=== PATIENT | male | born 1955 | race Caucasian/White ===

== ENCOUNTER 2024-05-27 00:23 | Day surgery (SDC) | payer MEDICARE, SELFPAY ==
[2024-05-14 15:21] VITALS: BMI 26.7
[2024-05-27 06:15] VITALS: BP 162/64; PULSE 77; RESP 16; TEMP 36.4; O2SAT 100; BMI 27.5
[2024-05-27] MEDS: LACTATED RINGERS 1,000 ML 150 ML IV CONT (06:44)
--- NOTE | 2024-05-27 06:52 | WPDANESEPPF ---
Anes - Initial Pre Proc Eval Procedure: Operation Date: 05/27/24 07:30 Proposed Procedures p Screening Colonoscopy - Issa Myoer MD Date/Time: 05/27/24 06:52 Surgeon: Issa Moyer MD Pre Op Diagnosis: family history malignant neoplasm digestive organs Patient Data Age: 68 Gender: M Height: 1.8 m Weight: 89.6 kg Last Vital Signs Temp 36.4 C L 05/27/24 06:15 Pulse 77 05/27/24 06:15 Resp 16 05/27/24 06:15 BP 162/64 H 05/27/24 06:15 Pulse Ox 100 05/27/24 06:15 O2 Del Method Room Air 05/27/24 06:15 Allergies Allergy/AdvReac Type Severity Reaction Status Date / Time No Known Allergies Allergy Verified 05/27/24 06:24 Home Medications ?Medication ?Instructions ?Recorded ?Confirmed ?Type metoprolol succinate 50 mg See Rx Instructions .Route 10/19/23 05/27/24 Rx tablet,extended release 24 hr .COMPLEX #90 tabs hydrochlorothiazide 25 mg tablet 12.5 mg (1/2 x 25 mg) PO DAILY #45 11/22/23 05/27/24 Rx tabs simvastatin 20 mg tablet 20 mg PO DAILY #90 tabs 03/18/24 05/27/24 Rx losartan 25 mg tablet See Rx Instructions .Route 03/22/24 05/27/24 Rx .COMPLEX #90 tabs lansoprazole 30 mg capsule,delayed 30 mg PO DAILY #90 caps 04/15/24 05/27/24 Rx release Patient hx anesthesia problems: none Family hx anesthesia problems: none Results Review: All pre-operative results and documents have been reviewed as part of the pre-operative evaluation. [facility] Past Medical History Medical History (Updated 05/27/24 @ 06:52 by Zheng Phillips MD) Essential (primary) hypertension HLD (hyperlipidemia) Obesity PVCs (premature ventricular contractions) Impaired fasting glucose Family History Family History Other Carcinoma of colon Social History Social History Smoking status: Never smoker Alcohol intake: never Substance use: never Substance use type: does not use Living arrangements: with family Occupation/Education: retired Gender identity (if verbalized by the patient): Male Sexual Orientation (if Verbalized by the Patient): Straight or Heterosexual Spiritual care concerns: No Anes - Eval Final PreProcedure Day of Procedure 05/27/24 06:52 Patient weight: overweight Heart: regular rate and rhythm Lungs: clear to auscultation Airway: Mallampati scale class II Neurological: alert and oriented Last oral intake: >/= 8 hours ASA classification: II Emergent: no Anesthetic plan: proceed Anesthesia type and monitoring: general GIVS and standard monitoring Results Review: All pre-operative results and documents have been reviewed as part of the pre-operative evaluation. Informed Consent: The patient's anesthetic plan and its attendant risks and benefits were discussed with the patient/family/POA. Questions were solicited and answers provided to the satisfaction of the patient/family/POA.
--- NOTE | 2024-05-27 07:35 | PM.IMHP ---
H&P: HPI History of Present Illness Date/Time: 05/27/24 07:35 Chief Complaint: History of colon polyps -family history of colon cancer Narrative: The patient has a history of colonic polyps, the last colonoscopy was 8 years ago. In addition, his father had colorectal cancer at age 70. Review of Systems Review of Systems: All systems reviewed & are unremarkable except as noted in HPI and below PMFSH Past Medical History Medical History (Updated 05/27/24 @ 07:37 by Issa Moyer MD) Essential (primary) hypertension HLD (hyperlipidemia) Obesity PVCs (premature ventricular contractions) Impaired fasting glucose Family History Family History Other Carcinoma of colon Social History Social History Smoking status: Never smoker Alcohol intake: never Substance use: never Substance use type: does not use Living arrangements: with family Occupation/Education: retired Gender identity (if verbalized by the patient): Male Sexual Orientation (if Verbalized by the Patient): Straight or Heterosexual Spiritual care concerns: No Meds Home Medications and Allergies Home Medications ?Medication ?Instructions ?Recorded ?Confirmed ?Type metoprolol succinate 50 mg See Rx Instructions .Route 10/19/23 05/27/24 Rx tablet,extended release 24 hr .COMPLEX #90 tabs hydrochlorothiazide 25 mg tablet 12.5 mg (1/2 x 25 mg) PO DAILY #45 11/22/23 05/27/24 Rx tabs simvastatin 20 mg tablet 20 mg PO DAILY #90 tabs 03/18/24 05/27/24 Rx losartan 25 mg tablet See Rx Instructions .Route 03/22/24 05/27/24 Rx .COMPLEX #90 tabs lansoprazole 30 mg capsule,delayed 30 mg PO DAILY #90 caps 04/15/24 05/27/24 Rx release Allergies Allergy/AdvReac Type Severity Reaction Status Date / Time No Known Allergies Allergy Verified 05/27/24 06:24 Vital Signs Vital Signs - 24 hr 05/27/24 06:15 Temperature 97.5 F L Pulse Rate 77 Respiratory Rate 16 Blood Pressure 162/64 H Pulse Oximetry 100 Oxygen Delivery Room Air Exam Const: General: cooperative and healthy appearing Resp: Effort & Inspection: normal respiratory effort and able to speak in complete sentences Auscultation: clear to auscultation bilaterally Cardio: Rate: regular rate Rhythm: regular rhythm GI: Inspection: normal to inspection GI Palp: No No hepatosplenomegaly present Auscultation: normal bowel sounds Rectal Exam: deferred Skin: General skin exam: normal color Psych: Appearance: grossly normal Mental Status: mental status grossly normal Assessment and Plan Assessment and plan (1) History of colonic polyps: Code(s): Z86.0100 - Personal history of colon polyps, unspecified Status: Acute Assessment and Plan: The patient is deemed a good candidate for the procedure. Consent signed. Will proceed.
[2024-05-27 08:06] VITALS: BP 130/80; PULSE 56; RESP 19; O2SAT 100
[2024-05-27 08:16] VITALS: BP 136/79; PULSE 52; RESP 20; O2SAT 100
[2024-05-27 08:26] VITALS: BP 154/82; PULSE 54; RESP 18; O2SAT 100
== END 2024-05-27 08:43 | disposition home or self-care (01) ==
PROVIDERS: PCP Family Medicine; Referring Provider Family Medicine; Visit Provider Internal Medicine Gastroenterology
PROC: 0DJD8ZZ Inspection of Lower Intestinal Tract, Via Natural or Artificial Opening Endoscopic (ICD-10-PCS; CPT 45378; principal; 2024-05-27 07:30)
DX: Z12.11 Encounter for screening for malignant neoplasm of colon (principal); Z80.0 Family history of malignant neoplasm of digestive organs; D12.2 Benign neoplasm of ascending colon; K57.30 Diverticulosis of large intestine without perforation or abscess without bleeding; D12.3 Benign neoplasm of transverse colon; I10 Essential (primary) hypertension; E78.5 Hyperlipidemia, unspecified
CPT/HCPCS: 45380; 45385; 88305; J2003; J2704; J7120

== ENCOUNTER 2024-06-11 09:37 | Outpatient (CLI) | payer MEDICARE, SELFPAY ==
--- NOTE | ~2024-06-11 | US_ITS ---
Limited Abdominal Sonogram: Real-time sonographic imaging of the right upper quadrant was performed. Clinical History: Cholelithiasis Findings: The liver appears normal with no evidence of mass lesion or bile duct dilatation. Main por eduardo vein demonstrates normal direction of flow. The gallbladder is well distended, and demonstrates e chogenic, shadowing gallstones and probable gallbladder sludge. No gallbladder wall thickening. The c ommon bile duct measures 4 mm. The visualized pancreas, aorta, and IVC are unremarkable. Right renal cyst noted. Impression: Cholelithiasis and gallbladder sludge. Reviewed, dictated and finalized at location . Impression: Cholelithiasis and gallbladder sludge.
== END 2024-06-11 09:38 | disposition home or self-care (01) ==
LOC: MICIMG 09:38
PROVIDERS: PCP Family Medicine; Visit Provider Surgery
DX: K80.20 Calculus of gallbladder without cholecystitis without obstruction (principal)
CPT/HCPCS: 76705

== ENCOUNTER 2024-06-11 11:23 | Outpatient (CLI) | payer MEDICARE, SELFPAY ==
--- NOTE | ~2024-06-11 | XR_ITS ---
EXAMINATION: XR chest 2V DATE: 06/11/2024 14:10 INDICATION: Colon polyps. Preoperative evaluation. TECHNIQUE: PA and lateral views of the chest were obtained. COMPARISON: None FINDINGS: Small calcified nodule at the right apex consistent with old granulomatous disease. No other airspace opacities, pulmonary edema, pleural effusion or pneumothorax. The cardiomediastinal silhouette is no rmal. Mild to moderate thoracic spondylosis with bridging osteophytes at multiple levels consistent w ith diffuse idiopathic skeletal hyperostosis (DISH). IMPRESSION: 1. No acute cardiopulmonary disease. Reviewed, dictated and finalized at location A.
--- NOTE | 2024-06-11 12:09 | PC.NURSE ---
Report to the Outpatient Waiting Room, entrance under the green pavilion located off [facility], at time ___10:00AM____ on date ___06/21/24____. Planned Procedure Time: ___12:00PM .? Time changes happen often and if your time is changed the preop area will call you the afternoon before. - You and your visitor will be asked to self-screen and do not enter if you have any COVID symptoms. Please call surgeon if you need to reschedule. - A mask is optional within the hospital at this time. BOWEL PREP/CLEAR LIQUIDS DAY BEFORE SURGERY. Patients may have clear liquids (water, carbonated beverages, clear teas, apple juice) until 3 hours prior to surgery with a maximum of 20 ounces. - No smoking, or chewing tobacco (or any form of nicotine). No chewing gum, candy or mints. Take only the following medications with a SIP of water on the morning of surgery: NONE DO NOT STOP ANY OF YOUR OTHER PRESCRIPTION MEDICATIONS PRIOR TO SURGERY EXCEPT THE FOLLOWING Hold all vitamins and supplements for 3 days per anesthesiologist.-LAST DOSE 06/17/24 Please no make-up, nail irish, hairspray, perfume, deodorant, or body powder the day of surgery.? No jewelry (including any body piercings) or valuables the day of surgery, leave them at home.? Please take a shower or bath the night before, or the morning of, surgery with an antibacterial soap.? Wear comfortable, loose fitting clothing.? - Jewelry must be removed prior to entering the operating room.? Rings and piercings that are not removed may be cut off. - The hospital will not accept responsibility for valuables.? - Please leave all valuables, including medications, at home the day of surgery. If you are going home after surgery, a licensed regional company flatbed truck driver must drive you home.? - NO public transportation without another adult if you receive anesthesia. - We recommend that an adult stay with you for 24 hours following discharge. - We also recommend that you do not drive, make important decision, drink alcoholic beverages, or take any drugs that were not prescribed by your health care provider for at least 24 hours after your discharge time. Follow any additional instructions given to you from your surgeon. BOWEL PREP ENSURE BUNDLE ANTIBIOTICS DAY BEFORE SURGERY HIBICLENS SHOWER DAY BEFORE AND MORNING OF SURGERY Telephone instructions given to ____PATIENT & WIFE and asked if any additional questions and then verbalized understanding. Patient advised to call surgeon office or pre surgery nurse liaison [phone] if any additional questions.
--- NOTE | 2024-06-11 12:44 | ECG_ITS ---
Test Date: 2024-06-11 13:00:42 Measurements Intervals [place] Rate: 59 P: 0 WA: 157 QRS: 43 QRSD: 99 T: 57 QT: 446 QTc: 442 Interpretive Statements SINUS BRADYCARDIA WITH SINUS ARRHYTHMIA OTHERWISE NORMAL ECG Electronically Signed On 06-12-2024 12:07:37 CDT by Arden Whatley M.D.
--- OUTSIDE RECORDS SUMMARY | 2024-06-11 13:10 | XMS_ITS | Encounter Summary ---
Author Organization [facility] Address 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
--- OUTSIDE RECORDS SUMMARY | 2024-06-11 13:10 | XMS_ITS | Clinical Summary ---
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
[2024-06-11 14:22] LABS: Basophils Percent Auto 0.5 % (0.2-1.2); Eosinophils Absolute Auto 0.2 K/mm3 (0-0.3); Eosinophils Percent Auto 2.2 % (0-4.4); Hematocrit 46.5 % (42.0-52.0); Hemoglobin 15.5 g/dL (14.0-18.0); Immature Granulocyte Absolute 0.02 K/mm3 (0.00-0.031); Immature Granulocyte Percent A 0.2 % (0-0.5); Lymphocytes Absolute Auto 1.51 K/mm3 (0.9-3.2); Lymphocytes Percent Auto 17.8 % (18.3-44.2); Mean Corpuscular HGB Conc 33.3 g/dl (32-36); Mean Corpuscular Hemoglobin 30.9 pg (26-34); Mean Corpuscular Volume 92.6 fl (80-100); Mean Platelet Volume 12.3 fl (7.4-10.4); Monocytes Absolute Auto 0.7 K/mm3 (0.1-0.6); Monocytes Percent Auto 7.8 % (2.6-8.5); Neutrophils Absolute Auto 6.1 K/mm3 (1.3-6.7); Neutrophils Percent Auto 71.5 % (45.5-73.1); Platelet Count Result 236 k/mm3 (150-375); Red Blood Count 5.02 M/mm3 (4.6-6.20); Red Cell Distribution Width 13.2 % (11.5-14.5); White Blood Count 8.5 K/mm3 (4.5-10.0)
[2024-06-11 14:33] LABS: Anion Gap 6 mmol/L (4-12); Blood Urea Nitrogen 11 mg/dL (9-20); Carbon Dioxide 31 mmol/L (22-30); Chloride 99 mmol/L (98-107); Estimated Glomerular Filt Rate > 60; Glucose 76 mg/dL (65-110); Sodium 136 mmol/L (137-145)
== END 2024-06-11 11:24 | disposition home or self-care (01) ==
LOC: ANHSURGERY 11:30
PROVIDERS: PCP Family Medicine; Visit Provider Surgery
DX: K63.5 Polyp of colon (principal); I49.8 Other specified cardiac arrhythmias
CPT/HCPCS: 36415; 71046; 80048; 85025; 86850; 86900; 86901; 93005

== ENCOUNTER 2024-06-21 16:04 | Inpatient (IN) | payer MEDICARE, SELFPAY ==
[2024-06-11 11:48] VITALS: BP 134/72; PULSE 60; RESP 16; TEMP 36.8; O2SAT 100; BMI 27.6
--- NOTE | 2024-06-13 09:28 | PC.NURSE ---
Addendum entered by Karla Olson RN 06/13/24 09:38: PHONED PATIENT AND REVIEWED PRE-OP INSTRUCTIONS. HE RELAYS UNDERSTANDING. PT TO MUTUAL FUND ANALYST PAPER COPY TODAY HE WILL BE NEAR THE HOSPITAL. Original Note: Report to the Outpatient Waiting Room, entrance under the green pavilion located off [facility], at time ___10:00AM____ on date ___06/21/24____. Planned Procedure Time: ___12:00PM .? Time changes happen often and if your time is changed the preop area will call you the afternoon before. - You and your visitor will be asked to self-screen and do not enter if you have any COVID symptoms. Please call surgeon if you need to reschedule. - A mask is optional within the hospital at this time. Patients may have clear liquids (water, carbonated beverages, clear teas, apple juice) until 3 hours prior to surgery (06/21/24) with a maximum of 20 ounces. - No food from midnight until time of surgery and no smoking, or chewing tobacco (or any form of nicotine). No chewing gum, candy or mints. Take only the following medications with a SIP of water on the morning of surgery: ____NONE DO NOT STOP ANY OF YOUR OTHER PRESCRIPTION MEDICATIONS PRIOR TO SURGERY EXCEPT THE FOLLOWING Hold all vitamins and supplements for 3 days per anesthesiologist.- LAST DOSE 06/17/24 Please no make-up, nail mohawk, hairspray, perfume, deodorant, or body powder the day of surgery.? No jewelry (including any body piercings) or valuables the day of surgery, leave them at home.? Please take a shower or bath the night before, or the morning of, surgery with an antibacterial soap.? Wear comfortable, loose fitting clothing.? - Jewelry must be removed prior to entering the operating room.? Rings and piercings that are not removed may be cut off. - The hospital will not accept responsibility for valuables.? - Please leave all valuables, including medications, at home the day of surgery. If you are going home after surgery, a licensed class a truck driver must drive you home.? - NO public transportation without another adult if you receive anesthesia. - We recommend that an adult stay with you for 24 hours following discharge. - We also recommend that you do not drive, make important decision, drink alcoholic beverages, or take any drugs that were not prescribed by your health care provider for at least 24 hours after your discharge time. Follow any additional instructions given to you from your surgeon. BOWEL PREP DAY BEFORE SURGERY ENSURE BUNDLE PER DR [place]LEY ANTIBIOTICS DAY BEFORE SURGERY HIBICLENS SHOWER DAY BEFORE AND MORNING OF SURGERY Telephone instructions given to ___PATIENT AND WIFE and asked if any additional questions and then verbalized understanding. Patient advised to call surgeon office or pre surgery nurse liaison [phone] if any additional questions.
[2024-06-21] VITALS (14 sets, daily range): BP systolic 88–151; BP diastolic 42–73; PULSE 61–80; RESP 12–18; TEMP 36.1–36.5; O2SAT 99–100; BMI 27.1
--- OUTSIDE RECORDS SUMMARY | 2024-06-21 00:12 | XMS_ITS | Clinical Summary ---
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
--- OUTSIDE RECORDS SUMMARY | 2024-06-21 00:12 | XMS_ITS | Encounter Summary ---
Author Organization [facility] Address 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
--- OUTSIDE RECORDS SUMMARY | 2024-06-21 00:12 | XMS_ITS | Continuity of Care Document ---
Author Organization [facility] Address [address] [place] [address] Phone Care Team Providers Care Supervisor Electrolytic Tinning Name Role Phone Administrative, Provider Unavailable Unavail able Allergies, Adverse Reactions, Alerts Substance Reaction Status Criticality No Known Drug Allergies Active No I nformation No Known Allergies Active No Inform ation Procedures Procedure Date Medical Record Copy Medical Record Copy Per Page Affidavit Office/outpatient visit,est, mod 2011 Supplemental Report Medical Record Copy Medical Record Copy Per Page Affidavit Office/outpatient visit,est, mod 2010 Supplemental Report Office/outpatient visit,est, mod 2010 Supplemental Report Office consultation, moderate 1 Advance Directives Directive Yes / No Effective Date File Name No Information Encounters Encounter Description Practice Location Reason(s) For Visit Diagnoses Date Provider Providers Copied on Encounter [facility], [address] [place] [address], [place], [place], [id number], [place] tel:[phone] [facility] No Information 2 Administrati ve Provider. [address] [facility], [address], [place], [place], [id number], [place]. tel:[phone] Office/outpa tient visit,est, mod [facility], [address], [id number], [place] tel:[phone] [facility] ROTATOR CUFF RUPTURESPRAIN SUPRASPINATUSS PRAIN INFRASPINATUS 2 Darwin Calzada. [address], [id number], [place]. tel:[phone] [facility], [address] [place] [address], [place], [place], [id number], [place] tel:[phone] [facility] No Information 2 Administrati ve Provider. [address], [id number], [place]. tel:[phone] Office/outpa tient visit,est, [facility], [address] [place] [address], [id number], [place] tel:[phone] [facility] ROTATOR CUFF RUPTURESPRAIN SUPRASPINATUS 1 Darwin Calzada. [address] [address], [place], [place], [id number], [place]. tel:[phone] Office/outpa tient visit,est, [facility], [address] [place] [address], [place], [place], [id number], [place] tel:[phone] [facility] ROTATOR CUFF RUPTURESPRAIN SUPRASPINATUSS PRAIN INFRASPINATUS 1 Darwin Calzada. [address] [address], [place], [place], [id number], [place]. tel:[phone] Office consultation , [facility], [address] [place] [address], [id number], [place] tel:[phone] [facility] ROTATOR CUFF RUPTUREBICEPS TENDON RUPTURESPRAIN SUPRASPINATUSB ICIPITAL TENOSYNOVITIS 1 Darwin Calzada. [address], [id number], [place]. tel:[phone] Family History Family Member Type Diagnosis Age At Onset No Information Payers Payer name Insurance type Covered green party ID Authoriza tion(s) No Information Social History Type Description Quantity Date Captured Comments Sex Male Smoking Status No Information Chief Complaint And Reason For Visit No Information Reason For Referral Reason For Referral No Information History Of Present Illness Encounter Date Complaint History Of Prese nt Illness No Information Functional Status Date Functional Assessmen t No Information Instructions Date Instruction Additional Infor mation No Information Assessments Type Assessment Date No Information Patient Care Teams Name Effective Dates (start - stop) Status Members No Information
--- NOTE | 2024-06-21 10:41 | WPDANESEPPF ---
Anes - Initial Pre Proc Eval Procedure: Operation Date: 06/21/24 12:00 Proposed Procedures p Hand Assisted Laparoscopic Right Colectomy - Ruddy Huang MD Date/Time: 06/21/24 10:41 Surgeon: Ruddy Huang MD Pre Op Diagnosis: ascending colon polyp Patient Data Age: 68 Gender: M Height: 1.78 m Weight: 87.4 kg Last Vital Signs Temp 36.8 C 06/11/24 11:48 Pulse 60 06/11/24 11:48 Resp 16 06/11/24 11:48 BP 134/72 06/11/24 11:48 Pulse Ox 100 06/11/24 11:48 O2 Del Method Room Air 06/11/24 11:48 Allergies Allergy/AdvReac Type Severity Reaction Status Date / Time No Known Allergies Allergy Verified 06/11/24 11:35 Home Medications ?Medication ?Instructions ?Recorded ?Confirmed ?Type metoprolol succinate 50 mg See Rx Instructions .Route 10/19/23 06/11/24 Rx tablet,extended release 24 hr .COMPLEX #90 tabs hydrochlorothiazide 25 mg tablet 12.5 mg (1/2 x 25 mg) PO DAILY #45 11/22/23 06/11/24 Rx tabs simvastatin 20 mg tablet 20 mg PO DAILY #90 tabs 03/18/24 06/11/24 Rx losartan 25 mg tablet See Rx Instructions .Route 03/22/24 06/11/24 Rx .COMPLEX #90 tabs lansoprazole 30 mg capsule,delayed 30 mg PO DAILY #90 caps 04/15/24 06/11/24 Rx release cholecalciferol (vitamin D3) 125 5,000 unit PO DAILY 06/11/24 06/11/24 History mcg (5,000 unit) capsule vitamin E mixed 400 unit capsule 400 unit PO 3XW 06/11/24 06/11/24 History ciprofloxacin HCl 500 mg tablet See Rx Instructions .Route 06/19/24 Rx .COMPLEX #1 tablet metronidazole 500 mg tablet See Rx Instructions .Route 06/19/24 Rx .COMPLEX #3 tabs Patient hx anesthesia problems: none Family hx anesthesia problems: none Results Review: All pre-operative results and documents have been reviewed as part of the pre-operative evaluation. [facility] Past Medical History Medical History (Updated 06/03/24 @ 09:56 by Maricarmen Hurtado CMA) Essential (primary) hypertension Gallbladder disorder Asthma Arthritis HLD (hyperlipidemia) Obesity PVCs (premature ventricular contractions) Impaired fasting glucose Family History Family History Father Carcinoma of colon Heart disease Hypertension Social History Social History Smoking status: Never smoker Alcohol intake: never Substance use: never Substance use type: does not use Do You Feel Safe in your Home?: Yes Lack of Transportation: No Lack of Food: Never True Current Housing: I Have Housing Concerned About Future Housing: No Difficulty Paying Gas/Electric Bills: No Difficulty Paying for Meds: No Currently Unemployed: No Education: High School Diploma/GED Difficulty w/ Childcare or Family Care: No Living arrangements: with family Occupation/Education: retired Gender identity (if verbalized by the patient): Male Sexual Orientation (if Verbalized by the Patient): Straight or Heterosexual Spiritual care concerns: No Anes - Eval Final PreProcedure Day of Procedure 06/21/24 10:41 Patient weight: overweight Heart: regular rate and rhythm Lungs: clear to auscultation Airway: Mallampati scale class II Neurological: alert and oriented Last oral intake: >/= 8 hours ASA classification: III Emergent: no Anesthetic plan: proceed Anesthesia type and monitoring: general ETT and standard monitoring Results Review: All pre-operative results and documents have been reviewed as part of the pre-operative evaluation. Informed Consent: The patient's anesthetic plan and its attendant risks and benefits were discussed with the patient/family/POA. Questions were solicited and answers provided to the satisfaction of the patient/family/POA.
[2024-06-21] MEDS: KETOROLAC 15 MG/ML VIAL (*BKC) IV PUSH (10:59)
[2024-06-21] MEDS: LACTATED RINGERS 1,000 ML 30 ML IV CONT ×3 (10:59→14:19)
[2024-06-21] MEDS: ACETAMINOPHEN 500 MG TABLET 1000 MG PO (10:59)
[2024-06-21] MEDS: ALVIMOPAN 12 MG CAPSULE PO (10:59)
--- NOTE | 2024-06-21 11:16 | WPDHPUPDATE1 ---
History and Physical Update Update Date/Time: 06/21/24 11:16 History and Physical has been reviewed, including an updated exam of the patient. There are NO changes in the patient's condition. Risks, benefits, and alternatives have been discussed and questions answered. Patient agrees to proceed with procedure.
--- NOTE | 2024-06-21 11:18 | WPDHPUPDATE1 ---
History and Physical Update Update Date/Time: 06/21/24 11:18 History and Physical has been reviewed, including an updated exam of the patient. There are NO changes in the patient's condition. Risks, benefits, and alternatives have been discussed and questions answered. Patient agrees to proceed with procedure.
[2024-06-21] MEDS: ceFAZolin 2 GM/D5W 50 ML 2 GM/50 ML BAG IVPB (11:48)
[2024-06-21] MEDS: metroNIDAZOLE 500 MG/ISO 100ML 500 MG/100 ML BAG 100 MG IVPB (12:05)
[2024-06-21] MEDS: BUPIVACAINE/EPINEPHRINE 0.5% 30 ML VIAL 50 ML INFILTRATE (12:17)
--- NOTE | 2024-06-21 14:59 | W.PM.PROC2 ---
Procedure Note - Detailed Date of Procedure 06/22/24 Pre-op Diagnosis ascending colon polyp Post-op Diagnosis Same Procedure Performed Hand access laparoscopic right colectomy with hand-sewn ileotransverse anastomosis Surgeon Ruddy Huang MD Parachute Line Tier Claudia Cuevas [employer] MANA[employer] SALES CONSULTANT Anesthesia General and Local Indications patient underwent screening colonoscopy and was found to have a 3 cm polyp very near the ileocecal valve that was unable to be resected with the colonoscope. 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 He is taken to surgery now for hand access laparoscopic right colectomy Findings polyp was not really palpable in the cecum. No other significant findings were noted Description of Procedure patient was taken to surgery and induced into general anesthesia. The abdomen is prepped and draped. Hand access incision was marked on the skin just above the umbilicus in the midline. Local was infiltrated in the skin and subcutaneous. Incision was made and dissection was carried down to the midline fascia. More local was infiltrated into the fascia and deep to the fascia. Fascia was then opened and extended the length of the wound. Peritoneum was opened and extended the length of the wound. An Ángel wound guard was placed in the wound. The GelPort was placed. With the hand in the abdomen a right lower quadrant 5 mm trocar was placed and insufflation was carried out. A left lower abdominal 5 mm port was also placed under direct visualization. The cecum and distal ileum more exposed. Using the LigaSure the base of the mesentery was divided so that there was access into the retroperitoneum. Using a combination of gentle blunt dissection as well as additional LigaSure, dissection was carried from a caudal to cephalad until the transverse colon mesentery was visible. I then opened the distal ileal mesentery and divided the mesentery up to the distal ileum where the proximal resection was planned. Dissection was then carried out in the right colon mesentery. The ileal colic artery was found. It was dissected and then divided with the LigaSure. We continued the mesenteric division up to the transverse colon mesentery. I then divided the lateral peritoneal attachments of the ascending colon. At the hepatic flexure, the Hepatocolic ligament was exposed and was divided with the LigaSure. I then exposed the transverse colon mesentery. We divided this with the LigaSure over to the right branch of the middle colic artery. This was divided with the LigaSure as well. I then divided the mesentery in this area up to the transverse colon proximal aspect. At this point, we had and a full colon mobilized that I stopped insufflation and removed the GelPort. The ascending colon, proximal transverse colon, distal ileum were eviscerated. I dissected some additional mesentery near the distal ileum and proximal transverse colon. I then used a TLC 75 stapler and divided both the distal ileum and the transverse colon with a single load. The right colon specimen was passed off to pathology in formalin. The 2 ends of bowel looked well vascularized. I made sure the mesentery to the distal ileum was not twisted. I then placed the distal ileum and proximal transverse colon in proximity to 1 another anticipating a [id number] but functional end-to-end anastomosis. The posterior outer layer was created with interrupted 4-0 silk Lembert sutures. Dry and crushing bowel clamps were placed both on the more proximal ileum and more distal transverse colon to avoid spillage. The ileum and transverse colon were opened opposite 1 another. Bidirectional running 4-0 chromic suture was then used to form 1st the posterior inner layer and then the anterior inner layer tying in the middle of the anastomosis. The 2 layer anastomosis was then finished with an anterior outer layer of 4-0 silk Lembert suture. All looked good, the bowel clamps had been removed. I dropped the anastomosis back in the abdomen. We replaced the GelPort and then reinsufflated the abdomen. We reviewed the areas of dissection and the anastomosis again laparoscopically. There was no sign of bleeding. The anastomosis looked quite healthy without any twisting of bowel or mesentery. We then evacuated CO2 and removed the GelPort and Nágel. The surgical team changed gown and gloves and a clean closure tray was used. The hand access port was closed at the fascial level with bidirectional running 0 PDS suture. Interrupted subcutaneous sutures of 3-0 Vicryl were then placed. The skin was loosely approximated with subcuticular 4-0 Vicryl interrupted suture. All skin wounds were then closed finally with a running 4-0 Monocryl skin suture. The wounds were dressed with Exofin surgical adhesive. Before awakening, the patient had straight cath as it had been noted his bladder was distended. He was then awakened, extubated, and taken to recovery in good condition. Sponge and needle counts were correct x2. Estimated Blood Loss -30 Drains No Packing No Pathology Yes (Right colon) Complications None Condition Stable Disposition PACU [facility] Billing Surgery - Charge Forward: Surgery Billing (Hand access laparoscopic right colectomy with hand-sewn anastomosis)
[2024-06-21] MEDS: fentaNYL CITRATE INJ (*CRX) 100 MCG/2 ML VIAL 25 MCG IV PUSH ×3 (15:12→15:30)
[2024-06-21] MEDS: ONDANSETRON INJ 4 MG/2 ML VIAL IV PUSH ×3 (15:52→23:37)
--- NOTE | 2024-06-21 17:24 | ADMGEN ---
This patient, Rylan Caro, was admitted to 3 Med Surg Room 310-01. Patient/family oriented to hospital policies and general routines including ID bracelet, bed and alarms, visiting hours, pain management, procedures, bathroom and other care routines, personal items, smoking policy, room service/diet, and visiting hours. Information on how to activate the Rapid Response Team has been discussed. Patient/Family are encouraged to report perceived risks to care and to ask questions if they do not understand what they are told or what they should do.
[2024-06-21] MEDS: LACTATED RINGERS 1,000 ML 100 ML IV CONT (18:07)
[2024-06-21] MEDS: IBUPROFEN IV 800 MG/200 ML 800 MG/200 ML BAG 400 MG IVPB (21:17)
[2024-06-22 00:30] VITALS: BP 112/63; PULSE 72; RESP 17; TEMP 36.5; O2SAT 98
[2024-06-22 05:31] VITALS: BP 135/67; PULSE 94; RESP 16; TEMP 36.8; O2SAT 99
[2024-06-22 06:09] LABS: Hematocrit 37.2 % (42.0-52.0); Hemoglobin 12.4 g/dL (14.0-18.0); Mean Corpuscular HGB Conc 33.3 g/dl (32-36); Mean Corpuscular Hemoglobin 31.2 pg (26-34); Mean Corpuscular Volume 93.7 fl (80-100); Mean Platelet Volume 11.9 fl (7.4-10.4); Platelet Count Result 208 k/mm3 (150-375); Red Blood Count 3.97 M/mm3 (4.6-6.20); Red Cell Distribution Width 13.3 % (11.5-14.5); White Blood Count 14.4 K/mm3 (4.5-10.0)
[2024-06-22 06:18] LABS: Anion Gap 7 mmol/L (4-12); Blood Urea Nitrogen 9 mg/dL (9-20); Calcium 8.5 mg/dL (8.4-10.2); Carbon Dioxide 28 mmol/L (22-30); Chloride 99 mmol/L (98-107); Estimated CRCL calculation 75 ml/min; Estimated Glomerular Filt Rate > 60; Glucose 120 mg/dL (65-110); Potassium 3.6 mmol/L (3.4-5.0); Sodium 134 mmol/L (137-145)
[2024-06-22 08:39] VITALS: PULSE 90
[2024-06-22] MEDS: METOPROLOL SUCCINATE EXT REL 50 MG TABCR BY MOUTH (08:39)
[2024-06-22] MEDS: PANTOPRAZOLE 40 MG TABLET PO (08:39)
[2024-06-22] MEDS: LOSARTAN POTASSIUM 25 MG TABLET BY MOUTH (08:39)
[2024-06-22] MEDS: hydroCHLOROthiazide 12.5 MG CAPSULE PO (08:41)
[2024-06-22 11:07] VITALS: BP 141/71; PULSE 81; RESP 16; TEMP 36.7; O2SAT 100
--- NOTE | 2024-06-22 12:09 | P.PNGS_ITS ---
Progress Note: A&P Assessment and Plan (1) Adenomatous colon polyp: Qualifiers: Colon location: ascending Qualified Code(s): D12.2 - Benign neoplasm of ascending colon Code(s): D12.6 - Benign neoplasm of colon, unspecified Status: Acute (2) History of partial surgical removal of colon: Code(s): Z90.49 - Acquired absence of other specified parts of digestive tract Status: Acute Assessment and Plan: Doing well postop day 1. Continue full liquids. Ambulate. Recheck labs and exam again tomorrow. Subjective Subjective Date/Time Seen: 06/22/24 12:09 Post Op day: 1 Patient reports: feels better, pain is less, voiding w/o difficulty, nausea (Las t night but much better this morning) and afebrile Exam GI: Inspection: non-distended and incision (Healing well) GI Palp: Yes Soft to palpation and Yes Tenderness to palpation present (GI) Auscultation: Hypoactive bowel sounds present Objective Data Vital Signs Vital Signs: Vital Signs - 24 hr 06/21/24 14:19 06/21/24 14:30 06/21/24 14:45 Temperature 36.1 C L Pulse Rate 69 62 62 Respiratory Rate 12 16 14 Blood Pressure 88/42 L 94/47 L 103/55 L Pulse Oximetry 100 100 100 Oxygen Delivery Simple Face Mask Simple Face Mask Simple Face Mask Oxygen Flow Rate 8 8 8 06/21/24 15:00 06/21/24 15:15 06/21/24 15:30 Temperature Pulse Rate 63 61 68 Respiratory Rate 12 16 16 Blood Pressure 103/52 L 108/50 L 112/50 L Pulse Oximetry 100 100 100 Oxygen Delivery Room Air Room Air Room Air Oxygen Flow Rate 06/21/24 15:45 06/21/24 15:59 06/21/24 16:25 Temperature 36.2 C L 36.2 C L Pulse Rate 80 67 71 Respiratory Rate 16 16 18 Blood Pressure 106/58 L 126/60 108/62 Pulse Oximetry 100 100 100 Oxygen Delivery Room Air Room Air Oxygen Flow Rate 06/21/24 16:40 06/21/24 17:10 06/21/24 18:10 Temperature 36.3 C L 36.1 C L 36.3 C L Pulse Rate 77 72 74 Respiratory Rate 18 18 18 Blood Pressure 118/60 113/62 129/66 Pulse Oximetry 99 100 100 Oxygen Delivery Oxygen Flow Rate 06/21/24 21:40 06/22/24 00:30 06/22/24 05:31 Temperature 36.3 C L 36.5 C 36.8 C Pulse Rate 76 72 94 Respiratory Rate 16 17 16 Blood Pressure 132/68 112/63 135/67 Pulse Oximetry 100 98 99 Oxygen Delivery Oxygen Flow Rate 06/22/24 08:39 06/22/24 11:07 Temperature 36.7 C Pulse Rate 90 81 Respiratory Rate 16 Blood Pressure 141/71 H Pulse Oximetry 100 Oxygen Delivery Oxygen Flow Rate Intake/Output Intake/Output: Intake & Output 06/19/24 06/20/24 06/21/24 06/22/24 23:59 23:59 23:59 23:59 Intake Total 1268 0 Balance 1268 0 Meds/Results Medications: Active Medications Generic Name Dose Route Start Last Admin Trade Name Freq PRN Reason Stop Dose Admin Acetaminophen 500 mg 06/21/24 16:04 Acetaminophen 500 Mg Tablet PO Q6H PRN Pain Rated 1-3 Alvimopan 12 mg 06/22/24 21:00 Alvimopan 12 Mg Capsule PO 06/29/24 20:59 Q12HR [facility] Enoxaparin Sodium 40 mg 06/22/24 09:00 06/22/24 08:42 Enoxaparin 40 Mg/0.4 Ml Syringe SUB-Q Not Given DAILY [facility] Hydrochlorothiazide 12.5 mg 06/22/24 09:00 06/22/24 08:41 Hydrochlorothiazide 12.5 Mg Capsule PO 12.5 mg DAILY JORDY Administration Ibuprofen 800 mg in 200 mls @ 400 mls/hr 06/21/24 16:04 06/21/24 21:17 Caldolor 800 Mg/200 Ml IVPB 400 mls/hr Q6H PRN Administration Breakthrough Pain Rated 1-3 or NPO Potassium Chloride/Sodium Chloride 1,000 mls @ 80 mls/hr 06/22/24 10:00 Kcl 40 Meq/Ns IV CONT .[id number] [facility] Losartan Potassium 25 mg 06/22/24 09:00 06/22/24 08:39 Losartan Potassium 25 Mg Tablet BY MOUTH 25 mg DAILY JORDY Administration Metoprolol Succinate 50 mg 06/22/24 09:00 06/22/24 08:39 Metoprolol Succinate Ext Rel 50 Mg Tabcr BY MOUTH 50 mg DAILY JORDY Administration Morphine Sulfate 1 mg 06/21/24 16:04 Morphine Sulfate (*Crx) 2 Mg/Ml Inj IV PUSH Q2H PRN Breakthrough Pain Rated 4-6 or NPO Morphine Sulfate 2 mg 06/21/24 16:04 Morphine Sulfate (*Crx) 4 Mg/Ml Inj IV PUSH Q2H PRN Breakthrough Pain Rated 7-10 or NPO Naloxone HCl 0.1 mg 06/21/24 16:04 Naloxone Hcl 0.4 Mg/Ml Vial IV PUSH Q2M PRN Opiate Reversal Ondansetron HCl 4 mg 06/21/24 17:50 06/21/24 23:37 Ondansetron Inj 4 Mg/2 Ml Vial IV PUSH 4 mg Q4H PRN Administration Nausea And Vomiting Oxycodone/Acetaminophen 1 tablet 06/21/24 16:04 Oxycodone/Acetaminophen (*Crx) 5-325 Mg Tablet PO Q4H PRN Pain Rated 4-6 Oxycodone/Acetaminophen 1 tab 06/21/24 16:04 Oxycodone/Acetaminophen (*Crx) 10-325 Mg Tablet PO Q6H PRN Pain Rated 7-10 Pantoprazole Sodium 40 mg 06/22/24 09:00 06/22/24 08:39 Pantoprazole 40 Mg Tablet PO 40 mg QAM JORDY Administration Labs Labs: Laboratory Results - last 24 hr 06/22/24 05:32 WBC 14.4 H RBC 3.97 L Hgb 12.4 L D Hct 37.2 L MCV 93.7 MCH 31.2 MCHC 33.3 RDW 13.3 Plt Count 208 MPV 11.9 H Sodium 134 L Potassium 3.6 Chloride 99 Carbon Dioxide 28 Anion Gap 7 BUN 9 Creatinine 0.82 Estim Creat Clear Calc 75 Estimated GFR > 60 Glucose 120 H Calcium 8.5
[2024-06-22] MEDS: KCL 40 MEQ/0.9% SOD CHL 1,000 ML 80 ML IV CONT (14:20)
[2024-06-22 15:51] VITALS: BP 127/65; PULSE 76; RESP 16; TEMP 36.3; O2SAT 100
--- NOTE | 2024-06-22 16:30 | WPDANESPN ---
Anes - Prog Note Post-Op Date/Time: 06/22/24 16:30 Cardiovascular status: normal Respiratory status: normal Airway patency: baseline Mental status: baseline Post-Op hydration status: normal Vital Signs: Last Vital Signs Temp 36.3 C L 06/22/24 15:51 Pulse 76 06/22/24 15:51 Resp 16 06/22/24 15:51 BP 127/65 06/22/24 15:51 Pulse Ox 100 06/22/24 15:51 O2 Del Method Room Air 06/21/24 15:59 O2 Flow Rate 8 06/21/24 14:45 Pain Score (VAS): 3 I/O: Intake & Output 06/22/24 06/22/24 06/22/24 07:59 15:59 23:59 Intake Total 410 Balance 410 Laboratory Tests 06/22/24 05:32 06/22/24 05:32 06/22/24 05:32 WBC 14.4 H RBC 3.97 L Hgb 12.4 L D Hct 37.2 L MCV 93.7 MCH 31.2 MCHC 33.3 RDW 13.3 Plt Count 208 MPV 11.9 H Sodium 134 L Potassium 3.6 Chloride 99 Carbon Dioxide 28 Anion Gap 7 BUN 9 Creatinine 0.82 Estim Creat Clear Calc 75 Estimated GFR > 60 Glucose 120 H Calcium 8.5 Post-procedural complaints: none Patient Feedback: Patient satisfied with anesthetic care.
[2024-06-22] MEDS: ALVIMOPAN 12 MG CAPSULE PO (20:54)
[2024-06-22 21:43] VITALS: BP 132/64; PULSE 87; RESP 16; TEMP 36.6; O2SAT 100
[2024-06-23 05:20] VITALS: BP 130/66; PULSE 74; RESP 16; TEMP 36.3; O2SAT 99
[2024-06-23 06:24] LABS: Hematocrit 33.7 % (42.0-52.0); Hemoglobin 11.2 g/dL (14.0-18.0); Mean Corpuscular HGB Conc 33.2 g/dl (32-36); Mean Corpuscular Hemoglobin 30.9 pg (26-34); Mean Corpuscular Volume 93.1 fl (80-100); Mean Platelet Volume 12.3 fl (7.4-10.4); Platelet Count Result 202 k/mm3 (150-375); Red Blood Count 3.62 M/mm3 (4.6-6.20); Red Cell Distribution Width 13.8 % (11.5-14.5); White Blood Count 17.1 K/mm3 (4.5-10.0)
[2024-06-23 06:55] LABS: Anion Gap 8 mmol/L (4-12); Blood Urea Nitrogen 18 mg/dL (9-20); CRP 3.7 mg/dL (<1.0); Calcium 8.7 mg/dL (8.4-10.2); Carbon Dioxide 27 mmol/L (22-30); Chloride 100 mmol/L (98-107); Estimated CRCL calculation 54 ml/min; Estimated Glomerular Filt Rate > 60; Glucose 102 mg/dL (65-110); Potassium 3.6 mmol/L (3.4-5.0); Sodium 135 mmol/L (137-145)
[2024-06-23 08:00] VITALS: PULSE 98; RESP 16; O2SAT 98
[2024-06-23] MEDS: KCL 40 MEQ/0.9% SOD CHL 1,000 ML 80 ML IV CONT (09:35)
[2024-06-23 09:36] VITALS: PULSE 98
[2024-06-23] MEDS: METOPROLOL SUCCINATE EXT REL 50 MG TABCR BY MOUTH (09:36)
[2024-06-23] MEDS: ENOXAPARIN 40 MG/0.4 ML SYRINGE SUB-Q (09:36)
[2024-06-23] MEDS: hydroCHLOROthiazide 12.5 MG CAPSULE PO (09:36)
[2024-06-23] MEDS: ALVIMOPAN 12 MG CAPSULE PO (09:39)
[2024-06-23] MEDS: LOSARTAN POTASSIUM 25 MG TABLET BY MOUTH (09:39)
[2024-06-23] MEDS: PANTOPRAZOLE 40 MG TABLET PO (09:39)
[2024-06-23 09:50] VITALS: O2SAT 98
--- NOTE | 2024-06-23 10:42 | P.DS_ITS ---
DS: Admitting Diagnosis Discharge Date 06/23/2024 Admitting Diagnosis * Cecal polyp-tubulovillous adenoma * Essential hypertension * Barretts esophagus without dysplasia * Cholelithiasis DS: Discharge Diagnosis Discharge Diagnosis (1) Polyp of ascending colon: Code(s): K63.5 - Polyp of colon Status: Acute (2) Essential (primary) hypertension: Code(s): I10 - Essential (primary) hypertension Status: Chronic (3) Barretts esophagus: Qualifiers: Villalobos's esophagus type: without dysplasia Qualified Code(s): K22.70 - Villalobos's esophagus without dysplasia Code(s): K22.70 - Villalobos's esophagus without dysplasia Status: Chronic (4) Cholelithiasis: Qualifiers: Cholelithiasis location: gallbladder Cholecystitis presence: without cholecystitis Biliary obstruction: without biliary obstruction Qualified Code(s): K80.20 - Calculus of gallbladder without cholecystitis without obstruction Code(s): K80.20 - Calculus of gallbladder without cholecystitis without obstruction Status: Acute DS: Summary Hospital Course Hospital Course: Patient had colonoscopy which showed a 3 cm tubulovillous adenoma in the cecum adjacent to the ileocecal valve. This polyp was non resectable with colonoscopy. He was seen in the office and surgery discussed. He had home bowel preparation and then was taken to surgery on 06/21/2024. Hand access laparoscopic right colectomy was performed with 2 layer hand-sewn ileotransverse anastomosis. Postoperatively the patient did well, he had bowel movements even the day of surgery. His diet was slowly advanced to solid food. He was ambulating independently and comfortable on oral analgesics by postop day 2. On his CBC, his white blood cell count increased to 17,100 on postop day 2., it was 14,100 on postop day 1. Patient was otherwise doing well and was desiring to go home. He is discharged on postop day 2. In good condition but with plans to repeat his cbc in 2 days time on 06/25/2024. Status at Discharge Functional status at discharge: independent ambulation Overall status at discharge: patient is progressing back to baseline Time Spent with Patient Time attestation: Total time spent providing and/or coordinating discharge services: Time spent: Less than 30 minutes Exam Const: General: comfortable, alert and awake Nutritional Appearance: thin Resp: Effort & Inspection: normal respiratory effort, no cough, not tachypneic and symmetric chest movement Auscultation: clear to auscultation bilaterally Cardio: Rate: regular rate Rhythm: regular rhythm GI: Inspection: non-distended, incision (Dry and healing well) and scaphoid GI Palp: Yes Soft to palpation and Yes Tenderness to palpation present (GI) (Minimal but appropriate tenderness) Auscultation: normal bowel sounds and normoactive bowel sounds DS: Data Data Completed and Pending Pending studies at discharge: Pending at discharge 06/21/24 12:13 Surgical [PTH] Routine Labs on day of discharge: Labs from last 24 hours 06/23/24 05:40 WBC 17.1 H RBC 3.62 L Hgb 11.2 L Hct 33.7 L MCV 93.1 MCH 30.9 MCHC 33.2 RDW 13.8 Plt Count 202 MPV 12.3 H Sodium 135 L Potassium 3.6 Chloride 100 Carbon Dioxide 27 Anion Gap 8 BUN 18 Creatinine 1.17 Estim Creat Clear Calc 54 Estimated GFR > 60 Glucose 102 Calcium 8.7 C-Reactive Protein 3.7 H Discharge Plan Discharge Attending physician on discharge: Ruddy Huang Discharging Clinician: Ruddy Huang Anticipated Discharge Date/Time: 06/23/24 10:50 Patient Disposition: Home, Self-Care Activity: may shower and as tolerated Diet: regular Wound Care Instructions: incision open to air Discharge Instructions: * Ambulate 3-4 x per day and as tolerated. * No lifting over 15-20lbs. * May bathe or shower. Okay to wash over all incisions with soap and water * Stairs are OK. * May drive a car in 3 days. Patient Instructions: Antibiotic Form Patient Language: Tamazight Stand Alone Forms: General Discharge Information Follow-up/Referrals: Ruddy Huang MD [Physician] - 2 Weeks Discharge Medications: New oxycodone-acetaminophen [Percocet] 5-325 mg tablet 0.5 - 1 tablet PO Q4H PRN (Reason: pain) Qty: 10 0RF ibuprofen 600 mg tablet 600 mg PO Q6H PRN (Reason: pain) Qty: 14 0RF Continued cholecalciferol (vitamin D3) 125 mcg (5,000 unit) capsule 5,000 unit PO DAILY vitamin E mixed 400 unit capsule 400 unit PO 3XW metoprolol succinate 50 mg tablet extended release 24 hr See Rx Instructions .ROUTE .COMPLEX Qty: 90 3RF Dose Instruction: TAKE 1 TABLET BY MOUTH EVERY DAY Patient Comments: HS Rx Instructions: TAKE 1 TABLET BY MOUTH EVERY DAY hydrochlorothiazide 25 mg tablet 12.5 mg PO DAILY Qty: 45 2RF Patient Comments: QAM simvastatin 20 mg tablet 20 mg PO DAILY Qty: 90 2RF Patient Comments: HS losartan 25 mg tablet See Rx Instructions .ROUTE .COMPLEX Qty: 90 2RF Dose Instruction: TAKE 1 TABLET BY MOUTH EVERY DAY Patient Comments: QAM Rx Instructions: TAKE 1 TABLET BY MOUTH EVERY DAY lansoprazole 30 mg capsule,delayed release(DR/EC) 30 mg PO DAILY Qty: 90 2RF Discontinued ciprofloxacin HCl 500 mg tablet See Rx Instructions .ROUTE .COMPLEX Qty: 1 0RF Rx Instructions: Take 1 tablet by mouth at 2:00pm the day prior to surgery.; metronidazole 500 mg tablet See Rx Instructions .ROUTE .COMPLEX Qty: 3 0RF Rx Instructions: Take 1 tablet by mouth at 1:00pm, 2:00om, 11:00pm the day before surgery.; Other Ambulatory Orders: Complete Blood Count no Diff (Routine) Timeframe: 20240625 Location: Determined by Patient Ordered By: Ruddy Huang Date of admission: 06/21/24 16:04 Primary Care Provider: Nicola Silva Admitting Provider: Ruddy Huang Attending physician on admission: Ruddy Huang Condition: Improved
== END 2024-06-23 11:15 | disposition home or self-care (01) | DRG 331 ==
LOC: ANH3MEDSUR 16:31
PROVIDERS: Admitting Provider Surgery; PCP Family Medicine; Visit Provider Surgery
PROC: 0DTF4ZZ Resection of Right Large Intestine, Percutaneous Endoscopic Approach (ICD-10-PCS; CPT 44204; principal; 2024-06-21 12:00)
DX: D12.0 Benign neoplasm of cecum (principal); I10 Essential (primary) hypertension; K22.70 Barrett's esophagus without dysplasia; K80.20 Calculus of gallbladder without cholecystitis without obstruction
CPT/HCPCS: 36415; 80048; 85027; 86140; 88309; A9270; J0690; J1100; J1171; J1650; J1741; J1836; J1885; J2003; J2371; J2405; J2704; J3010; J7120

== ENCOUNTER 2024-06-25 09:02 | Outpatient (CLI) | payer MEDICARE, SELFPAY ==
--- OUTSIDE RECORDS SUMMARY | 2024-06-25 09:30 | XMS_ITS | Clinical Summary ---
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
--- OUTSIDE RECORDS SUMMARY | 2024-06-25 09:30 | XMS_ITS | Encounter Summary ---
[facility] Organization [facility] Address 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
--- OUTSIDE RECORDS SUMMARY | 2024-06-25 09:30 | XMS_ITS | Continuity of Care Document ---
Author Organization [facility] Address [address] [place] [address] Phone Care Team Providers Care Radiotelephone Technical Operator Name Role Phone Administrative, Provider Unavailable Unavail [...] Date Provider Providers Copied on Encounter [facility], [address] [place] [address], [id number], [place] tel:[phone] [facility] No Information 2 Administrati ve Provider. [address] [facility], [address], [place], [place], [id number], [place]. tel:[phone] Office/outpa tient visit,est, mod [facility], [address], [id number], [place] tel:[phone] [facility] ROTATOR CUFF RUPTURESPRAIN SUPRASPINATUSS PRAIN INFRASPINATUS 2 Darwin Calzada. [address], [id number], [place]. tel:[phone] [facility], [address] [place] [address], [place], [place], [id number], [place] tel:[phone] [facility] No Information 2 Administrati ve Provider. [address], [id number], [place]. tel:[phone] Office/outpa [place]ient visit,est, [facility], [address] [place] [address], [id number], [place] tel:[phone] [facility] ROTATOR CUFF RUPTURESPRAIN SUPRASPINATUS 1 Darwin Calzada. [address] [address], [place], [place], [id number], [place]. tel:[phone] Office/outpa tient visit,est, [facility], [address] [place] [address], [place], [place], [id number], [place] tel:[phone] [facility] ROTATOR CUFF RUPTURESPRAIN SUPRASPINATUSS PRAIN INFRASPINATUS 1 Darwin Calzada. [address] [address], [place], [place], [id number], [place]. tel:[phone] Office consultation , [facility], [address] [place] [address], [id number], [place] tel:[phone] [facility] ROTATOR CUFF RUPTUREBICEPS TENDON RUPTURESPRAIN SUPRASPINATUSB ICIPITAL TENOSYNOVITIS 1 Darwin Calzada. [address], [id number], [place]. tel:[phone] Family History Family Member Type Diagnosis Age At Onset No Information Payers Payer name Insurance type Covered alliance party ID Authoriza tion(s) No Information Social [...]
[2024-06-25 09:44] LABS: Hematocrit 23.2 % (42.0-52.0); Mean Corpuscular HGB Conc 34.5 g/dl (32-36); Mean Corpuscular Hemoglobin 31.9 pg (26-34); Mean Corpuscular Volume 92.4 fl (80-100); Mean Platelet Volume 12.3 fl (7.4-10.4); Platelet Count Result 207 k/mm3 (150-375); Red Blood Count 2.51 M/mm3 (4.6-6.20); Red Cell Distribution Width 13.9 % (11.5-14.5); White Blood Count 13.2 K/mm3 (4.5-10.0)
[2024-06-25 09:48] LABS: Add Urine Microscopic? NO; Appearance Urine Clear (Clear); Bilirubin Urine Negative (Negative); Blood Urine Negative (Negative); Color Urine Yellow (Yellow); Glucose Urine UA Negative (Negative); Ketones Urine Negative (Negative); Leukocyte Esterase Ur Negative LEU/UL (Negative); Nitrate Urine Negative (Negative); Protein Urine Negative (Negative); Urobilinogen Urine 0.2 mg/dL (<2.0); pH Urine 6.5 (5.0-9.0)
== END 2024-06-25 09:03 | disposition home or self-care (01) ==
PROVIDERS: PCP Family Medicine; Visit Provider Surgery
DX: R30.0 Dysuria (principal); D72.829 Elevated white blood cell count, unspecified
CPT/HCPCS: 36415; 81003; 85027

== ENCOUNTER 2024-06-27 09:58 | Outpatient (CLI) | payer MEDICARE, SELFPAY ==
[2024-06-27 10:32] LABS: Basophils Absolute Auto 0.1 K/mm3 (0.0-0.1); Basophils Percent Auto 0.4 % (0.2-1.2); Eosinophils Absolute Auto 0.8 K/mm3 (0-0.3); Hematocrit 23.9 % (42.0-52.0); Hemoglobin 7.8 g/dL (14.0-18.0); Immature Granulocyte Absolute 0.13 K/mm3 (0.00-0.031); Immature Granulocyte Percent A 0.9 % (0-0.5); Lymphocytes Absolute Auto 1.28 K/mm3 (0.9-3.2); Lymphocytes Percent Auto 9.1 % (18.3-44.2); Mean Corpuscular HGB Conc 32.6 g/dl (32-36); Mean Corpuscular Hemoglobin 31.2 pg (26-34); Mean Corpuscular Volume 95.6 fl (80-100); Mean Platelet Volume 11.2 fl (7.4-10.4); Monocytes Absolute Auto 1.6 K/mm3 (0.1-0.6); Neutrophils Absolute Auto 10.2 K/mm3 (1.3-6.7); Neutrophils Percent Auto 72.6 % (45.5-73.1); Platelet Count Result 270 k/mm3 (150-375); Red Cell Distribution Width 14.6 % (11.5-14.5); White Blood Count 14.1 K/mm3 (4.5-10.0)
--- OUTSIDE RECORDS SUMMARY | 2024-06-27 10:42 | XMS_ITS | Continuity of Care Document ---
Author Organization [facility] Address [address] [facility] [address] [place] [address] Phone Care Team Providers Care Retread Technician Name Role Phone Administrative, Provider Unavailable Unavail [...] Date Provider Providers Copied on Encounter [facility], [address] [place] [address], [id number], [place] tel:[phone] [facility] No Information 2 Administrati ve Provider. [address] [facility], [address], [place], [place], [id number], [place]. tel:[phone] Office/outpa tient visit,est, mod [facility], [address], [id number], [place] tel:[phone] [facility] ROTATOR CUFF RUPTURESPRAIN SUPRASPINATUSS PRAIN INFRASPINATUS 2 Darwin Calzada. [address], [id number], [place]. tel:[phone] [facility], [address] [place] [address], [place], [place], [id number], [place] tel:[phone] [facility] No Information 2 Administrati ve Provider. [address], [id number], [place]. tel:[phone] Office/outpa tient visit,est, [facility], [address] [place] [address], [id number], [place] tel:[phone] [facility] ROTATOR CUFF RUPTURESPRAIN SUPRASPINATUS 1 Darwin Calzada. [address] [address], [place], [place], [id number], [place]. tel:[phone] Office/outpa tient visit,est, [facility], [address] [place] [address], [place], [place], [id number], [place] tel:[phone] [facility] ROTATOR CUFF RUPTURESPRAIN SUPRASPINATUSS PRAIN INFRASPINATUS 1 Darwin Calzada. [address] [address], [place], [place], [id number], [place]. tel:[phone] Office consultation , [facility], [address] [place] [address], [id number], [place] tel:[phone] [facility] ROTATOR CUFF RUPTUREBICEPS TENDON RUPTURESPRAIN SUPRASPINATUSB ICIPITAL TENOSYNOVITIS 1 Darwin Calzada. [address], [id number], [place]. tel:[phone] Family History Family Member Type Diagnosis Age At Onset No Information Payers Payer name Insurance type Covered constitution party ID Authoriza tion(s) No Information Social [...]
--- OUTSIDE RECORDS SUMMARY | 2024-06-27 10:42 | XMS_ITS | Clinical Summary ---
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
--- OUTSIDE RECORDS SUMMARY | 2024-06-27 10:42 | XMS_ITS | Encounter Summary ---
Author Organization [facility] Address 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
== END 2024-06-27 09:59 | disposition home or self-care (01) ==
LOC: ANHLAB 10:01
PROVIDERS: PCP Family Medicine; Visit Provider Surgery
DX: D72.829 Elevated white blood cell count, unspecified (principal)
CPT/HCPCS: 36415; 85025

== ENCOUNTER 2024-07-02 10:56 | Outpatient (CLI) | payer MEDICARE, SELFPAY ==
[2024-07-02 11:28] LABS: Basophils Percent Auto 0.3 % (0.2-1.2); Eosinophils Absolute Auto 0.5 K/mm3 (0-0.3); Eosinophils Percent Auto 4.9 % (0-4.4); Hematocrit 27.6 % (42.0-52.0); Hemoglobin 8.8 g/dL (14.0-18.0); Immature Granulocyte Absolute 0.06 K/mm3 (0.00-0.031); Immature Granulocyte Percent A 0.6 % (0-0.5); Lymphocytes Absolute Auto 0.91 K/mm3 (0.9-3.2); Lymphocytes Percent Auto 9.1 % (18.3-44.2); Mean Corpuscular HGB Conc 31.9 g/dl (32-36); Mean Corpuscular Hemoglobin 31.1 pg (26-34); Mean Corpuscular Volume 97.5 fl (80-100); Mean Platelet Volume 10.1 fl (7.4-10.4); Monocytes Absolute Auto 0.8 K/mm3 (0.1-0.6); Monocytes Percent Auto 8.4 % (2.6-8.5); Neutrophils Absolute Auto 7.7 K/mm3 (1.3-6.7); Neutrophils Percent Auto 76.7 % (45.5-73.1); Platelet Count Result 447 k/mm3 (150-375); Red Blood Count 2.83 M/mm3 (4.6-6.20); Red Cell Distribution Width 15.9 % (11.5-14.5)
[2024-07-02 11:47] LABS: Add Urine Microscopic? NO; Appearance Urine Clear (Clear); Bilirubin Urine Negative (Negative); Blood Urine Negative (Negative); Color Urine Yellow (Yellow); Glucose Urine UA Negative (Negative); Ketones Urine Negative (Negative); Leukocyte Esterase Ur Negative LEU/UL (Negative); Nitrate Urine Negative (Negative); Protein Urine Negative (Negative); Specific Grav Ur 1.007 (1.001-1.035)
[2024-07-02 11:50] LABS: Alanine Aminotransferase 28 U/L (6-50); Albumin Level 3.3 g/dL (3.5-5.1); Alkaline Phosphatase 64 U/L (38-126); Anion Gap 2 mmol/L (4-12); Aspartate Amino Transferase 36 U/L (17-59); Bilirubin,Total 1.6 mg/dL (0.2-1.3); Blood Urea Nitrogen 12 mg/dL (9-20); CRP 3.4 mg/dL (<1.0); Calcium 8.2 mg/dL (8.4-10.2); Carbon Dioxide 34 mmol/L (22-30); Chloride 97 mmol/L (98-107); Estimated Glomerular Filt Rate > 60; Glucose 103 mg/dL (65-110); Potassium 3.4 mmol/L (3.4-5.0); Sodium 133 mmol/L (137-145)
--- OUTSIDE RECORDS SUMMARY | 2024-07-02 12:31 | XMS_ITS | Encounter Summary ---
Author Organization [facility] Address 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
--- OUTSIDE RECORDS SUMMARY | 2024-07-02 12:31 | XMS_ITS | Continuity of Care Document ---
Author Organization [facility] Address [address] [facility] [address] [place] [address] Phone Care Team Providers Care Counterintelligence Agent Name Role Phone Administrative, Provider Unavailable Unavail [...] Date Provider Providers Copied on Encounter [facility], [address] [place] [address], [id number], [place] tel:[phone] [facility] No Information 2 Administrati ve Provider. [address] [facility], [address], [place], [place], [id number], [place]. tel:[phone] Office/outpa tient visit,est, mod [facility], [address], [id number], [place] tel:[phone] [facility] ROTATOR CUFF RUPTURESPRAIN SUPRASPINATUSS PRAIN INFRASPINATUS 2 Darwin Calzada. [address], [id number], [place]. tel:[phone] [facility], [address] [place] [address], [place], [place], [id number], [place] tel:[phone] [facility] No Information 2 Administrati ve Provider. [address], [id number], [place]. tel:[phone] Office/outpa tient visit,est, [facility], [address] [place] [address], [id number], [place] tel:[phone] [facility] ROTATOR CUFF RUPTURESPRAIN SUPRASPINATUS 1 Darwin Calzada. [address] [address], [place], [place], [id number], [place]. tel:[phone] Office/outpa tient visit,est, [facility], [address] [place] [address], [place], [place], [id number], [place] tel:[phone] [facility] ROTATOR CUFF RUPTURESPRAIN SUPRASPINATUSS PRAIN INFRASPINATUS 1 Darwin Calzada. [address] [address], [place], [place], [id number], [place]. tel:[phone] Office consultation , [facility], [address] [place] [address], [id number], [place] tel:[phone] [facility] ROTATOR CUFF RUPTUREBICEPS TENDON RUPTURESPRAIN SUPRASPINATUSB ICIPITAL TENOSYNOVITIS 1 Darwin Calzada. [address], [id number], [place]. tel:[phone] Family History Family Member Type Diagnosis Age [...]
--- OUTSIDE RECORDS SUMMARY | 2024-07-02 12:31 | XMS_ITS | Clinical Summary ---
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
== END 2024-07-02 10:57 | disposition home or self-care (01) ==
PROVIDERS: PCP Family Medicine; Visit Provider Surgery
DX: D72.829 Elevated white blood cell count, unspecified (principal); R30.0 Dysuria
CPT/HCPCS: 36415; 80053; 81003; 85025; 86140

== ENCOUNTER 2024-07-18 11:53 | Outpatient (CLI) | payer MEDICARE, SELFPAY ==
--- NOTE | ~2024-07-18 | CT_ITS ---
CT abdomen pelvis w con Ordering provider: Ruddy Huang MD History: 68 years Male with . R10.31 - Right lower quadrant pain . Comparison: None. Technique: CT abdomen and pelvis with IV and without oral contrast. Automated exposure control and it erative reconstruction technique were employed. The dose-length product was 831.98 mGy-cm. Findings: VISUALIZED LOWER CHEST: Right-sided pleural effusion with adjacent atelectasis. UPPER ABDOMINAL ORGANS: Liver: Fat infiltration. Hepatomegaly. Gallbladder: Cholelithiasis. Spleen: Normal. Stomach/duodenum: Normal. Pancreas: Normal. Adrenals: Normal. Kidneys: Left kidney lower pole a stone measuring 8 mm. Mild left hydronephrotic changes.The differen tial include pelvic cysts. PELVIC ORGANS: The bladder shows slightly thickened wall. BOWEL AND MESENTERY: Colon: No evidence of diverticulitis. Appendix is not demonstrated. Small Bowel: Slightly thickened small bowel wall suggestive of enteritis. No obstruction. Peritoneum/mesentery: Left related fluid is seen in the right side of the abdomen extending to the pe lvis similar appearances seen on the left side of the small size. Small lymph nodes seen in the pelvi s No free air. No mesenteric lymphadenopathy. RETROPERITONEUM: Mild atheromatous disease of the abdominal aorta. No retroperitoneal lymphadenopat hy. MUSCULOSKELETAL: Superficial soft tissues: The superficial soft tissues are normal. Bones: Age appropriate degenerative changes of the spine. Bilateral sacroiliacs IMPRESSION: 1. Loculated fluid seen in the right and left side of the abdomen with the largest on the right side . Minimal loculated fluid in the pelvis. 2. Cholelithiasis. 3. Left kidney stone. 4. Right pleural effusion with adjacent atelectasis. 5. Thickened wall of the small bowel which may indicate enteritis. 6. Fat infiltration of the liver. Hepatomegaly. Reviewed, dictated and finalized at location A. IMPRESSION: 1. Loculated fluid seen in the right and left side of the abdomen with the lar gest on the right side. Minimal loculated fluid in the pelvis. 2. Cholelithiasis. 3. Left kidney stone. 4. Right pleural effusion with adjacent atelectasis. 5. Thickened wall of the small bowel which may indicate enteritis. 6. Fat infiltration of the liver. Hepatomegaly.
--- OUTSIDE RECORDS SUMMARY | 2024-07-18 13:15 | XMS_ITS | Clinical Summary ---
Author Organization 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
--- OUTSIDE RECORDS SUMMARY | 2024-07-18 13:15 | XMS_ITS | Encounter Summary ---
Author Organization [facility] Address 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
--- OUTSIDE RECORDS SUMMARY | 2024-07-18 13:15 | XMS_ITS | Continuity of Care Document ---
Author Organization [facility] Address [address] [facility] [address] [place] [address] Phone Care Team Providers Care Nurse Navigator Name Role Phone Administrative, Provider Unavailable Unavail [...] Date Provider Providers Copied on Encounter [facility], [address] [place] [address], [id number], [place] tel:[phone] [facility] No Information 2 Administrati ve Provider. [address] [facility], [address], [place], [place], [id number], [place]. tel:[phone] Office/outpa tient visit,est, mod [facility] [employer], [address], [id number], [place] tel:[phone] [facility] ROTATOR CUFF RUPTURESPRAIN SUPRASPINATUSS PRAIN INFRASPINATUS 2 Darwin Calzada. [address], [id number], [place]. tel:[phone] [facility], [address] [place] [address], [place], [place], [id number], [place] tel:[phone] [facility] No Information 2 Administrati ve Provider. [address], [id number], [place]. tel:[phone] Office/outpa tient visit,est, [facility], [address] [place] [address], [id number], [place] tel:[phone] [facility] ROTATOR CUFF RUPTURESPRAIN SUPRASPINATUS 1 Darwin Calzada. [address] [address], [place], [place], [id number], [place]. tel:[phone] Office/outpa tient visit,est, [facility], [address] [place] [address], [place], [place], [id number], [place] tel:[phone] [facility] ROTATOR CUFF RUPTURESPRAIN SUPRASPINATUSS PRAIN INFRASPINATUS 1 Darwin Calzada. [address] [address], [place], [place], [id number], [place]. tel:[phone] Office consultation , [facility], [address] [place] [address], [id number], [place] tel:[phone] [facility] ROTATOR CUFF RUPTUREBICEPS TENDON RUPTURESPRAIN SUPRASPINATUSB ICIPITAL TENOSYNOVITIS 1 Darwin Calzada. [address], [id number], [place]. tel:[phone] Family History Family Member Type Diagnosis Age At Onset No Information Payers Payer name Insurance type Covered republican ID Authoriza tion(s) No Information Social History [...]
[2024-07-18 13:26] LABS: Basophils Absolute Auto 0.1 K/mm3 (0.0-0.1); Basophils Percent Auto 0.2 % (0.2-1.2); Hematocrit 33.7 % (42.0-52.0); Hemoglobin 10.7 g/dL (14.0-18.0); Immature Granulocyte Absolute 0.54 K/mm3 (0.00-0.031); Immature Granulocyte Percent A 1.8 % (0-0.5); Lymphocytes Absolute Auto 0.89 K/mm3 (0.9-3.2); Mean Corpuscular HGB Conc 31.8 g/dl (32-36); Mean Corpuscular Hemoglobin 28.4 pg (26-34); Mean Corpuscular Volume 89.4 fl (80-100); Mean Platelet Volume 9.7 fl (7.4-10.4); Monocytes Absolute Auto 1.9 K/mm3 (0.1-0.6); Monocytes Percent Auto 6.4 % (2.6-8.5); Neutrophils Percent Auto 88.6 % (45.5-73.1); Platelet Count Result 705 k/mm3 (150-375); Red Blood Count 3.77 M/mm3 (4.6-6.20); Red Cell Distribution Width 15.8 % (11.5-14.5); White Blood Count 29.4 K/mm3 (4.5-10.0)
[2024-07-18 13:32] LABS: Add Urine Microscopic? YES; Appearance Urine Clear (Clear); Bacteria Urine None Seen /hpf; Bilirubin Urine Negative (Negative); Blood Urine Negative (Negative); Color Urine Yellow (Yellow); Glucose Urine UA Negative (Negative); Ketones Urine Negative (Negative); Leukocyte Esterase Ur Negative LEU/UL (Negative); Nitrate Urine Negative (Negative); Non Pathogenic Casts 0-2; Protein Urine Trace mg/dL (Negative); Specific Grav Ur > 1.045 (1.001-1.035); Squamous Epithelial Cell Urine None Seen /hpf (Few); WBC Urine 0-5 /hpf (0-3); pH Urine 6.5 (5.0-9.0)
[2024-07-18 13:36] LABS: Alanine Aminotransferase 32 U/L (6-50); Albumin Level 2.7 g/dL (3.5-5.1); Alkaline Phosphatase 168 U/L (38-126); Anion Gap 6 mmol/L (4-12); Aspartate Amino Transferase 46 U/L (17-59); Bilirubin,Total 0.9 mg/dL (0.2-1.3); Blood Urea Nitrogen 18 mg/dL (9-20); Calcium 8.1 mg/dL (8.4-10.2); Carbon Dioxide 30 mmol/L (22-30); Chloride 94 mmol/L (98-107); Estimated Glomerular Filt Rate > 60; Glucose 106 mg/dL (65-110); Lipase 84 U/L (23-300); Potassium 3.5 mmol/L (3.4-5.0); Sodium 130 mmol/L (137-145)
== END 2024-07-18 11:54 | disposition home or self-care (01) ==
PROVIDERS: PCP Family Medicine; Visit Provider Surgery
DX: R10.31 Right lower quadrant pain (principal); R30.0 Dysuria
CPT/HCPCS: 36415; 74177; 80053; 81001; 83690; 85025; Q9967

== ENCOUNTER 2024-07-19 14:08 | Inpatient (IN) | payer MEDICARE, SELFPAY ==
[2024-07-18 15:08] VITALS: BMI 31.3
--- NOTE | 2024-07-18 15:21 | PC.NURSE ---
Pre Radiology instructions Report to the outpatient carlene coley on date __07/20/23___ at time _0745am for procedure Time: _0945am___ YOU MAY BE MONITORED AT HOSPITAL FOR UP TO 4 HOURS AFTER YOUR PROCEDURE. A visitor will be allowed to accompany the patient into the hospital. You and your visitor will be asked to self-screen and do not enter if you have any COVID symptoms. A mask is OPTIONAL within the hospital. Patients are to have no food or drink 6 hours prior to procedure time Driving will be restricted after the procedure, you must have a person to drive you home. Labs will be drawn in preop area and once reviewed, you will be taken to radiology area for procedure. When the procedure is completed, you will be taken to outpatient where you will be monitored for several hours. You may have one visitor in this area. Other than holding anti-coagulants, patient may take other medication(s) as scheduled. Prior to your appointment date patients are instructed to hold anti-coagulants after discussing with ordering provider to stop. If unable to discontinue anti-coagulants please notify radiologist. ? No aspirin or warfarin (Coumadin) for 7 days prior to the procedure. ? No clopidogrel (Plavix), ticagrelor (Brilinta), prasugrel (Effient) or dabigatran (Pradaxa) for 5 days prior to the procedure. ? No rivaroxaban (Xarelto), apixaban (Eliquis), dipyridamole (Aggrenox or Persantine) or cilostazol (Pletal) for 2 days prior to the procedure. Medications to discontinue per physician: _None Date to take last dose: ____None Please leave all valuables, including medications, at home the day of procedure. The hospital will not accept responsibility for valuables. Wear comfortable, loose fitting clothing.? Follow any additional instructions given to you from ordering provider. Overnight bag if staying overnight as per Dr Huang has suggested to them prior. Telephone instructions given to ___Pt & and asked if any additional questions and then verbalized understanding. Patient advised to call scheduling provider office or registration scheduling [phone] if any additional questions.
[2024-07-19] VITALS (9 sets, daily range): BP systolic 103–117; BP diastolic 51–69; PULSE 64–95; RESP 13–19; TEMP 36.2–36.6; O2SAT 97–100; BMI 29.7
--- NOTE | ~2024-07-19 | CT_ITS ---
EXAMINATION: CT abdomen pelvis w con DATE: 07/22/2024 08:52 INDICATION: Reassess abdominal fluid post drainage catheter placement. TECHNIQUE: Computed tomography (CT) of the abdomen and pelvis was performed with 100 mL Omnipaque-350 intravenous contrast. Automated exposure control and iterative reconstruction technique were employe d. The dose-length product was 896.45 mGy-cm. COMPARISON: 07/18/2024 FINDINGS: Interval increase in a still small pleural effusion with associated atelectasis in the right lower lo be. Minimal dependent atelectasis in the left lower lobe. Heart size is normal. No pericardial or lef t-sided pleural effusion. Liver, spleen, pancreas, bilateral adrenal glands are normal. Multiple calc ified gallstones within the otherwise normal-appearing gallbladder. 2 cm exophytic cyst at the upper pole of the right kidney. Nonobstructing 6 mm stone at a lower pole calyx of the left kidney. Postope rative change of prior right hemicolectomy with ileocolic anastomosis. No bowel obstruction. There is moderate colonic diverticulosis with a sigmoid predominance without adjacent focal increased inflamm atory stranding to suggest diverticulitis. There is no adjacent inflammatory change to suggest diver ticulitis. Bladder is normal. There are some calcifications in the prostate and symmetric relatively atrophic right seminal vesicle. No pathologically enlarged abdominal or pelvic lymphadenopathy. There is body wall edema and a midline supraumbilical surgical scar. Severe lumbar and lower thoracic spon dylosis with likely physiologic chronic appearing mild anterior wedging at T11-L2. Significant interval decrease in size of an organized-appearing peripherally enhancing fluid collecti on in the abdomen and pelvis post right pelvic drainage catheter placement. The fluid collection is c omprised of multiple communicating pockets extending between the right upper and bilateral lower quad rants. For reference the perihepatic pocket the caudal tip of the liver has decreased from 10.2 x 5.6 similar to 6.1 x 3.1 cm. The pocket in the left hemipelvis has decreased from 9.5 x 3.2 cm to 8.5 x 2.8 cm and a pocket in the right hemipelvis within which lies a drainage catheter has decreased from 18.1 x 8.5 cm to currently 13.5 x 3.9 cm. There is also been minimal decrease in some additional nonl oculated ascites without peripheral enhancement in the left lower quadrant and anterior to the gallbl adder fundus. No significant change in a separate organized peripheral enhancing fluid collection the deep pelvis which previously measured 6.4 x 3.6 x 5.2 cm and currently measures 5.5 x 4.0 x 6.0 cm. IMPRESSION: 1. Significant decrease in size of a large intraperitoneal abscess with multiple contiguous pockets s een between the right upper and the right and left lower quadrants post drainage catheter placement. 2. Unchanged small abscess cavity in the more posterior inferior deep pelvis which does not appear to demonstrate direct communication. 3. Increase in size of a still small right pleural effusion with associated atelectasis in the right lower lobe. 4. Cholelithiasis. 5. Nonobstructing left nephrolithiasis. Reviewed, dictated and finalized at location B. IMPRESSION: 1. Significant decrease in size of a large intraperitoneal abscess with multipl e contiguous pockets seen between the right upper and the right and left lower quadrants post drainage catheter placement. 2. Unchanged small abscess cavity in the more posterior inferior deep pelvis wh ich does not appear to demonstrate direct communication. 3. Increase in size of a still small right pleural effusion with associated ate lectasis in the right lower lobe. 4. Cholelithiasis. 5. Nonobstructing left nephrolithiasis.
--- NOTE | ~2024-07-19 | CT_ITS ---
EXAMINATION: CT guide absc cath placement, CT guide absc cath placement DATE: 07/23/2024 14:39 (accession [id number]), 07/23/2024 14:42 (accession [id number]) INDICATION: Rim-enhancing perioperative fluid collections TECHNIQUE: The procedure including the risks, benefits, and alternatives was discussed with the patie nt. Risks discussed included bleeding and infection. The patient understood the risks and benefits an d agreed to proceed. The patient was confirmed to be receiving appropriate antibiotic coverage. The skin overlying the abdomen was prepped and draped in usual sterile fashion ensuring to include the pr e-existing catheter. Anesthetic was administered with 1% lidocaine without epinephrine subcutaneousl y. An 5 Albanian one-step introducer was inserted into the fluid collection within the left lower quadr ant with CT guidance and the inner needle cannula was removed. A J-wire was advanced and over the J-w kenny serial dilatation was performed, and an 8.5 Albanian pigtail catheter was placed and attached to ac cordion suction. The catheter was secured, and a sterile dressing was applied. A sample was sent for culture and sensitivity from the left lower quadrant collection. The dose-length product was 532.30 mGy-cm. There were no immediate complications. Attention was then turned to the right mid to upper quadrant catheter. Dilute contrast was instilled to ensure adequate placement. Excellent prior positioning was appreciated, with a residual surrounding fluid collection, discordant with the recent scant output. The catheter was cut, and a J-wire advanced, over which a new 8.5 Albanian catheter was placed, locked into position and secured. The new catheter was attached to a three-way stopcock for appropriate flushing followed by accordion suction drainage device. Final imaging was then performed demonstrating both catheters in excellent position with adequate ini tial output. No sample was sent from the right mid to upper quadrant collection, as this was performed previously. The patient tolerated procedure without difficulty, and was returned to his room in stable condition. No moderate sedation was utilized. IMPRESSION: 1. Technically successful CT-guided pigtail catheter placement within the left lower quadrant fluid c ollection with a sample sent for culture and sensitivity. 2. Technically successful revision of previously placed ultrasound-guided pigtail catheter within the right mid to upper quadrant of the abdomen, as detailed above. Reviewed, dictated and finalized at location A. IMPRESSION: 1. Technically successful CT-guided pigtail catheter placement within the left lower quadrant fluid collection with a sample sent for culture and sensitivity. 2. Technically successful revision of previously placed ultrasound-guided pigta il catheter within the right mid to upper quadrant of the abdomen, as detailed above.
--- NOTE | ~2024-07-19 | US_ITS ---
EXAMINATION: US guide abscess drainage DATE: 07/19/2024 12:18 INDICATION: Right lower quadrant fluid collection TECHNIQUE: The procedure and its risks and benefits were discussed with the patient. Potential risks discussed included bleeding and infection. The skin was prepped and draped in sterile fashion. The pa tient was confirmed to be receiving appropriate antibiotic coverage. 1% lidocaine was used for local anesthesia. Under ultrasound guidance, a 10 F Fr catheter with trochar was advanced into the right l ower quadrant fluid. The trocar and metal stiffener were removed and the loop formed and locked with position confirmed on ultrasound. 50 mL of cloudy reddish-orange fluid was aspirated and sent to lab for Gram stain and cultures. The catheter was then attached to suction drainage and was draining adriel tional fluid at the conclusion of the procedure. The catheter was stitched to the skin with suture. A ntibiotic ointment and a sterile dressing were applied. The catheter was attached to the skin with an additional adhesive fixation device. There were no immediate complications. FINDINGS: Ultrasound images demonstrate the loop of the drainage catheter formed within a complex fluid collect ion in the right lower quadrant. IMPRESSION: 1. Successful ultrasound-guided right lower quadrant abscess drainage catheter placement. The cathet er will be managed by Dr. Huang. 2. 50 mL of cloudy reddish-orange fluid was aspirated and sent to the lab for Gram stain and cultures . Reviewed, dictated and finalized at location A. IMPRESSION: 1. Successful ultrasound-guided right lower quadrant abscess drainage catheter placement. The catheter will be managed by Dr. Huang. 2. 50 mL of cloudy reddish-orange fluid was aspirated and sent to the lab for G lorin stain and cultures.
--- OUTSIDE RECORDS SUMMARY | 2024-07-19 07:50 | XMS_ITS | Continuity of Care Document ---
Author Organization [facility] Address [address] [facility] [address] [place] [address] Phone Care Team Providers Care Bread And Pastry Baker Name Role Phone Administrative, Provider Unavailable Unavail [...] Date Provider Providers Copied on Encounter [facility], [address] [place] [address], [id number], [place] tel:[phone] [facility] No Information 2 Administrati ve Provider. [address] [facility], [address], [place], [place], [id number], [place]. tel:[phone] Office/outpa tient visit,est, mod [facility], [address], [id number], [place] tel:[phone] [facility] ROTATOR CUFF RUPTURESPRAIN SUPRASPINATUSS PRAIN INFRASPINATUS 2 Darwin Calzada. [address], [id number], [place]. tel:[phone] [facility], [address] [place] [address], [place], [place], [id number], [place] tel:[phone] [facility] No Information 2 Administrati ve Provider. [address], [id number], [place]. tel:[phone] Office/outpa tient visit,est, [facility], [address] [place] [address], [id number], [place] tel:[phone] [facility] ROTATOR CUFF RUPTURESPRAIN SUPRASPINATUS 1 Darwin Calzada. [address] [address], [place], [place], [id number], [place]. tel:[phone] Office/outpa tient visit,est, [facility], [address] [place] [address], [place], [place], [id number], [place] tel:[phone] [facility] ROTATOR CUFF RUPTURESPRAIN SUPRASPINATUSS PRAIN INFRASPINATUS 1 Darwin Calzada. [address] [address], [place], [place], [id number], [place]. tel:[phone] Office consultation , [facility], [address] [place] [address], [id number], [place] tel:[phone] [facility] ROTATOR CUFF RUPTUREBICEPS TENDON RUPTURESPRAIN SUPRASPINATUSB ICIPITAL TENOSYNOVITIS 1 Darwin Calzada. [address], [id number], [place]. tel:[phone] Family History Family Member Type Diagnosis Age At Onset No Information Payers Payer name Insurance type Covered democrat ID Authoriza tion(s) No Information Social History [...]
--- OUTSIDE RECORDS SUMMARY | 2024-07-19 07:50 | XMS_ITS | Encounter Summary ---
Author Organization [facility] Address 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
--- OUTSIDE RECORDS SUMMARY | 2024-07-19 07:50 | XMS_ITS | Clinical Summary ---
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
[2024-07-19 08:56] LABS: Hematocrit 32.3 % (42.0-52.0); Hemoglobin 10.5 g/dL (14.0-18.0); Mean Corpuscular HGB Conc 32.5 g/dl (32-36); Mean Corpuscular Hemoglobin 28.9 pg (26-34); Platelet Count Result 713 k/mm3 (150-375); Red Blood Count 3.63 M/mm3 (4.6-6.20); Red Cell Distribution Width 15.7 % (11.5-14.5); White Blood Count 33.2 K/mm3 (4.5-10.0)
[2024-07-19 08:57] LABS: Anion Gap 8 mmol/L (4-12); Blood Urea Nitrogen 18 mg/dL (9-20); Calcium 8.4 mg/dL (8.4-10.2); Carbon Dioxide 28 mmol/L (22-30); Chloride 96 mmol/L (98-107); Estimated CRCL calculation 81 ml/min; Estimated Glomerular Filt Rate > 60; Glucose 96 mg/dL (65-110); Potassium 3.2 mmol/L (3.4-5.0); Sodium 132 mmol/L (137-145)
[2024-07-19 09:01] LABS: INR 1.2; Prothrombin Time 15.5 Seconds (11.1-14.7)
[2024-07-19] MEDS: PIPERACILLN/TAZ 3.375GM/NS50ML 3.375 GM/50 ML BAG IVPB ×2 (11:00→17:33)
--- NOTE | 2024-07-19 11:13 | SUR.PREOP ---
Addendum entered by Mary Núñez RN 07/19/24 11:19: this RN question starting before cultures obtain, was told it will be ok per [facility] Note: Dr Hidalgo would not start procedure until zosyn order was started this RN went to ultrasound area and started medication.
[2024-07-19 13:34] LABS: Creatinine Urine < 3.2 mg/dL
--- NOTE | 2024-07-19 14:04 | ADMGEN ---
This patient, Rylan Caro, was admitted to med surg. Patient/family oriented to hospital policies and general routines including ID bracelet, bed and alarms, visiting hours, pain management, procedures, bathroom and other care routines, personal items, smoking policy, room service/diet, and visiting hours at 1300 from surgery. Report per August in PACU. Information on how to activate the Rapid Response Team has been discussed. Patient/Family are encouraged to report perceived risks to care and to ask questions if they do not understand what they are told or what they should do.
[2024-07-19] MEDS: LACTATED RINGERS 1,000 ML 100 ML IV CONT (14:49)
--- NOTE | 2024-07-19 14:57 | P.HP_ITS ---
H&P: HPI History of Present Illness Date/Time: 07/19/24 14:57 Chief Complaint: Abdominal pain, malaise Narrative: Patient is a 68-year-old man who had an unresectable ascending colon polyp after colonoscopy on 05/27/2024. He was seen in the office and, after home bowel prep, was taken to surgery on 06/21/2024. Hand access laparoscopic right colectomy with ileotransverse anastomosis was performed. Patient initially did well after the surgery and was discharged in 2 days. His only abnormality was that his white blood cell count was still elevated. This was read checked as an outpatient and slowly improved until it was normal on 07/02/2024. At patient's 1st follow-up visit, he was having some right lower quadrant pain and poor appetite as well as some difficulty urinating. He was not taking any of the prescription postoperative pain medication. He came back to the office for a 2nd follow-up visit yesterday and looked worse. He was moving slowly and nearly any activity seem to be painful. His exam showed worsened right lower quadrant abdominal pain and tenderness. He was complaining more of hesitancy and dysuria. After his office visit, a CT scan of the abdomen and pelvis with IV contrast was done and showed large right-sided fluid collection in the abdomen. There was a 2nd, smaller, pelvic fluid collection as well. There were no findings to suggest the use were abscesses. He did have an increase in his white blood cell count from 10,000 on 07/02/2024 to [id number] yesterday, 07/18/2024. Chemistry showed hyponatremia but normal BUN and creatinine. Alkaline phosphatase was slightly elevated but otherwise liver function tests were normal. His lipase was normal. He came in again today with plans for ultrasound-guided drainage of the large right-sided fluid collection with [facility] and to be admitted following this procedure for management of his drain catheter, antibiotics, and further care. At this time, he has had the drainage procedure and has had quite a volume of dilute bloody fluid from the catheter. Patient again reminded me of his hesitancy and dysuria, especially when he has to get up at night to urinate. He has been checked for a urinary tract infection on 3 different occasions following his surgery. All have been negative. He does feel better after having drained quite a bit of this fluid. He is admitted now for further care. Review of Systems Review of Systems: All systems reviewed & are unremarkable except as noted in HPI and below (HPI) [facility] Past Medical History Medical History Essential (primary) hypertension Gallbladder disorder Asthma Arthritis HLD (hyperlipidemia) Obesity PVCs (premature ventricular contractions) Impaired fasting glucose Surgical History Surgical History H/O colectomy 06/22/24 Hand access laparoscopic right colectomy with hand-sewn ileotransverse anastomosis Dr. Huang Family History Family History Father Carcinoma of colon Heart disease Hypertension Social History Social History Smoking status: Never smoker Alcohol intake: never Substance use: never Substance use type: does not use Do You Feel Safe in your Home?: No Lack of Transportation: No Lack of Food: Never True Current Housing: I Have Housing Concerned About Future Housing: No Difficulty Paying Gas/Electric Bills: No Difficulty Paying for Meds: No Currently Unemployed: No Education: High School Diploma/GED Difficulty w/ Childcare or Family Care: No Living arrangements: with family Additional living arrangements comments: Occupation/Education: retired Gender identity (if verbalized by the patient): Male Sexual Orientation (if Verbalized by the Patient): Straight or Heterosexual Spiritual care concerns: No Meds Home Medications and Allergies Home Medications ?Medication ?Instructions ?Recorded ?Confirmed ?Type metoprolol succinate 50 mg See Rx Instructions .Route 10/19/23 07/19/24 Rx tablet,extended release 24 hr .COMPLEX #90 tabs hydrochlorothiazide 25 mg tablet 12.5 mg (1/2 x 25 mg) PO DAILY #45 11/22/23 07/19/24 Rx tabs simvastatin 20 mg tablet 20 mg PO DAILY #90 tabs 03/18/24 07/19/24 Rx losartan 25 mg tablet See Rx Instructions .Route 03/22/24 07/19/24 Rx .COMPLEX #90 tabs lansoprazole 30 mg capsule,delayed 30 mg PO DAILY #90 caps 04/15/24 07/19/24 Rx release cholecalciferol (vitamin D3) 125 5,000 unit PO DAILY 06/11/24 07/18/24 History mcg (5,000 unit) capsule vitamin E mixed 400 unit capsule 400 unit PO 3XW 06/11/24 07/18/24 History lansoprazole 15 mg capsule,delayed 15 mg PO HS PRN indigestion 07/19/24 07/19/24 History release Allergies Allergy/AdvReac Type Severity Reaction Status Date / Time No Known Allergies Allergy Verified 07/19/24 08:45 Vital Signs Vital Signs - 24 hr 07/19/24 08:00 07/19/24 11:58 07/19/24 12:10 Temperature 36.6 C 36.2 C L Pulse Rate 87 82 78 Respiratory Rate 16 19 16 Blood Pressure 114/51 L 116/64 111/55 L Pulse Oximetry 99 99 98 Oxygen Delivery Room Air Room Air Room Air 07/19/24 12:25 07/19/24 12:40 07/19/24 13:05 Temperature 36.4 C L Pulse Rate 85 74 89 Respiratory Rate 13 15 17 Blood Pressure 103/54 L 111/64 108/64 Pulse Oximetry 99 99 97 Oxygen Delivery Room Air Room Air 07/19/24 13:05 Temperature Pulse Rate Respiratory Rate Blood Pressure Pulse Oximetry Oxygen Delivery Room Air Exam Const: General: comfortable, no acute distress, alert, awake and thin Orientation/consciousness: patient oriented x3 HENMT: Head: normocephalic and atraumatic Mouth: Yes Normal oral and palatal mucosa present Eyes: Conjunctivae: conjunctivae normal Pupils: Equal, round and reactive pupils present EOM: EOMs intact bilaterally Neck: Neck: normal visual inspection, no lymphadenopathy and nontender Resp: Effort & Inspection: normal respiratory effort Auscultation: clear to auscultation bilaterally Cardio: Rate: regular rate Rhythm: regular rhythm Heart sounds: no gallops, no murmurs and no rubs GI: Inspection: non-distended, scar (Hand access scar and trocar scars all healing well) and other (Dilute bloody fluid from pigtail catheter.) GI Palp: Yes abdominal tenderness (Right lower quadrant), Yes Soft to palpation, No Tenderness to palpation present (GI), No Hepatomegaly present, No Splenomegaly present, No Hernia present and No Palpable mass present Auscultation: normal bowel sounds Skin: Lesions: no lesions Rashes: no rashes Neuro: General: no focal motor deficits and CN's II-XI intact bilaterally Cranial nerves: Yes Equal, round and reactive pupils present, Yes Bilaterally intact EOM present, Yes facial symmetry and Yes Midline tongue present Speech: normal speech Motor exam (neuro): 5/5 motor strength present throughout and Motor abnormalities not present Extrem: General: no clubbing, cyanosis or edema and edema Psych: Affect: normal affect Thought process: Normal thought process present Insight: Good insight present (Psych) H&P: Results Labs Labs: Short CBC 07/19/24 07/19/24 Range/Units 08:42 08:43 WBC 33.2 H (4.5-10.0) K/mm3 Hgb 10.5 L (14.0-18.0) g/dL Hct 32.3 L (42.0-52.0) % Plt Count 713 H Cancelled (150-375) k/mm3 BMP 07/19/24 08:43 Sodium 132 L Potassium 3.2 L Chloride 96 L Carbon Dioxide 28 BUN 18 Creatinine 0.75 Glucose 96 Calcium 8.4 Assessment and Plan Assessment and plan (1) Abnormal CT of the abdomen: Code(s): R93.5 - Abnormal findings on diagnostic imaging of other abdominal regions, including retroperitoneum Status: Acute Assessment and Plan: Large volume of fluid in the abdomen that appears most likely to be old blood or bloody ascites. Etiology is unclear. Creatinine on the intra-abdominal fluid is less than 3.2 so it is unlikely this is urine. Cultures have been sent. Lipase is pending. Patient does report that he feels much better with the fluid that has already drained since the catheter was placed. Although no definite evidence of abscess or infection in the fluid, patient has significant leukocytosis and will start him on Zosyn empirically. Gram stain and cultures are pending at this time. (2) Dysuria: Code(s): R30.0 - Dysuria Status: Acute Assessment and Plan: Patient describes worse and dysuria and has into the see especially when he tries to go to the bathroom at night. Will ask Urology to consult.. (3) History of partial surgical removal of colon: Code(s): Z90.49 - Acquired absence of other specified parts of digestive tract Status: Chronic Assessment and Plan: Performed 06/22/2019 for for villous adenoma of the ascending colon. (4) Cholelithiasis: Qualifiers: Cholelithiasis location: gallbladder Cholecystitis presence: without cholecystitis Biliary obstruction: without biliary obstruction Qualified Code(s): K80.20 - Calculus of gallbladder without cholecystitis without obstruction Code(s): K80.20 - Calculus of gallbladder without cholecystitis without obstruction Status: Chronic (5) Barretts esophagus: Qualifiers: Villalobos's esophagus type: without dysplasia Qualified Code(s): K22.70 - Villalobos's esophagus without dysplasia Code(s): K22.70 - Villalobos's esophagus without dysplasia Status: Chronic (6) Essential (primary) hypertension: Code(s): I10 - Essential (primary) hypertension Status: Chronic
[2024-07-19] MEDS: POTASSIUM CHLORIDE 20 MEQ ER TABLET PO (15:12)
--- NOTE | 2024-07-19 16:50 | P.CONUR_ITS ---
Assessment and Plan Assessment and plan (1) Urinary hesitancy: Code(s): R39.11 - Hesitancy of micturition Status: Acute (2) Difficulty urinating: Code(s): R39.198 - Other difficulties with micturition Status: Acute (3) Nocturia: Code(s): R35.1 - Nocturia Status: Acute Plan PVR: 390ml. However this could be inaccurate with the fluid collection in his abdomen. After discussion with the patient, he is agreeable to try flomax 0.4mg po daily for his symptoms. -Start tamsulosin 0.4mg po daily. -Straight cath if patient begins to feel like he isnt emptying or uncomfortable. Urology Consult Note HPI Date Seen: 07/19/24 Requesting Physician: Ruddy Huang MD Primary Care Provider: Nicola Silva MD Consult Narrative Narrative: Rylan Caro is a 68 year old male who had an unresectable ascending colon polyp after colonoscopy on 05/27/2024. He was seen in the office and, after home bowel prep, was taken to surgery on 06/21/2024. Hand access laparoscopic right colectomy with ileotransverse anastomosis was performed. Patient reports that since his surgery he has had difficulty with a weak urine stream and he has had to sit down to urinate. He also reports having intermittent dysuria as well as nocturia. He has been checked for a urinary tract infection on 3 different occasions following his surgery. All have been negative. Review of Systems 2 Constitutional: Constitutional: Reports as per HPI [facility] Past Medical History Medical History Essential (primary) hypertension Gallbladder disorder Asthma Arthritis HLD (hyperlipidemia) Obesity PVCs (premature ventricular contractions) Impaired fasting glucose Surgical History Surgical History H/O colectomy 06/22/24 Hand access laparoscopic right colectomy with hand-sewn ileotransverse anastomosis Dr. Huang Family History Family History Father Carcinoma of colon Heart disease Hypertension Social History Social History Smoking status: Never smoker Alcohol intake: never Substance use: never Substance use type: does not use Do You Feel Safe in your Home?: No Lack of Transportation: No Lack of Food: Never True Current Housing: I Have Housing Concerned About Future Housing: No Difficulty Paying Gas/Electric Bills: No Difficulty Paying for Meds: No Currently Unemployed: No Education: High School Diploma/GED Difficulty w/ Childcare or Family Care: No Living arrangements: with family Additional living arrangements comments: Occupation/Education: retired Gender identity (if verbalized by the patient): Male Sexual Orientation (if Verbalized by the Patient): Straight or Heterosexual Spiritual care concerns: No Meds Home Medications and Allergies Home Medications ?Medication ?Instructions ?Recorded ?Confirmed ?Type metoprolol succinate 50 mg See Rx Instructions .Route 10/19/23 07/19/24 Rx tablet,extended release 24 hr .COMPLEX #90 tabs hydrochlorothiazide 25 mg tablet 12.5 mg (1/2 x 25 mg) PO DAILY #45 11/22/23 07/19/24 Rx tabs simvastatin 20 mg tablet 20 mg PO DAILY #90 tabs 03/18/24 07/19/24 Rx losartan 25 mg tablet See Rx Instructions .Route 03/22/24 07/19/24 Rx .COMPLEX #90 tabs lansoprazole 30 mg capsule,delayed 30 mg PO DAILY #90 caps 04/15/24 07/19/24 Rx release cholecalciferol (vitamin D3) 125 5,000 unit PO DAILY 06/11/24 07/18/24 History mcg (5,000 unit) capsule vitamin E mixed 400 unit capsule 400 unit PO 3XW 06/11/24 07/18/24 History lansoprazole 15 mg capsule,delayed 15 mg PO HS PRN indigestion 07/19/24 07/19/24 History release Allergies Allergy/AdvReac Type Severity Reaction Status Date / Time No Known Allergies Allergy Verified 07/19/24 08:45 Vital Signs Vital Signs - 24 hr 07/19/24 08:00 07/19/24 11:58 07/19/24 12:10 Temperature 97.8 F 97.2 F L Pulse Rate 87 82 78 Respiratory Rate 16 19 16 Blood Pressure 114/51 L 116/64 111/55 L Pulse Oximetry 99 99 98 Oxygen Delivery Room Air Room Air Room Air 07/19/24 12:25 07/19/24 12:40 07/19/24 13:05 Temperature 97.5 F L Pulse Rate 85 74 89 Respiratory Rate 13 15 17 Blood Pressure 103/54 L 111/64 108/64 Pulse Oximetry 99 99 97 Oxygen Delivery Room Air Room Air 07/19/24 13:05 Temperature Pulse Rate Respiratory Rate Blood Pressure Pulse Oximetry Oxygen Delivery Room Air Exam 2 Const: General: no acute distress Eyes: General: appearance normal, both eyes and all related structures Neck: Neck: supple Resp: Effort & Inspection: normal respiratory effort Skin: General skin exam: normal color Neuro: Speech: normal speech Psych: Speech and movement: Normal speech and movement present Affect: n ormal affect Results Labs 07/19/24 08:42 07/19/24 08:43 Labs: Short CBC 07/19/24 07/19/24 Range/Units 08:42 08:43 WBC 33.2 H (4.5-10.0) K/mm3 Hgb 10.5 L (14.0-18.0) g/dL Hct 32.3 L (42.0-52.0) % Plt Count 713 H Cancelled (150-375) k/mm3 BMP 07/19/24 08:43 Sodium 132 L Potassium 3.2 L Chloride 96 L Carbon Dioxide 28 BUN 18 Creatinine 0.75 Glucose 96 Calcium 8.4
[2024-07-19] MEDS: TAMSULOSIN HCL 0.4 MG CAPSULE PO (17:33)
[2024-07-19] MEDS: METOPROLOL SUCCINATE EXT REL 50 MG TABCR BY MOUTH (20:52)
[2024-07-19] MEDS: SIMVASTATIN 20 MG TABLET PO (20:53)
[2024-07-20] MEDS: PIPERACILLN/TAZ 3.375GM/NS50ML 3.375 GM/50 ML BAG IVPB ×5 (00:01→23:41)
[2024-07-20 00:14] VITALS: BP 112/65; PULSE 89; RESP 16; TEMP 36.4; O2SAT 99
[2024-07-20] MEDS: LACTATED RINGERS 1,000 ML 100 ML IV CONT (00:36)
[2024-07-20 04:42] VITALS: BP 114/62; PULSE 85; RESP 16; TEMP 36.9; O2SAT 95
[2024-07-20 05:03] LABS: Hematocrit 32.5 % (42.0-52.0); Hemoglobin 10.4 g/dL (14.0-18.0); Mean Corpuscular Hemoglobin 28.7 pg (26-34); Mean Corpuscular Volume 89.8 fl (80-100); Mean Platelet Volume 9.8 fl (7.4-10.4); Platelet Count Result 696 k/mm3 (150-375); Red Blood Count 3.62 M/mm3 (4.6-6.20); Red Cell Distribution Width 15.7 % (11.5-14.5)
[2024-07-20 05:15] LABS: Anion Gap 6 mmol/L (4-12); Blood Urea Nitrogen 13 mg/dL (9-20); Carbon Dioxide 29 mmol/L (22-30); Chloride 99 mmol/L (98-107); Estimated CRCL calculation 97 ml/min; Estimated Glomerular Filt Rate > 60; Glucose 92 mg/dL (65-110); Potassium 3.5 mmol/L (3.4-5.0); Sodium 134 mmol/L (137-145)
[2024-07-20] MEDS: ENOXAPARIN 40 MG/0.4 ML SYRINGE SUB-Q (08:02)
[2024-07-20] MEDS: hydroCHLOROthiazide 12.5 MG CAPSULE PO (08:02)
[2024-07-20] MEDS: TAMSULOSIN HCL 0.4 MG CAPSULE PO (08:02)
[2024-07-20] MEDS: LOSARTAN POTASSIUM 25 MG TABLET BY MOUTH (08:02)
[2024-07-20] MEDS: POTASSIUM CHLORIDE 20 MEQ ER TABLET PO (08:02)
[2024-07-20 08:50] VITALS: BP 105/53; PULSE 88; RESP 18; TEMP 36.5; O2SAT 98
--- NOTE | 2024-07-20 13:46 | PM.PNGS ---
Progress Note: A&P Assessment and Plan (1) Intra-abdominal abscess post-procedure: Code(s): T81.43XA - Infection following a procedure, organ and space surgical site, initial encounter; K65.1 - Peritoneal abscess Status: Acute Assessment and Plan: s/p perc drainage, exam improved, cont abx (2) Difficulty urinating: Code(s): R39.198 - Other difficulties with micturition Status: Acute Assessment and Plan: appreciate urology input, continue Flomax per recommendations Subjective Subjective Date/Time Seen: 07/20/24 13:46 Interval history: feels much better after drain placed Review of Systems Review of Systems: All systems reviewed & are unremarkable except as noted in HPI and below Exam Const: General: cooperative, comfortable and no acute distress Resp: Auscultation: clear to auscultation bilaterally Cardio: Rate: regular rate Rhythm: regular rhythm GI: Inspection: normal to inspection and non-distended GI Palp: Yes abdominal tenderness and Yes Soft to palpation Other: drain c mod s/s fluid Objective Data Vital Signs Vital Signs: Vital Signs - 24 hr 07/19/24 16:30 07/19/24 20:42 07/19/24 20:52 Temperature 36.3 C L 36.5 C Pulse Rate 79 95 64 Respiratory Rate 16 16 Blood Pressure 116/69 117/67 Pulse Oximetry 100 98 Oxygen Delivery 07/20/24 00:14 07/20/24 04:42 07/20/24 08:10 Temperature 36.4 C L 36.9 C Pulse Rate 89 85 Respiratory Rate 16 16 Blood Pressure 112/65 114/62 Pulse Oximetry 99 95 Oxygen Delivery Room Air 07/20/24 08:50 Temperature 36.5 C Pulse Rate 88 Respiratory Rate 18 Blood Pressure 105/53 L Pulse Oximetry 98 Oxygen Delivery Intake/Output Intake/Output: Intake & Output 07/17/24 07/18/24 07/19/24 07/20/24 23:59 23:59 23:59 23:59 Intake Total 840 1328.3 Output Total 700 160 Balance 140 1168.3 Meds/Results Medications: Active Medications Generic Name Dose Route Start Last Admin Trade Name Freq PRN Reason Stop Dose Admin Acetaminophen 500 mg 07/19/24 07:04 Acetaminophen 500 Mg Tablet PO Q6H PRN Pain Rated 1-3 Enoxaparin Sodium 40 mg 07/20/24 09:00 07/20/24 08:02 Enoxaparin 40 Mg/0.4 Ml Syringe SUB-Q 40 mg DAILY JORDY Administration Fentanyl Citrate 12.5 mcg 07/19/24 07:04 Fentanyl Citrate Inj (*Crx) 100 Mcg/2 Ml Vial IV PUSH Q2H PRN Breakthrough Pain Rated 4-6 or NPO Fentanyl Citrate 25 mcg 07/19/24 07:04 Fentanyl Citrate Inj (*Crx) 100 Mcg/2 Ml Vial IV PUSH Q2H PRN Breakthrough Pain Rated 7-10 or NPO Hydrochlorothiazide 12.5 mg 07/20/24 09:00 07/20/24 08:02 Hydrochlorothiazide 12.5 Mg Capsule PO 12.5 mg DAILY JORDY Administration Ibuprofen 800 mg in 200 mls @ 400 mls/hr 07/19/24 07:04 Caldolor 800 Mg/200 Ml IVPB Q6H PRN Breakthrough Pain Rated 1-3 or NPO Piperacillin/Tazobactam/Dextrose 3.375 gm in 50 mls @ 100 mls/hr 07/19/24 18:00 07/20/24 13:00 Zosyn 3.375 Gm/Ns 50 Ml IVPB Infused Q6HR JORDY Infusion Losartan Potassium 25 mg 07/20/24 09:00 07/20/24 08:02 Losartan Potassium 25 Mg Tablet BY MOUTH 25 mg QAM JORDY Administration Metoprolol Succinate 50 mg 07/19/24 21:00 07/19/24 20:52 Metoprolol Succinate Ext Rel 50 Mg Tabcr BY MOUTH 50 mg HS JORDY Administration Naloxone HCl 0.1 mg 07/19/24 07:04 Naloxone Hcl 0.4 Mg/Ml Vial IV PUSH Q2M PRN Opiate Reversal Ondansetron HCl 4 mg 07/19/24 07:04 Ondansetron Inj 4 Mg/2 Ml Vial IV PUSH Q4H PRN Nausea And Vomiting Oxycodone HCl 2.5 mg 07/19/24 07:04 Oxycodone Hcl (*Crx) 2.5 Mg Tab Ir PO Q4H PRN Pain Rated 4-6 Oxycodone/Acetaminophen 1 tablet 07/19/24 07:04 Oxycodone/Acetaminophen (*Crx) 5-325 Mg Tablet PO Q4H PRN Pain Rated 7-10 Pantoprazole Sodium 40 mg 07/20/24 09:00 07/20/24 08:02 Pantoprazole 40 Mg Tablet PO Not Given QAM [facility] Potassium Chloride 20 meq 07/20/24 08:00 07/20/24 08:02 Potassium Chloride 20 Meq Er Tablet PO 20 meq DAILY@0800 JORDY Administration Simvastatin 20 mg 07/19/24 21:00 07/19/24 20:53 Simvastatin 20 Mg Tablet PO 20 mg HS JORDY Administration Tamsulosin HCl 0.4 mg 07/19/24 17:05 07/20/24 08:02 Tamsulosin Hcl 0.4 Mg Capsule PO 0.4 mg QAM JORDY Administration Radiology Results: ITS Impressions Abscess Drainage Ultrasound 07/19/24 12:21 IMPRESSION: 1. Successful ultrasound-guided right lower quadrant abscess drainage catheter placement. The catheter will be managed by Dr. Huang. 2. 50 mL of cloudy reddish-orange fluid was aspirated and sent to the lab for Gram stain and cultures. Labs Labs: Laboratory Results - last 24 hr 07/20/24 04:53 WBC 25.0 H RBC 3.62 L Hgb 10.4 L Hct 32.5 L MCV 89.8 MCH 28.7 MCHC 32.0 RDW 15.7 H Plt Count 696 H MPV 9.8 Sodium 134 L Potassium 3.5 Chloride 99 Carbon Dioxide 29 Anion Gap 6 BUN 13 D Creatinine 0.61 L Estim Creat Clear Calc 97 Estimated GFR > 60 Glucose 92 Calcium 8.0 L
[2024-07-20 14:00] VITALS: BP 102/58; PULSE 88; RESP 18; TEMP 36.8; O2SAT 98
[2024-07-20 20:41] VITALS: PULSE 90
[2024-07-20] MEDS: METOPROLOL SUCCINATE EXT REL 50 MG TABCR BY MOUTH (20:41)
[2024-07-20] MEDS: SIMVASTATIN 20 MG TABLET PO (20:41)
[2024-07-20 21:06] VITALS: BP 116/52; PULSE 45; RESP 13; TEMP 36.5; O2SAT 100
[2024-07-21 05:24] VITALS: BP 116/62; PULSE 80; RESP 13; TEMP 36.2; O2SAT 99
[2024-07-21] MEDS: PIPERACILLN/TAZ 3.375GM/NS50ML 3.375 GM/50 ML BAG IVPB ×4 (05:25→23:06)
[2024-07-21] MEDS: TAMSULOSIN HCL 0.4 MG CAPSULE PO (08:49)
[2024-07-21] MEDS: LOSARTAN POTASSIUM 25 MG TABLET BY MOUTH (08:49)
[2024-07-21] MEDS: hydroCHLOROthiazide 12.5 MG CAPSULE PO (08:49)
[2024-07-21] MEDS: POTASSIUM CHLORIDE 20 MEQ ER TABLET PO (08:53)
[2024-07-21] MEDS: ENOXAPARIN 40 MG/0.4 ML SYRINGE SUB-Q (08:53)
[2024-07-21 09:38] LABS: Hemoglobin 11.1 g/dL (14.0-18.0); Mean Corpuscular HGB Conc 31.7 g/dl (32-36); Mean Corpuscular Hemoglobin 29.1 pg (26-34); Mean Corpuscular Volume 91.6 fl (80-100); Mean Platelet Volume 10.5 fl (7.4-10.4); Platelet Count Result 799 k/mm3 (150-375); Red Blood Count 3.82 M/mm3 (4.6-6.20); Red Cell Distribution Width 15.8 % (11.5-14.5); White Blood Count 24.5 K/mm3 (4.5-10.0)
[2024-07-21 09:45] LABS: Anion Gap 8 mmol/L (4-12); Blood Urea Nitrogen 10 mg/dL (9-20); Calcium 7.8 mg/dL (8.4-10.2); Carbon Dioxide 25 mmol/L (22-30); Chloride 100 mmol/L (98-107); Estimated CRCL calculation 105 ml/min; Estimated Glomerular Filt Rate > 60; Glucose 96 mg/dL (65-110); Potassium 3.2 mmol/L (3.4-5.0); Sodium 133 mmol/L (137-145)
--- NOTE | 2024-07-21 10:18 | PM.PNGS ---
Progress Note: A&P Assessment and Plan (1) Intra-abdominal abscess post-procedure: Code(s): T81.43XA - Infection following a procedure, organ and space surgical site, initial encounter; K65.1 - Peritoneal abscess Status: Acute Assessment and Plan: exam benign, continue drain and antibiotics, continue to encourage p.o. intake, OOB/IS Subjective Subjective Date/Time Seen: 07/21/24 10:18 Interval history: feels much improved, arsen diet, +bowel fxn Review of Systems Review of Systems: All systems reviewed & are unremarkable except as noted in HPI and below Exam Const: General: cooperative, comfortable and no acute distress Resp: Auscultation: clear to auscultation bilaterally Cardio: Rate: regular rate Rhythm: regular rhythm GI: Inspection: normal to inspection, non-distended and incision GI Palp: No abdominal tenderness and Yes Soft to palpation Other: drain c minimal serosanguineous output Objective Data Vital Signs Vital Signs: Vital Signs - 24 hr 07/20/24 14:00 07/20/24 20:41 07/20/24 21:06 Temperature 36.8 C 36.5 C Pulse Rate 88 90 45 L Respiratory Rate 18 13 Blood Pressure 102/58 L 116/52 L Pulse Oximetry 98 100 07/21/24 05:24 Temperature 36.2 C L Pulse Rate 80 Respiratory Rate 13 Blood Pressure 116/62 Pulse Oximetry 99 Intake/Output Intake/Output: Intake & Output 07/18/24 07/19/24 07/20/24 07/21/24 23:59 23:59 23:59 23:59 Intake Total 840 1618.3 1172 Output Total 700 210 50 Balance 140 1408.3 1122 Meds/Results Medications: Active Medications Generic Name Dose Route Start Last Admin Trade Name Freq PRN Reason Stop Dose Admin Acetaminophen 500 mg 07/19/24 07:04 Acetaminophen 500 Mg Tablet PO Q6H PRN Pain Rated 1-3 Enoxaparin Sodium 40 mg 07/20/24 09:00 07/21/24 08:53 Enoxaparin 40 Mg/0.4 Ml Syringe SUB-Q 40 mg DAILY JORDY Administration Fentanyl Citrate 12.5 mcg 07/19/24 07:04 Fentanyl Citrate Inj (*Crx) 100 Mcg/2 Ml Vial IV PUSH Q2H PRN Breakthrough Pain Rated 4-6 or NPO Fentanyl Citrate 25 mcg 07/19/24 07:04 Fentanyl Citrate Inj (*Crx) 100 Mcg/2 Ml Vial IV PUSH Q2H PRN Breakthrough Pain Rated 7-10 or NPO Hydrochlorothiazide 12.5 mg 07/20/24 09:00 07/21/24 08:49 Hydrochlorothiazide 12.5 Mg Capsule PO 12.5 mg DAILY JORDY Administration Ibuprofen 800 mg in 200 mls @ 400 mls/hr 07/19/24 07:04 Caldolor 800 Mg/200 Ml IVPB Q6H PRN Breakthrough Pain Rated 1-3 or NPO Piperacillin/Tazobactam/Dextrose 3.375 gm in 50 mls @ 100 mls/hr 07/19/24 18:00 07/21/24 05:25 Zosyn 3.375 Gm/Ns 50 Ml IVPB 100 mls/hr Q6HR JORDY Administration Losartan Potassium 25 mg 07/20/24 09:00 07/21/24 08:49 Losartan Potassium 25 Mg Tablet BY MOUTH 25 mg QAM JORDY Administration Metoprolol Succinate 50 mg 07/19/24 21:00 07/20/24 20:41 Metoprolol Succinate Ext Rel 50 Mg Tabcr BY MOUTH 50 mg HS JORDY Administration Naloxone HCl 0.1 mg 07/19/24 07:04 Naloxone Hcl 0.4 Mg/Ml Vial IV PUSH Q2M PRN Opiate Reversal Ondansetron HCl 4 mg 07/19/24 07:04 Ondansetron Inj 4 Mg/2 Ml Vial IV PUSH Q4H PRN Nausea And Vomiting Oxycodone HCl 2.5 mg 07/19/24 07:04 Oxycodone Hcl (*Crx) 2.5 Mg Tab Ir PO Q4H PRN Pain Rated 4-6 Oxycodone/Acetaminophen 1 tablet 07/19/24 07:04 Oxycodone/Acetaminophen (*Crx) 5-325 Mg Tablet PO Q4H PRN Pain Rated 7-10 Pantoprazole Sodium 40 mg 07/20/24 09:00 07/21/24 08:50 Pantoprazole 40 Mg Tablet PO Not Given QAM [facility] Potassium Chloride 20 meq 07/20/24 08:00 07/21/24 08:53 Potassium Chloride 20 Meq Er Tablet PO 20 meq DAILY@0800 JORDY Administration Simvastatin 20 mg 07/19/24 21:00 07/20/24 20:41 Simvastatin 20 Mg Tablet PO 20 mg HS JORDY Administration Tamsulosin HCl 0.4 mg 07/19/24 17:05 07/21/24 08:49 Tamsulosin Hcl 0.4 Mg Capsule PO 0.4 mg QAM JORDY Administration Radiology Results: ITS Impressions Abscess Drainage Ultrasound 07/19/24 12:21 IMPRESSION: 1. Successful ultrasound-guided right lower quadrant abscess drainage catheter placement. The catheter will be managed by Dr. Huang. 2. 50 mL of cloudy reddish-orange fluid was aspirated and sent to the lab for Gram stain and cultures. Labs Labs: Laboratory Results - last 24 hr 07/21/24 09:02 WBC 24.5 H RBC 3.82 L Hgb 11.1 L Hct 35.0 L MCV 91.6 MCH 29.1 MCHC 31.7 L RDW 15.8 H Plt Count 799 H MPV 10.5 H Sodium 133 L Potassium 3.2 L Chloride 100 Carbon Dioxide 25 Anion Gap 8 BUN 10 Creatinine 0.56 L Estim Creat Clear Calc 105 Estimated GFR > 60 Glucose 96 Calcium 7.8 L
[2024-07-21 15:23] VITALS: BP 133/71; PULSE 88; RESP 16; TEMP 36.9; O2SAT 99
[2024-07-21 21:10] VITALS: BP 120/45; PULSE 94; RESP 14; TEMP 36.5; O2SAT 100
[2024-07-21] MEDS: METOPROLOL SUCCINATE EXT REL 50 MG TABCR BY MOUTH (21:19)
[2024-07-21] MEDS: SIMVASTATIN 20 MG TABLET PO (21:19)
[2024-07-22 05:28] VITALS: BP 124/62; PULSE 50; RESP 16; TEMP 36.3; O2SAT 99
[2024-07-22] MEDS: PIPERACILLN/TAZ 3.375GM/NS50ML 3.375 GM/50 ML BAG IVPB ×4 (05:32→23:00)
[2024-07-22 06:05] LABS: Basophils Absolute Auto 0.1 K/mm3 (0.0-0.1); Basophils Percent Auto 0.2 % (0.2-1.2); Eosinophils Absolute Auto 0.2 K/mm3 (0-0.3); Eosinophils Percent Auto 0.7 % (0-4.4); Hematocrit 33.7 % (42.0-52.0); Hemoglobin 10.5 g/dL (14.0-18.0); Immature Granulocyte Absolute 0.34 K/mm3 (0.00-0.031); Immature Granulocyte Percent A 1.4 % (0-0.5); Lymphocytes Absolute Auto 1.25 K/mm3 (0.9-3.2); Lymphocytes Percent Auto 5.3 % (18.3-44.2); Mean Corpuscular HGB Conc 31.2 g/dl (32-36); Mean Corpuscular Hemoglobin 28.5 pg (26-34); Mean Corpuscular Volume 91.3 fl (80-100); Mean Platelet Volume 9.9 fl (7.4-10.4); Monocytes Absolute Auto 1.3 K/mm3 (0.1-0.6); Monocytes Percent Auto 5.3 % (2.6-8.5); Neutrophils Absolute Auto 20.6 K/mm3 (1.3-6.7); Neutrophils Percent Auto 87.1 % (45.5-73.1); Platelet Count Result 842 k/mm3 (150-375); Red Blood Count 3.69 M/mm3 (4.6-6.20); Red Cell Distribution Width 15.8 % (11.5-14.5); White Blood Count 23.6 K/mm3 (4.5-10.0)
[2024-07-22 06:53] LABS: Alanine Aminotransferase 38 U/L (6-50); Albumin Level 2.6 g/dL (3.5-5.1); Alkaline Phosphatase 174 U/L (38-126); Anion Gap 6 mmol/L (4-12); Aspartate Amino Transferase 55 U/L (17-59); Bilirubin,Total 0.6 mg/dL (0.2-1.3); Blood Urea Nitrogen 7 mg/dL (9-20); Calcium 8.1 mg/dL (8.4-10.2); Carbon Dioxide 33 mmol/L (22-30); Chloride 99 mmol/L (98-107); Estimated CRCL calculation 89 ml/min; Estimated Glomerular Filt Rate > 60; Glucose 98 mg/dL (65-110); Potassium 3.6 mmol/L (3.4-5.0); Sodium 138 mmol/L (137-145)
[2024-07-22] MEDS: LOSARTAN POTASSIUM 25 MG TABLET BY MOUTH (08:32)
[2024-07-22] MEDS: TAMSULOSIN HCL 0.4 MG CAPSULE PO (08:32)
[2024-07-22] MEDS: hydroCHLOROthiazide 12.5 MG CAPSULE PO (08:32)
[2024-07-22] MEDS: ENOXAPARIN 40 MG/0.4 ML SYRINGE SUB-Q (08:32)
[2024-07-22] MEDS: POTASSIUM CHLORIDE 20 MEQ ER TABLET PO (08:32)
--- NOTE | 2024-07-22 10:52 | PCNFU ---
Nutrition Follow-Up Complete: Inadequate oral intake related to loss of appetite, recent surgery as evidenced by reports of poor appetite, abdominal pain and weight loss Adequate PO intake at least 75% meals and supplements - Slow progress to goal. Intakes 0-50% Goal: Pt current nutrition is Regular diet, Ensure Enlive BID (350 kcal, 20 g protein). Nutrition recommendation: No new recommendations. Continue current nutrition care plan and orders Last recorded weight is 83.75 kg. Bowel Motility: +1 BM 07/21/24 Labs Reviewed: Hgb 10.5, Hct 33.7, Alb 2.6, BUN 7, Cre 0.67 Meds Noted: Hydrochlorothiazide, KCl, protonix Skin: No skin issues Additional Notes: Tolerating diet, having bowel movements. Continue current orders. Agree with orders. Monitoring intakes, weights, labs, supplement tolerance, plan of care Follow up in 3 days
[2024-07-22 14:00] VITALS: PULSE 61; RESP 16; TEMP 36.2; O2SAT 99
--- NOTE | 2024-07-22 14:12 | PM.PNGS ---
Progress Note: A&P Assessment and Plan (1) Intra-abdominal abscess post-procedure: Code(s): T81.43XA - Infection following a procedure, organ and space surgical site, initial encounter; K65.1 - Peritoneal abscess Status: Acute Assessment and Plan: Right lower quadrant continues to drain what appears to be old blood mixed with ascites. Output from the drain is dropping off at a reasonable rate. CT scan shows that the right lower quadrant collection is about 30% the size it was prior to drainage. Cultures of this are growing E coli and now Bacteroides fragilis. Sensitivities for the E coli are pending but suspect both of these are sensitive to Zosyn. Patient still has a superficial left lower quadrant abscess which is amenable to image guided drainage with pigtail catheter placement. I discussed this with Dr. Marino and we will go ahead in order for this to be done. I talked with the patient and his regarding the etiology of the fluid collections and the need for draining the left lower quadrant collection. Most likely these collections are due to some postoperative bleeding and hematoma that was contaminated during the surgery with colonic bacteria. The contamination was likely minimal but with a good substrate of old blood, this has gone on to form a liquified, infected hematoma. I would suspect patient will need a full week of IV antibiotics and then continue with the pigtail catheters an oral antibiotics after discharge. I discussed this with the patient and his as well. Will proceed with drainage of the left lower quadrant abscess. (2) Dysuria: Code(s): R30.0 - Dysuria Status: Chronic Assessment and Plan: Urology assistance much appreciated. Patient has noticed near resolution of dysuria and hesitancy with taking Flomax. (3) History of partial surgical removal of colon: Code(s): Z90.49 - Acquired absence of other specified parts of digestive tract Status: Chronic Assessment and Plan: Surgery performed 06/21/2024 (4) Adenomatous colon polyp: Qualifiers: Colon location: ascending Qualified Code(s): D12.2 - Benign neoplasm of ascending colon Code(s): D12.6 - Benign neoplasm of colon, unspecified Status: Chronic Assessment and Plan: Benign ascending colon polyp removed at surgery a month ago. Subjective Subjective Date/Time Seen: 07/22/24 14:12 Post Op day: #31 Patient reports: no new complaints, feels better, pain is less, tolerating a regular diet and afebrile Interval history: Was bloated and had a lot of belching yesterday. Feels much better today. Bloating is gone. Eating well. Dysuria and hesitancy are essentially gone with starting Flomax. Good progress overall Exam Const: General: cooperative, comfortable, awake, well groomed and thin Orientation/consciousness: No confusion GI: Inspection: non-distended and incision (Healing well, dark red drainage per pigtail catheter) GI Palp: Yes Soft to palpation, Yes Tenderness to palpation present (GI) (Mostly at drain exit site), No Hernia present and No Palpable mass present Auscultation: normal bowel sounds Extrem: Right lower extremity: edema Details: non-pitting and 2+ Left lower extremity: edema Details: non-pitting and 1+ Objective Data Vital Signs Vital Signs: Vital Signs - 24 hr 07/21/24 15:23 07/21/24 20:00 07/21/24 21:10 Temperature 36.9 C 36.5 C Pulse Rate 88 94 Respiratory Rate 16 14 Blood Pressure 133/71 120/45 L Pulse Oximetry 99 100 Oxygen Delivery Room Air 07/22/24 05:28 07/22/24 08:00 Temperature 36.3 C L Pulse Rate 50 L Respiratory Rate 16 Blood Pressure 124/62 Pulse Oximetry 99 Oxygen Delivery Room Air Intake/Output Intake/Output: Intake & Output 07/19/24 07/20/24 07/21/24 07/22/24 23:59 23:59 23:59 23:59 Intake Total 840 1618.3 2089 780 Output Total 700 210 115 Balance 140 1408.3 1974 780 Meds/Results Medications: Active Medications Generic Name Dose Route Start Last Admin Trade Name Freq PRN Reason Stop Dose Admin Acetaminophen 500 mg 07/19/24 07:04 Acetaminophen 500 Mg Tablet PO Q6H PRN Pain Rated 1-3 Enoxaparin Sodium 40 mg 07/20/24 09:00 07/22/24 08:32 Enoxaparin 40 Mg/0.4 Ml Syringe SUB-Q 40 mg DAILY JORDY Administration Fentanyl Citrate 12.5 mcg 07/19/24 07:04 Fentanyl Citrate Inj (*Crx) 100 Mcg/2 Ml Vial IV PUSH Q2H PRN Breakthrough Pain Rated 4-6 or NPO Fentanyl Citrate 25 mcg 07/19/24 07:04 Fentanyl Citrate Inj (*Crx) 100 Mcg/2 Ml Vial IV PUSH Q2H PRN Breakthrough Pain Rated 7-10 or NPO Hydrochlorothiazide 12.5 mg 07/20/24 09:00 07/22/24 08:32 Hydrochlorothiazide 12.5 Mg Capsule PO 12.5 mg DAILY JORDY Administration Ibuprofen 800 mg in 200 mls @ 400 mls/hr 07/19/24 07:04 Caldolor 800 Mg/200 Ml IVPB Q6H PRN Breakthrough Pain Rated 1-3 or NPO Piperacillin/Tazobactam/Dextrose 3.375 gm in 50 mls @ 100 mls/hr 07/19/24 18:00 07/22/24 12:41 Zosyn 3.375 Gm/Ns 50 Ml IVPB Infused Q6HR JORDY Infusion Losartan Potassium 25 mg 07/20/24 09:00 07/22/24 08:32 Losartan Potassium 25 Mg Tablet BY MOUTH 25 mg QAM JORDY Administration Metoprolol Succinate 50 mg 07/19/24 21:00 07/21/24 21:19 Metoprolol Succinate Ext Rel 50 Mg Tabcr BY MOUTH 50 mg HS JORDY Administration Naloxone HCl 0.1 mg 07/19/24 07:04 Naloxone Hcl 0.4 Mg/Ml Vial IV PUSH Q2M PRN Opiate Reversal Ondansetron HCl 4 mg 07/19/24 07:04 Ondansetron Inj 4 Mg/2 Ml Vial IV PUSH Q4H PRN Nausea And Vomiting Oxycodone HCl 2.5 mg 07/19/24 07:04 Oxycodone Hcl (*Crx) 2.5 Mg Tab Ir PO Q4H PRN Pain Rated 4-6 Oxycodone/Acetaminophen 1 tablet 07/19/24 07:04 Oxycodone/Acetaminophen (*Crx) 5-325 Mg Tablet PO Q4H PRN Pain Rated 7-10 Pantoprazole Sodium 40 mg 07/20/24 09:00 07/22/24 08:28 Pantoprazole 40 Mg Tablet PO Not Given QAM JORDY Potassium Chloride 20 meq 07/20/24 08:00 07/22/24 08:32 Potassium Chloride 20 Meq Er Tablet PO 20 meq DAILY@0800 JORDY Administration Simvastatin 20 mg 07/19/24 21:00 07/21/24 21:19 Simvastatin 20 Mg Tablet PO 20 mg HS JORDY Administration Tamsulosin HCl 0.4 mg 07/19/24 17:05 07/22/24 08:32 Tamsulosin Hcl 0.4 Mg Capsule PO 0.4 mg QAM JORDY Administration Radiology Results: ITS Impressions Abscess Drainage Ultrasound 07/19/24 12:21 IMPRESSION: 1. Successful ultrasound-guided right lower quadrant abscess drainage catheter placement. The catheter will be managed by Dr. Huang. 2. 50 mL of cloudy reddish-orange fluid was aspirated and sent to the lab for Gram stain and cultures. Abdomen/Pelvis CT 07/22/24 09:13 IMPRESSION: 1. Significant decrease in size of a large intraperitoneal abscess with multiple contiguous pockets seen between the right upper and the right and left lower quadrants post drainage catheter placement. 2. Unchanged small abscess cavity in the more posterior inferior deep pelvis which does not appear to demonstrate direct communication. 3. Increase in size of a still small right pleural effusion with associated atelectasis in the right lower lobe. 4. Cholelithiasis. 5. Nonobstructing left nephrolithiasis. Labs Labs: Laboratory Results - last 24 hr 07/22/24 05:44 WBC 23.6 H RBC 3.69 L Hgb 10.5 L Hct 33.7 L MCV 91.3 MCH 28.5 MCHC 31.2 L RDW 15.8 H Plt Count 842 H MPV 9.9 Immature Gran % (Auto) 1.4 H Neut % (Auto) 87.1 H Lymph % (Auto) 5.3 L [place] % (Auto) 5.3 Eos % (Auto) 0.7 Baso % (Auto) 0.2 Lymph # (Auto) 1.25 [place] # (Auto) 1.3 H Eos # (Auto) 0.2 Baso # (Auto) 0.1 Abs Immat Gran (auto) 0.34 H Absolute Neuts (auto) 20.6 H Absolute Nucleated RBC 0.000 Nucleated RBC % 0.0 Sodium 138 Potassium 3.6 Chloride 99 Carbon Dioxide 33 H Anion Gap 6 BUN 7 L Creatinine 0.67 L Estim Creat Clear Calc 89 Estimated GFR > 60 Glucose 98 Calcium 8.1 L Total Bilirubin 0.6 AST 55 ALT 38 Alkaline Phosphatase 174 H C-Reactive Protein 5.0 H Total Protein 6.0 L Albumin 2.6 L Imaging Attestation: I personally reviewed and interpreted this imaging study as follows: (CT scan abdomen and pelvis from today) My impression: I reviewed today's films with Dr. Marino. There is still a superficial left lower quadrant collection that does not seem to be diminishing or in connection with the right lower quadrant collection. Discussed possibly putting a 2nd drainage catheter here to facilitate resolution. Dr. Marino is in agreement that this could be done. There is also a small collection in the pelvis that probably will not need drainage. Radiologist's impression: As above
[2024-07-22] MEDS: SIMVASTATIN 20 MG TABLET PO (20:40)
[2024-07-22] MEDS: METOPROLOL SUCCINATE EXT REL 50 MG TABCR BY MOUTH (20:40)
[2024-07-22 21:09] VITALS: BP 109/54; PULSE 93; RESP 16; TEMP 36.4; O2SAT 100
[2024-07-23 05:24] VITALS: BP 121/64; PULSE 92; RESP 14; TEMP 36.3; O2SAT 99
[2024-07-23] MEDS: PIPERACILLN/TAZ 3.375GM/NS50ML 3.375 GM/50 ML BAG IVPB ×3 (05:40→21:34)
[2024-07-23] MEDS: TAMSULOSIN HCL 0.4 MG CAPSULE PO (08:52)
[2024-07-23] MEDS: hydroCHLOROthiazide 12.5 MG CAPSULE PO (08:52)
[2024-07-23] MEDS: POTASSIUM CHLORIDE 20 MEQ ER TABLET PO (08:52)
[2024-07-23] MEDS: LOSARTAN POTASSIUM 25 MG TABLET BY MOUTH (08:52)
--- NOTE | 2024-07-23 13:53 | P.PNGS_ITS ---
Progress Note: A&P Assessment and Plan (1) Intra-abdominal abscess post-procedure: Code(s): T81.43XA - Infection following a procedure, organ and space surgical site, initial encounter; K65.1 - Peritoneal abscess Status: Acute Assessment and Plan: Continue to monitor right lower quadrant drain. Cultures growing Bacteroides fragilis and E coli, with the E coli sensitive to Zosyn. Continue IV Zosyn for now. Plan to proceed with percutaneous drainage of the left lower quadrant abscess in Radiology today. We may resume his diet after his procedure. (2) Dysuria: Code(s): R30.0 - Dysuria Status: Chronic Assessment and Plan: Symptoms resolving with taking Flomax. (3) History of partial surgical removal of colon: Code(s): Z90.49 - Acquired absence of other specified parts of digestive tract Status: Chronic Assessment and Plan: Surgery performed 06/21/2024 (4) Adenomatous colon polyp: Qualifiers: Colon location: ascending Qualified Code(s): D12.2 - Benign neoplasm of ascending colon Code(s): D12.6 - Benign neoplasm of colon, unspecified Status: Chronic Assessment and Plan: Benign ascending colon polyp removed at surgery a month ago. Plan I have discussed the patient's case and plan of care with Dr. Huang. Subjective Subjective Date/Time Seen: 07/23/24 13:53 Patient reports: no new complaints, feels better, pain is less (overall his pain has been improving) and afebrile Interval history: Still has a poor appetite, but no nausea or vomiting. He denies bloating. He states he has primarily stuck to liquids and Ensure supplements leading up to him being NPO today for the procedure. No other specific complaints. Exam Const: General: comfortable and no acute distress Orientation/co nsciousness: patient oriented x3 GI: Inspection: non-distended, incision (Healing well with glue intact, no erythema) and scar (Hand access scar and trocar scars all healing well) GI Palp: Yes Soft to palpation, Yes Tenderness to palpation present (GI) (mild tenderness near the drain) and No Guarding due to palpation present (GI) Auscultation: normal bowel sounds Other: Percutaneous drain with dark bloody drainage Extrem: Left lower extremity: edema Details: non-pitting and 1+ Objective Data Vital Signs Vital Signs: Vital Signs - 24 hr 07/22/24 14:00 07/22/24 20:00 07/22/24 21:09 Temperature 97.1 F L 97.6 F Pulse Rate 61 93 Respiratory Rate 16 16 Blood Pressure 109/54 L Pulse Oximetry 99 100 Oxygen Delivery Room Air 07/23/24 05:24 Temperature 97.3 F L Pulse Rate 92 Respiratory Rate 14 Blood Pressure 121/64 Pulse Oximetry 99 Oxygen Delivery Intake/Output Intake/Output: Intake & Output 07/20/24 07/21/24 07/22/24 07/23/24 23:59 23:59 23:59 23:59 Intake Total 1618.3 2089 1520 50 Output Total 210 115 20 Balance 1408.3 1974 1520 30 Meds/Results Medications: Active Medications Generic Name Dose Route Start Last Admin Trade Name Freq PRN Reason Stop Dose Admin Acetaminophen 500 mg 07/19/24 07:04 Acetaminophen 500 Mg Tablet PO Q6H PRN Pain Rated 1-3 Enoxaparin Sodium 40 mg 07/20/24 09:00 07/22/24 08:32 Enoxaparin 40 Mg/0.4 Ml Syringe SUB-Q 40 mg DAILY JORDY Administration Fentanyl Citrate 12.5 mcg 07/19/24 07:04 Fentanyl Citrate Inj (*Crx) 100 Mcg/2 Ml Vial IV PUSH Q2H PRN Breakthrough Pain Rated 4-6 or NPO Fentanyl Citrate 25 mcg 07/19/24 07:04 Fentanyl Citrate Inj (*Crx) 100 Mcg/2 Ml Vial IV PUSH Q2H PRN Breakthrough Pain Rated 7-10 or NPO Hydrochlorothiazide 12.5 mg 07/20/24 09:00 07/23/24 08:52 Hydrochlorothiazide 12.5 Mg Capsule PO 12.5 mg DAILY JORDY Administration Ibuprofen 800 mg in 200 mls @ 400 mls/hr 07/19/24 07:04 Caldolor 800 Mg/200 Ml IVPB Q6H PRN Breakthrough Pain Rated 1-3 or NPO Piperacillin/Tazobactam/Dextrose 3.375 gm in 50 mls @ 100 mls/hr 07/19/24 18:00 07/23/24 06:10 Zosyn 3.375 Gm/Ns 50 Ml IVPB Infused Q6HR JORDY Infusion Losartan Potassium 25 mg 07/20/24 09:00 07/23/24 08:52 Losartan Potassium 25 Mg Tablet BY MOUTH 25 mg QAM JORDY Administration Metoprolol Succinate 50 mg 07/19/24 21:00 07/22/24 20:40 Metoprolol Succinate Ext Rel 50 Mg Tabcr BY MOUTH 50 mg HS JORDY Administration Naloxone HCl 0.1 mg 07/19/24 07:04 Naloxone Hcl 0.4 Mg/Ml Vial IV PUSH Q2M PRN Opiate Reversal Ondansetron HCl 4 mg 07/19/24 07:04 Ondansetron Inj 4 Mg/2 Ml Vial IV PUSH Q4H PRN Nausea And Vomiting Oxycodone HCl 2.5 mg 07/19/24 07:04 Oxycodone Hcl (*Crx) 2.5 Mg Tab Ir PO Q4H PRN Pain Rated 4-6 Oxycodone/Acetaminophen 1 tablet 07/19/24 07:04 Oxycodone/Acetaminophen (*Crx) 5-325 Mg Tablet PO Q4H PRN Pain Rated 7-10 Pantoprazole Sodium 40 mg 07/20/24 09:00 07/23/24 08:53 Pantoprazole 40 Mg Tablet PO Not Given QAM [facility] Potassium Chloride 20 meq 07/20/24 08:00 07/23/24 08:52 Potassium Chloride 20 Meq Er Tablet PO 20 meq DAILY@0800 JORDY Administration Simvastatin 20 mg 07/19/24 21:00 07/22/24 20:40 Simvastatin 20 Mg Tablet PO 20 mg HS JORDY Administration Tamsulosin HCl 0.4 mg 07/19/24 17:05 07/23/24 08:52 Tamsulosin Hcl 0.4 Mg Capsule PO 0.4 mg QAM JORDY Administration Radiology Results: ITS Impressions Abscess Drainage Ultrasound 07/19/24 12:21 IMPRESSION: 1. Successful ultrasound-guided right lower quadrant abscess drainage catheter placement. The catheter will be managed by Dr. Huang. 2. 50 mL of cloudy reddish-orange fluid was aspirated and sent to the lab for Gram stain and cultures. Abdomen/Pelvis CT 07/22/24 09:13 IMPRESSION: 1. Significant decrease in size of a large intraperitoneal abscess with multiple contiguous pockets seen between the right upper and the right and left lower qu adrants post drainage catheter placement. 2. Unchanged small abscess cavity in the more posterior inferior deep pelvis which does not appear to demonstrate direct communication. 3. Increase in size of a still small right pleural effusion with associated atelectasis in the right lower lobe. 4. Cholelithiasis. 5. Nonobstructing left nephrolithiasis.
[2024-07-23 14:00] VITALS: BP 111/68; PULSE 84; RESP 18; O2SAT 99
[2024-07-23 20:00] VITALS: PULSE 70; RESP 18; O2SAT 98
[2024-07-23 21:31] VITALS: PULSE 70
[2024-07-23] MEDS: METOPROLOL SUCCINATE EXT REL 50 MG TABCR BY MOUTH (21:31)
[2024-07-23] MEDS: SIMVASTATIN 20 MG TABLET PO (21:31)
[2024-07-23 22:00] VITALS: BP 114/60; PULSE 70; RESP 18; TEMP 36.9; O2SAT 98
[2024-07-24] MEDS: PIPERACILLN/TAZ 3.375GM/NS50ML 3.375 GM/50 ML BAG IVPB ×4 (03:27→20:08)
[2024-07-24 06:00] VITALS: BP 114/50; PULSE 70; RESP 18; TEMP 36.8; O2SAT 96
[2024-07-24 06:54] LABS: Basophils Percent Auto 0.3 % (0.2-1.2); Eosinophils Absolute Auto 0.2 K/mm3 (0-0.3); Eosinophils Percent Auto 1.5 % (0-4.4); Hemoglobin 9.2 g/dL (14.0-18.0); Immature Granulocyte Percent A 1.5 % (0-0.5); Lymphocytes Absolute Auto 1.31 K/mm3 (0.9-3.2); Lymphocytes Percent Auto 9.5 % (18.3-44.2); Mean Corpuscular HGB Conc 31.7 g/dl (32-36); Mean Corpuscular Hemoglobin 28.3 pg (26-34); Mean Corpuscular Volume 89.2 fl (80-100); Mean Platelet Volume 9.9 fl (7.4-10.4); Monocytes Absolute Auto 0.8 K/mm3 (0.1-0.6); Monocytes Percent Auto 5.9 % (2.6-8.5); Neutrophils Absolute Auto 11.2 K/mm3 (1.3-6.7); Neutrophils Percent Auto 81.3 % (45.5-73.1); Platelet Count Result 801 k/mm3 (150-375); Red Blood Count 3.25 M/mm3 (4.6-6.20); Red Cell Distribution Width 16.2 % (11.5-14.5); White Blood Count 13.7 K/mm3 (4.5-10.0)
[2024-07-24 07:08] LABS: Anion Gap 2 mmol/L (4-12); Blood Urea Nitrogen 7 mg/dL (9-20); Calcium 7.5 mg/dL (8.4-10.2); Carbon Dioxide 31 mmol/L (22-30); Chloride 101 mmol/L (98-107); Estimated CRCL calculation 97 ml/min; Estimated Glomerular Filt Rate > 60; Glucose 78 mg/dL (65-110); Potassium 3.5 mmol/L (3.4-5.0); Sodium 134 mmol/L (137-145)
[2024-07-24] MEDS: hydroCHLOROthiazide 12.5 MG CAPSULE PO (08:56)
[2024-07-24] MEDS: POTASSIUM CHLORIDE 20 MEQ ER TABLET PO (08:56)
[2024-07-24] MEDS: LOSARTAN POTASSIUM 25 MG TABLET BY MOUTH (08:56)
[2024-07-24] MEDS: TAMSULOSIN HCL 0.4 MG CAPSULE PO (09:01)
[2024-07-24 14:00] VITALS: BP 103/68; PULSE 84; RESP 16; TEMP 36.2; O2SAT 99
--- NOTE | 2024-07-24 15:16 | P.PNGS_ITS ---
Progress Note: A&P Assessment and Plan (1) Intra-abdominal abscess post-procedure: Code(s): T81.43XA - Infection following a procedure, organ and space surgical site, initial encounter; K65.1 - Peritoneal abscess Status: Acute Assessment and Plan: Patient doing much better today. Suspect having the 2nd drainage catheter placed has helped significantly. His white blood cell count has dropped significantly from over 20,000 to 13,700 today. He clearly feels better, he is much more talkative, more animated, more hungry. (2) History of partial surgical removal of colon: Code(s): Z90.49 - Acquired absence of other specified parts of digestive tract Status: Chronic Assessment and Plan: Wounds healing well. Tolerating regular diet (3) Adenomatous colon polyp: Qualifiers: Colon location: ascending Qualified Code(s): D12.2 - Benign neoplasm of ascending colon Code(s): D12.6 - Benign neoplasm of colon, unspecified Status: Chronic (4) Dysuria: Code(s): R30.0 - Dysuria Status: Chronic Assessment and Plan: Symptoms have resolved with Flomax (5) Leukocytosis: Qualifiers: Leukocytosis type: unspecified Qualified Code(s): D72.829 - Elevated white blood cell count, unspecified Code(s): D72.829 - Elevated white blood cell count, unspecified Status: Acute Assessment and Plan: Much improved Subjective Subjective Date/Time Seen: 07/24/24 15:16 Patient reports: feels better, pain is less, tolerating a regular diet, voiding w/o difficulty, bowel movement and afebrile Interval history: Appetite is improved. Feeling hungry. Feels much better than earlier this week. Exam Const: General: cooperative, comfortable, alert and awake Orientation/consciousness: patient oriented x3 and No confusion GI: Inspection: non-distended, incision (All incisions healing well) and other (Minimal sanguinous drainage from each drain) GI Palp: Yes Soft to palpation and Yes Tenderness to palpation present (GI) (Drain sites only) Extrem: General: edema bilateral (Less than before, 1+ bilaterally) Psych: Speech and movement: Clear speech present Affect: normal affect Attitude: cooperative Thought content: Yes Normal thought content present Insight: Good insight present (Psych) Judgement: Good judgement present (Psych) Objective Data Vital Signs Vital Signs: Vital Signs - 24 hr 07/23/24 20:00 07/23/24 21:31 07/23/24 22:00 Temperature 36.9 C Pulse Rate 70 70 70 Respiratory Rate 18 18 Blood Pressure 114/60 Pulse Oximetry 98 98 Oxygen Delivery Room Air 07/24/24 06:00 07/24/24 08:00 07/24/24 14:00 Temperature 36.8 C 36.2 C L Pulse Rate 70 84 Respiratory Rate 18 16 Blood Pressure 114/50 L 103/68 Pulse Oximetry 96 99 Oxygen Delivery Room Air Intake/Output Intake/Output: Intake & Output 07/21/24 07/22/24 07/23/24 07/24/24 23:59 23:59 23:59 23:59 Intake Total 208 1520 390 780 Output Total 115 20 Balance 1974 1520 370 780 Meds/Results Medications: Active Medications Generic Name Dose Route Start Last Admin Trade Name Freq PRN Reason Stop Dose Admin Acetaminophen 500 mg 07/19/24 07:04 Acetaminophen 500 Mg Tablet PO Q6H PRN Pain Rated 1-3 Enoxaparin Sodium 40 mg 07/20/24 09:00 07/22/24 08:32 Enoxaparin 40 Mg/0.4 Ml Syringe SUB-Q 40 mg DAILY JORDY Administration Fentanyl Citrate 12.5 mcg 07/19/24 07:04 Fentanyl Citrate Inj (*Crx) 100 Mcg/2 Ml Vial IV PUSH Q2H PRN Breakthrough Pain Rated 4-6 or NPO Fentanyl Citrate 25 mcg 07/19/24 07:04 Fentanyl Citrate Inj (*Crx) 100 Mcg/2 Ml Vial IV PUSH Q2H PRN Breakthrough Pain Rated 7-10 or NPO Hydrochlorothiazide 12.5 mg 07/20/24 09:00 07/24/24 08:56 Hydrochlorothiazide 12.5 Mg Capsule PO 12.5 mg DAILY JORDY Administration Ibuprofen 800 mg in 200 mls @ 400 mls/hr 07/19/24 07:04 Caldolor 800 Mg/200 Ml IVPB Q6H PRN Breakthrough Pain Rated 1-3 or NPO Piperacillin/Tazobactam/Dextrose 3.375 gm in 50 mls @ 100 mls/hr 07/23/24 15:00 07/24/24 09:25 Zosyn 3.375 Gm/Ns 50 Ml IVPB Infused Q6H JORDY Infusion Losartan Potassium 25 mg 07/20/24 09:00 07/24/24 08:56 Losartan Potassium 25 Mg Tablet BY MOUTH 25 mg QAM JORDY Administration Metoprolol Succinate 50 mg 07/19/24 21:00 07/23/24 21:31 Metoprolol Succinate Ext Rel 50 Mg Tabcr BY MOUTH 50 mg HS JORDY Administration Naloxone HCl 0.1 mg 07/19/24 07:04 Naloxone Hcl 0.4 Mg/Ml Vial IV PUSH Q2M PRN Opiate Reversal Ondansetron HCl 4 mg 07/19/24 07:04 Ondansetron Inj 4 Mg/2 Ml Vial IV PUSH Q4H PRN Nausea And Vomiting Oxycodone HCl 2.5 mg 07/19/24 07:04 Oxycodone Hcl (*Crx) 2.5 Mg Tab Ir PO Q4H PRN Pain Rated 4-6 Oxycodone/Acetaminophen 1 tablet 07/19/24 07:04 Oxycodone/Acetaminophen (*Crx) 5-325 Mg Tablet PO Q4H PRN Pain Rated 7-10 Pantoprazole Sodium 40 mg 07/20/24 09:00 07/24/24 08:57 Pantoprazole 40 Mg Tablet PO Not Given QAM [facility] Potassium Chloride 20 meq 07/20/24 08:00 07/24/24 08:56 Potassium Chloride 20 Meq Er Tablet PO 20 meq DAILY@0800 JORDY Administration Simvastatin 20 mg 07/19/24 21:00 07/23/24 21:31 Simvastatin 20 Mg Tablet PO 20 mg HS JORDY Administration Tamsulosin HCl 0.4 mg 07/19/24 17:05 07/24/24 09:01 Tamsulosin Hcl 0.4 Mg Capsule PO 0.4 mg QAM JORDY Administration Radiology Results: ITS Impressions Abscess Drainage Ultrasound 07/19/24 12:21 IMPRESSION: 1. Successful ultrasound-guided right lower quadrant abscess drainage catheter placement. The catheter will be managed by Dr. Huang. 2. 50 mL of cloudy reddish-orange fluid was aspirated and sent to the lab for Gram stain and cultures. Abdomen/Pelvis CT 07/22/24 09:13 IMPRESSION: 1. Significant decrease in size of a large intraperitoneal abscess with multiple contiguous pockets seen between the right upper and the right and left lower quadrants post drainage catheter placement. 2. Unchanged small abscess cavity in the more posterior inferior deep pelvis which does not appear to demonstrate direct communication. 3. Increase in size of a still small right pleural effusion with associated atelectasis in the right lower lobe. 4. Cholelithiasis. 5. Nonobstructing left nephrolithiasis. Catheter Placement CT 07/23/24 18:52 IMPRESSION: 1. Technically successful CT-guided pigtail catheter placement within the left lower quadrant fluid collection with a sample sent for culture and sensitivity. 2. Technically successful revision of previously placed ultrasound-guided pigtail catheter within the right mid to upper quadrant of the abdomen, as detailed above. Catheter Placement CT 07/23/24 18:52 IMPRESSION: 1. Technically successful CT-guided pigtail catheter placement within the left lower quadrant fluid collection with a sample sent for culture and sensitivity. 2. Technically successful revision of previously placed ultrasound-guided pigtail catheter within the right mid to upper quadrant of the abdomen, as detailed above. Labs Labs: Laboratory Results - last 24 hr 07/24/24 06:20 WBC 13.7 H RBC 3.25 L Hgb 9.2 L Hct 29.0 L MCV 89.2 MCH 28.3 MCHC 31.7 L RDW 16.2 H Plt Count 801 H MPV 9.9 Immature Gran % (Auto) 1.5 H Neut % (Auto) 81.3 H Lymph % (Auto) 9.5 L Butts % (Auto) 5.9 Eos % (Auto) 1.5 Baso % (Auto) 0.3 Lymph # (Auto) 1.31 Butts # (Auto) 0.8 H Eos # (Auto) 0.2 Baso # (Auto) 0.0 Abs Immat Gran (auto) 0.20 H Absolute Neuts (auto) 11.2 H Absolute Nucleated RBC 0.000 Nucleated RBC % 0.0 Sodium 134 L Potassium 3.5 Chloride 101 Carbon Dioxide 31 H Anion Gap 2 L BUN 7 L Creatinine 0.61 L Estim Creat Clear Calc 97 Estimated GFR > 60 Glucose 78 Calcium 7.5 L Imaging Attestation: I personally reviewed and interpreted this imaging study as follows: (CT scans from drainage procedure yesterday) My impression: Both drains in good position, contrast was injected into right-sided drain before it was replaced Radiologist's impression: Same
[2024-07-24] MEDS: SIMVASTATIN 20 MG TABLET PO (20:07)
[2024-07-24 20:27] VITALS: PULSE 68
[2024-07-24] MEDS: METOPROLOL SUCCINATE EXT REL 50 MG TABCR BY MOUTH (20:27)
[2024-07-24 22:00] VITALS: BP 111/55; PULSE 79; RESP 18; TEMP 36.4; O2SAT 100
[2024-07-25] MEDS: PIPERACILLN/TAZ 3.375GM/NS50ML 3.375 GM/50 ML BAG IVPB ×4 (03:06→20:32)
[2024-07-25 06:00] VITALS: BP 112/58; PULSE 74; RESP 18; TEMP 36.4; O2SAT 100
--- NOTE | 2024-07-25 07:32 | P.PNGS_ITS ---
Progress Note: A&P Assessment and Plan (1) Intra-abdominal abscess post-procedure: Code(s): T81.43XA - Infection following a procedure, organ and space surgical site, initial encounter; K65.1 - Peritoneal abscess Status: Acute Assessment and Plan: Feels good and very little output from either of the pigtail catheters following procedure done on Monday. Continue IV Zosyn with plans to discharge on Augmentin on Monday if continues to do well. (2) History of partial surgical removal of colon: Code(s): Z90.49 - Acquired absence of other specified parts of digestive tract Status: Chronic Assessment and Plan: Wounds healing well. Tolerating regular diet (3) Adenomatous colon polyp: Qualifiers: Colon location: ascending Qualified Code(s): D12.2 - Benign neoplasm of ascending colon Code(s): D12.6 - Benign neoplasm of colon, unspecified Status: Chronic (4) Dysuria: Code(s): R30.0 - Dysuria Status: Chronic Assessment and Plan: Symptoms have resolved with Flomax (5) Leukocytosis: Qualifiers: Leukocytosis type: unspecified Qualified Code(s): D72.829 - Elevated white blood cell count, unspecified Code(s): D72.829 - Elevated white blood cell count, unspecified Status: Acute Assessment and Plan: Morning labs today are pending Subjective Subjective Date/Time Seen: 07/25/24 07:32 Post Op day: #16 Patient reports: no new complaints, pain is less, tolerating a regular diet, voiding w/o difficulty, bowel movement and afebrile Exam Const: General: comfortable and no acute distress Orientation/consciousness: patient oriented x3 GI: Inspection: incision (Dry and healing) and other (Minimal sanguinous output both drains) GI Palp: Yes Soft to palpation, No Tenderness to palp ation present (GI), No Guarding due to palpation present (GI) and No Rebound tenderness present Other: Neither right or left pigtail catheters drained any amount yesterday. 0 output per graphics from both drains. Neuro: General: patient oriented x3 and no focal motor deficits Extrem: General: no calf tenderness and no edema Psych: Affect: normal affect Insight: Good insight present (Psych) Judgement: Good judgement present (Psych) Objective Data Vital Signs Vital Signs: Vital Signs - 24 hr 07/24/24 08:00 07/24/24 14:00 07/24/24 20:27 Temperature 36.2 C L Pulse Rate 84 68 Respiratory Rate 16 Blood Pressure 103/68 Pulse Oximetry 99 Oxygen Delivery Room Air 07/24/24 22:00 07/25/24 06:00 Temperature 36.4 C 36.4 C L Pulse Rate 79 74 Respiratory Rate 18 18 Blood Pressure 111/55 L 112/58 L Pulse Oximetry 100 100 Oxygen Delivery Intake/Output Intake/Output: Intake & Output 07/22/24 07/23/24 07/24/24 07/25/24 23:59 23:59 23:59 23:59 Intake Total 0442 068 8906 350 Output Total 20 0 Balance 7117 627 8207 350 Meds/Results Medications: Active Medications Generic Name Dose Route Start Last Admin Trade Name Freq PRN Reason Stop Dose Admin Acetaminophen 500 mg 07/19/24 07:04 Acetaminophen 500 Mg Tablet PO Q6H PRN Pain Rated 1-3 Enoxaparin Sodium 40 mg 07/20/24 09:00 07/22/24 08:32 Enoxaparin 40 Mg/0.4 Ml Syringe SUB-Q 40 mg DAILY JORDY Administration Fentanyl Citrate 12.5 mcg 07/19/24 07:04 Fentanyl Citrate Inj (*Crx) 100 Mcg/2 Ml Vial IV PUSH Q2H PRN Breakthrough Pain Rated 4-6 or NPO Fentanyl Citrate 25 mcg 07/19/24 07:04 Fentanyl Citrate Inj (*Crx) 100 Mcg/2 Ml Vial IV PUSH Q2H PRN Breakthrough Pain Rated 7-10 or NPO Hydrochlorothiazide 12.5 mg 07/20/24 09:00 07/24/24 08:56 Hydrochlorothiazide 12.5 Mg Capsule PO 12.5 mg DAILY JORDY Administration Ibuprofen 800 mg in 200 mls @ 400 mls/hr 07/19/24 07:04 Caldolor 800 Mg/200 Ml IVPB Q6H PRN Breakthrough Pain Rated 1-3 or NPO Piperacillin/Tazobactam/Dextrose 3.375 gm in 50 mls @ 100 mls/hr 07/23/24 15:00 07/25/24 03:35 Zosyn 3.375 Gm/Ns 50 Ml IVPB Infused Q6H JORDY Infusion Losartan Potassium 25 mg 07/20/24 09:00 07/24/24 08:56 Losartan Potassium 25 Mg Tablet BY MOUTH 25 mg QAM JORDY Administration Metoprolol Succinate 50 mg 07/19/24 21:00 07/24/24 20:27 Metoprolol Succinate Ext Rel 50 Mg Tabcr BY MOUTH 50 mg HS JORDY Administration Naloxone HCl 0.1 mg 07/19/24 07:04 Naloxone Hcl 0.4 Mg/Ml Vial IV PUSH Q2M PRN Opiate Reversal Ondansetron HCl 4 mg 07/19/24 07:04 Ondansetron Inj 4 Mg/2 Ml Vial IV PUSH Q4H PRN Nausea And Vomiting Oxycodone HCl 2.5 mg 07/19/24 07:04 Oxycodone Hcl (*Crx) 2.5 Mg Tab Ir PO Q4H PRN Pain Rated 4-6 Oxycodone/Acetaminophen 1 tablet 07/19/24 07:04 Oxycodone/Acetaminophen (*Crx) 5-325 Mg Tablet PO Q4H PRN Pain Rated 7-10 Pantoprazole Sodium 40 mg 07/20/24 09:00 07/24/24 08:57 Pantoprazole 40 Mg Tablet PO Not Given QAM [facility] Potassium Chloride 20 meq 07/20/24 08:00 07/24/24 08:56 Potassium Chloride 20 Meq Er Tablet PO 20 meq DAILY@0800 JORDY Administration Simvastatin 20 mg 07/19/24 21:00 07/24/24 20:07 Simvastatin 20 Mg Tablet PO 20 mg HS JORDY Administration Tamsulosin HCl 0.4 mg 07/19/24 17:05 07/24/24 09:01 Tamsulosin Hcl 0.4 Mg Capsule PO 0.4 mg QAM [facility] Administration Radiology Results: ITS Impressions Abscess Drainage Ultrasound 07/19/24 12:21 IMPRESSION: 1. Successful ultrasound-guided right lower quadrant abscess drainage catheter placement. The catheter will be managed by Dr. Huang. 2. 50 mL of cloudy reddish-orange fluid was aspirated and sent to the lab for Gram stain and cultures. Abdomen/Pelvis CT 07/22/24 09:13 IMPRESSION: 1. Significant decrease in size of a large intraperitoneal abscess with multiple contiguous pockets seen between the right upper and the right and left lower quadrants post drainage catheter placement. 2. Unchanged small abscess cavity in the more posterior inferior deep pelvis which does not appear to demonstrate direct communication. 3. Increase in size of a still small right pleural effusion with associated atelectasis in the right lower lobe. 4. Cholelithiasis. 5. Nonobstructing left nephrolithiasis. Catheter Placement CT 07/23/24 18:52 IMPRESSION: 1. Technically successful CT-guided pigtail catheter placement within the left lower quadrant fluid collection with a sample sent for culture and sensitivity. 2. Technically successful revision of previously placed ultrasound-guided pigtail catheter within the right mid to upper quadrant of the abdomen, as detailed above. Catheter Placement CT 07/23/24 18:52
[2024-07-25 08:00] VITALS: PULSE 74; RESP 18; O2SAT 100
[2024-07-25] MEDS: POTASSIUM CHLORIDE 20 MEQ ER TABLET PO (09:33)
[2024-07-25] MEDS: hydroCHLOROthiazide 12.5 MG CAPSULE PO (09:33)
[2024-07-25] MEDS: LOSARTAN POTASSIUM 25 MG TABLET BY MOUTH (09:33)
[2024-07-25] MEDS: TAMSULOSIN HCL 0.4 MG CAPSULE PO (09:33)
[2024-07-25 13:04] LABS: Hematocrit 31.7 % (42.0-52.0); Hemoglobin 9.9 g/dL (14.0-18.0); Mean Corpuscular HGB Conc 31.2 g/dl (32-36); Mean Corpuscular Hemoglobin 28.4 pg (26-34); Mean Corpuscular Volume 90.8 fl (80-100); Mean Platelet Volume 9.5 fl (7.4-10.4); Platelet Count Result 854 k/mm3 (150-375); Red Blood Count 3.49 M/mm3 (4.6-6.20); Red Cell Distribution Width 16.1 % (11.5-14.5); White Blood Count 15.3 K/mm3 (4.5-10.0)
[2024-07-25 13:51] VITALS: BP 111/51; PULSE 82; RESP 18; TEMP 35.6; O2SAT 100
--- NOTE | 2024-07-25 14:32 | PCNFU ---
Nutrition Follow-Up Complete: Inadequate oral intake related to loss of appetite, recent surgery as evidenced by reports of poor appetite, abdominal pain and weight loss Adequate PO intake at least 75% meals and supplements - Slowly progressing toward goal. Continue same goal Goal: Pt current nutrition is Regular diet, Ensure Enlive BID (350 kcal, 20 g protein each). Nutrition recommendation: No new recommendations. Continue current nutrition care plan and orders. Agree with orders Last recorded weight is 83.75 kg. Bowel Motility: +1 BM 07/25/24 Labs Reviewed: Hgb 9.9, Hct 31,7 Meds Noted: HCTZ, protonix Skin: No skin issues Additional Notes: Intakes are progressing. May discharge soon. Agree with nutrition orders Monitoring intakes, weights, labs, supplement tolerance, plan of care Follow up in 3 days
[2024-07-25 20:33] VITALS: PULSE 82
[2024-07-25] MEDS: SIMVASTATIN 20 MG TABLET PO (20:33)
[2024-07-25] MEDS: METOPROLOL SUCCINATE EXT REL 50 MG TABCR BY MOUTH (20:33)
[2024-07-25 20:51] VITALS: BP 123/65; PULSE 90; RESP 20; TEMP 36.1; O2SAT 100
[2024-07-26] MEDS: PIPERACILLN/TAZ 3.375GM/NS50ML 3.375 GM/50 ML BAG IVPB ×3 (03:32→13:58)
[2024-07-26 06:00] VITALS: PULSE 78; RESP 20; TEMP 36.5; O2SAT 100
[2024-07-26 06:25] LABS: Hematocrit 29.4 % (42.0-52.0); Hemoglobin 9.1 g/dL (14.0-18.0); Mean Corpuscular Hemoglobin 28.3 pg (26-34); Mean Corpuscular Volume 91.3 fl (80-100); Platelet Count Result 814 k/mm3 (150-375); Red Blood Count 3.22 M/mm3 (4.6-6.20); Red Cell Distribution Width 16.2 % (11.5-14.5); White Blood Count 13.2 K/mm3 (4.5-10.0)
[2024-07-26 06:35] LABS: Anion Gap 3 mmol/L (4-12); Blood Urea Nitrogen 7 mg/dL (9-20); Calcium 7.7 mg/dL (8.4-10.2); Carbon Dioxide 32 mmol/L (22-30); Chloride 98 mmol/L (98-107); Estimated CRCL calculation 84 ml/min; Estimated Glomerular Filt Rate > 60; Glucose 89 mg/dL (65-110); Potassium 3.2 mmol/L (3.4-5.0); Sodium 133 mmol/L (137-145)
[2024-07-26 07:44] VITALS: O2SAT 99
[2024-07-26] MEDS: hydroCHLOROthiazide 12.5 MG CAPSULE PO (08:21)
[2024-07-26] MEDS: TAMSULOSIN HCL 0.4 MG CAPSULE PO (08:21)
[2024-07-26] MEDS: POTASSIUM CHLORIDE 20 MEQ ER TABLET PO (08:22)
[2024-07-26] MEDS: LOSARTAN POTASSIUM 25 MG TABLET BY MOUTH (08:22)
--- NOTE | 2024-07-26 13:08 | P.DS_ITS ---
DS: Admitting Diagnosis Discharge Date 07/26/2024 Admitting Diagnosis * Abdominal abscess * History of ascending colon resection for benign polyp * Dysuria * Barretts esophagus * Gallstones * Hypertension DS: Discharge Diagnosis Discharge Diagnosis (1) Intra-abdominal abscess post-procedure: Code(s): T81.43XA - Infection following a procedure, organ and space surgical site, initial encounter; K65.1 - Peritoneal abscess Status: Acute Assessment and Plan: Large right-sided fluid collection drained with CT guidance. Cultures of this grew E coli and Bacteroides. Also had a left-sided collection which was drained but has not had any bacterial growth so far (2) History of partial surgical removal of colon: Code(s): Z90.49 - Acquired absence of other specified parts of digestive tract Status: Chronic Assessment and Plan: 06/21/2024 (3) BPH with obstruction/lower urinary tract symptoms: Code(s): N40.1 - Benign prostatic hyperplasia with lower urinary tract symptoms; N13.8 - Other obstructive and reflux uropathy Status: Acute Assessment and Plan: Much improved after urology consultation and started on Flomax. (4) Adenomatous colon polyp: Qualifiers: Colon location: ascending Qualified Code(s): D12.2 - Benign neoplasm of ascending colon Code(s): D12.6 - Benign neoplasm of colon, unspecified Status: Chronic Assessment and Plan: Tubulovillous adenoma removed with colon resection 06/21/2024 (5) Barretts esophagus: Qualifiers: Villalobos's esophagus type: without dysplasia Qualified Code(s): K22.70 - Villalobos's esophagus without dysplasia Code(s): K22.70 - Villalobos's esophagus without dysplasia Status: Chronic Assessment and Plan: Continue lansoprazole (6) Essential (primary) hypertension: Code(s): I10 - Essential (primary) hypertension Status: Chronic Assessment and Plan: Continue home meds DS: Summary Hospital Course Hospital Course: Patient underwent hand access laparoscopic right colectomy on 06/21/2024. He did well after that surgery and went home on postop day 2., 06/23/2024. He a ppeared normal for postoperative condition on his 1st office visit 2 weeks after surgery. On his 2nd visit, 07/18/2024, he was moving very slowly, he had right lower quadrant tenderness well beyond that expected. He had a history of fevers. [place] [address] scan done as an outpatient showed 2 large fluid collections in the abdomen mostly in the right lower quadrant. They had the consistency of blood on the CT scan. Patient was not able to get approval for CT-guided drainage on 07/18/2024 and underwent this procedure the following day 07/19/2024. He was admitted after the procedure and started on IV Zosyn antibiotics. He experienced almost immediate improvement with drainage of the large fluid collection predominantly on the right side. He was also seen in consultation by Urology who felt he had lower urinary tract symptoms due to BPH. He was started on Flomax and his dysuria, nocturia, hesitancy resolved in a very short period of time. Cultures from the right lower quadrant collection ultimately grew E coli sensitive to all antibiotics tested. It also grew Bacteroides fragilis group. Patient's white blood cell count decreased to about 20,000. On 07/23/2024, he went back to CT scan and the right lower quadrant drain was replaced with a larger diameter pigtail catheter. Also, a left anterior lower quadrant, smaller collection, was drained with a 2nd pigtail catheter. Quite a bit of fluid was removed during the drainage procedure. The left lower quadrant collection has not grown any bacteria so far although some white blood cells were seen on Gram stain. Patient was much better after the 2nd drain was placed and the right lower quadrant drain was replaced. He received 1 week total of IV antibiotics with IV Zosyn. The left lower quadrant drain has not had any output for 2 consecutive days and was removed at the bedside on the day of discharge. The right lower quadrant drain had 30 cc output yesterday and will be left in place to be managed postoperatively in my office. He is discharged today, 07/26/2024 on Augmentin. His Flomax will be continued and he will follow up with Urology as an outpatient. Status at Discharge Functional status at discharge: independent ambulation Overall status at discharge: patient is progressing back to baseline Time Spent with Patient Time attestation: Total time spent providing and/or coordinating discharge services: Exam Const: General: comfortable and no acute distress Orientation/consciousness: patient oriented x3 GI: Inspection: non-distended, incision (Healing well), no visible herniation and other (LLQ drain had no output again yesterday and was removed at bedside.) GI Palp: Yes Soft to palpation, Yes Tenderness to palpation present (GI), No Guarding due to palpation present (GI), No Hernia present and No Palpable mass present Other: Right lower quadrant drain had 30 cc out yesterday. It was left in place to go home with the patient. Neuro: General: patient oriented x3 and no focal motor deficits Extrem: General: no calf tenderness and no edema Psych: Affect: normal affect Insight: Good insight present (Psych) Judgement: Good judgement present (Psych) DS: Data Data Completed and Pending Labs on day of discharge: Labs from last 24 hours 07/26/24 05:44 WBC 13.2 H RBC 3.22 L Hgb 9.1 L Hct 29.4 L MCV 91.3 MCH 28.3 MCHC 31.0 L RDW 16.2 H Plt Count 814 H MPV 10.0 Sodium 133 L Potassium 3.2 L Chloride 98 Carbon Dioxide 32 H Anion Gap 3 L BUN 7 L Creatinine 0.72 Estim Creat Clear Calc 84 Estimated GFR > 60 Glucose 89 Calcium 7.7 L Preliminary micro results at discharge 07/23/24 14:36 Anaerobic Culture - Preliminary Abscess Discharge Plan Discharge Attending physician on discharge: Ruddy Huang Consulting providers: Carlos Bustillos Discharging Clinician: Ruddy Huang Anticipated Discharge Date/Time: 07/26/24 13:29 Patient Disposition: Home Activity: may shower, no straining and as tolerated Diet: regular Discharge Instructions: * Ambulate 3-4 x per day and as tolerated. * No lifting over 15-20lbs. * May bathe or shower. * Stairs are OK. * May drive a car in 3 days. * Remove any dressings before shower and replace after. Replace left lower quadrant drain site bandage daily until Monday07/29/2024, on Monday can leave the bandage off. * Empty right-sided pigtail drain and record output in mL on a 24 hour basis. Bring this record of daily drain outputs to Dr. Muhammad office visit on , 07/29/2024. * Take Tylenol or Advil as needed for pain. * Take antibiotics, Augmentin, until they are gone. * Also started on Flomax, take 1 daily. This is for urinary symptoms. * Call for severe abdominal pain, drain problems, nausea and vomiting, temp over 100.5?, or other significant change in condition. Patient Instructions: Antibiotic Form Patient Language: Mohawk Stand Alone Forms: General Discharge Information Follow-up/Referrals: Ruddy Huang MD [Physician] - 08/01/24 Nicola Silva MD [Primary Care Provider] - 2 Weeks Carlos Bustillos MD [Physician] - 4 Weeks Discharge Medications: New tamsulosin 0.4 mg Capsule 0.4 mg PO QAM Qty: 30 3RF amoxicillin-pot clavulanate 875-125 mg tablet 1 tablet PO Q12H Qty: 14 0RF Continued cholecalciferol (vitamin D3) 125 mcg (5,000 unit) capsule 5,000 unit PO DAILY vitamin E mixed 400 unit capsule 400 unit PO 3XW lansoprazole 15 mg capsule,delayed release(DR/EC) 15 mg PO HS PRN (Reason: indigestion) metoprolol succinate 50 mg tablet extended release 24 hr See Rx Instructions .ROUTE .COMPLEX Qty: 90 3RF Dose Instruction: TAKE 1 TABLET BY MOUTH EVERY DAY Patient Comments: HS Rx Instructions: TAKE 1 TABLET BY MOUTH EVERY DAY hydrochlorothiazide 25 mg tablet 12.5 mg PO DAILY Qty: 45 2RF Patient Comments: QAM simvastatin 20 mg tablet 20 mg PO DAILY Qty: 90 2RF Patient Comments: HS losartan 25 mg tablet See Rx Instructions .ROUTE .COMPLEX Qty: 90 2RF Dose Instruction: TAKE 1 TABLET BY MOUTH EVERY DAY Patient Comments: QAM Rx Instructions: TAKE 1 TABLET BY MOUTH EVERY DAY lansoprazole 30 mg capsule,delayed release(DR/EC) 30 mg PO DAILY Qty: 90 2RF Date of admission: 07/19/24 14:08 Primary Care Provider: Nicola Silva Admitting Provider: Ruddy Huang Attending physician on admission: Ruddy Huang Condition: Improved
[2024-07-26 19:58] LABS: Amylase Peritoneal Fluid 13 U/L
== END 2024-07-26 15:09 | disposition home or self-care (01) | DRG 862 ==
LOC: ANH3MEDSUR 14:09
PROVIDERS: Surgery; Admitting Provider Surgery; PCP Family Medicine; Referring Provider Radiology Diagnostic Radiology; Visit Provider Surgery
DX: T81.43XA Infection following a procedure, organ and space surgical site, initial encounter (principal); K65.1 Peritoneal abscess; B96.6 Bacteroides fragilis [B. fragilis] as the cause of diseases classified elsewhere; B96.20 Unspecified Escherichia coli [E. coli] as the cause of diseases classified elsewhere; I10 Essential (primary) hypertension; J45.909 Unspecified asthma, uncomplicated; E78.5 Hyperlipidemia, unspecified; M19.90 Unspecified osteoarthritis, unspecified site; K22.70 Barrett's esophagus without dysplasia; N40.1 Benign prostatic hyperplasia with lower urinary tract symptoms; R30.0 Dysuria; R39.11 Hesitancy of micturition; R35.1 Nocturia; Z80.0 Family history of malignant neoplasm of digestive organs; Z90.49 Acquired absence of other specified parts of digestive tract
CPT/HCPCS: 10160; 36415; 74177; 75989; 80048; 80053; 81001; 82150; 82570; 83690; 85025; 85027; 85610; 86140; 87070; 87075; 87186; 87205; A9270; C1729; C1769; J1650; J2543; J7120; Q9967

== ENCOUNTER 2024-08-16 09:16 | Inpatient (IN) | payer MEDICARE, SELFPAY ==
[2024-08-16] VITALS (14 sets, daily range): BP systolic 108–121; BP diastolic 59–75; PULSE 56–76; RESP 14–20; TEMP 36.2–36.7; O2SAT 98–100; BMI 24.0
--- NOTE | ~2024-08-16 | XR_ITS ---
EXAMINATION: XR enema water soluble DATE: 08/17/2024 13:28 INDICATION: Assess for colonic perforation TECHNIQUE: A supervisor bakery sanitation radiograph was obtained. A catheter was inserted into the patient's rectum. Water- soluble contrast was infused by gravity. Fluoroscopic spot images and conventional radiographs were o btained. A total of 10 fluoroscopic images and 9 overhead radiographs were obtained. Fluoroscopy expo sure time was 2.1 minutes. Total DAP was 98.4 Gycm^2. COMPARISON: CT dated 08/16/2024 FINDINGS: Parachute Inspector radiograph demonstrates a percutaneous abscess drain with loops formed in the right lower quadr ant. Multiple calcified gallstones are seen filling the gallbladder in the right upper quadrant. Anas tomotic suture line is seen in the intervening right abdomen. 8 mm stone at the lower pole the left k idney. Subsequent images demonstrate contrast progressively extending through the colon. There are mu ltiple diverticula along the sigmoid colon. Contrast extends beyond the ileocolic anastomosis in the right upper quadrant with small amount of contrast seen within the distal ileum. No evident extralumi nal contrast identified. No evident contrast identified in the drainage catheter. IMPRESSION: 1. Patent right ileocolic anastomosis in the right abdomen without evident extraperitoneal leakage of contrast. 2. Diverticulosis along the sigmoid colon. 3. Cholelithiasis. 4. Left nephrolithiasis. 4. Right lower quadrant percutaneous abscess drain. Reviewed, dictated and finalized at location A. IMPRESSION: 1. Patent right ileocolic anastomosis in the right abdomen without evident extr aperitoneal leakage of contrast. 2. Diverticulosis along the sigmoid colon. 3. Cholelithiasis. 4. Left nephrolithiasis. 4. Right lower quadrant percutaneous abscess drain.
--- NOTE | ~2024-08-16 | CT_ITS ---
CT of the Abdomen and Pelvis: Indication: Leukocytosis, abscess, abnormal LFTs Technique: 2.5 mm axial scans were obtained through the abdomen and pelvis following intravenous adm inistration of 100 cc of Omnipaque 350. Dose reduction technique was used on this scan by utilizing a utomated exposure control and iterative reconstruction technique. The dose-length product (DLP) was 9 26.12 mGy-cm. COMPARISON: 08/16/2024 Findings: Scans through the lung bases demonstrates stable small to moderate right pleural effusion with minimal right basilar atelectatic change.. The liver, spleen, pancreas, adrenals and right kidney are within normal limits. Multiple gallstones are again present. Stable left hydronephrosis with nonobstructing left lower pole renal stone. No arvin dence of aortic aneurysm. No lymphadenopathy. There is postoperative change at the right colon. No bowel obstruction or extraluminal contrast ident ified. Status post interval placement of percutaneous drainage catheter in the right lower quadrant a t the site of previously noted abscess, which is markedly reduced in size. Possible small residual ab scess present, somewhat poorly delineated with adjacent bowel loops present. Images through the pelvis were performed. Urinary bladder unremarkable. No pelvic mass seen. No defin ite ascites. Impression: Status post interval percutaneous drainage of previously noted large abscess which is markedly improv ed. Probable small residual abscess present. Correlate with tube output. Left hydronephrosis with nonobstructing left lower pole renal stone. Cholelithiasis. Stable small to moderate right pleural effusion. Reviewed, dictated and finalized at [facility]. Impression: Status post interval percutaneous drainage of previously noted large abscess wh ich is markedly improved. Probable small residual abscess present. Correlate wi th tube output. Left hydronephrosis with nonobstructing left lower pole renal stone. Cholelithiasis. Stable small to moderate right pleural effusion.
--- NOTE | ~2024-08-16 | CT_ITS ---
EXAMINATION: CT guide absc cath placement DATE: 08/16/2024 13:39 INDICATION: Abdominal abscess TECHNIQUE: The procedure including the risks and benefits was discussed with the patient. Risks discu ssed included bleeding and infection. The patient understood the risks and benefits and agreed to pro ceed. The patient was confirmed to be receiving appropriate antibiotic coverage. The skin overlying the abdomen was prepped and draped in usual sterile fashion. Anesthetic was administered with 1% lid ocaine subcutaneously. Conscious sedation was also provided with 100 mcg fentanyl IV. 18-gauge trocha r needle was inserted into the peritoneal fluid collection utilizing CT guidance. The inner stylette was removed and a J-wire advanced through the needle into the fluid collection with position confirme d by CT. Utilizing Seldinger technique the needle was removed over the wire and the tract serially di lated to 12 [place]. A 12 [place] drainage catheter was advanced over the wire and the loop formed and locked with position confirmed by CT. The metal stiffener was removed and the catheter was stitched t o the skin with suture. Antibiotic appointment and a sterile dressing were applied. An additional adh esive fixation device was attached to the catheter and applied to the skin. 50 mm of opaque foul-smel ling dave-colored purulent fluid was aspirated and sent to lab for Gram stain and cultures. The cathet er was then attached to suction drainage and was draining additional reddish tinged purulent material at the conclusion of the procedure. There were no immediate complications. The dose-length product w as 198.17 mGy-cm. FINDINGS: CT images demonstrate the catheter within the right lower quadrant fluid collection. 50 mL fluid was aspirated for testing. IMPRESSION: 1. Successful CT-guided right lower quadrant abscess drainage catheter placement. 2. 50 mL fluid was sent for aerobic and anaerobic cultures. 3. The catheter will be managed by Dr. Huang. Reviewed, dictated and finalized at location A. IMPRESSION: 1. Successful CT-guided right lower quadrant abscess drainage catheter placemen t. 2. 50 mL fluid was sent for aerobic and anaerobic cultures. 3. The catheter will be managed by Dr. Huang.
--- NOTE | ~2024-08-16 | US_ITS ---
EXAM: ABDOMEN ULTRASOUND HISTORY: gallstones, abscess COMPARISON: 08/19/2024 CT examination of the abdomen and pelvis FINDINGS: LIVER: The liver is increased in echogenicity and size measuring 20 cm in longitudinal dimension. The portal vein is patent, demonstrating hepatopedal flow. GALLBLADDER: Multiple stones are identified within the gallbladder, which is otherwise unremarkable. The stones are bulky and mobile. No gallbladder wall thickening or pericholecystic fluid. BILE DUCTS: Common bile duct measures 3.1mm. PANCREAS: Limited evaluation of the pancreas secondary to overlying bowel gas IMPRESSION: Cholelithiasis, without ultrasound evidence of cholecystitis. Hepatomegaly, unchanged Reviewed, dictated and finalized at location A.
--- NOTE | ~2024-08-16 | XR_ITS ---
EXAMINATION: XR UGI water soluble w sbs DATE: 08/21/2024 10:45 INDICATION: Abdominal abscess. Assess for anastomotic leak. TECHNIQUE: The patient drank water-soluble contrast. Conventional supine abdomen radiographs and fluo roscopic spot radiographs of the esophagus, stomach, and proximal small bowel were obtained. Addition al overhead radiographs were obtained during the transit through the small bowel. A total of 4 overhe ad radiographs and 508 fluoroscopic images were recorded. Fluoroscopy exposure time was 0.8 minutes. Total DAP was 54.846 mGycm^2. COMPARISON: None. FINDINGS: Data Integration Developer radiograph demonstrates an anastomotic suture line in the right upper quadrant slightly inferom edial to the gallstone filled gallbladder. A loop of a right lower quadrant percutaneous abscess drai n projects slightly caudal to the region of the suture line. No dilated loops of gas-filled bowel to suggest obstruction. The esophagus is normal without mass or stricture. Esophageal motility is normal. There is no hiatal hernia. There was no gastroesophageal reflux with provocative maneuvers. The stomach and proximal sma ll bowel are normal. Transit time from the stomach to proximal colon was approximately 15 minutes. There is normal caliber and mucosal fold pattern throughout the small bowel. No evident extraluminal contrast extravasation. IMPRESSION: 1. Transit time to the ileocolic anastomosis with 15 minutes with no evident anastomotic leak. 2. Cholelithiasis. 3. Expected appearance of the right lower quadrant percutaneous abscess drain. Reviewed, dictated and finalized at location A. IMPRESSION: 1. Transit time to the ileocolic anastomosis with 15 minutes with no evident an astomotic leak. 2. Cholelithiasis. 3. Expected appearance of the right lower quadrant percutaneous abscess drain.
--- NOTE | ~2024-08-16 | CT_ITS ---
CT of the Abdomen and Pelvis: Indication: Personal history of other specific condition Technique: 2.5 mm axial scans were obtained through the abdomen and pelvis following intravenous adm inistration of 100 cc of Omnipaque 350. Dose reduction technique was used on this scan by utilizing a utomated exposure control and iterative reconstruction technique. The dose-length product (DLP) was 1 201.47 mGy-cm. COMPARISON: 07/22/2024 Findings: Scans through the lung bases demonstrate moderate right pleural effusion and minimal right basilar atelectatic change. The liver, spleen, pancreas, adrenals and right kidney are within normal limits. Numerous calcified g allstones are present. Stable left lower pole nonobstructing stone. Stable mild left hydronephrosis. No evidence of aortic aneurysm. No lymphadenopathy. There is a large abscess in the midabdomen and infrahepatic region, measuring up to approximately 17. 8 cm in transverse dimension, 4.2 cm in AP dimension, and 7.9 cm in craniocaudal extent (coronal imag e 43 for example). There is wall thickening of the distal sigmoid colon and rectum, which may be reac tive versus infectious/inflammatory colitis. Questionable communication or fistulous tract from the s igmoid colon to the abscess. Previously noted percutaneous drainage catheter is no longer present. No bowel obstruction evident. Previously noted additional abscess in the pelvis posterior to the urinar y bladder is essentially completely resolved. Images through the pelvis were performed. Possible mild urinary bladder wall thickening. Prostate gla nd unremarkable. Impression: Large midabdominal/infrahepatic abscess, as detailed above.. Kidneys change catheter no longer presen t. Previously noted pelvic abscess is no longer present, resolved. Wall thickening of the sigmoid colon and rectum, which could be reactive versus infectious/inflammato ry colitis. Suspicion of tract or fistula extending from the sigmoid colon to the large abscess. Mild left hydronephrosis and nonobstructing left renal stone. Cholelithiasis. Moderate right pleural effusion. Reviewed, dictated and finalized at location . Impression: Large midabdominal/infrahepatic abscess, as detailed above.. Kidneys change cat heter no longer present. Previously noted pelvic abscess is no longer present, resolved. Wall thickening of the sigmoid colon and rectum, which could be reactive versus infectious/inflammatory colitis. Suspicion of tract or fistula extending from the sigmoid colon to the large abscess. Mild left hydronephrosis and nonobstructing left renal stone. Cholelithiasis. Moderate right pleural effusion.
--- NOTE | ~2024-08-16 | NM_ITS ---
EXAMINATION: NM hepatobiliary wo pharm DATE: 08/21/2024 09:47 INDICATION: Gallstones. Abdominal abscess. COMPARISON: CT dated 08/19/2024 TECHNIQUE: 5.2 mCi Tc-99m mebrofenin (Choletec) was administered intravenously. Scintigraphic images of the abdomen were obtained for one hour. FINDINGS: There is normal clearance of radiotracer from the blood pool. There is homogeneous tracer u ptake by the liver. Activity progresses to the bowel and gallbladder. IMPRESSION: 1. Normal HIDA scan. Reviewed, dictated and finalized at location A. IMPRESSION: 1. Normal HIDA scan.
--- NOTE | ~2024-08-16 | US_ITS ---
EXAMINATION: US renal BI DATE: 08/17/2024 09:23 INDICATION: Left hydronephrosis TECHNIQUE: Multiple ultrasound grayscale images of the kidneys were obtained. COMPARISON: CT dated 08/16/2024 FINDINGS: The right kidney measures 11.4 x 4.8 x 4.5 cm. The left kidney measures 11.8 x 6.4 x 5.2 cm. The kidn eys demonstrate normal echogenicity. There is mild left hydronephrosis. There is ringdown artifact ex tending posteriorly from a 7 mm echogenic stone at the lower pole of the left kidney. Prostate measur es approximately 4.0 x 3.8 x 3.0 cm and depressed upon the base of the otherwise normal-appearing kaiser dder. There is no hydronephrosis in the right kidney. IMPRESSION: 1. Unchanged 7 mm nonobstructing stone at the lower pole the left kidney and mild left hydronephrosi s. Reviewed, dictated and finalized at location A. IMPRESSION: 1. Unchanged 7 mm nonobstructing stone at the lower pole the left kidney and m ild left hydronephrosis.
--- OUTSIDE RECORDS SUMMARY | 2024-08-16 07:51 | XMS_ITS | Encounter Summary ---
Author Organization [facility] Address 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
--- OUTSIDE RECORDS SUMMARY | 2024-08-16 07:51 | XMS_ITS | Clinical Summary ---
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
--- OUTSIDE RECORDS SUMMARY | 2024-08-16 07:51 | XMS_ITS | Continuity of Care Document ---
Author Organization [facility] Address [address] [place] [address] Phone Care Team Providers Care Coding Analyst Name Role Phone Administrative, Provider Unavailable Unavail [...] Date Provider Providers Copied on Encounter [facility], [address] [place] [address], [id number], [place] tel:[phone] [facility] No Information 2 Administrati ve Provider. [address] [facility], [address], [place], [place], [id number], [place]. tel:[phone] Office/outpa tient visit,est, mod [facility], [address], [id number], [place] tel:[phone] [facility] ROTATOR CUFF RUPTURESPRAIN SUPRASPINATUSS PRAIN INFRASPINATUS 2 Darwin Calzada. [address] [address], [place], [place], [id number], [place]. tel:[phone] [facility], [address] [address], [place], [place], [id number], [place] tel:[phone] [facility] No Information 2 Administrati ve Provider. [address] [address], [place], [place], [id number], [place]. tel:[phone] Office/outpa tient visit,est, [facility] [place] [place] [facility], [address], [id number], [place] tel:[phone] [facility] ROTATOR CUFF RUPTURESPRAIN SUPRASPINATUS 1 Darwin Calzada. [address] [address], [place], [place], [id number], [place]. tel:[phone] Office/outpa tient visit,est, [facility] [place], [place] [facility], [address] [address], [place], [place], [id number], [place] tel:[phone] [facility] ROTATOR CUFF RUPTURESPRAIN SUPRASPINATUSS PRAIN INFRASPINATUS 1 Darwin Calzada. [address] [address], [place], [place], [id number], [place]. tel:[phone] Office consultation , moderate [facility], [address], [id number], [place] tel:[phone] [facility] ROTATOR CUFF RUPTUREBICEPS TENDON RUPTURESPRAIN SUPRASPINATUSB ICIPITAL TENOSYNOVITIS 1 Darwin Calzada. [address] [address], [place], [place], [id number], [place]. tel:[phone] Family History Family Member Type Diagnosis Age At Onset No Information Payers Payer name Insurance type Covered libertarian ID Authoriza tion(s) No Information Social History [...]
[2024-08-16 09:13] LABS: Basophils Percent Auto 0.3 % (0.2-1.2); Eosinophils Absolute Auto 0.1 K/mm3 (0-0.3); Eosinophils Percent Auto 0.7 % (0-4.4); Hematocrit 33.1 % (42.0-52.0); Hemoglobin 10.5 g/dL (14.0-18.0); Immature Granulocyte Absolute 0.14 K/mm3 (0.00-0.031); Lymphocytes Percent Auto 7.6 % (18.3-44.2); Mean Corpuscular HGB Conc 31.7 g/dl (32-36); Mean Corpuscular Hemoglobin 27.6 pg (26-34); Mean Corpuscular Volume 86.9 fl (80-100); Mean Platelet Volume 10.3 fl (7.4-10.4); Monocytes Absolute Auto 0.8 K/mm3 (0.1-0.6); Monocytes Percent Auto 5.4 % (2.6-8.5); Neutrophils Absolute Auto 12.2 K/mm3 (1.3-6.7); Platelet Count Result 602 k/mm3 (150-375); Red Blood Count 3.81 M/mm3 (4.6-6.20); Red Cell Distribution Width 17.2 % (11.5-14.5); White Blood Count 14.4 K/mm3 (4.5-10.0)
[2024-08-16 09:27] LABS: Alanine Aminotransferase 39 U/L (6-50); Albumin Level 2.9 g/dL (3.5-5.1); Alkaline Phosphatase 151 U/L (38-126); Anion Gap 3 mmol/L (4-12); Aspartate Amino Transferase 63 U/L (17-59); Bilirubin,Total 0.3 mg/dL (0.2-1.3); Blood Urea Nitrogen 11 mg/dL (9-20); Calcium 8.4 mg/dL (8.4-10.2); Carbon Dioxide 31 mmol/L (22-30); Chloride 100 mmol/L (98-107); Estimated Glomerular Filt Rate > 60; Glucose 96 mg/dL (65-110); Sodium 134 mmol/L (137-145)
--- NOTE | 2024-08-16 09:42 | ADMGEN ---
This patient, Rylan Caro, was admitted to Medical Room 345-01. Patient/family oriented to hospital policies and general routines including ID bracelet, bed and alarms, visiting hours, pain management, procedures, bathroom and other care routines, personal items, smoking policy, room service/diet, and visiting hours. Information on how to activate the Rapid Response Team has been discussed. Patient/Family are encouraged to report perceived risks to care and to ask questions if they do not understand what they are told or what they should do.
--- OUTSIDE RECORDS SUMMARY | 2024-08-16 09:51 | XMS_ITS | Continuity of Care Document ---
Author Organization [facility] Address [address] [facility] [address] [place] [address] Phone Care Team Providers Care Foil Spooler Name Role Phone Administrative, Provider Unavailable Unavail [...] Date Provider Providers Copied on Encounter [facility], [address] [place] [address], [id number], [place] tel:[phone] [facility] No Information 2 Administrati ve Provider. [address] [facility], [address], [place], [place], [id number], [place]. tel:[phone] Office/outpa tient visit,est, mod [facility], [address], [id number], [place] tel:[phone] [facility] [employer] [facility] ROTATOR CUFF RUPTURESPRAIN SUPRASPINATUSS PRAIN INFRASPINATUS 2 Darwin Calzada. [address] [address], [place], [place], [id number], [place]. tel:[phone] [facility] [employer] [facility], [address] [address], [place], [place], [id number], [place] tel:[phone] [facility] [employer] [facility] No Information 2 Administrati ve Provider. [address] [address], [place], [place], [id number], [place]. tel:[phone] Office/outpa tient visit,est, [facility] [employer] [facility], [address], [id number], [place] tel:[phone] [facility] [employer] [facility] ROTATOR CUFF RUPTURESPRAIN SUPRASPINATUS 1 Darwin Calzada. [address] [address], [place], [place], [id number], [place]. tel:[phone] Office/outpa tient visit,est, [facility] [facility] [employer] [facility], [address] [address], [place], [place], [id number], [place] tel:[phone] [facility] [employer] [facility] ROTATOR CUFF RUPTURESPRAIN SUPRASPINATUSS PRAIN INFRASPINATUS 1 Darwin Calzada. [address] [address], [place], [place], [id number], [place]. tel:[phone] Office consultation , moderate [facility] [employer] [facility], [address], [id number], [place] tel:[phone] [facility] [employer] [facility] ROTATOR CUFF RUPTUREBICEPS TENDON RUPTURESPRAIN SUPRASPINATUSB ICIPITAL TENOSYNOVITIS 1 Darwin Calzada. [address] [address], [place], [place], [id number], [place]. tel:[phone] Family History Family Member Type Diagnosis Age [...]
--- OUTSIDE RECORDS SUMMARY | 2024-08-16 09:51 | XMS_ITS | Clinical Summary ---
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
--- OUTSIDE RECORDS SUMMARY | 2024-08-16 09:51 | XMS_ITS | Encounter Summary ---
Author Organization [facility] Address 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
--- OUTSIDE RECORDS SUMMARY | 2024-08-16 09:51 | XMS_ITS | Continuity of Care Document ---
Author Organization [facility] Address [address] [place] [address] Phone Care Team Providers Care Lead Database Administrator Name Role Phone Administrative, Provider Unavailable Unavail [...] Date Provider Providers Copied on Encounter [facility], [address] [place] [address], [id number], [place] tel:[phone] [facility] No Information 2 Administrati ve Provider. [address] [facility], [address], [place], [place], [id number], [place]. tel:[phone] Office/outpa tient visit,est, mod [facility], [address], [id number], [place] tel:[phone] [facility] [employer] [facility] ROTATOR CUFF RUPTURESPRAIN SUPRASPINATUSS PRAIN INFRASPINATUS 2 Darwin Calzada. [address] [address], [place], [place], [id number], [place]. tel:[phone] [facility] [employer] [facility], [address] [address], [place], [place], [id number], [place] tel:[phone] [facility] [employer] [facility] No Information 2 Administrati ve Provider. [address] [address], [place], [place], [id number], [place]. tel:[phone] Office/outpa tient visit,est, [facility] [place] [facility] [employer] [facility], [address], [id number], [place] tel:[phone] [facility] [employer] [facility] ROTATOR CUFF RUPTURESPRAIN SUPRASPINATUS 1 Darwin Calzada. [address] [address], [place], [place], [id number], [place]. tel:[phone] Office/outpa tient visit,est, [facility] [place] [facility] [employer] [facility], [address] [address], [place], [place], [id number], [place] tel:[phone] [facility] [employer] [facility] ROTATOR CUFF RUPTURESPRAIN SUPRASPINATUSS PRAIN INFRASPINATUS 1 Darwin Calzada. [address] [address], [place], [place], [id number], [place]. tel:[phone] Office consultation , moderate [facility] [employer] [facility], [address], [id number], [place] tel:[phone] [facility] [employer] [facility] ROTATOR CUFF RUPTUREBICEPS TENDON RUPTURESPRAIN SUPRASPINATUSB ICIPITAL TENOSYNOVITIS 1 Darwin Calzada. [address] [address], [place], [place], [id number], [place]. tel:[phone] Family History Family Member Type Diagnosis Age [...]
[2024-08-16 10:25] LABS: Prothrombin Time 14.1 Seconds (11.1-14.7)
[2024-08-16 10:26] LABS: Partial Thromboplastin Time 31.6 Seconds (22.3-36.8)
[2024-08-16 10:28] LABS: CRP 5.7 mg/dL (<1.0)
[2024-08-16] MEDS: PIPERACILLN/TAZ 3.375GM/NS50ML 3.375 GM/50 ML BAG IVPB (10:33)
[2024-08-16] MEDS: PANTOPRAZOLE SODIUM IV 40 MG VIAL IV PUSH (10:36)
--- NOTE | 2024-08-16 13:40 | P.CONIM_ITS ---
Assessment and Plan Assessment and plan (1) Abdominal abscess: Status: Acute Assessment and Plan: Right colectomy with hand-sewn anastomosis 06/21/2024 complicated by fluid collection status post IR drainage and completion of 14 days of antibiotics. Repeat CT scan shows a large midabdominal/infrahepatic abscess with suspicion of a tract or fistula extending from the sigmoid colon to the abscess. * Drain placed per IR on 08/16/2024, managed by surgery. * Gram stain and wound culture are pending. * Discussed with ID pharmacist who recommends piperacillin-tazobactam 4.5 g q.6 hours for now. L (2) Pleural effusion on right: Code(s): J90 - Pleural effusion, not elsewhere classified Status: Acute Assessment and Plan: CT scan shows a moderate-size right-sided pleural effusion. I suspect that this is inflammatory/reactive in nature. He is not hypoxic and is not symptomatic at this juncture. * Avoid over-hydration. * Continue to monitor clinically. * Consider thoracentesis if worsening or change in condition. L (3) Hydronephrosis of left kidney: Code(s): N13.30 - Unspecified hydronephrosis Status: Acute Assessment and Plan: Mild left hydronephrosis and nonobstructing renal stone on CT. Possibly related to large abdominal abscess. Bladder does not feel particularly distended though he has a history of difficulties urinating for which he takes tamsulosin. * Bladder scan now and p.r.n. to rule out urinary retention. * Renal ultrasound tomorrow to see if there is any change. * Urology consulted per patient request. L (4) Essential (primary) hypertension: Code(s): I10 - Essential (primary) hypertension Status: Chronic Assessment and Plan: Blood pressures were reviewed and they are stable. * Monitor closely as he is currently NPO. L (5) Barretts esophagus: Qualifiers: Villalobos's esophagus type: without dysplasia Qualified Code(s): K22.70 - Villalobos's esophagus without dysplasia Code(s): K22.70 - Villalobos's esophagus without dysplasia Status: Chronic Assessment and Plan: Change p.o. lansoprazole to pantoprazole IV daily as long as he is NPO. L (6) Benign prostatic hyperplasia: Code(s): N40.0 - Benign prostatic hyperplasia without lower urinary tract symptoms Status: Acute Assessment and Plan: Bladder scan x1 then p.r.n. to rule out retention and continue tamsulosin. L Plan Thank you for allowing us to participate in this patient's care. Please do not hesitate to contact us with any questions. HPI Date of Consult Consult date: 08/16/24 Requesting Physician: Ruddy Huang MD Consult Narrative Reason for consult: medical management Narrative: This is a 68-year-old male with hypertension, hyperlipidemia, benign prostatic hyperplasia, and Villalobos esophagus who was directly admitted to the hospital today under the general surgery service for treatment of abdominal abscess. He underwent a hand access laparoscopic right colectomy with hand-sewn ileotransverse anastomosis on 06/21/2024 for an ascending colon polyp which was found to be benign. Prior to his 2nd follow-up visit he developed right lower quadrant discomfort and CT scan showed a large right-sided fluid collection abdomen and a 2nd smaller pelvic fluid collection. He was admitted to the hospital on 07/19/2024 following IR drain placement and cultures of the right- sided abdominal fluid grew out pansensitive E coli and Bacteroides. He received piperacillin-tazobactam for 7 days and was discharged on amoxicillin-clavulanic acid for [address] scan today showed a large mid abdominal/intrahepatic abscess with suspicion of a tract or fistula extending to the sigmoid colon. IR placed another catheter today with revision of a previously placed catheter and a specimen has been sent for culture. He received piperacillin-tazobactam 3.375 g x1 he is being admitted in this setting for further treatment. At the time my evaluation he has some discomfort but it is manageable. He denies fever, chest pain, shortness of breath, cough, orthopnea, paroxysmal nocturnal dyspnea, lower extremity edema, nausea, vomiting, diarrhea, dysuria, and hematuria. Tamsulosin has helped with his urinating but he continues to have difficulties. Review of Systems 2 Review of Systems: 12 systems were reviewed and are negativ e except for as per HPI. [facility] Past Medical History Medical History (Updated 08/16/24 @ 14:28 by Azul Daniel PA-C) Benign colon polyp Cholelithiasis Barretts esophagus Premature ventricular contractions Hyperlipidemia Benign prostatic hyperplasia Essential (primary) hypertension Asthma Arthritis Impaired fasting glucose Surgical History Surgical History (Updated 08/16/24 @ 14:04 by Azul Daniel PA-C) History of colonoscopy with polypectomy History of partial surgical removal of colon (06/21/24) hand access laparoscopic right colectomy with hand-sewn ileotransverse anastomosis per Dr. Huang for colon polyp (benign) Family History Family History Father Carcinoma of colon Heart disease Hypertension Social History Social History (Updated 08/16/24 @ 14:05 by Azul Daniel PA-C) Social History: Surrogate medical decision maker: Ivelisse Caro ([phone]). Code status: Full code. Smoking status: Never smoker Alcohol intake: never Substance use: never Substance use type: does not use Do You Feel Safe in your Home?: No Lack of Transportation: No Lack of Food: Never True Current Housing: I Have Housing Concerned About Future Housing: No Difficulty Paying Gas/Electric Bills: No Difficulty Paying for Meds: No Currently Unemployed: No Education: High School Diploma/GED Difficulty w/ Childcare or Family Care: No Living arrangements: with family Additional living arrangements comments: Lives with , Ana, in [place]. Occupation/Education: retired Spiritual care concerns: No Meds Home Medications and Allergies Home Medications ?Medication ?Instructions ?Recorded ?Confirmed ?Type metoprolol succinate 50 mg See Rx Instructions .Route 10/19/23 08/16/24 Rx tablet,extended release 24 hr .COMPLEX #90 tabs hydrochlorothiazide 25 mg tablet 12.5 mg (1/2 x 25 mg) PO DAILY #45 11/22/23 08/16/24 Rx tabs simvastatin 20 mg tablet 20 mg PO DAILY #90 tabs 03/18/24 08/16/24 Rx losartan 25 mg tablet See Rx Instructions .Route 03/22/24 08/16/24 Rx .COMPLEX #90 tabs lansoprazole 30 mg capsule,delayed 30 mg PO DAILY #90 caps 04/15/24 08/16/24 Rx release cholecalciferol (vitamin D3) 125 5,000 unit PO DAILY 06/11/24 08/16/24 History mcg (5,000 unit) capsule vitamin E mixed 400 unit capsule 400 unit PO 3XW 06/11/24 08/16/24 History lansoprazole 15 mg capsule,delayed 15 mg PO HS PRN indigestion 07/19/24 08/16/24 History release potassium chloride 20 mEq 20 meq PO DAILY #14 tabs 07/26/24 08/16/24 Rx tablet,extended release tamsulosin 0.4 mg capsule 0.4 mg PO QAM #30 caps 07/26/24 08/16/24 Rx Allergies Allergy/AdvReac Type Severity Reaction Status Date / Time No Known Allergies Allergy Verified 08/06/24 10:12 Vital Signs Vital Signs - 24 hr 08/16/24 11:11 08/16/24 12:14 Temperature 97.7 F Pulse Rate 74 Respiratory Rate 20 Blood Pressure 111/60 Pulse Oximetry 100 Oxygen Delivery Room Air Exam 2 Narrative: General: Mildly ill-appearing male supine in bed. Weight: 78 kg. BMI: 24.0. HEENT: PERRL, EOMI. Sclera anicteric. Tacky mucous membranes. Neck: Supple. Respiratory: Lung sounds are a bit diminished at the right base with scattered crackles and are otherwise clear to auscultation. Cardiovascular: Regular rate and rhythm with S1-S2. Gastrointestinal: Abdomen is soft with slightly hypoactive bowel sounds. IR placed drain contains bloody/milky colored fluid. Skin: Warm and dry. Generalized pallor. Extremities: No cyanosis, clubbing, or edema. Radial and pedal pulses intact. Neurological: Alert. Cranial nerves 2-12 are grossly intact. No gross focal deficits to casual conversation. Psychiatric: Pleasant and cooperative with normal mood and affect. Results Labs 08/16/24 17:34 08/16/24 17:34 Labs: Short CBC 08/16/24 Range/Units 08:46 WBC 14.4 H (4.5-10.0) K/mm3 Hgb 10.5 L (14.0-18.0) g/dL Hct 33.1 L (42.0-52.0) % Plt Count 602 H (150-375) k/mm3 BMP 08/16/24 08:46 Sodium 134 L Potassium 4.0 Chloride 100 Carbon Dioxide 31 H BUN 11 Creatinine 0.63 L Glucose 96 Calcium 8.4 Liver Function 08/16/24 Range/Units 08:46 Total Bilirubin 0.3 (0.2-1.3) mg/dL AST 63 H (17-59) U/L ALT 39 (6-50) U/L Alkaline Phosphatase 151 H (38-126) U/L Albumin 2.9 L (3.5-5.1) g/dL Imaging Abdomen/Pelvis CT 08/16/24 08:34 Impression: Large midabdominal/infrahepatic abscess, as detailed above.. Kidneys change catheter no longer present. Previously noted pelvic abscess is no longer present, resolved. Wall thickening of the sigmoid colon and rectum, which could be reactive versus infectious/inflammatory colitis. Suspicion of tract or fistula extending from the sigmoid colon to the large abscess. Mild left hydronephrosis and nonobstructing left renal stone. Cholelithiasis. Moderate right pleural effusion. Hospitalist MIPS Advance Care Plan I have confirmed that the patient's Advanced Care Plan is present, code status is documented, or surrogate decision maker is listed in patient medical record.: Yes Medication Reconciliation I have utilized all available resources to obtain, update and review the patients current medications (includes all prescriptions, OTC, herbals, cannabis, and nutritional supplements).: Yes
[2024-08-16] MEDS: fentaNYL CITRATE INJ (*CRX) 100 MCG/2 ML VIAL IV PUSH (14:12)
--- NOTE | 2024-08-16 14:36 | WPDMODSED ---
Moderate Sedation Note-Pt Data Patient Data Diagnosis: peritoneal abscess Present Complaint: abdominal pain and leukocytosis Procedure to be performed/Plan: percutaneous abscess drain placement Allergies Allergy/AdvReac Type Severity Reaction Status Date / Time No Known Allergies Allergy Verified 08/06/24 10:12 Home Medications ?Medication ?Instructions ?Recorded ?Confirmed ?Type metoprolol succinate 50 mg See Rx Instructions .Route 10/19/23 08/16/24 Rx tablet,extended release 24 hr .COMPLEX #90 tabs hydrochlorothiazide 25 mg tablet 12.5 mg (1/2 x 25 mg) PO DAILY #45 11/22/23 08/16/24 Rx tabs simvastatin 20 mg tablet 20 mg PO DAILY #90 tabs 03/18/24 08/16/24 Rx losartan 25 mg tablet See Rx Instructions .Route 03/22/24 08/16/24 Rx .COMPLEX #90 tabs lansoprazole 30 mg capsule,delayed 30 mg PO DAILY #90 caps 04/15/24 08/16/24 Rx release cholecalciferol (vitamin D3) 125 5,000 unit PO DAILY 06/11/24 08/16/24 History mcg (5,000 unit) capsule vitamin E mixed 400 unit capsule 400 unit PO 3XW 06/11/24 08/16/24 History lansoprazole 15 mg capsule,delayed 15 mg PO HS PRN indigestion 07/19/24 08/16/24 History release potassium chloride 20 mEq 20 meq PO DAILY #14 tabs 07/26/24 08/16/24 Rx tablet,extended release tamsulosin 0.4 mg capsule 0.4 mg PO QAM #30 caps 07/26/24 08/16/24 Rx Current Medications: Active Medications Fentanyl Citrate (Fentanyl Citrate Inj (*Crx) 100 Mcg/2 Ml Vial) 12.5 mcg IV PUSH Q2H PRN PRN Reason: Breakthrough Pain Rated 4-6 or NPO Fentanyl Citrate (Fentanyl Citrate Inj (*Crx) 100 Mcg/2 Ml Vial) 25 mcg IV PUSH Q2H PRN PRN Reason: Breakthrough Pain Rated 7-10 or NPO Ibuprofen (Caldolor 800 Mg/200 Ml) 800 mg in 200 mls @ 400 mls/hr IVPB Q6H PRN PRN Reason: Breakthrough Pain Rated 1-3 or NPO Piperacillin Sod/Tazobactam Sod (Zosyn 4.5 Gm/Ns 100 Ml) 4.5 gm in 100 mls @ 200 mls/hr IVPB Q6H JORDY Naloxone HCl (Naloxone Hcl 0.4 Mg/Ml Vial) 0.1 mg IV PUSH Q2M PRN PRN Reason: Opiate Reversal Ondansetron HCl (Ondansetron Inj 4 Mg/2 Ml Vial) 4 mg IV PUSH Q4H PRN PRN Reason: Nausea And Vomiting Pantoprazole Sodium (Pantoprazole Sodium Iv 40 Mg Vial) 40 mg IV PUSH QAM JORDY Sedation/Anesthesia: No previous sedation/anesthesia problems (including family history). [facility] Past Medical History Medical History (Updated 08/16/24 @ 14:28 by Azul Daniel PA-C) Benign colon polyp Cholelithiasis Barretts esophagus Premature ventricular contractions Hyperlipidemia Benign prostatic hyperplasia Essential (primary) hypertension Asthma Arthritis Impaired fasting glucose Surgical History Surgical History (Updated 08/16/24 @ 14:04 by Azul Daniel PA-C) History of colonoscopy with polypectomy History of partial surgical removal of colon (06/21/24) hand access laparoscopic right colectomy with hand-sewn ileotransverse anastomosis per Dr. Huang for colon polyp (benign) Family History Family History Father Carcinoma of colon Heart disease Hypertension Social History Social History (Updated 08/16/24 @ 14:05 by Azul Daniel PA-C) Social History: Surrogate medical decision maker: Ivelisse Caro ([phone]). Code status: Full code. Smoking status: Never smoker Alcohol intake: never Substance use: never Substance use type: does not use Do You Feel Safe in your Home?: No Lack of Transportation: No Lack of Food: Never True Current Housing: I Have Housing Concerned About Future Housing: No Difficulty Paying Gas/Electric Bills: No Difficulty Paying for Meds: No Currently Unemployed: No Education: High School Diploma/GED Difficulty w/ Childcare or Family Care: No Living arrangements: with family Additional living arrangements comments: Lives with , Ana, in [place]. Occupation/Education: retired Spiritual care concerns: No Mod Sed Physical Exam Physical Exam Pre Procedural Exam: Normal: Appearance, Throat, Heart Rate and Heart Rhythm and Variation: Lungs (pleural effusion on ct. normal RR) Hours since solid foods: 12 Hours since liquid intake: 12 Mallampati Classification: class 1 Internal Medicine - PN: Obj Da Vital Signs Vital Signs: Vital Signs - 24 hr 08/16/24 11:11 08/16/24 12:14 08/16/24 12:45 Temperature 97.7 F Pulse Rate 74 65 Respiratory Rate 20 16 Blood Pressure 111/60 121/65 Pulse Oximetry 100 100 Oxygen Delivery Room Air Nasal Cannula Oxygen Flow Rate 2 08/16/24 12:50 08/16/24 12:55 08/16/24 13:00 Temperature Pulse Rate 64 65 63 Respiratory Rate 15 14 16 Blood Pressure 111/60 113/63 108/63 Pulse Oximetry 100 100 100 Oxygen Delivery Nasal Cannula Nasal Cannula Nasal Cannula Oxygen Flow Rate 2 2 2 08/16/24 13:05 08/16/24 13:10 08/16/24 13:15 Temperature Pulse Rate 66 65 64 Respiratory Rate 15 18 19 Blood Pressure 117/64 111/64 112/62 Pulse Oximetry 100 100 100 Oxygen Delivery Nasal Cannula Nasal Cannula Nasal Cannula Oxygen Flow Rate 2 2 2 08/16/24 13:20 08/16/24 13:25 08/16/24 13:30 Temperature Pulse Rate 63 65 62 Respiratory Rate 17 18 19 Blood Pressure 111/64 108/62 116/59 L Pulse Oximetry 100 100 100 Oxygen Delivery Nasal Cannula Nasal Cannula Room Air Oxygen Flow Rate 2 2 Meds/Results Medications: Active Medications Generic Name Dose Route Start Last Admin Trade Name Freq PRN Reason Stop Dose Admin Fentanyl Citrate 12.5 mcg 08/16/24 09:16 Fentanyl Citrate Inj (*Crx) 100 Mcg/2 Ml Vial IV PUSH Q2H PRN Breakthrough Pain Rated 4-6 or NPO Fentanyl Citrate 25 mcg 08/16/24 09:16 Fentanyl Citrate Inj (*Crx) 100 Mcg/2 Ml Vial IV PUSH Q2H PRN Breakthrough Pain Rated 7-10 or NPO Ibuprofen 800 mg in 200 mls @ 400 mls/hr 08/16/24 09:16 Caldolor 800 Mg/200 Ml IVPB Q6H PRN Breakthrough Pain Rated 1-3 or NPO Piperacillin Sod/Tazobactam Sod 4.5 gm in 100 mls @ 200 mls/hr 08/16/24 15:00 Zosyn 4.5 Gm/Ns 100 Ml IVPB Q6H JORDY Naloxone HCl 0.1 mg 08/16/24 09:16 Naloxone Hcl 0.4 Mg/Ml Vial IV PUSH Q2M PRN Opiate Reversal Ondansetron HCl 4 mg 08/16/24 09:16 Ondansetron Inj 4 Mg/2 Ml Vial IV PUSH Q4H PRN Nausea And Vomiting Pantoprazole Sodium 40 mg 08/17/24 09:45 Pantoprazole Sodium Iv 40 Mg Vial IV PUSH QAM [facility] Radiology Results: ITS Impressions Abdomen/Pelvis CT 08/16/24 08:34 Impression: Large midabdominal/infrahepatic abscess, as detailed above.. Kidneys change catheter no longer present. Previously noted pelvic abscess is no longer present, resolved. Wall thickening of the sigmoid colon and rectum, which could be reactive versus infectious/inflammatory colitis. Suspicion of tract or fistula extending from the sigmoid colon to the large abscess. Mild left hydronephrosis and nonobstructing left renal stone. Cholelithiasis. Moderate right pleural effusion. Labs 08/16/24 08:46 08/16/24 08:46 Labs: Laboratory Results - last 24 hr 08/16/24 08/16/24 08/16/24 08:42 08:46 10:07 WBC 14.4 H RBC 3.81 L Hgb 10.5 L Hct 33.1 L MCV 86.9 MCH 27.6 MCHC 31.7 L RDW 17.2 H Plt Count 602 H MPV 10.3 Immature Gran % (Auto) 1.0 H Neut % (Auto) 85.0 H Lymph % (Auto) 7.6 L [place] % (Auto) 5.4 Eos % (Auto) 0.7 Baso % (Auto) 0.3 Lymph # (Auto) 1.10 [place] # (Auto) 0.8 H Eos # (Auto) 0.1 Baso # (Auto) 0.0 Abs Immat Gran (auto) 0.14 H Absolute Neuts (auto) 12.2 H Absolute Nucleated RBC 0.000 Nucleated RBC % 0.0 PT 14.1 INR 1.0 APTT 31.6 Sodium 134 L Potassium 4.0 Chloride 100 Carbon Dioxide 31 H Anion Gap 3 L BUN 11 Creatinine 0.63 L Estim Creat Clear Calc Not Reportable Estimated GFR > 60 Glucose 96 Calcium 8.4 Total Bilirubin 0.3 AST 63 H ALT 39 Alkaline Phosphatase 151 H C-Reactive Protein 5.7 H Total Protein 6.0 L Albumin 2.9 L ASA Classification/Sedation ASA Classification/Sedation ASA Class: III Emergent: No Risks: Risks, benefits and alternatives explained and patient/family accepted plan for sedation. Patient re-evaluated immediately prior to sedation.
[2024-08-16] MEDS: PIPERACILLIN/TAZ 4.5G/NS 100ML 4.5 GM/100 ML BAG IVPB ×2 (15:30→22:29)
[2024-08-16] MEDS: ACETAMINOPHEN 325 MG TABLET PO (16:30)
--- NOTE | 2024-08-16 17:13 | P.HP_ITS ---
H&P: HPI History of Present Illness Date/Time: 08/16/24 17:13 Chief Complaint: abdominal abscess Narrative: Patient is a 68-year-old man well known to me who on colonoscopy was noted to have a polyp in the ascending colon that was not able to be resected colonoscopically. He had bowel preparation and was taken to surgery on 06/21/2024 where hand access laparoscopic right colectomy with hand-sewn anastomosis was performed. 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 Patient did well and went home on postop day 2., 06/23/2024. Although initially did well, on his 2nd postop visit in my office, 07/18/2024 he was very weak, having abdominal pain, eating poorly. CT scan was then performed which showed a large anterior abdominal wall abscess as well as a smaller pelvic abscess. He was readmitted on 07/19/2024. On that same day he had ultrasound- guided placement of a pigtail catheter drain. Cultures of the anterior abdominal wall fluid showed E coli, sensitive to all antibiotics tested. Four days later, he had the pelvic abscess percutaneously drained. The fluid from this collection showed only white blood cells but there were no bacteria that grew on culture. He was discharged on 07/26/2024. His pelvic drain was removed for discharge. He had his anterior abdominal drain when he went home. I saw him in the office on August 01. He was doing very well and the drain was removed. He was to see me in 2 weeks. His actual appointment with me is not till next week for reasons that are known at this time. The patient's white blood cell count was normal at the time of his original right colectomy. Following surgery and until the present time his white blood cell count has always been elevated. It peaked at 33,200 on 07/19/2024. It decreased but only got as low as 13,200 when it was checked later as an outpatient. Patient had an office visit with Dr. Silva recently. At the office visit the patient discussed how he had poor appetite and had lost weight. He had pain in the right upper quadrant with a feeling of fullness or bloating there. He was exceptionally tired and sleeping much more than he is used to. Dr. Silva checked a CBC on August 12. His white blood cell count was 20,900. There was no left shift on the automated differential. He had a CMP at the same time which was normal. These results were sent to me yesterday. A CT scan of the abdomen and pelvis was done this morning which showed a large recurrent anterior abdominal abscess. There was concern that there may be a leak or fistula to the sigmoid colon. I reviewed the CT scan with Dr. Gastelum, radiologist. He realized the previous anastomosis was in the right upper quadrant but felt that the abscess could well have come from a leak at the ileocolic anastomosis. The abscess noted on this CT scan was very large in seemed to be in the anterior abdomen. Percutaneous CT-guided drainage was done already this afternoon. The report notes that the fluid from the abscess was foul-smelling dave purulent fluid. A lot of fluid drained per the patient and his . Patient is admitted now for antibiotic treatment and further management of the recurrent abdominal abscess. Patient suspects he has lost about 20 lb overall from poor eating. Review of Systems Review of Systems: All systems reviewed & are unremarkable except as noted in HPI and below (HPI) Constitutional: Constitutional: Denies chills, Reports fatigue, Denies fever(s), Reports lethargy, Reports malaise, Reports poor appetite and Reports weight loss Gastrointestinal: Gastrointestinal: Reports as per HPI, Reports abdominal pain (Right upper quadrant mostly) and Denies vomiting PMFSH Past Medical History Medical History (Updated 08/16/24 @ 14:28 by Azul Daniel PA-C) Benign colon polyp Cholelithiasis Barretts esophagus Premature ventricular contractions Hyperlipidemia Benign prostatic hyperplasia Essential (primary) hypertension Asthma Arthritis Impaired fasting glucose Surgical History Surgical History (Updated 08/16/24 @ 14:04 by Azul Daniel PA-C) History of colonoscopy with polypectomy History of partial surgical removal of colon (06/21/24) hand access laparoscopic right colectomy with hand-sewn ileotransverse anastomosis per Dr. Huang for colon polyp (benign) Family History Family History Father Carcinoma of colon Heart disease Hypertension Social History Social History (Updated 08/16/24 @ 14:05 by Azul Daniel PA-C) Social History: Surrogate medical decision maker: Ivelisse Caro ([phone]). Code status: Full code. Smoking status: Never smoker Alcohol intake: never Substance use: never Substance use type: does not use Do You Feel Safe in your Home?: No Lack of Transportation: No Lack of Food: Never True Current Housing: I Have Housing Concerned About Future Housing: No Difficulty Paying Gas/Electric Bills: No Difficulty Paying for Meds: No Currently Unemployed: No Education: High School Diploma/GED Difficulty w/ Childcare or Family Care: No Living arrangements: with family Additional living arrangements comments: Lives with , Ana, in [place]. Occupation/Education: retired Spiritual care concerns: No Meds Home Medications and Allergies Home Medications ?Medication ?Instructions ?Recorded ?Confirmed ?Type metoprolol succinate 50 mg See Rx Instructions .Route 10/19/23 08/16/24 Rx tablet,extended release 24 hr .COMPLEX #90 tabs hydrochlorothiazide 25 mg tablet 12.5 mg (1/2 x 25 mg) PO DAILY #45 11/22/23 08/16/24 Rx tabs simvastatin 20 mg tablet 20 mg PO DAILY #90 tabs 03/18/24 08/16/24 Rx losartan 25 mg tablet See Rx Instructions .Route 03/22/24 08/16/24 Rx .COMPLEX #90 tabs lansoprazole 30 mg capsule,delayed 30 mg PO DAILY #90 caps 04/15/24 08/16/24 Rx release cholecalciferol (vitamin D3) 125 5,000 unit PO DAILY 06/11/24 08/16/24 History mcg (5,000 unit) capsule vitamin E mixed 400 unit capsule 400 unit PO 3XW 06/11/24 08/16/24 History lansoprazole 15 mg capsule,delayed 15 mg PO HS PRN indigestion 07/19/24 08/16/24 History release potassium chloride 20 mEq 20 meq PO DAILY #14 tabs 07/26/24 08/16/24 Rx tablet,extended release tamsulosin 0.4 mg capsule 0.4 mg PO QAM #30 caps 07/26/24 08/16/24 Rx Allergies Allergy/AdvReac Type Severity Reaction Status Date / Time No Known Allergies Allergy Verified 08/06/24 10:12 Vital Signs Vital Signs - 24 hr 08/16/24 11:11 08/16/24 12:14 08/16/24 12:45 Temperature 36.5 C Pulse Rate 74 65 Respiratory Rate 20 16 Blood Pressure 111/60 121/65 Pulse Oximetry 100 100 Oxygen Delivery Room Air Nasal Cannula Oxygen Flow Rate 2 08/16/24 12:50 08/16/24 12:55 08/16/24 13:00 Temperature Pulse Rate 64 65 63 Respiratory Rate 15 14 16 Blood Pressure 111/60 113/63 108/63 Pulse Oximetry 100 100 100 Oxygen Delivery Nasal Cannula Nasal Cannula Nasal Cannula Oxygen Flow Rate 2 2 2 08/16/24 13:05 08/16/24 13:10 08/16/24 13:15 Temperature Pulse Rate 66 65 64 Respiratory Rate 15 18 19 Blood Pressure 117/64 111/64 112/62 Pulse Oximetry 100 100 100 Oxygen Delivery Nasal Cannula Nasal Cannula Nasal Cannula Oxygen Flow Rate 2 2 2 08/16/24 13:20 08/16/24 13:25 08/16/24 13:30 Temperature Pulse Rate 63 65 62 Respiratory Rate 17 18 19 Blood Pressure 111/64 108/62 116/59 L Pulse Oximetry 100 100 100 Oxygen Delivery Nasal Cannula Nasal Cannula Room Air Oxygen Flow Rate 2 2 08/16/24 14:00 Temperature 36.7 C Pulse Rate 76 Respiratory Rate 18 Blood Pressure 115/68 Pulse Oximetry 98 Oxygen Delivery Oxygen Flow Rate Exam Const: General: cooperative, comfortable, no acute distress, alert, awake and tired appearing Nutritional Appearance: thin Orientation/consciousness: patient oriented x3 and No confusion HENMT: Head: normocephalic and atraumatic Mouth: Yes Normal oral and palatal mucosa present Eyes: Conjunctivae: conjunctivae normal Pupils: Equal, round and reactive pupils present EOM: EOMs intact bilaterally Neck: Neck: normal visual inspection, no lymphadenopathy and nontender Resp: Effort & Inspection: normal respiratory effort Auscultation: clear to auscultation bilaterally Cardio: Rate: regular rate Rhythm: regular rhythm Heart sounds: no gallops, no murmurs and no rubs GI: Inspection: non-distended, scaphoid, scar, no visible herniation and other (Right upper quadrant pigtail catheter drain. Sanguinous fluid draining) GI Palp: Yes Soft to palpation, No Tenderness to palpation present (GI), No Hepatomegaly present, No Splenomegaly present, No Hernia present and No Palpable mass present Auscultation: normal bowel sounds Skin: Lesions: no lesions Rashes: no rashes Neuro: General: no focal motor deficits and CN's II-XI intact bilaterally Cranial nerves: Yes Equal, round and reactive pupils present, Yes Bilaterally intact EOM present, Yes facial symmetry and Yes Midline tongue present Speech: normal speech Motor exam (neuro): 5/5 motor strength present throughout and Motor abnormalities not present Extrem: General: no clubbing, cyanosis or edema and edema Psych: Speech and movement: Clear speech present Affect: normal affect Attitude: cooperative Thought process: Normal thought process present Thought content: Yes Normal thought content present Insight: Good insight present (Psych) Judgement: Good judgement present (Psych) H&P: Results Labs Labs: Short CBC 08/16/24 Range/Units 08:46 WBC 14.4 H (4.5-10.0) K/mm3 Hgb 10.5 L (14.0-18.0) g/dL Hct 33.1 L (42.0-52.0) % Plt Count 602 H (150-375) k/mm3 BMP 08/16/24 08:46 Sodium 134 L Potassium 4.0 Chloride 100 Carbon Dioxide 31 H BUN 11 Creatinine 0.63 L Glucose 96 Calcium 8.4 Liver Function 08/16/24 Range/Units 08:46 Total Bilirubin 0.3 (0.2-1.3) mg/dL AST 63 H (17-59) U/L ALT 39 (6-50) U/L Alkaline Phosphatase 151 H (38-126) U/L Albumin 2.9 L (3.5-5.1) g/dL Assessment and Plan Assessment and plan (1) Abdominal abscess: Status: Acute Assessment and Plan: Recurrent abdominal abscess, larger on this occasion than it was when he was admitted on 07/18/2024. Patient has been placed on IV Zosyn. Antibiotic choice was discussed with the Infectious Disease pharmacist, Mike Chmabers. Await cultures from drainage of abscess. Previous abscess grew only E coli. Patient can have full liquids but will start full TPN as he has not been eating well at all and is probably lost about 20 lb. I explained that the reason for this recurrent abscess is most likely a bowel leak, either from the previous anastomosis or at a separate location. If this is the case, he may well need reoperation. I will go ahead in order a contrast enema with water-soluble contrast for tomorrow looking for evidence of a potential colonic leak. (2) History of partial surgical removal of colon: Onset Date: 06/21/24 Code(s): Z90.49 - Acquired absence of other specified parts of digestive tract Status: Chronic Assessment and Plan: And access laparoscopic right colectomy with hand-sewn anastomosis performed 0 06/21/2024. Done regarding a benign tubulovillous adenoma in the ascending colon (3) Cholelithiasis: Qualifiers: Cholelithiasis location: gallbladder Cholecystitis presence: without cholecystitis Biliary obstruction: without biliary obstruction Qualified Code(s): K80.20 - Calculus of gallbladder without cholecystitis without obstruction Code(s): K80.20 - Calculus of gallbladder without cholecystitis without obstruction Status: Chronic Assessment and Plan: No evidence of cholecystitis by imaging although patient was having right upper quadrant pain, it was not suggestive of cholecystitis. (4) Barretts esophagus: Qualifiers: Villalobos's esophagus type: without dysplasia Qualified Code(s): K22.70 - Villalobos's esophagus without dysplasia Code(s): K22.70 - Villalobos's esophagus without dysplasia Status: Chronic Assessment and Plan: Continue proton pump inhibitor (5) BPH with obstruction/lower urinary tract symptoms: Code(s): N40.1 - Benign prostatic hyperplasia with lower urinary tract symptoms; N13.8 - Other obstructive and reflux uropathy Status: Acute Assessment and Plan: Flomax started at his last admission and greatly improved the symptoms.
[2024-08-16 17:42] LABS: Basophils Percent Auto 0.3 % (0.2-1.2); Eosinophils Absolute Auto 0.1 K/mm3 (0-0.3); Eosinophils Percent Auto 0.7 % (0-4.4); Hematocrit 35.4 % (42.0-52.0); Immature Granulocyte Percent A 0.8 % (0-0.5); Lymphocytes Absolute Auto 1.43 K/mm3 (0.9-3.2); Lymphocytes Percent Auto 11.6 % (18.3-44.2); Mean Corpuscular HGB Conc 31.1 g/dl (32-36); Mean Corpuscular Hemoglobin 27.2 pg (26-34); Mean Corpuscular Volume 87.6 fl (80-100); Monocytes Absolute Auto 0.6 K/mm3 (0.1-0.6); Monocytes Percent Auto 4.9 % (2.6-8.5); Neutrophils Absolute Auto 10.1 K/mm3 (1.3-6.7); Neutrophils Percent Auto 81.7 % (45.5-73.1); Platelet Count Result 637 k/mm3 (150-375); Red Blood Count 4.04 M/mm3 (4.6-6.20); Red Cell Distribution Width 17.1 % (11.5-14.5); White Blood Count 12.4 K/mm3 (4.5-10.0)
[2024-08-16 17:54] LABS: Partial Thromboplastin Time 31.4 Seconds (22.3-36.8)
[2024-08-16 18:00] LABS: Alanine Aminotransferase 36 U/L (6-50); Albumin Level 3.1 g/dL (3.5-5.1); Alkaline Phosphatase 143 U/L (38-126); Anion Gap 5 mmol/L (4-12); Aspartate Amino Transferase 52 U/L (17-59); Bilirubin,Total 0.3 mg/dL (0.2-1.3); Blood Urea Nitrogen 10 mg/dL (9-20); Calcium 8.6 mg/dL (8.4-10.2); Carbon Dioxide 31 mmol/L (22-30); Chloride 100 mmol/L (98-107); Estimated CRCL calculation 96 ml/min; Estimated Glomerular Filt Rate > 60; Glucose 95 mg/dL (65-110); Magnesium 2.1 mg/dL (1.6-2.3); Potassium 3.7 mmol/L (3.4-5.0); Sodium 136 mmol/L (137-145)
[2024-08-16 18:07] LABS: Transferrin 144 mg/dL (206-381)
[2024-08-16] MEDS: KCL 20 MEQ/0.45% NS 1,000 ML 60 ML IV CONT (18:27)
[2024-08-16] MEDS: FAT EMULSIONS IV 20% 250 ML 20.83 ML IVPB (18:27)
[2024-08-16 18:28] LABS: Glucose Point of Care 67 mg/dl (65-105)
[2024-08-16 19:03] LABS: Glucose Point of Care 86 mg/dl (65-105)
[2024-08-17] VITALS (9 sets, daily range): BP systolic 106–148; BP diastolic 58–66; PULSE 67–87; RESP 16–18; TEMP 36.5–36.8; O2SAT 98–100; BMI 25.4
[2024-08-17 01:14] LABS: Glucose Point of Care 96 mg/dl (65-105)
[2024-08-17] MEDS: PIPERACILLIN/TAZ 4.5G/NS 100ML 4.5 GM/100 ML BAG IVPB ×4 (03:22→21:37)
[2024-08-17 05:19] LABS: Hematocrit 31.4 % (42.0-52.0); Hemoglobin 9.9 g/dL (14.0-18.0); Mean Corpuscular HGB Conc 31.5 g/dl (32-36); Mean Corpuscular Hemoglobin 27.3 pg (26-34); Mean Corpuscular Volume 86.7 fl (80-100); Mean Platelet Volume 9.9 fl (7.4-10.4); Platelet Count Result 560 k/mm3 (150-375); Red Blood Count 3.62 M/mm3 (4.6-6.20); Red Cell Distribution Width 17.2 % (11.5-14.5); White Blood Count 10.1 K/mm3 (4.5-10.0)
[2024-08-17 05:45] LABS: Anion Gap 3 mmol/L (4-12); Blood Urea Nitrogen 7 mg/dL (9-20); Calcium 8.1 mg/dL (8.4-10.2); Carbon Dioxide 30 mmol/L (22-30); Chloride 101 mmol/L (98-107); Estimated CRCL calculation 104 ml/min; Estimated Glomerular Filt Rate > 60; Glucose 92 mg/dL (65-110); Potassium 3.6 mmol/L (3.4-5.0); Sodium 134 mmol/L (137-145)
[2024-08-17 05:53] LABS: CRP 3.3 mg/dL (<1.0)
[2024-08-17 06:24] LABS: Glucose Point of Care 89 mg/dl (65-105)
--- NOTE | 2024-08-17 08:18 | P.CONIM_ITS ---
Assessment and Plan Assessment and plan (1) Abdominal abscess: Status: Acute Assessment and Plan: Right colectomy with hand-sewn anastomosis 06/21/2024 complicated by fluid collection status post IR drainage and completion of 14 days of antibiotics. Repeat CT scan shows a large midabdominal/infrahepatic abscess with suspicion of a tract or fistula extending from the sigmoid colon to the abscess. * Drain placed per IR on 08/16/2024, managed by surgery. * Gram stain and wound culture are pending. * Discussed with ID pharmacist who recommends piperacillin-tazobactam 4.5 g q.6 hours for now. 08/17 * Contrast enema to look for possible bowel leak * Monitor drain output * Continue IV Abx * Continue TPN L (2) Pleural effusion on right: Code(s): J90 - Pleural effusion, not elsewhere classified Status: Acute Assessment and Plan: CT scan shows a moderate-size right-sided pleural effusion. I suspect that this is inflammatory/reactive in nature. He is not hypoxic and is not symptomatic at this juncture. * Avoid over-hydration. * Continue to monitor clinically. * Consider thoracentesis if worsening or change in condition. 08/17 * Symptoms improving today * Ambulating w/o weakness or SOB * Physical exam improved L (3) Hydronephrosis of left kidney: Code(s): N13.30 - Unspecified hydronephrosis Status: Acute Assessment and Plan: Mild left hydronephrosis and nonobstructing renal stone on CT. Possibly related to large abdominal abscess. Bladder does not feel particularly distended though he has a history of difficulties urinating for which he takes tamsulosin. * Bladder scan now and p.r.n. to rule out urinary retention. * Renal ultrasound tomorrow to see if there is any change. * Urology consult * No intervention indicated at this time' * Continue Tamsulosin * No indication for perez L (4) Essential (primary) hypertension: Code(s): I10 - Essential (primary) hypertension Status: Chronic Assessment and Plan: Blood pressures were reviewed and they are stable. * Monitor closely as he is currently NPO. * 148/59 L (5) Barretts esophagus: Qualifiers: Villalobos's esophagus type: without dysplasia Qualified Code(s): K22.70 - Villalobos's esophagus without dysplasia Code(s): K22.70 - Villalobos's esophagus without dysplasia Status: Chronic Assessment and Plan: * Change p.o. lansoprazole to pantoprazole IV daily as long as he is NPO. L (6) Benign prostatic hyperplasia: Code(s): N40.0 - Benign prostatic hyperplasia without lower urinary tract symptoms Status: Acute Assessment and Plan: * Bladder scan x1 then p.r.n. to rule out retention and continue tamsulosin. * Urology consultation * Continue Tamsulosin L Plan Thank you for allowing us to participate in this patient's care. Please do not hesitate to contact us with any questions. HPI Date of Consult Consult date: 08/17/24 Requesting Physician: Ruddy Huang MD Primary Care Provider: Nicola Silva MD Consult Narrative Narrative: Rylan Caro is a 68 year old male with HTN, hyperlipidemia, BPH , and Villalobos esophagus who was directly admitted to the hospital today under the general surgery service for treatment of abdominal abscess. He underwent a hand access laparoscopic right colectomy with hand-sewn ileotransverse anastomosis on 06/21/2024 for an ascending colon polyp which was found to be benign. Prior to his 2nd follow-up visit he developed right lower quadrant discomfort and CT scan showed a large right-sided fluid collection abdomen and a 2nd smaller pelvic fluid collection. He was admitted to the hospital on 07/19/2024 following IR drain placement and cultures of the right-sided abdominal fluid grew out pansensitive E coli and Bacteroides. He received piperacillin-tazobactam for 7 days and was discharged on amoxicillin-clavulanic acid for [address] scan today showed a large mid abdominal/intrahepatic abscess with suspicion of a tract or fistula extending to the sigmoid colon. IR placed another catheter today with revision of a previously placed catheter and a specimen has been sent for culture. He received piperacillin-tazobactam 3.375 g x1 he is being admitted in this setting for further treatment. 08/17/2024 Met with patient this AM before going for contrast enema XR. Drain placement yesterday went without complication. Pain improving today, as well as leukocytosis. Plan to continue TPN per gen surg and continue IV antibiotics. Monitor drain output. Review of Systems 2 Review of Systems: 12 systems were reviewed and are negativ e except for as per HPI. [facility] Past Medical History Medical History (Updated 08/16/24 @ 14:28 by Azul Daniel PA-C) Benign colon polyp Cholelithiasis Barretts esophagus Premature ventricular contractions Hyperlipidemia Benign prostatic hyperplasia Essential (primary) hypertension Asthma Arthritis Impaired fasting glucose Surgical History Surgical History (Updated 08/16/24 @ 14:04 by Azul Daniel PA-C) History of colonoscopy with polypectomy History of partial surgical removal of colon (06/21/24) hand access laparoscopic right colectomy with hand-sewn ileotransverse anastomosis per Dr. Huang for colon polyp (benign) Family History Family History Father Carcinoma of colon Heart disease Hypertension Social History Social History (Updated 08/16/24 @ 14:05 by Azul Daniel PA-C) Social History: Surrogate medical decision maker: Ivelisse Caro ([phone]). Code status: Full code. Smoking status: Never smoker Alcohol intake: never Substance use: never Substance use type: does not use Do You Feel Safe in your Home?: No Lack of Transportation: No Lack of Food: Never True Current Housing: I Have Housing Concerned About Future Housing: No Difficulty Paying Gas/Electric Bills: No Difficulty Paying for Meds: No Currently Unemployed: No Education: High School Diploma/GED Difficulty w/ Childcare or Family Care: No Living arrangements: with family Additional living arrangements comments: Lives with , Ana, in [place]. Occupation/Education: retired Spiritual care concerns: No Meds Home Medications and Allergies Home Medications ?Medication ?Instructions ?Recorded ?Confirmed ?Type metoprolol succinate 50 mg See Rx Instructions .Route 10/19/23 08/16/24 Rx tablet,extended release 24 hr .COMPLEX #90 tabs hydrochlorothiazide 25 mg tablet 12.5 mg (1/2 x 25 mg) PO DAILY #45 11/22/23 08/16/24 Rx tabs simvastatin 20 mg tablet 20 mg PO DAILY #90 tabs 03/18/24 08/16/24 Rx losartan 25 mg tablet See Rx Instructions .Route 03/22/24 08/16/24 Rx .COMPLEX #90 tabs lansoprazole 30 mg capsule,delayed 30 mg PO DAILY #90 caps 04/15/24 08/16/24 Rx release cholecalciferol (vitamin D3) 125 5,000 unit PO DAILY 06/11/24 08/16/24 History mcg (5,000 unit) capsule vitamin E mixed 400 unit capsule 400 unit PO 3XW 06/11/24 08/16/24 History lansoprazole 15 mg capsule,delayed 15 mg PO HS PRN indigestion 07/19/24 08/16/24 History release potassium chloride 20 mEq 20 meq PO DAILY #14 tabs 07/26/24 08/16/24 Rx tablet,extended release tamsulosin 0.4 mg capsule 0.4 mg PO QAM #30 caps 07/26/24 08/16/24 Rx Allergies Allergy/AdvReac Type Severity Reaction Status Date / Time No Known Allergies Allergy Verified 08/06/24 10:12 Vital Signs Vital Signs - 24 hr 08/16/24 11:11 08/16/24 12:14 08/16/24 12:45 Temperature 97.7 F Pulse Rate 74 65 Respiratory Rate 20 16 Blood Pressure 111/60 121/65 Pulse Oximetry 100 100 Oxygen Delivery Room Air Nasal Cannula Oxygen Flow Rate 2 08/16/24 12:50 08/16/24 12:55 08/16/24 13:00 Temperature Pulse Rate 64 65 63 Respiratory Rate 15 14 16 Blood Pressure 111/60 113/63 108/63 Pulse Oximetry 100 100 100 Oxygen Delivery Nasal Cannula Nasal Cannula Nasal Cannula Oxygen Flow Rate 2 2 2 08/16/24 13:05 08/16/24 13:10 08/16/24 13:15 Temperature Pulse Rate 66 65 64 Respiratory Rate 15 18 19 Blood Pressure 117/64 111/64 112/62 Pulse Oximetry 100 100 100 Oxygen Delivery Nasal Cannula Nasal Cannula Nasal Cannula Oxygen Flow Rate 2 2 2 08/16/24 13:20 08/16/24 13:25 08/16/24 13:30 Temperature Pulse Rate 63 65 62 Respiratory Rate 17 18 19 Blood Pressure 111/64 108/62 116/59 L Pulse Oximetry 100 100 100 Oxygen Delivery Nasal Cannula Nasal Cannula Room Air Oxygen Flow Rate 2 2 08/16/24 14:00 08/16/24 16:00 08/16/24 21:06 Temperature 98.1 F 97.8 F 97.2 F L Pulse Rate 76 56 L 76 Respiratory Rate 18 16 16 Blood Pressure 115/68 115/61 114/75 Pulse Oximetry 98 100 98 Oxygen Delivery Oxygen Flow Rate 08/17/24 00:20 08/17/24 00:28 08/17/24 04:00 Temperature 97.7 F 98 F Pulse Rate 68 68 Respiratory Rate 16 18 Blood Pressure 106/60 109/58 L Pulse Oximetry 99 100 Oxygen Delivery Room Air Oxygen Flow Rate Exam 2 Narrative: General: Mildly ill-appearing male supine in bed. Weight: 78 kg. BMI: 24.0. HEENT: PERRL, EOMI. Sclera anicteric. Tacky mucous membranes. Neck: Supple. Respiratory: Lung sounds are a bit diminished at the right base with scattered crackles and are otherwise clear to auscultation. Cardiovascular: Regular rate and rhythm with S1-S2. Gastrointestinal: Abdomen is soft with slightly hypoactive bowel sounds. IR placed drain contains bloody/milky colored fluid. Skin: Warm and dry. Generalized pallor. Extremities: No cyanosis, clubbing, or edema. Radial and pedal pulses intact. Neurological: Alert. Cranial nerves 2-12 are grossly intact. No gross focal deficits to casual conversation. Psychiatric: Pleasant and cooperative with normal mood and affect. Results Labs 08/17/24 04:59 08/17/24 04:59 Labs: Short CBC 08/16/24 08/16/24 08/17/24 Range/Units 08:46 17:34 04:59 WBC 14.4 H 12.4 H 10.1 H (4.5-10.0) K/mm3 Hgb 10.5 L 11.0 L 9.9 L (14.0-18.0) g/dL Hct 33.1 L 35.4 L 31.4 L (42.0-52.0) % Plt Count 602 H 637 H 560 H (150-375) k/mm3 BMP 08/16/24 08/16/24 08/17/24 08:46 17:34 04:59 Sodium 134 L 136 L 134 L Potassium 4.0 3.7 3.6 Chloride 100 100 101 Carbon Dioxide 31 H 31 H 30 BUN 11 10 7 L Creatinine 0.63 L 0.65 L 0.60 L Glucose 96 95 92 Calcium 8.4 8.6 8.1 L Liver Function 08/16/24 08/16/24 Range/Units 08:46 17:34 Total Bilirubin 0.3 0.3 (0.2-1.3) mg/dL AST 63 H 52 (17-59) U/L ALT 39 36 (6-50) U/L Alkaline Phosphatase 151 H 143 H (38-126) U/L Albumin 2.9 L 3.1 L (3.5-5.1) g/dL
[2024-08-17] MEDS: METOPROLOL SUCCINATE EXT REL 50 MG TABCR PO (09:11)
[2024-08-17] MEDS: POTASSIUM CHLORIDE 20 MEQ ER TABLET PO (09:13)
[2024-08-17] MEDS: TAMSULOSIN HCL 0.4 MG CAPSULE PO (09:13)
[2024-08-17] MEDS: hydroCHLOROthiazide 12.5 MG CAPSULE PO (09:13)
[2024-08-17] MEDS: LOSARTAN POTASSIUM 25 MG TABLET BY MOUTH (09:14)
[2024-08-17] MEDS: SIMVASTATIN 20 MG TABLET PO (09:19)
--- NOTE | 2024-08-17 09:21 | WPDURCON ---
Assessment and Plan Assessment and plan (1) Hydronephrosis of left kidney: Code(s): N13.30 - Unspecified hydronephrosis Status: Acute Assessment and Plan: no acute intervention is needed. There has been no change in the mild hydronephrosis in 1 month. There is no obstructing stone. There is no evidence of mass near the ureter. (2) Benign prostatic hyperplasia: Code(s): N40.0 - Benign prostatic hyperplasia without lower urinary tract symptoms Status: Acute Assessment and Plan: Elevated post void residual urine Plan Continue tamsulosin. He feels he is voiding well. PVR was < 300. No need for Vu catheter. Urology Consult Note HPI Date Seen: 08/17/24 Requesting Physician: Ruddy Huang MD Primary Care Provider: Nicola Silva MD Consult Narrative Reason for consult: left hydronephrosis and difficulty voiding Narrative: Rylan Caro is a 68 year old male who has been admitted for an abscess. He has difficulty voiding and is on tamsulosin at baseline. He had about a 250cc post void residual per bladder scan from his nurse. I reviewed his current scan and the CT scan from 07/18/24. I see no change in the left hydronephrosis. It is mild. There is also a left lower pole stone present. Review of Systems Review of Systems: All systems reviewed & are unremarkable except as noted in HPI and below PMFSH Past Medical History Medical History (Updated 08/16/24 @ 14:28 by Azul Daniel PA-C) Benign colon polyp Cholelithiasis Barretts esophagus Premature ventricular contractions Hyperlipidemia Benign prostatic hyperplasia Essential (primary) hypertension Asthma Arthritis Impaired fasting glucose Surgical History Surgical History (Updated 08/16/24 @ 14:04 by Azul Daniel PA-C) History of colonoscopy with polypectomy History of partial surgical removal of colon (06/21/24) hand access laparoscopic right colectomy with hand-sewn ileotransverse anastomosis per Dr. Huang for colon polyp (benign) Family History Family History Father Carcinoma of colon Heart disease Hypertension Social History Social History (Updated 08/16/24 @ 14:05 by Azul Daniel PA-C) Social History: Surrogate medical decision maker: Ivelisseyony Caro ([phone]). Code status: Full code. Smoking status: Never smoker Alcohol intake: never Substance use: never Substance use type: does not use Do You Feel Safe in your Home?: No Lack of Transportation: No Lack of Food: Never True Current Housing: I Have Housing Concerned About Future Housing: No Difficulty Paying Gas/Electric Bills: No Difficulty Paying for Meds: No Currently Unemployed: No Education: High School Diploma/GED Difficulty w/ Childcare or Family Care: No Living arrangements: with family Additional living arrangements comments: Lives with , Ana, in [place]. Occupation/Education: retired Spiritual care concerns: No Meds Home Medications and Allergies Home Medications ?Medication ?Instructions ?Recorded ?Confirmed ?Type metoprolol succinate 50 mg See Rx Instructions .Route 10/19/23 08/16/24 Rx tablet,extended release 24 hr .COMPLEX #90 tabs hydrochlorothiazide 25 mg tablet 12.5 mg (1/2 x 25 mg) PO DAILY #45 11/22/23 08/16/24 Rx tabs simvastatin 20 mg tablet 20 mg PO DAILY #90 tabs 03/18/24 08/16/24 Rx losartan 25 mg tablet See Rx Instructions .Route 03/22/24 08/16/24 Rx .COMPLEX #90 tabs lansoprazole 30 mg capsule,delayed 30 mg PO DAILY #90 caps 04/15/24 08/16/24 Rx release cholecalciferol (vitamin D3) 125 5,000 unit PO DAILY 06/11/24 08/16/24 History mcg (5,000 unit) capsule vitamin E mixed 400 unit capsule 400 unit PO 3XW 06/11/24 08/16/24 History lansoprazole 15 mg capsule,delayed 15 mg PO HS PRN indigestion 07/19/24 08/16/24 History release potassium chloride 20 mEq 20 meq PO DAILY #14 tabs 07/26/24 08/16/24 Rx tablet,extended release tamsulosin 0.4 mg capsule 0.4 mg PO QAM #30 caps 07/26/24 08/16/24 Rx Allergies Allergy/AdvReac Type Severity Reaction Status Date / Time No Known Allergies Allergy Verified 08/06/24 10:12 Vital Signs Vital Signs - 24 hr 08/16/24 11:11 08/16/24 12:14 08/16/24 12:45 Temperature 36.5 C Pulse Rate 74 65 Respiratory Rate 20 16 Blood Pressure 111/60 121/65 Pulse Oximetry 100 100 Oxygen Delivery Room Air Nasal Cannula Oxygen Flow Rate 2 08/16/24 12:50 08/16/24 12:55 08/16/24 13:00 Temperature Pulse Rate 64 65 63 Respiratory Rate 15 14 16 Blood Pressure 111/60 113/63 108/63 Pulse Oximetry 100 100 100 Oxygen Delivery Nasal Cannula Nasal Cannula Nasal Cannula Oxygen Flow Rate 2 2 2 08/16/24 13:05 08/16/24 13:10 08/16/24 13:15 Temperature Pulse Rate 66 65 64 Respiratory Rate 15 18 19 Blood Pressure 117/64 111/64 112/62 Pulse Oximetry 100 100 100 Oxygen Delivery Nasal Cannula Nasal Cannula Nasal Cannula Oxygen Flow Rate 2 2 2 08/16/24 13:20 08/16/24 13:25 08/16/24 13:30 Temperature Pulse Rate 63 65 62 Respiratory Rate 17 18 19 Blood Pressure 111/64 108/62 116/59 L Pulse Oximetry 100 100 100 Oxygen Delivery Nasal Cannula Nasal Cannula Room Air Oxygen Flow Rate 2 2 08/16/24 14:00 08/16/24 16:00 08/16/24 21:06 Temperature 36.7 C 36.6 C 36.2 C L Pulse Rate 76 56 L 76 Respiratory Rate 18 16 16 Blood Pressure 115/68 115/61 114/75 Pulse Oximetry 98 100 98 Oxygen Delivery Oxygen Flow Rate 08/17/24 00:20 08/17/24 00:28 08/17/24 04:00 Temperature 36.5 C 36.6 C Pulse Rate 68 68 Respiratory Rate 16 18 Blood Pressure 106/60 109/58 L Pulse Oximetry 99 100 Oxygen Delivery Room Air Oxygen Flow Rate 08/17/24 09:11 Temperature Pulse Rate 85 Respiratory Rate Blood Pressure Pulse Oximetry Oxygen Delivery Oxygen Flow Rate Exam Const: General: cooperative and healthy appearing Nutritional Appearance: average body habitus HENMT: Head: normal to inspection Ears: hearing grossly normal bilaterally Neck: Neck: normal visual inspection Resp: Effort & Inspection: normal respiratory effort Results Labs 08/17/24 04:59 08/17/24 04:59 Labs: Short CBC 08/16/24 08/17/24 Range/Units 17:34 04:59 WBC 12.4 H 10.1 H (4.5-10.0) K/mm3 Hgb 11.0 L 9.9 L (14.0-18.0) g/dL Hct 35.4 L 31.4 L (42.0-52.0) % Plt Count 637 H 560 H (150-375) k/mm3 BMP 08/16/24 08/16/24 08/17/24 08:46 17:34 04:59 Sodium 134 L 136 L 134 L Potassium 4.0 3.7 3.6 Chloride 100 100 101 Carbon Dioxide 31 H 31 H 30 BUN 11 10 7 L Creatinine 0.63 L 0.65 L 0.60 L Glucose 96 95 92 Calcium 8.4 8.6 8.1 L Liver Function 08/16/24 08/16/24 Range/Units 08:46 17:34 Total Bilirubin 0.3 0.3 (0.2-1.3) mg/dL AST 63 H 52 (17-59) U/L ALT 39 36 (6-50) U/L Alkaline Phosphatase 151 H 143 H (38-126) U/L Albumin 2.9 L 3.1 L (3.5-5.1) g/dL
--- NOTE | 2024-08-17 12:55 | PM.PNGS ---
Progress Note: A&P Assessment and Plan (1) Intra-abdominal abscess post-procedure: Code(s): T81.43XA - Infection following a procedure, organ and space surgical site, initial encounter; K65.1 - Peritoneal abscess Status: Acute Assessment and Plan: Continue IV Zosyn and monitor drain output Await results of Gastrografin enema Continue TPN (2) History of partial surgical removal of colon: Onset Date: 06/21/24 Code(s): Z90.49 - Acquired absence of other specified parts of digestive tract Status: Chronic (3) Adenomatous colon polyp: Qualifiers: Colon location: ascending Qualified Code(s): D12.2 - Benign neoplasm of ascending colon Code(s): D12.6 - Benign neoplasm of colon, unspecified Status: Chronic (4) Dysuria: Code(s): R30.0 - Dysuria Status: Inactive (5) Leukocytosis: Qualifiers: Leukocytosis type: unspecified Qualified Code(s): D72.829 - Elevated white blood cell count, unspecified Code(s): D72.829 - Elevated white blood cell count, unspecified Status: Resolved Subjective Subjective Date/Time Seen: 08/17/24 12:55 Interval history: Patient off the floor, getting contrast enema X-ray, when I came to round today. WBC slightly improved. Tolerated drain placement yesterday. Exam GI: Other: Will evaluate for any changes tomorrow Objective Data Vital Signs Vital Signs: Vital Signs - 24 hr 08/16/24 13:00 08/16/24 13:05 08/16/24 13:10 Temperature Pulse Rate 63 66 65 Respiratory Rate 16 15 18 Blood Pressure 108/63 117/64 111/64 Pulse Oximetry 100 100 100 Oxygen Delivery Nasal Cannula Nasal Cannula Nasal Cannula Oxygen Flow Rate 2 2 2 08/16/24 13:15 08/16/24 13:20 08/16/24 13:25 Temperature Pulse Rate 64 63 65 Respiratory Rate 19 17 18 Blood Pressure 112/62 111/64 108/62 Pulse Oximetry 100 100 100 Oxygen Delivery Nasal Cannula Nasal Cannula Nasal Cannula Oxygen Flow Rate 2 2 2 08/16/24 13:30 08/16/24 14:00 08/16/24 16:00 Temperature 98.1 F 97.8 F Pulse Rate 62 76 56 L Respiratory Rate 19 18 16 Blood Pressure 116/59 L 115/68 115/61 Pulse Oximetry 100 98 100 Oxygen Delivery Room Air Oxygen Flow Rate 08/16/24 21:06 08/17/24 00:20 08/17/24 00:28 Temperature 97.2 F L 97.7 F Pulse Rate 76 68 Respiratory Rate 16 16 Blood Pressure 114/75 106/60 Pulse Oximetry 98 99 Oxygen Delivery Room Air Oxygen Flow Rate 08/17/24 04:00 08/17/24 08:00 08/17/24 09:11 Temperature 98 F 97.9 F Pulse Rate 68 87 85 Respiratory Rate 18 16 Blood Pressure 109/58 L 148/59 H Pulse Oximetry 100 100 Oxygen Delivery Oxygen Flow Rate 08/17/24 09:30 Temperature Pulse Rate Respiratory Rate Blood Pressure Pulse Oximetry 100 Oxygen Delivery Room Air Oxygen Flow Rate Intake/Output Intake/Output: Intake & Output 08/14/24 08/15/24 08/16/24 08/17/24 23:59 23:59 23:59 23:59 Intake Total 990 340 Output Total 780 Balance 990 -440 Meds/Results Medications: Active Medications Generic Name Dose Route Start Last Admin Trade Name Freq PRN Reason Stop Dose Admin Acetaminophen 500 mg 08/16/24 17:05 Acetaminophen 500 Mg Tablet PO Q6H PRN Pain Rated 1-3 Fentanyl Citrate 12.5 mcg 08/16/24 09:16 Fentanyl Citrate Inj (*Crx) 100 Mcg/2 Ml Vial IV PUSH Q2H PRN Breakthrough Pain Rated 4-6 or NPO Fentanyl Citrate 25 mcg 08/16/24 09:16 Fentanyl Citrate Inj (*Crx) 100 Mcg/2 Ml Vial IV PUSH Q2H PRN Breakthrough Pain Rated 7-10 or NPO Hydrochlorothiazide 12.5 mg 08/17/24 09:00 08/17/24 09:13 Hydrochlorothiazide 12.5 Mg Capsule PO 12.5 mg DAILY JORDY Administration Ibuprofen 800 mg in 200 mls @ 400 mls/hr 08/16/24 09:16 Caldolor 800 Mg/200 Ml IVPB Q6H PRN Breakthrough Pain Rated 1-3 or NPO Piperacillin Sod/Tazobactam Sod 4.5 gm in 100 mls @ 200 mls/hr 08/16/24 15:00 08/17/24 09:21 Zosyn 4.5 Gm/Ns 100 Ml IVPB 200 mls/hr Q6H JORDY Administration Dextrose 1,000 mls @ 50 mls/hr 08/16/24 16:56 Dextrose 10% IV CONT .Q20H PRN if PN is interrupted Fat Emulsion Intravenous 250 mls @ 20.833 mls/hr 08/16/24 18:00 08/16/24 18:27 Lipids 20% IVPB 20.83 mls/hr Q24H JORDY Administration Potassium Chloride/Sodium Chloride 1,000 mls @ 60 mls/hr 08/16/24 18:00 08/16/24 18:27 Kcl 20 Meq/0.45% Ns IV CONT 60 mls/hr .[id number] JORDY Administration Multivitamins 1.25 ml/ 1,002.5 mls @ 40 mls/hr 08/17/24 10:00 Multivitamins 1.25 ml/ Amino IV CONT Acids/Electrolytes/Dextrose .Q24H [facility] Protocol Insulin Human Regular 0 units 08/16/24 18:00 08/17/24 07:42 Insulin Human Regular (*Bkc) 100 Units/Ml SUB-Q Not Given Q6HR [facility] Protocol Losartan Potassium 25 mg 08/17/24 09:00 08/17/24 09:14 Losartan Potassium 25 Mg Tablet BY MOUTH 25 mg DAILY JORDY Administration Metoprolol Succinate 50 mg 08/17/24 09:00 08/17/24 09:11 Metoprolol Succinate Ext Rel 50 Mg Tabcr PO 50 mg DAILY JORDY Administration Naloxone HCl 0.1 mg 08/16/24 09:16 Naloxone Hcl 0.4 Mg/Ml Vial IV PUSH Q2M PRN Opiate Reversal Ondansetron HCl 4 mg 08/16/24 09:16 Ondansetron Inj 4 Mg/2 Ml Vial IV PUSH Q4H PRN Nausea And Vomiting Oxycodone/Acetaminophen 1 tablet 08/16/24 17:05 Oxycodone/Acetaminophen (*Crx) 5-325 Mg Tablet PO Q4H PRN Pain Rated 4-6 Pantoprazole Sodium 40 mg 08/17/24 09:00 08/17/24 09:17 Pantoprazole 40 Mg Tablet PO Not Given QAM [facility] Potassium Chloride 20 meq 08/17/24 09:00 08/17/24 09:13 Potassium Chloride 20 Meq Er Tablet PO 20 meq DAILY JORDY Administration Simvastatin 20 mg 08/17/24 09:00 08/17/24 09:19 Simvastatin 20 Mg Tablet PO 20 mg DAILY JORDY Administration Sodium Chloride 10 ml 08/17/24 14:00 Central Line Flush IV PUSH Q8HR [facility] Sodium Chloride 10 ml 08/17/24 11:43 Central Line Flush IV PUSH PRN PRN with TPN bag changes Sodium Chloride 20 ml 08/17/24 11:43 Central Line Flush IV PUSH PRN PRN after blood draws Tamsulosin HCl 0.4 mg 08/17/24 09:00 08/17/24 09:13 Tamsulosin Hcl 0.4 Mg Capsule PO 0.4 mg QAM [facility] Administration Vitamin D 5,000 units 08/17/24 09:00 Cholecalciferol 5,000 Units Tablet PO DAILY [facility] Vitamin E 400 unit 08/19/24 09:00 Vitamin E 400 Unit Capsule PO [id number] [facility] Radiology Results: ITS Impressions Abdomen/Pelvis CT 08/16/24 08:34 Impression: Large midabdominal/infrahepatic abscess, as detailed above.. Kidneys change catheter no longer present. Previously noted pelvic abscess is no longer present, resolved. Wall thickening of the sigmoid colon and rectum, which could be reactive versus infectious/inflammatory colitis. Suspicion of tract or fistula extending from the sigmoid colon to the large abscess. Mild left hydronephrosis and nonobstructing left renal stone. Cholelithiasis. Moderate right pleural effusion. Catheter Placement CT 08/16/24 14:34 IMPRESSION: 1. Successful CT-guided right lower quadrant abscess drainage catheter placement. 2. 50 mL fluid was sent for aerobic and anaerobic cultures. 3. The catheter will be managed by Dr. Huang. Renal Ultrasound 08/17/24 11:18 IMPRESSION: 1. Unchanged 7 mm nonobstructing stone at the lower pole the left kidney and mild left hydronephrosis. Labs Labs: Laboratory Results - last 24 hr 08/16/24 08/16/24 08/16/24 17:34 18:23 18:57 WBC 12.4 H RBC 4.04 L Hgb 11.0 L Hct 35.4 L MCV 87.6 MCH 27.2 MCHC 31.1 L RDW 17.1 H Plt Count 637 H MPV 10.0 Immature Gran % (Auto) 0.8 H Neut % (Auto) 81.7 H Lymph % (Auto) 11.6 L [place] % (Auto) 4.9 Eos % (Auto) 0.7 Baso % (Auto) 0.3 Lymph # (Auto) 1.43 [place] # (Auto) 0.6 Eos # (Auto) 0.1 Baso # (Auto) 0.0 Abs Immat Gran (auto) 0.10 H Absolute Neuts (auto) 10.1 H Absolute Nucleated RBC 0.000 Nucleated RBC % 0.0 APTT 31.4 Sodium 136 L Potassium 3.7 Chloride 100 Carbon Dioxide 31 H Anion Gap 5 BUN 10 Creatinine 0.65 L Estim Creat Clear Calc 96 Estimated GFR > 60 Glucose 95 POC Capillary Glucose 67 86 Calcium 8.6 Phosphorus Magnesium 2.1 Transferrin 144 L Total Bilirubin 0.3 AST 52 ALT 36 Alkaline Phosphatase 143 H C-Reactive Protein Total Protein 7.0 Albumin 3.1 L 08/17/24 08/17/24 08/17/24 00:47 04:59 06:22 WBC 10.1 H RBC 3.62 L Hgb 9.9 L Hct 31.4 L MCV 86.7 MCH 27.3 MCHC 31.5 L RDW 17.2 H Plt Count 560 H MPV 9.9 Immature Gran % (Auto) Neut % (Auto) Lymph % (Auto) [place] % (Auto) Eos % (Auto) Baso % (Auto) Lymph # (Auto) [place] # (Auto) Eos # (Auto) Baso # (Auto) Abs Immat Gran (auto) Absolute Neuts (auto) Absolute Nucleated RBC Nucleated RBC % APTT Sodium 134 L Potassium 3.6 Chloride 101 Carbon Dioxide 30 Anion Gap 3 L BUN 7 L Creatinine 0.60 L Estim Creat Clear Calc 104 Estimated GFR > 60 Glucose 92 POC Capillary Glucose 96 89 Calcium 8.1 L Phosphorus 4.0 Magnesium 2.0 Transferrin Total Bilirubin AST ALT Alkaline Phosphatase C-Reactive Protein 3.3 H Total Protein Albumin
[2024-08-17] MEDS: KCL 20 MEQ/0.45% NS 1,000 ML 60 ML IV CONT (13:39)
[2024-08-17 13:46] LABS: Glucose Point of Care 89 mg/dl (65-105)
[2024-08-17] MEDS: AMINO ACIDS 5%/D15W/E-LYTES/CA 1,000 ML with MULTIVITAMINS-12 INJ VIAL 1 1.25 ML, MULTI... 40 ML IV CONT (14:12)
[2024-08-17] MEDS: CENTRAL LINE FLUSH 10 ML IV PUSH ×2 (14:13→21:38)
[2024-08-17] MEDS: CHOLECALCIFEROL 5,000 UNITS TABLET 5000 UNITS PO (14:14)
[2024-08-17 16:11] LABS: Triglycerides 105 mg/dL (<150)
[2024-08-17] MEDS: FAT EMULSIONS IV 20% 250 ML 20.83 ML IVPB (17:20)
[2024-08-17 17:51] LABS: Glucose Point of Care 99 mg/dl (65-105)
[2024-08-18 00:47] LABS: Glucose Point of Care 103 mg/dl (65-105)
[2024-08-18] MEDS: PIPERACILLIN/TAZ 4.5G/NS 100ML 4.5 GM/100 ML BAG IVPB ×4 (03:28→21:05)
[2024-08-18 04:21] LABS: Anion Gap 3 mmol/L (4-12); Blood Urea Nitrogen 6 mg/dL (9-20); Calcium 8.1 mg/dL (8.4-10.2); Carbon Dioxide 29 mmol/L (22-30); Chloride 104 mmol/L (98-107); Estimated CRCL calculation 109 ml/min; Estimated Glomerular Filt Rate > 60; Glucose 98 mg/dL (65-110); Phosphorus 3.6 mg/dL (2.5-4.5); Potassium 3.6 mmol/L (3.4-5.0); Sodium 136 mmol/L (137-145)
[2024-08-18 06:00] VITALS: BP 126/86; PULSE 76; RESP 18; TEMP 36.5; O2SAT 100
[2024-08-18] MEDS: CENTRAL LINE FLUSH 20 ML IV PUSH (06:02)
[2024-08-18] MEDS: CENTRAL LINE FLUSH 10 ML IV PUSH ×3 (06:03→21:07)
[2024-08-18 06:37] LABS: Glucose Point of Care 98 mg/dl (65-105)
--- NOTE | 2024-08-18 08:13 | P.PNIM_ITS ---
Progress Note: A&P Assessment and Plan (1) Abdominal abscess: Status: Acute Assessment and Plan: Right colectomy with hand-sewn anastomosis 06/21/2024 complicated by fluid collection status post IR drainage and completion of 14 days of antibiotics. Re peat CT scan shows a large midabdominal/infrahepatic abscess with suspicion of a tract or fistula extending from the sigmoid colon to the abscess. * Drain placed per IR on 08/16/2024, managed by surgery. * Gram stain and wound culture are pending. * Discussed with ID pharmacist who recommends piperacillin-tazobactam 4.5 g q.6 hours for now. 08/17 * Contrast enema to look for possible bowel leak * Monitor drain output * Continue IV Abx * Continue TPN 08/18 * (2) Pleural effusion on right: Code(s): J90 - Pleural effusion, not elsewhere classified Status: Acute Assessment and Plan: CT scan shows a moderate-size right-sided pleural effusion. I suspect that this is inflammatory/reactive in nature. He is not hypoxic and is not symptomatic at this juncture. * Avoid over-hydration. * Continue to monitor clinically. * Consider thoracentesis if worsening or change in condition. 08/17 * Symptoms improving today * Ambulating w/o weakness or SOB * Physical exam improved (3) Hydronephrosis of left kidney: Code(s): N13.30 - Unspecified hydronephrosis Status: Acute Assessment and Plan: Mild left hydronephrosis and nonobstructing renal stone on CT. Possibly related to large abdominal abscess. Bladder does not feel particularly distended though he has a history of difficulties urinating for which he takes tamsulosin. * Bladder scan now and p.r.n. to rule out urinary retention. * Renal ultrasound tomorrow to see if there is any change. * Urology consult * No intervention indicated at this time' * Continue Tamsulosin * No indication for perez (4) Essential (primary) hypertension: Code(s): I10 - Essential (primary) hypertension Status: Chronic Assessment and Plan: Blood pressures were reviewed and they are stable. * Monitor closely as he is currently NPO. * 148/59 (5) Barretts esophagus: Qualifiers: Villalobos's esophagus type: without dysplasia Qualified Code(s): K22.70 - Villalobos's esophagus without dysplasia Code(s): K22.70 - Villalobos's esophagus without dysplasia Status: Chronic Assessment and Plan: * Change p.o. lansoprazole to pantoprazole IV daily as long as he is NPO. L (6) Benign prostatic hyperplasia: Code(s): N40.0 - Benign prostatic hyperplasia without lower urinary tract symptoms Status: Acute Assessment and Plan: * Bladder scan x1 then p.r.n. to rule out retention and continue tamsulosin. * Urology consultation * Continue Tamsulosin Plan Thank you for allowing us to participate in this patient's care. Please do not hesitate to contact us with any questions. Subjective Date/time seen: 08/18/24 08:13 Interval history: Rylan Caro is a 68 year old male with HTN, hyperlipidemia, BPH , and Villalobos esophagus who was directly admitted to the hospital today under the general surgery service for treatment of abdominal abscess. 08/18/2024 Review of Systems Review of Systems: 12 systems were reviewed and are negativ e except for as per HPI. Exam Narrative: General: Mildly ill-appearing male supine in bed. Weight: 78 kg. BMI: 24.0. HEENT: PERRL, EOMI. Sclera anicteric. Tacky mucous membranes. Neck: Supple. Respiratory: Lung sounds are a bit diminished at the right base with scattered crackles and are otherwise clear to auscultation. Cardiovascular: Regular rate and rhythm with S1-S2. Gastrointestinal: Abdomen is soft with slightly hypoactive bowel sounds. IR placed drain contains bloody/milky colored fluid. Skin: Warm and dry. Generalized pallor. Extremities: No cyanosis, clubbing, or edema. Radial and pedal pulses intact. Neurological: Alert. Cranial nerves 2-12 are grossly intact. No gross focal deficits to casual conversation. Psychiatric: Pleasant and cooperative with normal mood and affect. Objective Data Vital Signs Vital Signs: Vital Signs - 24 hr 08/17/24 09:11 08/17/24 09:30 08/17/24 12:00 Temperature 98.1 F Pulse Rate 85 72 Respiratory Rate 18 Blood Pressure 110/66 Pulse Oximetry 100 98 Oxygen Delivery Room Air 08/17/24 14:00 08/17/24 16:00 08/17/24 20:00 Temperature 98.3 F 98.1 F Pulse Rate 82 68 Respiratory Rate 18 18 Blood Pressure 120/62 120/66 Pulse Oximetry 100 99 Oxygen Delivery Room Air 08/17/24 21:10 08/18/24 06:00 Temperature 98.2 F 97.7 F Pulse Rate 67 76 Respiratory Rate 16 18 Blood Pressure 113/58 L 126/86 Pulse Oximetry 100 100 Oxygen Delivery Intake/Output Intake/Output: Intake & Output 08/15/24 08/16/24 08/17/24 08/18/24 23:59 23:59 23:59 23:59 Intake Total 990 4350 700 Output Total 780 60 Balance 990 3570 640 Meds/Results Medications: Active Medications Generic Name Dose Route Start Last Admin Trade Name Freq PRN Reason Stop Dose Admin Acetaminophen 500 mg 08/16/24 17:05 Acetaminophen 500 Mg Tablet PO Q6H PRN Pain Rated 1-3 Fentanyl Citrate 12.5 mcg 08/16/24 09:16 Fentanyl Citrate Inj (*Crx) 100 Mcg/2 Ml Vial IV PUSH Q2H PRN Breakthrough Pain Rated 4-6 or NPO Fentanyl Citrate 25 mcg 08/16/24 09:16 Fentanyl Citrate Inj (*Crx) 100 Mcg/2 Ml Vial IV PUSH Q2H PRN Breakthrough Pain Rated 7-10 or NPO Hydrochlorothiazide 12.5 mg 08/17/24 09:00 08/17/24 09:13 Hydrochlorothiazide 12.5 Mg Capsule PO 12.5 mg DAILY JORDY Administration Ibuprofen 800 mg in 200 mls @ 400 mls/hr 08/16/24 09:16 Caldolor 800 Mg/200 Ml IVPB Q6H PRN Breakthrough Pain Rated 1-3 or NPO Piperacillin Sod/Tazobactam Sod 4.5 gm in 100 mls @ 200 mls/hr 08/16/24 15:00 08/18/24 04:00 Zosyn 4.5 Gm/Ns 100 Ml IVPB Infused Q6H JORDY Infusion Dextrose 1,000 mls @ 50 mls/hr 08/16/24 16:56 Dextrose 10% IV CONT .Q20H PRN if PN is interrupted Fat Emulsion Intravenous 250 mls @ 20.833 mls/hr 08/16/24 18:00 08/18/24 05:25 Lipids 20% IVPB Infused Q24H JORDY Infusion Potassium Chloride/Sodium Chloride 1,000 mls @ 60 mls/hr 08/16/24 18:00 08/17/24 13:39 Kcl 20 Meq/0.45% Ns IV CONT 60 mls/hr .[id number] JORDY Administration Multivitamins 1.25 ml/ 1,002.5 mls @ 40 mls/hr 08/17/24 10:00 08/17/24 14:12 Multivitamins 1.25 ml/ Amino IV CONT 40 mls/hr Acids/Electrolytes/Dextrose .Q24H JORDY Administration Protocol Insulin Human Regular 0 units 08/16/24 18:00 08/18/24 06:00 Insulin Human Regular (*Bkc) 100 Units/Ml SUB-Q Not Given Q6HR [facility] Protocol Lansoprazole 30 mg 08/18/24 06:30 Lansoprazole Odt 30 Mg Tab.Rap.Dr PO DAILY@0630 [facility] Losartan Potassium 25 mg 08/17/24 09:00 08/17/24 09:14 Losartan Potassium 25 Mg Tablet BY MOUTH 25 mg DAILY JORDY Administration Metoprolol Succinate 50 mg 08/17/24 09:00 08/17/24 09:11 Metoprolol Succinate Ext Rel 50 Mg Tabcr PO 50 mg DAILY JORDY Administration Naloxone HCl 0.1 mg 08/16/24 09:16 Naloxone Hcl 0.4 Mg/Ml Vial IV PUSH Q2M PRN Opiate Reversal Ondansetron HCl 4 mg 08/16/24 09:16 Ondansetron Inj 4 Mg/2 Ml Vial IV PUSH Q4H PRN Nausea And Vomiting Oxycodone/Acetaminophen 1 tablet 08/16/24 17:05 Oxycodone/Acetaminophen (*Crx) 5-325 Mg Tablet PO Q4H PRN Pain Rated 4-6 Pantoprazole Sodium 40 mg 08/17/24 09:00 08/17/24 09:17 Pantoprazole 40 Mg Tablet PO Not Given QAM [facility] Potassium Chloride 20 meq 08/17/24 09:00 08/17/24 09:13 Potassium Chloride 20 Meq Er Tablet PO 20 meq DAILY JORDY Administration Simvastatin 20 mg 08/17/24 09:00 08/17/24 09:19 Simvastatin 20 Mg Tablet PO 20 mg DAILY JORDY Administration Sodium Chloride 10 ml 08/17/24 14:00 08/18/24 06:03 Central Line Flush IV PUSH 10 ml Q8HR JORDY Administration Sodium Chloride 10 ml 08/17/24 11:43 Central Line Flush IV PUSH PRN PRN with TPN bag changes Sodium Chloride 20 ml 08/17/24 11:43 08/18/24 06:02 Central Line Flush IV PUSH 20 ml PRN PRN Administration after blood draws Tamsulosin HCl 0.4 mg 08/17/24 09:00 08/17/24 09:13 Tamsulosin Hcl 0.4 Mg Capsule PO 0.4 mg QAM JORDY Administration Vitamin D 5,000 units 08/17/24 09:00 08/17/24 14:14 Cholecalciferol 5,000 Units Tablet PO 5,000 units DAILY [facility] Administration Vitamin E 400 unit 08/19/24 09:00 Vitamin E 400 Unit Capsule PO MoWeFr@0900 [facility] Radiology Results: ITS Impressions Abdomen/Pelvis CT 08/16/24 08:34 Impression: Large midabdominal/infrahepatic abscess, as detailed above.. Kidneys change catheter no longer present. Previously noted pelvic abscess is no longer present, resolved. Wall thickening of the sigmoid colon and rectum, which could be reactive versus infectious/inflammatory colitis. Suspicion of tract or fistula extending from the sigmoid colon to the large abscess. Mild left hydronephrosis and nonobstructing left renal stone. Cholelithiasis. Moderate right pleural effusion. Catheter Placement CT 08/16/24 14:34 IMPRESSION: 1. Successful CT-guided right lower quadrant abscess drainage catheter placement. 2. 50 mL fluid was sent for aerobic and anaerobic cultures. 3. The catheter will be managed by Dr. Huang. Renal Ultrasound 08/17/24 11:18 IMPRESSION: 1. Unchanged 7 mm nonobstructing stone at the lower pole the left kidney and mild left hydronephrosis. Enema w/Water Soluble 08/17/24 14:11 IMPRESSION: 1. Patent right ileocolic anastomosis in the right abdomen without evident extraperitoneal leakage of contrast. 2. Diverticulosis along the sigmoid colon. 3. Cholelithiasis. 4. Left nephrolithiasis. 4. Right lower quadrant percutaneous abscess drain. Labs Labs: Laboratory Results - last 24 hr 08/17/24 08/17/24 08/17/24 04:59 13:43 17:48 Sodium Potassium Chloride Carbon Dioxide Anion Gap BUN Creatinine Estim Creat Clear Calc Estimated GFR Glucose POC Capillary Glucose 89 99 Calcium Phosphorus Triglycerides 105 08/18/24 08/18/24 08/18/24 00:37 04:03 05:59 Sodium 136 L Potassium 3.6 Chloride 104 Carbon Dioxide 29 Anion Gap 3 L BUN 6 L Creatinine 0.57 L Estim Creat Clear Calc 109 Estimated GFR > 60 Glucose 98 POC Capillary Glucose 103 98 Calcium 8.1 L Phosphorus 3.6 Triglycerides
[2024-08-18 08:20] LABS: Glucose Point of Care 101 mg/dl (65-105)
--- NOTE | 2024-08-18 08:27 | PHAR ---
The patient's home med of Lansoprazole 30mg has been verified.
[2024-08-18 08:40] VITALS: O2SAT 100
[2024-08-18 08:44] VITALS: PULSE 72
[2024-08-18] MEDS: METOPROLOL SUCCINATE EXT REL 50 MG TABCR PO (08:44)
[2024-08-18] MEDS: LOSARTAN POTASSIUM 25 MG TABLET BY MOUTH (08:44)
[2024-08-18] MEDS: hydroCHLOROthiazide 12.5 MG CAPSULE PO (08:44)
[2024-08-18] MEDS: TAMSULOSIN HCL 0.4 MG CAPSULE PO (08:44)
[2024-08-18] MEDS: CHOLECALCIFEROL 5,000 UNITS TABLET 5000 UNITS PO (08:44)
[2024-08-18] MEDS: POTASSIUM CHLORIDE 20 MEQ ER TABLET PO (08:46)
[2024-08-18] MEDS: SIMVASTATIN 20 MG TABLET PO (08:46)
[2024-08-18] MEDS: LANSOPRAZOLE 30 MG 1 EACH PO (08:47)
[2024-08-18] MEDS: AMINO ACIDS 5%/D15W/E-LYTES/CA 1,000 ML with MULTIVITAMINS-12 INJ VIAL 1 1.25 ML, MULTI... 40 ML IV CONT (10:08)
--- NOTE | 2024-08-18 10:16 | P.CONIM_ITS ---
Assessment and Plan Assessment and plan (1) Abdominal abscess: Status: Acute Assessment and Plan: Right colectomy with hand-sewn anastomosis 06/21/2024 complicated by fluid collection status post IR drainage and completion of 14 days of antibiotics. Repeat CT scan shows a large midabdominal/infrahepatic abscess with suspicion of a tract or fistula extending from the sigmoid colon to the abscess. * Drain placed per IR on 08/16/2024, managed by surgery. * Gram stain and wound culture are pending. * Discussed with ID pharmacist who recommends piperacillin-tazobactam 4.5 g q.6 hours for now. 08/17 * Contrast enema to look for possible bowel leak * Monitor drain output * Continue IV Abx * Continue TPN 08/18 * Contrast enema showed no bowel leakage * Continue current management * Pt reports symptoms are best they've been since June 21 surgery L (2) Pleural effusion on right: Code(s): J90 - Pleural effusion, not elsewhere classified Status: Acute Assessment and Plan: CT scan shows a moderate-size right-sided pleural effusion. I suspect that this is inflammatory/reactive in nature. He is not hypoxic and is not symptomatic at this juncture. * Avoid over-hydration. * Continue to monitor clinically. * Consider thoracentesis if worsening or change in condition. 08/17 * Symptoms improving today * Ambulating w/o weakness or SOB * Physical exam improved 08/18 * Ambulating throughout room without any SOB * Physical exam benign L (3) Hydronephrosis of left kidney: Code(s): N13.30 - Unspecified hydronephrosis Status: Acute Assessment and Plan: Mild left hydronephrosis and nonobstructing renal stone on CT. Possibly related to large abdominal abscess. Bladder does not feel particularly distended though he has a history of difficulties urinating for which he takes tamsulosin. * Bladder scan now and p.r.n. to rule out urinary retention. * Renal ultrasound tomorrow to see if there is any change. * Urology consult * No intervention indicated at this time' * Continue Tamsulosin * No indication for perez * No changes L (4) Essential (primary) hypertension: Code(s): I10 - Essential (primary) hypertension Status: Chronic Assessment and Plan: Blood pressures were reviewed and they are stable. * Monitor closely as he is currently NPO. * BPs stable L (5) Barretts esophagus: Qualifiers: Villalobos's esophagus type: without dysplasia Qualified Code(s): K22.70 - Villalobos's esophagus without dysplasia Code(s): K22.70 - Villalobos's esophagus without dysplasia Status: Chronic Assessment and Plan: * Change p.o. lansoprazole to pantoprazole IV daily as long as he is NPO. L (6) Benign prostatic hyperplasia: Code(s): N40.0 - Benign prostatic hyperplasia without lower urinary tract symptoms Status: Acute Assessment and Plan: * Bladder scan x1 then p.r.n. to rule out retention and continue tamsulosin. * Urology consultation * Continue Tamsulosin L Plan Thank you for allowing us to participate in this patient's care. Please do not hesitate to contact us with any questions. HPI Date of Consult Consult date: 08/18/24 Requesting Physician: Ruddy Huang MD Primary Care Provider: Nicola Silva MD Consult Narrative Narrative: Rylan Caro is a 68 year old male with HTN, hyperlipidemia, BPH , and Villalobos esophagus who was directly admitted to the hospital today under the general surgery service for treatment of abdominal abscess. He underwent a hand access laparoscopic right colectomy with hand-sewn ileotransverse anastomosis on 06/21/2024 for an ascending colon polyp which was found to be benign. Prior to his 2nd follow-up visit he developed right lower quadrant discomfort and CT scan showed a large right-sided fluid collection abdomen and a 2nd smaller pelvic fluid collection. He was admitted to the hospital on 07/19/2024 following IR drain placement and cultures of the right-sided abdominal fluid grew out pansensitive E coli and Bacteroides. He received piperacillin-tazobactam for 7 days and was discharged on amoxicillin-clavulanic acid for [address] scan today showed a large mid abdominal/intrahepatic abscess with suspicion of a tract or fistula extending to the sigmoid colon. IR placed another catheter today with revision of a previously placed catheter and a specimen has been sent for culture. He received piperacillin-tazobactam 3.375 g x1 he is being admitted in this setting for further treatment. 08/18/2024 Met with patient in the AM. Contrast enema showed patent right ileocolic anastomosis in right abdomen w/o evidence of extraperitoneal leakage, diverticulosis, cholelithiasis, nephrolithiasis, and RLQ perQ drain. At this time patient continues to be in high spirits, stating that he feels better than he has since before his June 21 surgery. Continue with IV antibiotics and TPN. Pt is tolerating full diet without complications. He has no complaints or concerns at this time. Review of Systems 2 Review of Systems: 12 systems were reviewed and are negativ e except for as per HPI. [facility] Past Medical History Medical History (Updated 08/16/24 @ 14:28 by Azul Daniel PA-C) Benign colon polyp Cholelithiasis Barretts esophagus Premature ventricular contractions Hyperlipidemia Benign prostatic hyperplasia Essential (primary) hypertension Asthma Arthritis Impaired fasting glucose Surgical History Surgical History (Updated 08/16/24 @ 14:04 by Azul Daniel PA-C) History of colonoscopy with polypectomy History of partial surgical removal of colon (06/21/24) hand access laparoscopic right colectomy with hand-sewn ileotransverse anastomosis per Dr. Huang for colon polyp (benign) Family History Family History Father Carcinoma of colon Heart disease Hypertension Social History Social History (Updated 08/16/24 @ 14:05 by Azul Daniel PA-C) Social History: Surrogate medical decision maker: Ivelisse Caro ([phone]). Code status: Full code. Smoking status: Never smoker Alcohol intake: never Substance use: never Substance use type: does not use Do You Feel Safe in your Home?: No Lack of Transportation: No Lack of Food: Never True Current Housing: I Have Housing Concerned About Future Housing: No Difficulty Paying Gas/Electric Bills: No Difficulty Paying for Meds: No Currently Unemployed: No Education: High School Diploma/GED Difficulty w/ Childcare or Family Care: No Living arrangements: with family Additional living arrangements comments: Lives with , Ana, in [place]. Occupation/Education: retired Spiritual care concerns: No Meds Home Medications and Allergies Home Medications ?Medication ?Instructions ?Recorded ?Confirmed ?Type metoprolol succinate 50 mg See Rx Instructions .Route 10/19/23 08/16/24 Rx tablet,extended release 24 hr .COMPLEX #90 tabs hydrochlorothiazide 25 mg tablet 12.5 mg (1/2 x 25 mg) PO DAILY #45 11/22/23 08/16/24 Rx tabs simvastatin 20 mg tablet 20 mg PO DAILY #90 tabs 03/18/24 08/16/24 Rx losartan 25 mg tablet See Rx Instructions .Route 03/22/24 08/16/24 Rx .COMPLEX #90 tabs lansoprazole 30 mg capsule,delayed 30 mg PO DAILY #90 caps 04/15/24 08/16/24 Rx release cholecalciferol (vitamin D3) 125 5,000 unit PO DAILY 06/11/24 08/16/24 History mcg (5,000 unit) capsule vitamin E mixed 400 unit capsule 400 unit PO 3XW 06/11/24 08/16/24 History lansoprazole 15 mg capsule,delayed 15 mg PO HS PRN indigestion 07/19/24 08/16/24 History release potassium chloride 20 mEq 20 meq PO DAILY #14 tabs 07/26/24 08/16/24 Rx tablet,extended release tamsulosin 0.4 mg capsule 0.4 mg PO QAM #30 caps 07/26/24 08/16/24 Rx Allergies Allergy/AdvReac Type Severity Reaction Status Date / Time No Known Allergies Allergy Verified 08/06/24 10:12 Vital Signs Vital Signs - 24 hr 08/17/24 12:00 08/17/24 14:00 08/17/24 16:00 Temperature 98.1 F 98.3 F 98.1 F Pulse Rate 72 82 68 Respiratory Rate 18 18 18 Blood Pressure 110/66 120/62 120/66 Pulse Oximetry 98 100 99 Oxygen Delivery 08/17/24 20:00 08/17/24 21:10 08/18/24 06:00 Temperature 98.2 F 97.7 F Pulse Rate 67 76 Respiratory Rate 16 18 Blood Pressure 113/58 L 126/86 Pulse Oximetry 100 100 Oxygen Delivery Room Air 08/18/24 08:44 Temperature Pulse Rate 72 Respiratory Rate Blood Pressure Pulse Oximetry Oxygen Delivery Exam 2 Narrative: General: Mildly ill-appearing male supine in bed. Weight: 78 kg. BMI: 24.0. HEENT: PERRL, EOMI. Sclera anicteric. Tacky mucous membranes. Neck: Supple. Respiratory: Clear to auscultation. Cardiovascular: Regular rate and rhythm with S1-S2. Gastrointestinal: Abdomen is soft with slightly hypoactive bowel sounds. IR placed drain contains bloody/milky colored fluid. Skin: Warm and dry. Generalized pallor. Extremities: No cyanosis, clubbing, or edema. Radial and pedal pulses intact. Neurological: Alert. Cranial nerves 2-12 are grossly intact. No gross focal deficits to casual conversation. Psychiatric: Pleasant and cooperative with normal mood and affect. Results Labs 08/17/24 04:59 08/18/24 04:03 Labs: [facility] 08/18/24 04:03 Sodium 136 L Potassium 3.6 Chloride 104 Carbon Dioxide 29 BUN 6 L Creatinine 0.57 L Glucose 98 Calcium 8.1 L
[2024-08-18 12:00] VITALS: BP 112/69; PULSE 72; RESP 18; TEMP 36.7; O2SAT 100
[2024-08-18 12:03] LABS: Glucose Point of Care 129 mg/dl (65-105)
[2024-08-18 14:00] VITALS: BP 112/69; PULSE 72; RESP 18; TEMP 36.7; O2SAT 100
--- NOTE | 2024-08-18 15:27 | PM.PNGS ---
Progress Note: A&P Assessment and Plan (1) Intra-abdominal abscess post-procedure: Code(s): T81.43XA - Infection following a procedure, organ and space surgical site, initial encounter; K65.1 - Peritoneal abscess Status: Acute Assessment and Plan: Continue IV Zosyn and monitor drain output No sign of anastomotic leak Continue TPN 1 more day, then may discontinue if tolerating diet Advanced diet to low-fiber diet Cultures growing multiple organisms (2) History of partial surgical removal of colon: Onset Date: 06/21/24 Code(s): Z90.49 - Acquired absence of other specified parts of digestive tract Status: Chronic (3) Adenomatous colon polyp: Qualifiers: Colon location: ascending Qualified Code(s): D12.2 - Benign neoplasm of ascending colon Code(s): D12.6 - Benign neoplasm of colon, unspecified Status: Chronic (4) Dysuria: Code(s): R30.0 - Dysuria Status: Inactive (5) Leukocytosis: Qualifiers: Leukocytosis type: unspecified Qualified Code(s): D72.829 - Elevated white blood cell count, unspecified Code(s): D72.829 - Elevated white blood cell count, unspecified Status: Resolved Subjective Subjective Date/Time Seen: 08/18/24 15:27 Interval history: Patient doing well after contrast enema yesterday. Strength improving and overall feeling better. Tolerating full liquids. Bowels moving. Minimal abdominal pain at drain site. Exam GI: Inspection: non-distended and other (Pigtail drain with minimal serosanguineous output) GI Palp: Yes Soft to palpation, Yes Tenderness to palpation present (GI) (Right upper quadrant) and No Guarding due to palpation present (GI) Auscultation: normal bowel sounds Objective Data Vital Signs Vital Signs: Vital Signs - 24 hr 08/17/24 16:00 08/17/24 20:00 08/17/24 21:10 Temperature 98.1 F 98.2 F Pulse Rate 68 67 Respiratory Rate 18 16 Blood Pressure 120/66 113/58 L Pulse Oximetry 99 100 Oxygen Delivery Room Air 08/18/24 06:00 08/18/24 08:44 08/18/24 12:00 Temperature 97.7 F 98.1 F Pulse Rate 76 72 72 Respiratory Rate 18 18 Blood Pressure 126/86 112/69 Pulse Oximetry 100 100 Oxygen Delivery 08/18/24 14:00 Temperature 98.1 F Pulse Rate 72 Respiratory Rate 18 Blood Pressure 112/69 Pulse Oximetry 100 Oxygen Delivery Intake/Output Intake/Output: Intake & Output 08/15/24 08/16/24 08/17/24 08/18/24 23:59 23:59 23:59 23:59 Intake Total 990 4350 2077.3 Output Total 780 60 Balance 990 3570 2017.3 Meds/Results Medications: Active Medications Generic Name Dose Route Start Last Admin Trade Name Freq PRN Reason Stop Dose Admin Acetaminophen 500 mg 08/16/24 17:05 Acetaminophen 500 Mg Tablet PO Q6H PRN Pain Rated 1-3 Fentanyl Citrate 12.5 mcg 08/16/24 09:16 Fentanyl Citrate Inj (*Crx) 100 Mcg/2 Ml Vial IV PUSH Q2H PRN Breakthrough Pain Rated 4-6 or NPO Fentanyl Citrate 25 mcg 08/16/24 09:16 Fentanyl Citrate Inj (*Crx) 100 Mcg/2 Ml Vial IV PUSH Q2H PRN Breakthrough Pain Rated 7-10 or NPO Hydrochlorothiazide 12.5 mg 08/17/24 09:00 08/18/24 08:44 Hydrochlorothiazide 12.5 Mg Capsule PO 12.5 mg DAILY JORDY Administration Ibuprofen 800 mg in 200 mls @ 400 mls/hr 08/16/24 09:16 Caldolor 800 Mg/200 Ml IVPB Q6H PRN Breakthrough Pain Rated 1-3 or NPO Piperacillin Sod/Tazobactam Sod 4.5 gm in 100 mls @ 200 mls/hr 08/16/24 15:00 08/18/24 14:39 Zosyn 4.5 Gm/Ns 100 Ml IVPB 200 mls/hr Q6H JORDY Administration Dextrose 1,000 mls @ 50 mls/hr 08/16/24 16:56 Dextrose 10% IV CONT .Q20H PRN if PN is interrupted Fat Emulsion Intravenous 250 mls @ 20.833 mls/hr 08/16/24 18:00 08/18/24 05:25 Lipids 20% IVPB Infused Q24H JORDY Infusion Multivitamins 1.25 ml/ 1,002.5 mls @ 40 mls/hr 08/17/24 10:00 08/18/24 10:08 Multivitamins 1.25 ml/ Amino IV CONT 40 mls/hr Acids/Electrolytes/Dextrose .Q24H JORDY Administration Protocol Insulin Human Regular 0 units 08/16/24 18:00 08/18/24 12:30 Insulin Human Regular (*Bkc) 100 Units/Ml SUB-Q Not Given Q6HR JORDY Protocol Losartan Potassium 25 mg 08/17/24 09:00 08/18/24 08:44 Losartan Potassium 25 Mg Tablet BY MOUTH 25 mg DAILY JORDY Administration Metoprolol Succinate 50 mg 08/17/24 09:00 08/18/24 08:44 Metoprolol Succinate Ext Rel 50 Mg Tabcr PO 50 mg DAILY JORDY Administration Miscellaneous Information 0 each 08/18/24 00:01 Please Renew Clinimix Bag Daily XX 09/17/24 00:00 CLARIFY JORDY Naloxone HCl 0.1 mg 08/16/24 09:16 Naloxone Hcl 0.4 Mg/Ml Vial IV PUSH Q2M PRN Opiate Reversal Nonform Lansoprazole 1 each 08/18/24 08:25 08/18/24 08:[address] Cap PO 09/17/24 08:24 1 each DAILY@0630 JORDY Administration Ondansetron HCl 4 mg 08/16/24 09:16 Ondansetron Inj 4 Mg/2 Ml Vial IV PUSH Q4H PRN Nausea And Vomiting Oxycodone/Acetaminophen 1 tablet 08/16/24 17:05 Oxycodone/Acetaminophen (*Crx) 5-325 Mg Tablet PO Q4H PRN Pain Rated 4-6 Potassium Chloride 20 meq 08/17/24 09:00 08/18/24 08:46 Potassium Chloride 20 Meq Er Tablet PO 20 meq DAILY JORDY Administration Simvastatin 20 mg 08/17/24 09:00 08/18/24 08:46 Simvastatin 20 Mg Tablet PO 20 mg DAILY JORDY Administration Sodium Chloride 10 ml 08/17/24 14:00 08/18/24 14:40 Central Line Flush IV PUSH 10 ml Q8HR JORDY Administration Sodium Chloride 10 ml 08/17/24 11:43 Central Line Flush IV PUSH PRN PRN with TPN bag changes Sodium Chloride 20 ml 08/17/24 11:43 08/18/24 06:02 Central Line Flush IV PUSH 20 ml PRN PRN Administration after blood draws Tamsulosin HCl 0.4 mg 08/17/24 09:00 08/18/24 08:44 Tamsulosin Hcl 0.4 Mg Capsule PO 0.4 mg QAM [facility] Administration Vitamin D 5,000 units 08/17/24 09:00 08/18/24 08:44 Cholecalciferol 5,000 Units Tablet PO 5,000 units DAILY [facility] Administration Vitamin E 400 unit 08/19/24 09:00 Vitamin E 400 Unit Capsule PO MoWeFr@0900 [facility] Radiology Results: ITS Impressions Abdomen/Pelvis CT 08/16/24 08:34 Impression: Large midabdominal/infrahepatic abscess, as detailed above.. Kidneys change catheter no longer present. Previously noted pelvic abscess is no longer present, resolved. Wall thickening of the sigmoid colon and rectum, which could be reactive versus infectious/inflammatory colitis. Suspicion of tract or fistula extending from the sigmoid colon to the large abscess. Mild left hydronephrosis and nonobstructing left renal stone. Cholelithiasis. Moderate right pleural effusion. Catheter Placement CT 08/16/24 14:34 IMPRESSION: 1. Successful CT-guided right lower quadrant abscess drainage catheter placement. 2. 50 mL fluid was sent for aerobic and anaerobic cultures. 3. The catheter will be managed by Dr. Huang. Renal Ultrasound 08/17/24 11:18 IMPRESSION: 1. Unchanged 7 mm nonobstructing stone at the lower pole the left kidney and mild left hydronephrosis. Enema w/Water Soluble 08/17/24 14:11 IMPRESSION: 1. Patent right ileocolic anastomosis in the right abdomen without evident extraperitoneal leakage of contrast. 2. Diverticulosis along the sigmoid colon. 3. Cholelithiasis. 4. Left nephrolithiasis. 4. Right lower quadrant percutaneous abscess drain. Labs Labs: Laboratory Results - last 24 hr 08/17/24 08/17/24 08/18/24 04:59 17:48 00:37 Sodium Potassium Chloride Carbon Dioxide Anion Gap BUN Creatinine Estim Creat Clear Calc Estimated GFR Glucose POC Capillary Glucose 99 103 Calcium Phosphorus Triglycerides 105 08/18/24 08/18/24 08/18/24 04:03 05:59 08:09 Sodium 136 L Potassium 3.6 Chloride 104 Carbon Dioxide 29 Anion Gap 3 L BUN 6 L Creatinine 0.57 L Estim Creat Clear Calc 109 Estimated GFR > 60 Glucose 98 POC Capillary Glucose 98 101 Calcium 8.1 L Phosphorus 3.6 Triglycerides 08/18/24 11:59 Sodium Potassium Chloride Carbon Dioxide Anion Gap BUN Creatinine Estim Creat Clear Calc Estimated GFR Glucose POC Capillary Glucose 129 H Calcium Phosphorus Triglycerides
[2024-08-18 17:25] LABS: Glucose Point of Care 88 mg/dl (65-105)
[2024-08-18] MEDS: FAT EMULSIONS IV 20% 250 ML 20.83 ML IVPB (17:57)
[2024-08-18 21:40] LABS: Glucose Point of Care 125 mg/dl (65-105)
[2024-08-18 21:54] VITALS: BP 130/67; PULSE 72; RESP 18; TEMP 36.6; O2SAT 100
[2024-08-19] MEDS: PIPERACILLIN/TAZ 4.5G/NS 100ML 4.5 GM/100 ML BAG IVPB ×4 (02:19→20:10)
[2024-08-19 04:00] VITALS: BP 124/74; PULSE 74; RESP 16; TEMP 36.5; O2SAT 100
[2024-08-19] MEDS: CENTRAL LINE FLUSH 20 ML IV PUSH (05:57)
[2024-08-19] MEDS: LANSOPRAZOLE 30 MG 1 EACH PO (05:57)
[2024-08-19] MEDS: CENTRAL LINE FLUSH 10 ML IV PUSH ×3 (05:58→20:20)
[2024-08-19 06:12] LABS: Basophils Percent Auto 0.1 % (0.2-1.2); Eosinophils Absolute Auto 0.2 K/mm3 (0-0.3); Eosinophils Percent Auto 1.6 % (0-4.4); Hemoglobin 10.6 g/dL (14.0-18.0); Immature Granulocyte Absolute 0.12 K/mm3 (0.00-0.031); Immature Granulocyte Percent A 0.8 % (0-0.5); Lymphocytes Absolute Auto 1.07 K/mm3 (0.9-3.2); Lymphocytes Percent Auto 7.2 % (18.3-44.2); Mean Corpuscular HGB Conc 31.2 g/dl (32-36); Mean Corpuscular Hemoglobin 27.3 pg (26-34); Mean Corpuscular Volume 87.6 fl (80-100); Mean Platelet Volume 9.8 fl (7.4-10.4); Monocytes Absolute Auto 0.4 K/mm3 (0.1-0.6); Monocytes Percent Auto 2.8 % (2.6-8.5); Neutrophils Percent Auto 87.5 % (45.5-73.1); Platelet Count Result 696 k/mm3 (150-375); Red Blood Count 3.88 M/mm3 (4.6-6.20); Red Cell Distribution Width 17.2 % (11.5-14.5); White Blood Count 14.9 K/mm3 (4.5-10.0)
[2024-08-19 06:23] LABS: Alanine Aminotransferase 59 U/L (6-50); Albumin Level 2.8 g/dL (3.5-5.1); Alkaline Phosphatase 402 U/L (38-126); Anion Gap 1 mmol/L (4-12); Aspartate Amino Transferase 91 U/L (17-59); Bilirubin,Total 0.3 mg/dL (0.2-1.3); Blood Urea Nitrogen 7 mg/dL (9-20); Carbon Dioxide 29 mmol/L (22-30); Chloride 105 mmol/L (98-107); Estimated CRCL calculation 116 ml/min; Estimated Glomerular Filt Rate > 60; Glucose 113 mg/dL (65-110); Magnesium 2.2 mg/dL (1.6-2.3); Phosphorus 3.2 mg/dL (2.5-4.5); Sodium 135 mmol/L (137-145)
[2024-08-19 06:30] LABS: Transferrin 137 mg/dL (206-381)
[2024-08-19 06:36] LABS: INR 1.1; Prothrombin Time 14.7 Seconds (11.1-14.7)
--- NOTE | 2024-08-19 08:15 | P.PNIM_ITS ---
Progress Note: A&P Assessment and Plan (1) Abdominal abscess: Status: Acute Assessment and Plan: Right colectomy with hand-sewn anastomosis 06/21/2024 complicated by fluid collection status post IR drainage and completion of 14 days of antibiotics. Re peat CT scan shows a large midabdominal/infrahepatic abscess with suspicion of a tract or fistula extending from the sigmoid colon to the abscess. * Drain placed per IR on 08/16/2024, managed by surgery. * Gram stain and wound culture are pending. * Discussed with ID pharmacist who recommends piperacillin-tazobactam 4.5 g q.6 hours for now. 08/17 * Contrast enema to look for possible bowel leak * Monitor drain output * Continue IV Abx * Continue TPN 08/18 * Contrast enema showed no bowel leakage * Continue current management * Pt reports symptoms are best they've been since June 21 surgery 08/19 * Pain continues to improve * Endorses less bloating * Tolerating low-fiber diet + Ensure supplements * Elevated WBC and LFTs, will add CT abdomen/pelvis with contrast (2) Pleural effusion on right: Code(s): J90 - Pleural effusion, not elsewhere classified Status: Acute Assessment and Plan: CT scan shows a moderate-size right-sided pleural effusion. I suspect that this is inflammatory/reactive in nature. He is not hypoxic and is not symptomatic at this juncture. * Avoid over-hydration. * Continue to monitor clinically. * Consider thoracentesis if worsening or change in condition. 08/17 * Symptoms improving today * Ambulating w/o weakness or SOB * Physical exam improved 08/18 * Ambulating throughout room without any SOB * Physical exam benign 08/19 * Physical exam remains benign, denies any shortness of breath (3) Hydronephrosis of left kidney: Code(s): N13.30 - Unspecified hydronephrosis Status: Acute Assessment and Plan: Mild left hydronephrosis and nonobstructing renal stone on CT. Possibly related to large abdominal abscess. Bladder does not feel particularly distended though he has a history of difficulties urinating for which he takes tamsulosin. * Bladder scan now and p.r.n. to rule out urinary retention. * Renal ultrasound tomorrow to see if there is any change. * Urology consult * No intervention indicated at this time' * Continue Tamsulosin * No indication for perez * No changes (4) Essential (primary) hypertension: Code(s): I10 - Essential (primary) hypertension Status: Chronic Assessment and Plan: Blood pressures were reviewed and they are stable. * Monitor closely as he is currently NPO. * BPs stable (5) Barretts esophagus: Qualifiers: Villalobos's esophagus type: without dysplasia Qualified Code(s): K22.70 - Villalobos's esophagus without dysplasia Code(s): K22.70 - Villalobos's esophagus without dysplasia Status: Chronic Assessment and Plan: * Change p.o. lansoprazole to pantoprazole IV daily as long as he is NPO. (6) Benign prostatic hyperplasia: Code(s): N40.0 - Benign prostatic hyperplasia without lower urinary tract symptoms Status: Acute Assessment and Plan: * Bladder scan x1 then p.r.n. to rule out retention and continue tamsulosin. * Urology consultation * Continue Tamsulosin Plan Thank you for allowing us to participate in this patient's care. Please do not hesitate to contact us with any questions. Subjective Date/time seen: 08/19/24 08:15 Interval history: Rylan Caro is a 68 year old male with HTN, hyperlipidemia, BPH , and Villalobos esophagus who was directly admitted to the hospital today under the general surgery service for treatment of abdominal abscess. 08/19/2024 Pt sitting comfortably at bedside. Denies any CP, SOB, n/v at this time. Still has some right lower abd pain at site of drain placement but overall pain has improved. White count elevated from 10.1 to 14.9 and LFTs transiently elevated, will recheck CT abd. Still tolerating low fiber diet and Ensure supplements. Otherwise has no complaints or concerns. General surgery is still following at this time. Review of Systems Review of Systems: 12 systems were reviewed and are negativ e except for as per HPI. Exam Narrative: General: Mildly ill-appearing male supine in bed. Weight: 78 kg. BMI: 24.0. HEENT: PERRL, EOMI. Sclera anicteric. Tacky mucous membranes. Neck: Supple. Respiratory: Clear to auscultation. Cardiovascular: Regular rate and rhythm with S1-S2. Gastrointestinal: Abdomen is soft with slightly hypoactive bowel sounds. IR placed drain contains bloody colored fluid. Skin: Warm and dry. Generalized pallor. Extremities: No cyanosis, clubbing, or edema. Radial and pedal pulses intact. Neurological: Alert. Cranial nerves 2-12 are grossly intact. No gross focal deficits to casual conversation. Psychiatric: Pleasant and cooperative with normal mood and affect. Objective Data Vital Signs Vital Signs: Vital Signs - 24 hr 08/18/24 08:40 08/18/24 08:44 08/18/24 12:00 Temperature 98.1 F Pulse Rate 72 72 Respiratory Rate 18 Blood Pressure 112/69 Pulse Oximetry 100 100 Oxygen Delivery Room Air 08/18/24 14:00 08/18/24 21:54 08/19/24 04:00 Temperature 98.1 F 97.9 F 97.7 F Pulse Rate 72 72 74 Respiratory Rate 18 18 16 Blood Pressure 112/69 130/67 124/74 Pulse Oximetry 100 100 100 Oxygen Delivery Intake/Output Intake/Output: Intake & Output 08/16/24 08/17/24 08/18/24 08/19/24 23:59 23:59 23:59 23:59 Intake Total 990 4350 3077.3 350 Output Total 780 60 1 Balance 990 3570 3017.3 349 Meds/Results Medications: Active Medications Generic Name Dose Route Start Last Admin Trade Name Freq PRN Reason Stop Dose Admin Acetaminophen 500 mg 08/16/24 17:05 Acetaminophen 500 Mg Tablet PO Q6H PRN Pain Rated 1-3 Fentanyl Citrate 12.5 mcg 08/16/24 09:16 Fentanyl Citrate Inj (*Crx) 100 Mcg/2 Ml Vial IV PUSH Q2H PRN Breakthrough Pain Rated 4-6 or NPO Fentanyl Citrate 25 mcg 08/16/24 09:16 Fentanyl Citrate Inj (*Crx) 100 Mcg/2 Ml Vial IV PUSH Q2H PRN Breakthrough Pain Rated 7-10 or NPO Hydrochlorothiazide 12.5 mg 08/17/24 09:00 08/18/24 08:44 Hydrochlorothiazide 12.5 Mg Capsule PO 12.5 mg DAILY JORDY Administration Ibuprofen 800 mg in 200 mls @ 400 mls/hr 08/16/24 09:16 Caldolor 800 Mg/200 Ml IVPB Q6H PRN Breakthrough Pain Rated 1-3 or NPO Piperacillin Sod/Tazobactam Sod 4.5 gm in 100 mls @ 200 mls/hr 08/16/24 15:00 08/19/24 02:50 Zosyn 4.5 Gm/Ns 100 Ml IVPB Infused Q6H JORDY Infusion Dextrose 1,000 mls @ 50 mls/hr 08/16/24 16:56 Dextrose 10% IV CONT .Q20H PRN if PN is interrupted Fat Emulsion Intravenous 250 mls @ 20.833 mls/hr 08/16/24 18:00 08/19/24 06:00 Lipids 20% IVPB Infused Q24H JORDY Infusion Multivitamins 1.25 ml/ 1,002.5 mls @ 40 mls/hr 08/17/24 10:00 08/18/24 10:08 Multivitamins 1.25 ml/ Amino IV CONT 40 mls/hr Acids/Electrolytes/Dextrose .Q24H JORDY Administration Protocol Insulin Human Regular 0 units 08/16/24 18:00 08/19/24 06:25 Insulin Human Regular (*Bkc) 100 Units/Ml SUB-Q Not Given Q6HR JORDY Protocol Losartan Potassium 25 mg 08/17/24 09:00 08/18/24 08:44 Losartan Potassium 25 Mg Tablet BY MOUTH 25 mg DAILY JORDY Administration Metoprolol Succinate 50 mg 08/17/24 09:00 08/18/24 08:44 Metoprolol Succinate Ext Rel 50 Mg Tabcr PO 50 mg DAILY JORDY Administration Miscellaneous Information 0 each 08/18/24 00:01 08/18/24 18:08 Please Renew Clinimix Bag Daily XX 09/17/24 00:00 Not Given CLARIFY JORDY Naloxone HCl 0.1 mg 08/16/24 09:16 Naloxone Hcl 0.4 Mg/Ml Vial IV PUSH Q2M PRN Opiate Reversal Nonform Lansoprazole 1 each 08/18/24 08:25 08/19/24 05:[address] Cap PO 09/17/24 08:24 1 each DAILY@0630 JORDY Administration Ondansetron HCl 4 mg 08/16/24 09:16 Ondansetron Inj 4 Mg/2 Ml Vial IV PUSH Q4H PRN Nausea And Vomiting Oxycodone/Acetaminophen 1 tablet 08/16/24 17:05 Oxycodone/Acetaminophen (*Crx) 5-325 Mg Tablet PO Q4H PRN Pain Rated 4-6 Potassium Chloride 20 meq 08/17/24 09:00 08/18/24 08:46 Potassium Chloride 20 Meq Er Tablet PO 20 meq DAILY JORDY Administration Simvastatin 20 mg 08/17/24 09:00 08/18/24 08:46 Simvastatin 20 Mg Tablet PO 20 mg DAILY JORDY Administration Sodium Chloride 10 ml 08/17/24 14:00 08/19/24 05:58 Central Line Flush IV PUSH 10 ml Q8HR JORDY Administration Sodium Chloride 10 ml 08/17/24 11:43 Central Line Flush IV PUSH PRN PRN with TPN bag changes Sodium Chloride 20 ml 05/24/25 11:43 08/19/24 05:57 Central Line Flush IV PUSH 20 ml PRN PRN Administration after blood draws Tamsulosin HCl 0.4 mg 08/17/24 09:00 08/18/24 08:44 Tamsulosin Hcl 0.4 Mg Capsule PO 0.4 mg QAM [facility] Administration Vitamin D 5,000 units 08/17/24 09:00 08/18/24 08:44 Cholecalciferol 5,000 Units Tablet PO 5,000 units DAILY JORDY Administration Vitamin E 400 unit 08/19/24 09:00 Vitamin E 400 Unit Capsule PO MoWeFr@0900 [facility] Radiology Results: ITS Impressions Abdomen/Pelvis CT 08/16/24 08:34 Impression: Large midabdominal/infrahepatic abscess, as detailed above.. Kidneys change catheter no longer present. Previously noted pelvic abscess is no longer present, resolved. Wall thickening of the sigmoid colon and rectum, which could be reactive versus infectious/inflammatory colitis. Suspicion of tract or fistula extending from the sigmoid colon to the large abscess. Mild left hydronephrosis and nonobstructing left renal stone. Cholelithiasis. Moderate right pleural effusion. Catheter Placement CT 08/16/24 14:34 IMPRESSION: 1. Successful CT-guided right lower quadrant abscess drainage catheter placement. 2. 50 mL fluid was sent for aerobic and anaerobic cultures. 3. The catheter will be managed by Dr. Huang. Renal Ultrasound 08/17/24 11:18 IMPRESSION: 1. Unchanged 7 mm nonobstructing stone at the lower pole the left kidney and mild left hydronephrosis. Enema w/Water Soluble 08/17/24 14:11 IMPRESSION: 1. Patent right ileocolic anastomosis in the right abdomen without evident extraperitoneal leakage of contrast. 2. Diverticulosis along the sigmoid colon. 3. Cholelithiasis. 4. Left nephrolithiasis. 4. Right lower quadrant percutaneous abscess drain. Labs Labs: Laboratory Results - last 24 hr 08/18/24 08/18/24 08/18/24 08:09 11:59 17:19 WBC RBC Hgb Hct MCV MCH MCHC RDW Plt Count MPV Immature Gran % (Auto) Neut % (Auto) Lymph % (Auto) Pierce % (Auto) Eos % (Auto) Baso % (Auto) Lymph # (Auto) Pierce # (Auto) Eos # (Auto) Baso # (Auto) Abs Immat Gran (auto) Absolute Neuts (auto) Absolute Nucleated RBC Nucleated RBC % PT INR APTT Sodium Potassium Chloride Carbon Dioxide Anion Gap BUN Creatinine Estim Creat Clear Calc Estimated GFR Glucose POC Capillary Glucose 101 129 H 88 Calcium Phosphorus Magnesium Transferrin Total Bilirubin AST ALT Alkaline Phosphatase Total Protein Albumin 08/18/24 08/19/24 21:37 06:06 WBC 14.9 H RBC 3.88 L Hgb 10.6 L Hct 34.0 L MCV 87.6 MCH 27.3 MCHC 31.2 L RDW 17.2 H Plt Count 696 H MPV 9.8 Immature Gran % (Auto) 0.8 H Neut % (Auto) 87.5 H Lymph % (Auto) 7.2 L Pierce % (Auto) 2.8 Eos % (Auto) 1.6 Baso % (Auto) 0.1 L Lymph # (Auto) 1.07 Pierce # (Auto) 0.4 Eos # (Auto) 0.2 Baso # (Auto) 0.0 Abs Immat Gran (auto) 0.12 H Absolute Neuts (auto) 13.0 H Absolute Nucleated RBC 0.000 Nucleated RBC % 0.0 PT 14.7 INR 1.1 APTT 30.0 Sodium 135 L Potassium 4.0 Chloride 105 Carbon Dioxide 29 Anion Gap 1 L BUN 7 L Creatinine 0.53 L Estim Creat Clear Calc 116 Estimated GFR > 60 Glucose 113 H POC Capillary Glucose 125 H Calcium 8.0 L Phosphorus 3.2 Magnesium 2.2 Transferrin 137 L Total Bilirubin 0.3 AST 91 H ALT 59 H Alkaline Phosphatase 402 H Total Protein 6.0 L Albumin 2.8 L
[2024-08-19 08:24] LABS: Glucose Point of Care 107 mg/dl (65-105)
[2024-08-19 09:00] VITALS: O2SAT 98
[2024-08-19 09:01] VITALS: PULSE 87
[2024-08-19] MEDS: hydroCHLOROthiazide 12.5 MG CAPSULE PO (09:01)
[2024-08-19] MEDS: METOPROLOL SUCCINATE EXT REL 50 MG TABCR PO (09:01)
[2024-08-19] MEDS: TAMSULOSIN HCL 0.4 MG CAPSULE PO (09:03)
[2024-08-19] MEDS: SIMVASTATIN 20 MG TABLET PO (09:03)
[2024-08-19] MEDS: CHOLECALCIFEROL 5,000 UNITS TABLET 5000 UNITS PO (09:03)
[2024-08-19] MEDS: LOSARTAN POTASSIUM 25 MG TABLET BY MOUTH (09:03)
[2024-08-19] MEDS: POTASSIUM CHLORIDE 20 MEQ ER TABLET PO (09:03)
[2024-08-19] MEDS: VITAMIN E 400 UNIT CAPSULE PO (09:05)
--- NOTE | 2024-08-19 10:07 | P.PNGS_ITS ---
Progress Note: A&P Assessment and Plan (1) Intra-abdominal abscess post-procedure: Code(s): T81.43XA - Infection following a procedure, organ and space surgical site, initial encounter; K65.1 - Peritoneal abscess Status: Acute Assessment and Plan: * Continue IV Zosyn and monitor drain output. Cultures growing multiple organisms * Tolerating a low-fiber diet and Ensure supplements. Will stop TPN today * WBC count went up to 14,000, Repeat CT scan ordered today by hospitalist (2) History of partial surgical removal of colon: Onset Date: 06/21/24 Code(s): Z90.49 - Acquired absence of other specified parts of digestive tract Status: Chronic (3) Adenomatous colon polyp: Qualifiers: Colon location: ascending Qualified Code(s): D12.2 - Benign neoplasm of ascending colon Code(s): D12.6 - Benign neoplasm of colon, unspecified Status: Chronic (4) Dysuria: Code(s): R30.0 - Dysuria Status: Inactive (5) Leukocytosis: Qualifiers: Leukocytosis type: unspecified Qualified Code(s): D72.829 - Elevated white blood cell count, unspecified Code(s): D72.829 - Elevated white blood cell count, unspecified Status: Resolved Subjective Subjective Date/Time Seen: 08/19/24 10:07 Patient reports: afebrile Interval history: Patient overall feeling better since abscess drainage. He reports less bloating and less abdominal pain. Still has minimal right-sided abdominal pain, but much improved. He is tolerating a low-fiber diet well. He is drinking Ensure supplements with each meal as well. WBC count did go up slightly today to 14,000 and liver enzymes mildly elevated on labs this morning. Hospitalist ordered a CT scan of the abdomen and pelvis today. Patient denies any acute issues overnight. Exam Const: General: comfortable Orientation/consciousness: patient oriented x3 GI: Inspection: non-distended GI Palp: Yes Soft to palpation, Yes Tenderness to palpation present (GI) (Mild right-sided tenderness), No Guarding due to palpation present (GI) and No Rebound tenderness present Auscultation: normal bowel sounds Other: Percutaneous drain with minimal serosanguineous output Objective Data Vital Signs Vital Signs: Vital Signs - 24 hr 08/18/24 12:00 08/18/24 14:00 08/18/24 21:54 Temperature 98.1 F 98.1 F 97.9 F Pulse Rate 72 72 72 Respiratory Rate 18 18 18 Blood Pressure 112/69 112/69 130/67 Pulse Oximetry 100 100 100 08/19/24 04:00 08/19/24 09:01 Temperature 97.7 F Pulse Rate 74 87 Respiratory Rate 16 Blood Pressure 124/74 Pulse Oximetry 100 Intake/Output Intake/Output: Intake & Output 08/16/24 08/17/24 08/18/24 08/19/24 23:59 23:59 23:59 23:59 Intake Total 990 4350 3077.3 350 Output Total 780 60 1 Balance 990 3570 3017.3 349 Meds/Results Medications: Active Medications Generic Name Dose Route Start Last Admin Trade Name Freq PRN Reason Stop Dose Admin Acetaminophen 500 mg 08/16/24 17:05 Acetaminophen 500 Mg Tablet PO Q6H PRN Pain Rated 1-3 Fentanyl Citrate 12.5 mcg 08/16/24 09:16 Fentanyl Citrate Inj (*Crx) 100 Mcg/2 Ml Vial IV PUSH Q2H PRN Breakthrough Pain Rated 4-6 or NPO Fentanyl Citrate 25 mcg 08/16/24 09:16 Fentanyl Citrate Inj (*Crx) 100 Mcg/2 Ml Vial IV PUSH Q2H PRN Breakthrough Pain Rated 7-10 or NPO Hydrochlorothiazide 12.5 mg 08/17/24 09:00 08/19/24 09:01 Hydrochlorothiazide 12.5 Mg Capsule PO 12.5 mg DAILY JORDY Administration Ibuprofen 800 mg in 200 mls @ 400 mls/hr 08/16/24 09:16 Caldolor 800 Mg/200 Ml IVPB Q6H PRN Breakthrough Pain Rated 1-3 or NPO Piperacillin Sod/Tazobactam Sod 4.5 gm in 100 mls @ 200 mls/hr 08/16/24 15:00 08/19/24 09:01 Zosyn 4.5 Gm/Ns 100 Ml IVPB 200 mls/hr Q6H JORDY Administration Dextrose 1,000 mls @ 50 mls/hr 08/16/24 16:56 Dextrose 10% IV CONT .Q20H PRN if PN is interrupted Fat Emulsion Intravenous 250 mls @ 20.833 mls/hr 08/16/24 18:00 08/19/24 06:00 Lipids 20% IVPB Infused Q24H JORDY Infusion Multivitamins 1.25 ml/ 1,002.5 mls @ 40 mls/hr 08/17/24 10:00 08/18/24 10:08 Multivitamins 1.25 ml/ Amino IV CONT 40 mls/hr Acids/Electrolytes/Dextrose .Q24H JORDY Administration Protocol Insulin Human Regular 0 units 08/16/24 18:00 08/19/24 06:25 Insulin Human Regular (*Bkc) 100 Units/Ml SUB-Q Not Given Q6HR JORDY Protocol Losartan Potassium 25 mg 08/17/24 09:00 08/19/24 09:03 Losartan Potassium 25 Mg Tablet BY MOUTH 25 mg DAILY JORDY Administration Metoprolol Succinate 50 mg 08/17/24 09:00 08/19/24 09:01 Metoprolol Succinate Ext Rel 50 Mg Tabcr PO 50 mg DAILY JORDY Administration Miscellaneous Information 0 each 08/18/24 00:01 08/18/24 18:08 Please Renew Clinimix Bag Daily XX 09/17/24 00:00 Not Given CLARIFY JORDY Naloxone HCl 0.1 mg 08/16/24 09:16 Naloxone Hcl 0.4 Mg/Ml Vial IV PUSH Q2M PRN Opiate Reversal Nonform Lansoprazole 1 each 08/18/24 08:25 08/19/24 05:[address] Cap PO 09/17/24 08:24 1 each DAILY@0630 JORDY Administration Ondansetron HCl 4 mg 08/16/24 09:16 Ondansetron Inj 4 Mg/2 Ml Vial IV PUSH Q4H PRN Nausea And Vomiting Oxycodone/Acetaminophen 1 tablet 08/16/24 17:05 Oxycodone/Acetaminophen (*Crx) 5-325 Mg Tablet PO Q4H PRN Pain Rated 4-6 Potassium Chloride 20 meq 08/17/24 09:00 08/19/24 09:03 Potassium Chloride 20 Meq Er Tablet PO 20 meq DAILY JORDY Administration Simvastatin 20 mg 08/17/24 09:00 08/19/24 09:03 Simvastatin 20 Mg Tablet PO 20 mg DAILY JORDY Administration Sodium Chloride 10 ml 08/17/24 14:00 08/19/24 05:58 Central Line Flush IV PUSH 10 ml Q8HR JORDY Administration Sodium Chloride 10 ml 08/17/24 11:43 Central Line Flush IV PUSH PRN PRN with TPN bag changes Sodium Chloride 20 ml 08/17/24 11:43 08/19/24 05:57 Central Line Flush IV PUSH 20 ml PRN PRN Administration after blood draws Tamsulosin HCl 0.4 mg 08/17/24 09:00 08/19/24 09:03 Tamsulosin Hcl 0.4 Mg Capsule PO 0.4 mg QAM JORDY Administration Vitamin D 5,000 units 08/17/24 09:00 08/19/24 09:03 Cholecalciferol 5,000 Units Tablet PO 5,000 units DAILY JORDY Administration Vitamin E 400 unit 08/19/24 09:00 08/19/24 09:05 Vitamin E 400 Unit Capsule PO 400 unit MoWeFr@0900 JORDY Administration Radiology Results: ITS Impressions Abdomen/Pelvis CT 08/16/24 08:34 Impression: Large midabdominal/infrahepatic abscess, as detailed above.. Kidneys change catheter no longer present. Previously noted pelvic abscess is no longer present, resolved. Wall thickening of the sigmoid colon and rectum, which could be reactive versus infectious/inflammatory colitis. Suspicion of tract or fistula extending from the sigmoid colon to the large abscess. Mild left hydronephrosis and nonobstructing left renal stone. Cholelithiasis. Moderate right pleural effusion. Catheter Placement CT 08/16/24 14:34 IMPRESSION: 1. Successful CT-guided right lower quadrant abscess drainage catheter placement. 2. 50 mL fluid was sent for aerobic and anaerobic cultures. 3. The catheter will be managed by Dr. Huang. Renal Ultrasound 08/17/24 11:18 IMPRESSION: 1. Unchanged 7 mm nonobstructing stone at the lower pole the left kidney and mild left hydronephrosis. Enema w/Water Soluble 08/17/24 14:11 IMPRESSION: 1. Patent right ileocolic anastomosis in the right abdomen without evident extraperitoneal leakage of contrast. 2. Diverticulosis along the sigmoid colon. 3. Cholelithiasis. 4. Left nephrolithiasis. 4. Right lower quadrant percutaneous abscess drain. Labs Labs: Laboratory Results - last 24 hr 08/18/24 08/18/24 08/18/24 11:59 17:19 21:37 WBC RBC Hgb Hct MCV MCH MCHC RDW Plt Count MPV Immature Gran % (Auto) Neut % (Auto) Lymph % (Auto) [place] % (Auto) Eos % (Auto) Baso % (Auto) Lymph # (Auto) [place] # (Auto) Eos # (Auto) Baso # (Auto) Abs Immat Gran (auto) Absolute Neuts (auto) Absolute Nucleated RBC Nucleated RBC % PT INR APTT Sodium Potassium Chloride Carbon Dioxide Anion Gap BUN Creatinine Estim Creat Clear Calc Estimated GFR Glucose POC Capillary Glucose 129 H 88 125 H Calcium Phosphorus Magnesium Transferrin Total Bilirubin AST ALT Alkaline Phosphatase Total Protein Albumin 08/19/24 08/19/24 06:06 08:16 WBC 14.9 H RBC 3.88 L Hgb 10.6 L Hct 34.0 L MCV 87.6 MCH 27.3 MCHC 31.2 L RDW 17.2 H Plt Count 696 H MPV 9.8 Immature Gran % (Auto) 0.8 H Neut % (Auto) 87.5 H Lymph % (Auto) 7.2 L [place] % (Auto) 2.8 Eos % (Auto) 1.6 Baso % (Auto) 0.1 L Lymph # (Auto) 1.07 [place] # (Auto) 0.4 Eos # (Auto) 0.2 Baso # (Auto) 0.0 Abs Immat Gran (auto) 0.12 H Absolute Neuts (auto) 13.0 H Absolute Nucleated RBC 0.000 Nucleated RBC % 0.0 PT 14.7 INR 1.1 APTT 30.0 Sodium 135 L Potassium 4.0 Chloride 105 Carbon Dioxide 29 Anion Gap 1 L BUN 7 L Creatinine 0.53 L Estim Creat Clear Calc 116 Estimated GFR > 60 Glucose 113 H POC Capillary Glucose 107 H Calcium 8.0 L Phosphorus 3.2 Magnesium 2.2 Transferrin 137 L Total Bilirubin 0.3 AST 91 H ALT 59 H Alkaline Phosphatase 402 H Total Protein 6.0 L Albumin 2.8 L
[2024-08-19 14:00] VITALS: BP 99/69; PULSE 81; RESP 16; TEMP 36.6; O2SAT 100
[2024-08-19 21:20] VITALS: BP 111/65; PULSE 93; RESP 20; TEMP 35.7; O2SAT 96
[2024-08-20] MEDS: PIPERACILLIN/TAZ 4.5G/NS 100ML 4.5 GM/100 ML BAG IVPB ×4 (03:20→21:20)
[2024-08-20 05:46] VITALS: BP 120/61; PULSE 71; RESP 20; TEMP 35.7; O2SAT 100
[2024-08-20] MEDS: LANSOPRAZOLE 30 MG 1 EACH PO (06:13)
[2024-08-20] MEDS: CENTRAL LINE FLUSH 10 ML IV PUSH ×3 (06:14→21:21)
[2024-08-20 06:32] LABS: Basophils Percent Auto 0.3 % (0.2-1.2); Eosinophils Absolute Auto 0.4 K/mm3 (0-0.3); Eosinophils Percent Auto 2.9 % (0-4.4); Hematocrit 31.6 % (42.0-52.0); Hemoglobin 9.9 g/dL (14.0-18.0); Immature Granulocyte Absolute 0.11 K/mm3 (0.00-0.031); Immature Granulocyte Percent A 0.8 % (0-0.5); Lymphocytes Absolute Auto 1.62 K/mm3 (0.9-3.2); Lymphocytes Percent Auto 12.2 % (18.3-44.2); Mean Corpuscular HGB Conc 31.3 g/dl (32-36); Mean Corpuscular Volume 86.3 fl (80-100); Mean Platelet Volume 9.6 fl (7.4-10.4); Monocytes Absolute Auto 0.8 K/mm3 (0.1-0.6); Monocytes Percent Auto 5.7 % (2.6-8.5); Neutrophils Absolute Auto 10.4 K/mm3 (1.3-6.7); Neutrophils Percent Auto 78.1 % (45.5-73.1); Platelet Count Result 631 k/mm3 (150-375); Red Blood Count 3.66 M/mm3 (4.6-6.20); Red Cell Distribution Width 17.5 % (11.5-14.5); White Blood Count 13.3 K/mm3 (4.5-10.0)
[2024-08-20 06:49] LABS: Alanine Aminotransferase 37 U/L (6-50); Albumin Level 2.7 g/dL (3.5-5.1); Alkaline Phosphatase 266 U/L (38-126); Anion Gap 4 mmol/L (4-12); Aspartate Amino Transferase 41 U/L (17-59); Bilirubin,Total 0.3 mg/dL (0.2-1.3); Blood Urea Nitrogen 10 mg/dL (9-20); Calcium 8.1 mg/dL (8.4-10.2); Carbon Dioxide 30 mmol/L (22-30); Chloride 102 mmol/L (98-107); Estimated CRCL calculation 114 ml/min; Estimated Glomerular Filt Rate > 60; Glucose 78 mg/dL (65-110); Potassium 3.7 mmol/L (3.4-5.0); Sodium 136 mmol/L (137-145)
--- NOTE | 2024-08-20 06:49 | P.CDI_ITS ---
CDI Query Clarification Request BMI: 26.8 Nutritional Diagnostic Statement: Please refer to the comprehensive nutrition assessment for further information. If you agree with diagnosis of Severe protein calorie malnutrition related to altered GI function as evidenced by intakes <75% needs >1 month; weight loss 7%/2 months; severe muscle wasting, moderate fat loss. Please specify severity if known: * Mild * Moderate * Severe * Other/Unknown <Yaa Bah RN - Last Filed: 08/20/24 06:50> Clarified Diagnosis Clarified Diagnosis: Agree with diagnosis of Severe protein calorie malnutrition, appreciate dietary recommendations <Ernesto Brar PA-C - Last Filed: 08/20/24 08:24>
--- NOTE | 2024-08-20 07:42 | P.PNIM_ITS ---
Progress Note: A&P Assessment and Plan (1) Abdominal abscess: Status: Acute Assessment and Plan: Right colectomy with hand-sewn anastomosis 06/21/2024 complicated by fluid collection status post IR drainage and completion of 14 days of antibiotics. Re peat CT scan shows a large midabdominal/infrahepatic abscess with suspicion of a tract or fistula extending from the sigmoid colon to the abscess. * Drain placed per IR on 08/16/2024, managed by surgery. * Gram stain and wound culture are pending. * Discussed with ID pharmacist who recommends piperacillin-tazobactam 4.5 g q.6 hours for now. 08/18 * Contrast enema showed no bowel leakage * Continue current management * Pt reports symptoms are best they've been since June 21 surgery 08/19 * Pain continues to improve * Endorses less bloating * Tolerating low-fiber diet + Ensure supplements * Elevated WBC and LFTs, will add CT abdomen/pelvis with contrast 08/20 * Upper GI w/ SB follow-thru and RUQ US to r/o other abdominal infection * Pain and diet continues to improve * WBC and LFTs improving (2) Pleural effusion on right: Code(s): J90 - Pleural effusion, not elsewhere classified Status: Acute Assessment and Plan: CT scan shows a moderate-size right-sided pleural effusion. I suspect that this is inflammatory/reactive in nature. He is not hypoxic and is not symptomatic at this juncture. * Avoid over-hydration. * Continue to monitor clinically. * Consider thoracentesis if worsening or change in condition. 08/17 * Symptoms improving today * Ambulating w/o weakness or SOB * Physical exam improved 08/18 * Ambulating throughout room without any SOB * Physical exam benign 08/19 * Physical exam remains benign, denies any shortness of breath 08/20 * Abd/Pelvis CT: Stable small to moderate right pleural effusion. (3) Hydronephrosis of left kidney: Code(s): N13.30 - Unspecified hydronephrosis Status: Acute Assessment and Plan: Mild left hydronephrosis and nonobstructing renal stone on CT. Possibly related to large abdominal abscess. Bladder does not feel particularly distended though he has a history of difficulties urinating for which he takes tamsulosin. * Bladder scan now and p.r.n. to rule out urinary retention. * Renal ultrasound tomorrow to see if there is any change. * Urology consult * No intervention indicated at this time' * Continue Tamsulosin * No indication for perez * No changes (4) Essential (primary) hypertension: Code(s): I10 - Essential (primary) hypertension Status: Chronic Assessment and Plan: Blood pressures were reviewed and they are stable. * Monitor closely as he is currently NPO. * BPs stable L (5) Barretts esophagus: Qualifiers: Villalobos's esophagus type: without dysplasia Qualified Code(s): K22.70 - Villalobos's esophagus without dysplasia Code(s): K22.70 - Villalobos's esophagus without dysplasia Status: Chronic Assessment and Plan: * Change p.o. lansoprazole to pantoprazole IV daily as long as he is NPO. (6) Benign prostatic hyperplasia: Code(s): N40.0 - Benign prostatic hyperplasia without lower urinary tract symptoms Status: Acute Assessment and Plan: * Bladder scan x1 then p.r.n. to rule out retention and continue tamsulosin. * Urology consultation * Continue Tamsulosin * No changes/concerns (7) Severe protein-calorie malnutrition: Code(s): E43 - Unspecified severe protein-calorie malnutrition Status: Acute Assessment and Plan: - Consult dietary, appreciate further recommendations Time Spent With Patient Time: Subjective Date/time seen: 08/20/24 07:42 Interval history: Rylan Caro is a 68 year old male with HTN, hyperlipidemia, BPH , and Villalobos esophagus who was directly admitted to the hospital today under the general surgery service for treatment of abdominal abscess. 08/20/2024 Pt sitting comfortably at bedside. Denies any CP, SOB, n/v at this time. Still has some slight abdominal tenderness at the drain site, but otherwise patient reports continued improved pain. Patient continues to eat well. General surgery to order RUQ ultrasound and upper GI with small-bowel follow-through today for other possible sources of abdominal infection. Review of Systems Review of Systems: 12 systems were reviewed and are negativ e except for as per HPI. Exam Narrative: General: Mildly ill-appearing male supine in bed. Weight: 78 kg. BMI: 24.0. HEENT: PERRL, EOMI. Sclera anicteric. Tacky mucous membranes. Neck: Supple. Respiratory: Clear to auscultation. Cardiovascular: Regular rate and rhythm with S1-S2. Gastrointestinal: Slight abdominal tenderness to palpitation in RLQ, near drain site. Abdomen is soft with slightly hypoactive bowel sounds. IR placed drain contains bloody colored fluid. Skin: Warm and dry. Generalized pallor. Extremities: No cyanosis, clubbing, or edema. Radial and pedal pulses intact. Neurological: Alert. Cranial nerves 2-12 are grossly intact. No gross focal deficits to casual conversation. Psychiatric: Pleasant and cooperative with normal mood and affect. Objective Data Vital Signs Vital Signs: Vital Signs - 24 hr 08/19/24 09:00 08/19/24 09:01 08/19/24 14:00 Temperature 97.9 F Pulse Rate 87 81 Respiratory Rate 16 Blood Pressure 99/69 L Pulse Oximetry 98 100 Oxygen Delivery Room Air 08/19/24 21:20 08/20/24 05:46 Temperature 96.2 F L 96.3 F L Pulse Rate 93 71 Respiratory Rate 20 20 Blood Pressure 111/65 120/61 Pulse Oximetry 96 100 Oxygen Delivery Intake/Output Intake/Output: Intake & Output 08/17/24 08/18/24 08/19/24 08/20/24 23:59 23:59 23:59 23:59 Intake Total 4350 3077.3 1130 Output Total 780 60 1 Balance 3570 3017.3 1129 Meds/Results Medications: Active Medications Generic Name Dose Route Start Last Admin Trade Name Freq PRN Reason Stop Dose Admin Acetaminophen 500 mg 08/16/24 17:05 Acetaminophen 500 Mg Tablet PO Q6H PRN Pain Rated 1-3 Fentanyl Citrate 12.5 mcg 08/16/24 09:16 Fentanyl Citrate Inj (*Crx) 100 Mcg/2 Ml Vial IV PUSH Q2H PRN Breakthrough Pain Rated 4-6 or NPO Fentanyl Citrate 25 mcg 08/16/24 09:16 Fentanyl Citrate Inj (*Crx) 100 Mcg/2 Ml Vial IV PUSH Q2H PRN Breakthrough Pain Rated 7-10 or NPO Hydrochlorothiazide 12.5 mg 08/17/24 09:00 08/19/24 09:01 Hydrochlorothiazide 12.5 Mg Capsule PO 12.5 mg DAILY JORDY Administration Ibuprofen 800 mg in 200 mls @ 400 mls/hr 08/16/24 09:16 Caldolor 800 Mg/200 Ml IVPB Q6H PRN Breakthrough Pain Rated 1-3 or NPO Piperacillin Sod/Tazobactam Sod 4.5 gm in 100 mls @ 200 mls/hr 08/16/24 15:00 08/20/24 03:20 Zosyn 4.5 Gm/Ns 100 Ml IVPB 200 mls/hr Q6H JORDY Administration Losartan Potassium 25 mg 08/17/24 09:00 08/19/24 09:03 Losartan Potassium 25 Mg Tablet BY MOUTH 25 mg DAILY JORDY Administration Metoprolol Succinate 50 mg 08/17/24 09:00 08/19/24 09:01 Metoprolol Succinate Ext Rel 50 Mg Tabcr PO 50 mg DAILY JORDY Administration Naloxone HCl 0.1 mg 08/16/24 09:16 Naloxone Hcl 0.4 Mg/Ml Vial IV PUSH Q2M PRN Opiate Reversal Nonform Lansoprazole 1 each 08/18/24 08:25 08/20/24 06:[address] Cap PO 09/17/24 08:24 1 each DAILY@0630 JORDY Administration Ondansetron HCl 4 mg 08/16/24 09:16 Ondansetron Inj 4 Mg/2 Ml Vial IV PUSH Q4H PRN Nausea And Vomiting Oxycodone/Acetaminophen 1 tablet 08/16/24 17:05 Oxycodone/Acetaminophen (*Crx) 5-325 Mg Tablet PO Q4H PRN Pain Rated 4-6 Potassium Chloride 20 meq 08/17/24 09:00 08/19/24 09:03 Potassium Chloride 20 Meq Er Tablet PO 20 meq DAILY JORDY Administration Simvastatin 20 mg 08/17/24 09:00 08/19/24 09:03 Simvastatin 20 Mg Tablet PO 20 mg DAILY JORDY Administration Sodium Chloride 10 ml 08/17/24 14:00 08/20/24 06:14 Central Line Flush IV PUSH 10 ml Q8HR JORDY Administration Sodium Chloride 10 ml 08/17/24 11:43 Central Line Flush IV PUSH PRN PRN with TPN bag changes Sodium Chloride 20 ml 08/17/24 11:43 08/19/24 05:57 Central Line Flush IV PUSH 20 ml PRN PRN Administration after blood draws Tamsulosin HCl 0.4 mg 08/17/24 09:00 08/19/24 09:03 Tamsulosin Hcl 0.4 Mg Capsule PO 0.4 mg QAM JORDY Administration Vitamin D 5,000 units 08/17/24 09:00 08/19/24 09:03 Cholecalciferol 5,000 Units Tablet PO 5,000 units DAILY JORDY Administration Vitamin E 400 unit 08/19/24 09:00 08/19/24 09:05 Vitamin E 400 Unit Capsule PO 400 unit MoWeFr@0900 JORDY Administration Radiology Results: ITS Impressions Catheter Placement CT 08/16/24 14:34 IMPRESSION: 1. Successful CT-guided right lower quadrant abscess drainage catheter placement. 2. 50 mL fluid was sent for aerobic and anaerobic cultures. 3. The catheter will be managed by Dr. Huang. Renal Ultrasound 08/17/24 11:18 IMPRESSION: 1. Unchanged 7 mm nonobstructing stone at the lower pole the left kidney and mild left hydronephrosis. Enema w/Water Soluble 08/17/24 14:11 IMPRESSION: 1. Patent right ileocolic anastomosis in the right abdomen without evident extraperitoneal leakage of contrast. 2. Diverticulosis along the sigmoid colon. 3. Cholelithiasis. 4. Left nephrolithiasis. 4. Right lower quadrant percutaneous abscess drain. Abdomen/Pelvis CT 08/20/24 07:09 Impression: Status post interval percutaneous drainage of previously noted large abscess which is markedly improved. Probable small residual abscess present. Correlate with tube output. Left hydronephrosis with nonobstructing left lower pole renal stone. Cholelithiasis. Stable small to moderate right pleural effusion. Labs Labs: Laboratory Results - last 24 hr 08/19/24 08/20/24 08:16 06:24 WBC 13.3 H RBC 3.66 L Hgb 9.9 L Hct 31.6 L MCV 86.3 MCH 27.0 MCHC 31.3 L RDW 17.5 H Plt Count 631 H MPV 9.6 Immature Gran % (Auto) 0.8 H Neut % (Auto) 78.1 H Lymph % (Auto) 12.2 L [place] % (Auto) 5.7 Eos % (Auto) 2.9 Baso % (Auto) 0.3 Lymph # (Auto) 1.62 [place] # (Auto) 0.8 H Eos # (Auto) 0.4 H Baso # (Auto) 0.0 Abs Immat Gran (auto) 0.11 H Absolute Neuts (auto) 10.4 H Absolute Nucleated RBC 0.000 Nucleated RBC % 0.0 Sodium 136 L Potassium 3.7 Chloride 102 Carbon Dioxide 30 Anion Gap 4 BUN 10 Creatinine 0.54 L Estim Creat Clear Calc 114 Estimated GFR > 60 Glucose 78 POC Capillary Glucose 107 H Calcium 8.1 L Total Bilirubin 0.3 AST 41 ALT 37 Alkaline Phosphatase 266 H Total Protein 6.0 L Albumin 2.7 L Quality VTE Prophylaxis VTE prophylaxis: mechanical ordered
[2024-08-20] MEDS: hydroCHLOROthiazide 12.5 MG CAPSULE PO (09:31)
[2024-08-20] MEDS: LOSARTAN POTASSIUM 25 MG TABLET BY MOUTH (09:31)
[2024-08-20] MEDS: CHOLECALCIFEROL 5,000 UNITS TABLET 5000 UNITS PO (09:31)
[2024-08-20 09:32] VITALS: PULSE 83
[2024-08-20] MEDS: TAMSULOSIN HCL 0.4 MG CAPSULE PO (09:32)
[2024-08-20] MEDS: METOPROLOL SUCCINATE EXT REL 50 MG TABCR PO (09:32)
[2024-08-20] MEDS: SIMVASTATIN 20 MG TABLET PO (09:32)
[2024-08-20 09:35] VITALS: O2SAT 100
[2024-08-20] MEDS: POTASSIUM CHLORIDE 20 MEQ ER TABLET PO (09:36)
--- NOTE | 2024-08-20 10:41 | PCNFU ---
Nutrition Follow-Up Complete: Severe protein calorie malnutrition related to altered GI function as evidenced by intakes <75% needs >1 month; weight loss 7%/2 months; severe muscle wasting, moderate fat loss. Goal: Meet estimated nutritional needs Patient is progressing towards goal. We will continue current goal. Pt current nutrition is Low Fiber with Ensure Enlive TID. Last recorded weight is 87.1 kg, up from 82 kg on admit. Bowel Motility: +BM reported 08/19 Labs Reviewed: Cr 0.54, Na 136, Alb 2.7 Meds Noted: Flomax, Vit D, Vit E Skin: WNL Additional Notes:Patient off TPN, tolerating diet/diet supplements. Agree with diet orders. Monitoring diet orders, weights, labs, intakes every 5 days.
--- NOTE | 2024-08-20 11:03 | PM.PNGS ---
Progress Note: A&P Assessment and Plan (1) Abdominal abscess: Status: Acute Assessment and Plan: Much improved both clinically and radiographically. No output from drain written yesterday. Will ask nursing to provide this information. Patient feels much better and is eating well. Says he feels better now that he has an a long time. Etiology of the abscess is still in question. While CT scan suggested it could be anastomotic leakage, water-soluble contrast enema did not show any evidence of this. Culture results on the abscess was discussed with pathology. His 1st abscess drained toward the end of June grew E coli and Bacteroides fragilis. He had a 2nd abscess drained with his 1st admission and this showed only white cells but no growth. The present admission culture on this abscess shows many white cells and mixed bacterial milo of questionable clinical significance. Abscess due to colon perforation usually shows pathogenic bacteria. Will look for other sources of potential abdominal infection. Will get upper GI with small-bowel follow-through today along with right upper quadrant ultrasound. He has been noted to have gallstones on multiple prior CT scans. He has never had evidence of cholecystitis. Explained all to the family. Continue IV antibiotics and search for a cause for the recurrent abscess. (2) History of partial surgical removal of colon: Onset Date: 06/21/24 Code(s): Z90.49 - Acquired absence of other specified parts of digestive tract Status: Chronic Assessment and Plan: This was for benign polyp. Certainly anastomotic leak is considered but water-soluble contrast enema was negative. (3) Cholelithiasis: Qualifiers: Cholelithiasis location: gallbladder Cholecystitis presence: without cholecystitis Biliary obstruction: without biliary obstruction Qualified Code(s): K80.20 - Calculus of gallbladder without cholecystitis without obstruction Code(s): K80.20 - Calculus of gallbladder without cholecystitis without obstruction Status: Chronic Assessment and Plan: Ultrasound today (4) Barretts esophagus: Qualifiers: Villalobos's esophagus type: without dysplasia Qualified Code(s): K22.70 - Villalobos's esophagus without dysplasia Code(s): K22.70 - Villalobos's esophagus without dysplasia Status: Chronic Assessment and Plan: Continue anti-reflux medication (5) BPH with obstruction/lower urinary tract symptoms: Code(s): N40.1 - Benign prostatic hyperplasia with lower urinary tract symptoms; N13.8 - Other obstructive and reflux uropathy Status: Acute Assessment and Plan: Continue Flomax Subjective Subjective Date/Time Seen: 08/20/24 11:03 Patient reports: no new complaints, feels better, pain is less, tolerating a regular diet, voiding w/o difficulty, bowel movement and afebrile Review of Systems Review of Systems: All systems reviewed & are unremarkable except as noted in HPI and below (HPI) Exam Const: General: comfortable, alert, awake, well groomed and thin Nutritional Appearance: thin Orientation/consciousness: patient oriented x3 GI: Inspection: non-distended, scaphoid, no visible herniation and other (RUQ drain with serosanguineous output) GI Palp: Yes Soft to palpation, No Tenderness to palpation present (GI), No Guarding due to palpation present (GI) and No Palpable mass present Auscultation: normoactive bowel sounds Objective Data Vital Signs Vital Signs: Vital Signs - 24 hr 08/19/24 14:00 08/19/24 21:20 08/20/24 05:46 Temperature 36.6 C 35.7 C L 35.7 C L Pulse Rate 81 93 71 Respiratory Rate 16 20 20 Blood Pressure 99/69 L 111/65 120/61 Pulse Oximetry 100 96 100 08/20/24 09:32 Temperature Pulse Rate 83 Respiratory Rate Blood Pressure Pulse Oximetry Intake/Output Intake/Output: Intake & Output 08/17/24 08/18/24 08/19/24 08/20/24 23:59 23:59 23:59 23:59 Intake Total 4350 3077.3 1130 340 Output Total 780 60 1 Balance 3570 3017.3 1129 340 Meds/Results Medications: Active Medications Generic Name Dose Route Start Last Admin Trade Name Freq PRN Reason Stop Dose Admin Acetaminophen 500 mg 08/16/24 17:05 Acetaminophen 500 Mg Tablet PO Q6H PRN Pain Rated 1-3 Fentanyl Citrate 12.5 mcg 08/16/24 09:16 Fentanyl Citrate Inj (*Crx) 100 Mcg/2 Ml Vial IV PUSH Q2H PRN Breakthrough Pain Rated 4-6 or NPO Fentanyl Citrate 25 mcg 08/16/24 09:16 Fentanyl Citrate Inj (*Crx) 100 Mcg/2 Ml Vial IV PUSH Q2H PRN Breakthrough Pain Rated 7-10 or NPO Hydrochlorothiazide 12.5 mg 08/17/24 09:00 08/20/24 09:31 Hydrochlorothiazide 12.5 Mg Capsule PO 12.5 mg DAILY JORDY Administration Ibuprofen 800 mg in 200 mls @ 400 mls/hr 08/16/24 09:16 Caldolor 800 Mg/200 Ml IVPB Q6H PRN Breakthrough Pain Rated 1-3 or NPO Piperacillin Sod/Tazobactam Sod 4.5 gm in 100 mls @ 200 mls/hr 08/16/24 15:00 08/20/24 09:35 Zosyn 4.5 Gm/Ns 100 Ml IVPB 200 mls/hr Q6H JORDY Administration Losartan Potassium 25 mg 08/17/24 09:00 08/20/24 09:31 Losartan Potassium 25 Mg Tablet BY MOUTH 25 mg DAILY JORDY Administration Metoprolol Succinate 50 mg 08/17/24 09:00 08/20/24 09:32 Metoprolol Succinate Ext Rel 50 Mg Tabcr PO 50 mg DAILY JORDY Administration Naloxone HCl 0.1 mg 08/16/24 09:16 Naloxone Hcl 0.4 Mg/Ml Vial IV PUSH Q2M PRN Opiate Reversal Nonform Lansoprazole 1 each 08/18/24 08:25 08/20/24 06:[address] Cap PO 09/17/24 08:24 1 each DAILY@0630 JORDY Administration Ondansetron HCl 4 mg 08/16/24 09:16 Ondansetron Inj 4 Mg/2 Ml Vial IV PUSH Q4H PRN Nausea And Vomiting Oxycodone/Acetaminophen 1 tablet 08/16/24 17:05 Oxycodone/Acetaminophen (*Crx) 5-325 Mg Tablet PO Q4H PRN Pain Rated 4-6 Potassium Chloride 20 meq 08/17/24 09:00 08/20/24 09:36 Potassium Chloride 20 Meq Er Tablet PO 20 meq DAILY JORDY Administration Simvastatin 20 mg 08/17/24 09:00 08/20/24 09:32 Simvastatin 20 Mg Tablet PO 20 mg DAILY JORDY Administration Sodium Chloride 10 ml 08/17/24 14:00 08/20/24 06:14 Central Line Flush IV PUSH 10 ml Q8HR JORDY Administration Sodium Chloride 10 ml 08/17/24 11:43 Central Line Flush IV PUSH PRN PRN with TPN bag changes Sodium Chloride 20 ml 08/17/24 11:43 08/19/24 05:57 Central Line Flush IV PUSH 20 ml PRN PRN Administration after blood draws Tamsulosin HCl 0.4 mg 08/17/24 09:00 08/20/24 09:32 Tamsulosin Hcl 0.4 Mg Capsule PO 0.4 mg QAM JORDY Administration Vitamin D 5,000 units 08/17/24 09:00 08/20/24 09:31 Cholecalciferol 5,000 Units Tablet PO 5,000 units DAILY JORDY Administration Vitamin E 400 unit 08/19/24 09:00 08/19/24 09:05 Vitamin E 400 Unit Capsule PO 400 unit MoWeFr@0900 JORDY Administration Radiology Results: ITS Impressions Catheter Placement CT 08/16/24 14:34 IMPRESSION: 1. Successful CT-guided right lower quadrant abscess drainage catheter placement. 2. 50 mL fluid was sent for aerobic and anaerobic cultures. 3. The catheter will be managed by Dr. Huang. Renal Ultrasound 08/17/24 11:18 IMPRESSION: 1. Unchanged 7 mm nonobstructing stone at the lower pole the left kidney and mild left hydronephrosis. Enema w/Water Soluble 08/17/24 14:11 IMPRESSION: 1. Patent right ileocolic anastomosis in the right abdomen without evident extraperitoneal leakage of contrast. 2. Diverticulosis along the sigmoid colon. 3. Cholelithiasis. 4. Left nephrolithiasis. 4. Right lower quadrant percutaneous abscess drain. Abdomen/Pelvis CT 08/20/24 07:09 Impression: Status post interval percutaneous drainage of previously noted large abscess which is markedly improved. Probable small residual abscess present. Correlate with tube output. Left hydronephrosis with nonobstructing left lower pole renal stone. Cholelithiasis. Stable small to moderate right pleural effusion. Labs Labs: Laboratory Results - last 24 hr 08/20/24 06:24 WBC 13.3 H RBC 3.66 L Hgb 9.9 L Hct 31.6 L MCV 86.3 MCH 27.0 MCHC 31.3 L RDW 17.5 H Plt Count 631 H MPV 9.6 Immature Gran % (Auto) 0.8 H Neut % (Auto) 78.1 H Lymph % (Auto) 12.2 L [place] % (Auto) 5.7 Eos % (Auto) 2.9 Baso % (Auto) 0.3 Lymph # (Auto) 1.62 [place] # (Auto) 0.8 H Eos # (Auto) 0.4 H Baso # (Auto) 0.0 Abs Immat Gran (auto) 0.11 H Absolute Neuts (auto) 10.4 H Absolute Nucleated RBC 0.000 Nucleated RBC % 0.0 Sodium 136 L Potassium 3.7 Chloride 102 Carbon Dioxide 30 Anion Gap 4 BUN 10 Creatinine 0.54 L Estim Creat Clear Calc 114 Estimated GFR > 60 Glucose 78 Calcium 8.1 L Total Bilirubin 0.3 AST 41 ALT 37 Alkaline Phosphatase 266 H Total Protein 6.0 L Albumin 2.7 L Imaging Attestation: I personally reviewed and interpreted this imaging study as follows: (CT scan from yesterday) My impression: Large abscess essentially resolved, no new abscesses or signs of acute infection. Radiologist's impression: Abdomen/Pelvis CT 08/20/24 07:09 Impression: Status post interval percutaneous drainage of previously noted large abscess which is markedly improved. Probable small residual abscess present. Correlate with tube output. Left hydronephrosis with nonobstructing left lower pole renal stone. Cholelithiasis. Stable small to moderate right pleural effusion.
[2024-08-20 14:00] VITALS: BP 109/70; PULSE 55; RESP 16; TEMP 36.6; O2SAT 99
[2024-08-20 21:55] VITALS: BP 120/65; PULSE 71; RESP 20; TEMP 36.1; O2SAT 100
[2024-08-21] MEDS: PIPERACILLIN/TAZ 4.5G/NS 100ML 4.5 GM/100 ML BAG IVPB ×4 (03:06→21:00)
[2024-08-21] MEDS: LANSOPRAZOLE 30 MG 1 EACH PO (05:30)
[2024-08-21] MEDS: CENTRAL LINE FLUSH 10 ML IV PUSH ×3 (05:30→22:00)
[2024-08-21 05:38] LABS: Basophils Percent Auto 0.3 % (0.2-1.2); Eosinophils Absolute Auto 0.4 K/mm3 (0-0.3); Eosinophils Percent Auto 4.2 % (0-4.4); Hematocrit 29.6 % (42.0-52.0); Hemoglobin 9.3 g/dL (14.0-18.0); Immature Granulocyte Absolute 0.09 K/mm3 (0.00-0.031); Immature Granulocyte Percent A 0.9 % (0-0.5); Lymphocytes Absolute Auto 1.54 K/mm3 (0.9-3.2); Mean Corpuscular HGB Conc 31.4 g/dl (32-36); Mean Corpuscular Hemoglobin 27.5 pg (26-34); Mean Corpuscular Volume 87.6 fl (80-100); Mean Platelet Volume 9.5 fl (7.4-10.4); Monocytes Absolute Auto 0.7 K/mm3 (0.1-0.6); Monocytes Percent Auto 7.2 % (2.6-8.5); Neutrophils Absolute Auto 6.9 K/mm3 (1.3-6.7); Neutrophils Percent Auto 71.4 % (45.5-73.1); Platelet Count Result 569 k/mm3 (150-375); Red Blood Count 3.38 M/mm3 (4.6-6.20); Red Cell Distribution Width 17.5 % (11.5-14.5); White Blood Count 9.6 K/mm3 (4.5-10.0)
[2024-08-21 06:00] VITALS: BP 119/62; PULSE 68; RESP 20; TEMP 36.4; O2SAT 100
[2024-08-21 06:01] LABS: Anion Gap 1 mmol/L (4-12); Blood Urea Nitrogen 10 mg/dL (9-20); CRP 2.7 mg/dL (<1.0); Carbon Dioxide 31 mmol/L (22-30); Chloride 104 mmol/L (98-107); Estimated CRCL calculation 105 ml/min; Estimated Glomerular Filt Rate > 60; Glucose 81 mg/dL (65-110); Potassium 3.5 mmol/L (3.4-5.0); Sodium 136 mmol/L (137-145)
[2024-08-21] MEDS: hydroCHLOROthiazide 12.5 MG CAPSULE PO (10:35)
[2024-08-21] MEDS: VITAMIN E 400 UNIT CAPSULE PO (10:35)
[2024-08-21 10:36] VITALS: PULSE 68
[2024-08-21] MEDS: CHOLECALCIFEROL 5,000 UNITS TABLET 5000 UNITS PO (10:36)
[2024-08-21] MEDS: LOSARTAN POTASSIUM 25 MG TABLET BY MOUTH (10:36)
[2024-08-21] MEDS: METOPROLOL SUCCINATE EXT REL 50 MG TABCR PO (10:36)
[2024-08-21] MEDS: SIMVASTATIN 20 MG TABLET PO (10:36)
[2024-08-21] MEDS: POTASSIUM CHLORIDE 20 MEQ ER TABLET PO (10:36)
[2024-08-21] MEDS: TAMSULOSIN HCL 0.4 MG CAPSULE PO (10:36)
[2024-08-21 11:57] LABS: Creatinine Urine < 3.2 mg/dL
--- NOTE | 2024-08-21 12:28 | P.PNGS_ITS ---
Progress Note: A&P Assessment and Plan (1) Abdominal abscess: Status: Acute Assessment and Plan: Patient is feeling well today with no abdominal pain, nausea, or vomiting. WBC decreased to 9.6. Afebrile overnight. Abd US demonstrated cholelithiasis with no evidence of cholecystitis. Normal HIDA scan. Upper GI series showed transit time to ileocolic anastomosis of 15 minutes with no evident anastomotic leak. Abscess culture still preliminary, but growth shows many white cells and mixed bacterial milo of questionable clinical significance. Continue IV Zosyn and monitor drain output. Ok to go back to low fiber diet. (2) History of partial surgical removal of colon: Onset Date: 06/21/24 Code(s): Z90.49 - Acquired absence of other specified parts of digestive tract Status: Chronic Assessment and Plan: This was for benign polyp. Certainly anastomotic leak is considered but water- soluble contrast enema was negative. (3) Cholelithiasis: Qualifiers: Cholelithiasis location: gallbladder Cholecystitis presence: without cholecystitis Biliary obstruction: without biliary obstruction Qualified Code(s): K80.20 - Calculus of gallbladder without cholecystitis without obstruction Code(s): K80.20 - Calculus of gallbladder without cholecystitis without obstruction Status: Chronic Assessment and Plan: Ultrasound today (4) Barretts esophagus: Qualifiers: Villalobos's esophagus type: without dysplasia Qualified Code(s): K22.70 - Villalobos's esophagus without dysplasia Code(s): K22.70 - Villalobos's esophagus without dysplasia Status: Chronic Assessment and Plan: Continue anti-reflux medication (5) BPH with obstruction/lower urinary tract symptoms: Code(s): N40.1 - Benign prostatic hyperplasia with lower urinary tract symptoms; N13.8 - Other obstructive and reflux uropathy Status: Acute Assessment and Plan: Continue Flomax Subjective Subjective Date/Time Seen: 08/21/24 12:28 Interval history: Patient is feeling well today. Minimal output from drain (50 mL since last n ight). No nausea, vomiting, or abdominal pain aside from some mild tenderness around drain site. Patient tolerated abd US, HIDA, and Upper GI series well. He is having frequent bowel movements. WBC count back down to 9.6. Afebrile. Exam GI: Inspection: non-distended, scaphoid, scar, no visible herniation and other (RUQ drain with serosanguineous output) Auscultation: normal bowel sounds and normoactive bowel sounds Other: Percutaneous drain with minimal serosanguineous output Objective Data Vital Signs Vital Signs: Vital Signs - 24 hr 08/20/24 14:00 08/20/24 21:55 08/21/24 06:00 Temperature 97.8 F 97.0 F L 97.6 F Pulse Rate 55 L 71 68 Respiratory Rate 16 20 20 Blood Pressure 109/70 120/65 119/62 Pulse Oximetry 99 100 100 08/21/24 10:36 Temperature Pulse Rate 68 Respiratory Rate Blood Pressure Pulse Oximetry Intake/Output Intake/Output: Intake & Output 08/18/24 08/19/24 08/20/24 08/21/24 23:59 23:59 23:59 23:59 Intake Total 3077.3 1130 1480 100 Output Total 60 1 50 Balance 3017.3 1129 1480 50 Meds/Results Medications: Active Medications Generic Name Dose Route Start Last Admin Trade Name Freq PRN Reason Stop Dose Admin Acetaminophen 500 mg 08/16/24 17:05 Acetaminophen 500 Mg Tablet PO Q6H PRN Pain Rated 1-3 Fentanyl Citrate 12.5 mcg 08/16/24 09:16 Fentanyl Citrate Inj (*Crx) 100 Mcg/2 Ml Vial IV PUSH Q2H PRN Breakthrough Pain Rated 4-6 or NPO Fentanyl Citrate 25 mcg 08/16/24 09:16 Fentanyl Citrate Inj (*Crx) 100 Mcg/2 Ml Vial IV PUSH Q2H PRN Breakthrough Pain Rated 7-10 or NPO Hydrochlorothiazide 12.5 mg 08/17/24 09:00 08/21/24 10:35 Hydrochlorothiazide 12.5 Mg Capsule PO 12.5 mg DAILY JORDY Administration Ibuprofen 800 mg in 200 mls @ 400 mls/hr 08/16/24 09:16 Caldolor 800 Mg/200 Ml IVPB Q6H PRN Breakthrough Pain Rated 1-3 or NPO Piperacillin Sod/Tazobactam Sod 4.5 gm in 100 mls @ 200 mls/hr 08/16/24 15:00 08/21/24 10:36 Zosyn 4.5 Gm/Ns 100 Ml IVPB 200 mls/hr Q6H JORDY Administration Losartan Potassium 25 mg 08/17/24 09:00 08/21/24 10:36 Losartan Potassium 25 Mg Tablet BY MOUTH 25 mg DAILY JORDY Administration Metoprolol Succinate 50 mg 08/17/24 09:00 08/21/24 10:36 Metoprolol Succinate Ext Rel 50 Mg Tabcr PO 50 mg DAILY [facility] Administration Naloxone HCl 0.1 mg 08/16/24 09:16 Naloxone Hcl 0.4 Mg/Ml Vial IV PUSH Q2M PRN Opiate Reversal Nonform Lansoprazole 1 each 08/18/24 08:25 08/21/24 05:[address] Cap PO 09/17/24 08:24 1 each DAILY@0630 JORDY Administration Ondansetron HCl 4 mg 08/16/24 09:16 Ondansetron Inj 4 Mg/2 Ml Vial IV PUSH Q4H PRN Nausea And Vomiting Oxycodone/Acetaminophen 1 tablet 08/16/24 17:05 Oxycodone/Acetaminophen (*Crx) 5-325 Mg Tablet PO Q4H PRN Pain Rated 4-6 Potassium Chloride 20 meq 08/17/24 09:00 08/21/24 10:36 Potassium Chloride 20 Meq Er Tablet PO 20 meq DAILY [facility] Administration Simvastatin 20 mg 08/17/24 09:00 08/21/24 10:36 Simvastatin 20 Mg Tablet PO 20 mg DAILY [facility] Administration Sodium Chloride 10 ml 08/17/24 14:00 08/21/24 05:30 Central Line Flush IV PUSH 10 ml Q8HR JORDY Administration Sodium Chloride 10 ml 08/17/24 11:43 Central Line Flush IV PUSH PRN PRN with TPN bag changes Sodium Chloride 20 ml 08/17/24 11:43 08/19/24 05:57 Central Line Flush IV PUSH 20 ml PRN PRN Administration after blood draws Tamsulosin HCl 0.4 mg 08/17/24 09:00 08/21/24 10:36 Tamsulosin Hcl 0.4 Mg Capsule PO 0.4 mg QAM [facility] Administration Vitamin D 125 mcg 08/22/24 09:00 Cholecalciferol (Vitamin D3) 125 Mcg (5,000 Units) Tablet BY MOUTH DAILY [facility] Vitamin E 400 unit 08/19/24 09:00 08/21/24 10:35 Vitamin E 400 Unit Capsule PO 400 unit MoWeFr@0900 [facility] Administration Radiology Results: ITS Impressions Catheter Placement CT 08/16/24 14:34 IMPRESSION: 1. Successful CT-guided right lower quadrant abscess drainage catheter placement. 2. 50 mL fluid was sent for aerobic and anaerobic cultures. 3. The catheter will be managed by Dr. Huang. Renal Ultrasound 08/17/24 11:18 IMPRESSION: 1. Unchanged 7 mm nonobstructing stone at the lower pole the left kidney and mild left hydronephrosis. Enema w/Water Soluble 08/17/24 14:11 IMPRESSION: 1. Patent right ileocolic anastomosis in the right abdomen without evident extraperitoneal leakage of contrast. 2. Diverticulosis along the sigmoid colon. 3. Cholelithiasis. 4. Left nephrolithiasis. 4. Right lower quadrant percutaneous abscess drain. Abdomen/Pelvis CT 08/20/24 07:09 Impression: Status post interval percutaneous drainage of previously noted large abscess which is markedly improved. Probable small residual abscess present. Correlate with tube output. Left hydronephrosis with nonobstructing left lower pole renal stone. Cholelithiasis. Stable small to moderate right pleural effusion. Abdomen Ultrasound 08/21/24 08:59 IMPRESSION: Cholelithiasis, without ultrasound evidence of cholecystitis. Hepatomegaly, unchanged Hepatobiliary Scan Nuclear Medicine 08/21/24 10:00 IMPRESSION: 1. Normal HIDA scan. Upper GI Series 08/21/24 11:05 IMPRESSION: 1. Transit time to the ileocolic anastomosis with 15 minutes with no evident anastomotic leak. 2. Cholelithiasis. 3. Expected appearance of the right lower quadrant percutaneous abscess drain. Labs Labs: Laboratory Results - last 24 hr 08/21/24 08/21/24 05:23 10:52 WBC 9.6 RBC 3.38 L Hgb 9.3 L Hct 29.6 L MCV 87.6 MCH 27.5 MCHC 31.4 L RDW 17.5 H Plt Count 569 H MPV 9.5 Immature Gran % (Auto) 0.9 H Neut % (Auto) 71.4 Lymph % (Auto) 16.0 L [place] % (Auto) 7.2 Eos % (Auto) 4.2 Baso % (Auto) 0.3 Lymph # (Auto) 1.54 [place] # (Auto) 0.7 H Eos # (Auto) 0.4 H Baso # (Auto) 0.0 Abs Immat Gran (auto) 0.09 H Absolute Neuts (auto) 6.9 H Absolute Nucleated RBC 0.000 Nucleated RBC % 0.0 Sodium 136 L Potassium 3.5 Chloride 104 Carbon Dioxide 31 H Anion Gap 1 L BUN 10 Creatinine 0.59 L Estim Creat Clear Calc 105 Estimated GFR > 60 Glucose 81 Calcium 8.0 L C-Reactive Protein 2.7 H Urine Creatinine < 3.2
[2024-08-21 14:00] VITALS: BP 128/77; PULSE 71; RESP 16; TEMP 36.6; O2SAT 97
--- NOTE | 2024-08-21 14:47 | P.PNIM_ITS ---
Progress Note: A&P Assessment and Plan (1) Abdominal abscess: Status: Acute Assessment and Plan: Right colectomy with hand-sewn anastomosis 06/21/2024 complicated by fluid collection status post IR drainage and completion of 14 days of antibiotics. Re peat CT scan shows a large midabdominal/infrahepatic abscess with suspicion of a tract or fistula extending from the sigmoid colon to the abscess. * Drain placed per IR on 08/16/2024, managed by surgery. * Gram stain and wound culture are pending. * Discussed with ID pharmacist who recommends piperacillin-tazobactam 4.5 g q.6 hours for now. 08/18 * Contrast enema showed no bowel leakage * Continue current management * Pt reports symptoms are best they've been since June 21 surgery 08/19 * Pain continues to improve * Endorses less bloating * Tolerating low-fiber diet + Ensure supplements * Elevated WBC and LFTs, will add CT abdomen/pelvis with contrast 08/20 * Upper GI w/ SB follow-thru and RUQ US to r/o other abdominal infection * Pain and diet continues to improve * WBC and LFTs improving 08/21 * However GI did not show a leak * General surgery continues to follow manage * WBCs better today 9.6 * Continue Zosyn (2) Pleural effusion on right: Code(s): J90 - Pleural effusion, not elsewhere classified Status: Acute Assessment and Plan: CT scan shows a moderate-size right-sided pleural effusion. I suspect that this is inflammatory/reactive in nature. He is not hypoxic and is not symptomatic at this juncture. * Avoid over-hydration. * Continue to monitor clinically. * Consider thoracentesis if worsening or change in condition. 08/17 * Symptoms improving today * Ambulating w/o weakness or SOB * Physical exam improved 08/18 * Ambulating throughout room without any SOB * Physical exam benign 08/19 * Physical exam remains benign, denies any shortness of breath 08/20 * Abd/Pelvis CT: Stable small to moderate right pleural effusion. 08/21 * Stable (3) Hydronephrosis of left kidney: Code(s): N13.30 - Unspecified hydronephrosis Status: Acute Assessment and Plan: Mild left hydronephrosis and nonobstructing renal stone on CT. Possibly related to large abdominal abscess. Bladder does not feel particularly distended though he has a history of difficulties urinating for which he takes tamsulosin. * Bladder scan now and p.r.n. to rule out urinary retention. * Renal ultrasound tomorrow to see if there is any change. * Urology consult * No intervention indicated at this time' * Continue Tamsulosin * No indication for perez * No changes (4) Essential (primary) hypertension: Code(s): I10 - Essential (primary) hypertension Status: Chronic Assessment and Plan: Blood pressures were reviewed and they are stable. * Monitor closely as he is currently NPO. * BPs stable (5) Barretts esophagus: Qualifiers: Villalobos's esophagus type: without dysplasia Qualified Code(s): K22.70 - Villalobos's esophagus without dysplasia Code(s): K22.70 - Villalobos's esophagus without dysplasia Status: Chronic Assessment and Plan: * Change p.o. lansoprazole to pantoprazole IV daily as long as he is NPO. (6) Benign prostatic hyperplasia: Code(s): N40.0 - Benign prostatic hyperplasia without lower urinary tract symptoms Status: Acute Assessment and Plan: * Bladder scan x1 then p.r.n. to rule out retention and continue tamsulosin. * Urology consultation * Continue Tamsulosin * No changes/concerns (7) Severe protein-calorie malnutrition: Code(s): E43 - Unspecified severe protein-calorie malnutrition Status: Acute Assessment and Plan: - Consult dietary, appreciate further recommendations Time Spent With Patient Time with patient: Greater than 35 minutes Subjective Date/time seen: 08/21/24 14:47 Interval history: Rylan Caro is a 68 year old male with HTN, hyperlipidemia, BPH , and Villalobos esophagus who was directly admitted to the hospital today under the general surgery service for treatment of abdominal abscess. 08/20/2024 Pt sitting comfortably at bedside. Denies any CP, SOB, n/v at this time. Still has some slight abdominal tenderness at the drain site, but otherwise patient reports continued improved pain. Patient continues to eat well. General surgery to order RUQ ultrasound and upper GI with small-bowel follow-through today for other possible sources of abdominal infection. 08/21/2024 Patient is still doing okay. Patient is still having diarrhea however is denying any chest pain, shortness a breath, nausea, vomiting, diarrhea constipation. Labs and vital signs appear stable. Review of Systems Review of Systems: 12 systems were reviewed and are negativ e except for as per HPI. All systems reviewed & are unremarkable except as noted in HPI and below Exam Narrative: General: Mildly ill-appearing male supine in bed. Weight: 78 kg. BMI: 24.0. HEENT: PERRL, EOMI. Sclera anicteric. Tacky mucous membranes. Neck: Supple. Respiratory: Clear to auscultation. Cardiovascular: Regular rate and rhythm with S1-S2. Gastrointestinal: Slight abdominal tenderness to palpitation in RLQ, near drain site. Abdomen is soft with slightly hypoactive bowel sounds. IR placed drain contains bloody colored fluid. Skin: Warm and dry. Generalized pallor. Extremities: No cyanosis, clubbing, or edema. Radial and pedal pulses intact. Neurological: Alert. Cranial nerves 2-12 are grossly intact. No gross focal deficits to casual conversation. Psychiatric: Pleasant and cooperative with normal mood and affect. Objective Data Vital Signs Vital Signs: Vital Signs - 24 hr 08/20/24 21:55 08/21/24 06:00 08/21/24 10:15 Temperature 97.0 F L 97.6 F Pulse Rate 71 68 Respiratory Rate 20 20 Blood Pressure 120/65 119/62 Pulse Oximetry 100 100 Oxygen Delivery Room Air 08/21/24 10:36 Temperature Pulse Rate 68 Respiratory Rate Blood Pressure Pulse Oximetry Oxygen Delivery Intake/Output Intake/Output: Intake & Output 08/18/24 08/19/24 08/20/24 08/21/24 23:59 23:59 23:59 23:59 Intake Total 3077.3 1130 1480 440 Output Total 60 1 50 Balance 3017.3 1129 1480 390 Meds/Results Medications: Active Medications Generic Name Dose Route Start Last Admin Trade Name Freq PRN Reason Stop Dose Admin Acetaminophen 500 mg 08/16/24 17:05 Acetaminophen 500 Mg Tablet PO Q6H PRN Pain Rated 1-3 Fentanyl Citrate 12.5 mcg 08/16/24 09:16 Fentanyl Citrate Inj (*Crx) 100 Mcg/2 Ml Vial IV PUSH Q2H PRN Breakthrough Pain Rated 4-6 or NPO Fentanyl Citrate 25 mcg 08/16/24 09:16 Fentanyl Citrate Inj (*Crx) 100 Mcg/2 Ml Vial IV PUSH Q2H PRN Breakthrough Pain Rated 7-10 or NPO Hydrochlorothiazide 12.5 mg 08/17/24 09:00 08/21/24 10:35 Hydrochlorothiazide 12.5 Mg Capsule PO 12.5 mg DAILY JORDY Administration Ibuprofen 800 mg in 200 mls @ 400 mls/hr 08/16/24 09:16 Caldolor 800 Mg/200 Ml IVPB Q6H PRN Breakthrough Pain Rated 1-3 or NPO Piperacillin Sod/Tazobactam Sod 4.5 gm in 100 mls @ 200 mls/hr 08/16/24 15:00 08/21/24 14:20 Zosyn 4.5 Gm/Ns 100 Ml IVPB 200 mls/hr Q6H JORDY Administration Losartan Potassium 25 mg 08/17/24 09:00 08/21/24 10:36 Losartan Potassium 25 Mg Tablet BY MOUTH 25 mg DAILY JORDY Administration Metoprolol Succinate 50 mg 08/17/24 09:00 08/21/24 10:36 Metoprolol Succinate Ext Rel 50 Mg Tabcr PO 50 mg DAILY JORDY Administration Naloxone HCl 0.1 mg 08/16/24 09:16 Naloxone Hcl 0.4 Mg/Ml Vial IV PUSH Q2M PRN Opiate Reversal Nonform Lansoprazole 1 each 08/18/24 08:25 08/21/24 05:[address] Cap PO 09/17/24 08:24 1 each DAILY@0630 JORDY Administration Ondansetron HCl 4 mg 08/16/24 09:16 Ondansetron Inj 4 Mg/2 Ml Vial IV PUSH Q4H PRN Nausea And Vomiting Oxycodone/Acetaminophen 1 tablet 08/16/24 17:05 Oxycodone/Acetaminophen (*Crx) 5-325 Mg Tablet PO Q4H PRN Pain Rated 4-6 Potassium Chloride 20 meq 08/17/24 09:00 08/21/24 10:36 Potassium Chloride 20 Meq Er Tablet PO 20 meq DAILY JORDY Administration Simvastatin 20 mg 08/17/24 09:00 08/21/24 10:36 Simvastatin 20 Mg Tablet PO 20 mg DAILY JORDY Administration Sodium Chloride 10 ml 08/17/24 14:00 08/21/24 14:33 Central Line Flush IV PUSH 10 ml Q8HR JORDY Administration Sodium Chloride 10 ml 08/17/24 11:43 Central Line Flush IV PUSH PRN PRN with TPN bag changes Sodium Chloride 20 ml 08/17/24 11:43 08/19/24 05:57 Central Line Flush IV PUSH 20 ml PRN PRN Administration after blood draws Tamsulosin HCl 0.4 mg 08/17/24 09:00 08/21/24 10:36 Tamsulosin Hcl 0.4 Mg Capsule PO 0.4 mg QAM JORDY Administration Vitamin D 125 mcg 08/22/24 09:00 Cholecalciferol (Vitamin D3) 125 Mcg (5,000 Units) Tablet BY MOUTH DAILY [facility] Vitamin E 400 unit 08/19/24 09:00 08/21/24 10:35 Vitamin E 400 Unit Capsule PO 400 unit MoWeFr@0900 [facility] Administration Radiology Results: ITS Impressions Catheter Placement CT 08/16/24 14:34 IMPRESSION: 1. Successful CT-guided right lower quadrant abscess drainage catheter placement. 2. 50 mL fluid was sent for aerobic and anaerobic cultures. 3. The catheter will be managed by Dr. Huang. Renal Ultrasound 08/17/24 11:18 IMPRESSION: 1. Unchanged 7 mm nonobstructing stone at the lower pole the left kidney and mild left hydronephrosis. Enema w/Water Soluble 08/17/24 14:11 IMPRESSION: 1. Patent right ileocolic anastomosis in the right abdomen without evident extraperitoneal leakage of contrast. 2. Diverticulosis along the sigmoid colon. 3. Cholelithiasis. 4. Left nephrolithiasis. 4. Right lower quadrant percutaneous abscess drain. Abdomen/Pelvis CT 08/20/24 07:09 Impression: Status post interval percutaneous drainage of previously noted large abscess which is markedly improved. Probable small residual abscess present. Correlate with tube output. Left hydronephrosis with nonobstructing left lower pole renal stone. Cholelithiasis. Stable small to moderate right pleural effusion. Abdomen Ultrasound 08/21/24 08:59 IMPRESSION: Cholelithiasis, without ultrasound evidence of cholecystitis. Hepatomegaly, unchanged Hepatobiliary Scan Nuclear Medicine 08/21/24 10:00 IMPRESSION: 1. Normal HIDA scan. Upper GI Series 08/21/24 11:05 IMPRESSION: 1. Transit time to the ileocolic anastomosis with 15 minutes with no evident anastomotic leak. 2. Cholelithiasis. 3. Expected appearance of the right lower quadrant percutaneous abscess drain. Labs Labs: Laboratory Results - last 24 hr 08/21/24 08/21/24 05:23 10:52 WBC 9.6 RBC 3.38 L Hgb 9.3 L Hct 29.6 L MCV 87.6 MCH 27.5 MCHC 31.4 L RDW 17.5 H Plt Count 569 H MPV 9.5 Immature Gran % (Auto) 0.9 H Neut % (Auto) 71.4 Lymph % (Auto) 16.0 L [place] % (Auto) 7.2 Eos % (Auto) 4.2 Baso % (Auto) 0.3 Lymph # (Auto) 1.54 [place] # (Auto) 0.7 H Eos # (Auto) 0.4 H Baso # (Auto) 0.0 Abs Immat Gran (auto) 0.09 H Absolute Neuts (auto) 6.9 H Absolute Nucleated RBC 0.000 Nucleated RBC % 0.0 Sodium 136 L Potassium 3.5 Chloride 104 Carbon Dioxide 31 H Anion Gap 1 L BUN 10 Creatinine 0.59 L Estim Creat Clear Calc 105 Estimated GFR > 60 Glucose 81 Calcium 8.0 L C-Reactive Protein 2.7 H Urine Creatinine < 3.2 Quality VTE Prophylaxis VTE prophylaxis: mechanical ordered
[2024-08-21 20:33] VITALS: BP 129/67; PULSE 74; RESP 18; TEMP 36.4; O2SAT 100
[2024-08-22] MEDS: PIPERACILLIN/TAZ 4.5G/NS 100ML 4.5 GM/100 ML BAG IVPB ×2 (03:58→08:22)
[2024-08-22] MEDS: LANSOPRAZOLE 30 MG 1 EACH PO (05:33)
[2024-08-22] MEDS: CENTRAL LINE FLUSH 10 ML IV PUSH (05:33)
[2024-08-22 05:51] LABS: Basophils Percent Auto 0.4 % (0.2-1.2); Eosinophils Absolute Auto 0.4 K/mm3 (0-0.3); Eosinophils Percent Auto 4.5 % (0-4.4); Hematocrit 31.3 % (42.0-52.0); Hemoglobin 9.7 g/dL (14.0-18.0); Immature Granulocyte Absolute 0.05 K/mm3 (0.00-0.031); Immature Granulocyte Percent A 0.6 % (0-0.5); Lymphocytes Absolute Auto 1.65 K/mm3 (0.9-3.2); Lymphocytes Percent Auto 20.5 % (18.3-44.2); Mean Corpuscular Hemoglobin 27.2 pg (26-34); Mean Corpuscular Volume 87.7 fl (80-100); Mean Platelet Volume 9.6 fl (7.4-10.4); Monocytes Absolute Auto 0.6 K/mm3 (0.1-0.6); Monocytes Percent Auto 7.6 % (2.6-8.5); Neutrophils Absolute Auto 5.4 K/mm3 (1.3-6.7); Neutrophils Percent Auto 66.4 % (45.5-73.1); Platelet Count Result 621 k/mm3 (150-375); Red Blood Count 3.57 M/mm3 (4.6-6.20); Red Cell Distribution Width 17.6 % (11.5-14.5); White Blood Count 8.1 K/mm3 (4.5-10.0)
[2024-08-22 05:59] LABS: Alanine Aminotransferase 24 U/L (6-50); Albumin Level 2.7 g/dL (3.5-5.1); Alkaline Phosphatase 177 U/L (38-126); Anion Gap 2 mmol/L (4-12); Aspartate Amino Transferase 31 U/L (17-59); Bilirubin,Total 0.2 mg/dL (0.2-1.3); Blood Urea Nitrogen 9 mg/dL (9-20); Calcium 8.4 mg/dL (8.4-10.2); Carbon Dioxide 30 mmol/L (22-30); Chloride 103 mmol/L (98-107); Estimated CRCL calculation 102 ml/min; Estimated Glomerular Filt Rate > 60; Glucose 75 mg/dL (65-110); Potassium 3.6 mmol/L (3.4-5.0); Sodium 135 mmol/L (137-145)
[2024-08-22 06:00] VITALS: BP 131/60; PULSE 64; RESP 18; TEMP 36.3; O2SAT 100
--- NOTE | 2024-08-22 08:17 | P.DS_ITS ---
DS: Admitting Diagnosis Discharge Date 08/22/2024 Admitting Diagnosis * Recurrent abdominal abscess * History right colectomy 06/21/2024 * BPH with lower urinary tract symptoms * Gallstones * Barretts esophagus and GERD * Essential hypertension DS: Discharge Diagnosis Discharge Diagnosis (1) Abdominal abscess: Status: Acute (2) History of partial surgical removal of colon: Onset Date: 06/21/24 Code(s): Z90.49 - Acquired absence of other specified parts of digestive tract Status: Chronic (3) Cholelithiasis: Qualifiers: Cholelithiasis location: gallbladder Cholecystitis presence: without cholecystitis Biliary obstruction: without biliary obstruction Qualified Code(s): K80.20 - Calculus of gallbladder without cholecystitis without obstruction Code(s): K80.20 - Calculus of gallbladder without cholecystitis without obstruction Status: Chronic (4) Barretts esophagus: Qualifiers: Villalobos's esophagus type: without dysplasia Qualified Code(s): K22.70 - Villalobos's esophagus without dysplasia Code(s): K22.70 - Villalobos's esophagus without dysplasia Status: Chronic (5) Severe protein-calorie malnutrition: Code(s): E43 - Unspecified severe protein-calorie malnutrition Status: Acute (6) BPH with obstruction/lower urinary tract symptoms: Code(s): N40.1 - Benign prostatic hyperplasia with lower urinary tract symptoms; N13.8 - Other obstructive and reflux uropathy Status: Acute (7) Essential (primary) hypertension: Code(s): I10 - Essential (primary) hypertension Status: Chronic (8) Anemia, chronic disease: Code(s): D63.8 - Anemia in other chronic diseases classified elsewhere Status: Acute DS: Summary Hospital Course Hospital Course: Patient is a 68-year-old man who was found to have a benign polyp in the ascending colon. He underwent hand access laparoscopic right colectomy on 06/21/2024. He did well after the surgery and went home on postop day 2., 06/23/2024. Pathology showed a tubulovillous adenoma. Patient then developed an abdominal abscess and was readmitted on 07/19/2024. This was about a month after his surgery. He had an a mid abdominal abscess drained initially. This was done on the day of admission 07/19/2024 and grew E coli as well as Bacteroides fragilis. He had a 2nd drain placed to drain a pelvic fluid collection on 07/23/2024. Cultures of this collection did not grow any bacteria but did show white blood cells. Patient improved and was discharged on 07/26/2024. His white blood cell count had been almost 30,000 on admission and was decreased to 13,000 on discharge. He received Zosyn antibiotics in the hospital and was discharged on 1 week of Augmentin. After discharge patient was seen in the office within a week. His remaining pigtail catheter drain was removed. He seemed to be doing well. He followed up with his primary care provider, Dr. Silva, and was not feeling well. Dr. Silva checked a CBC and found his white blood cell count had increased to 21,000. This information was sent to me and a CT scan of the abdomen and pelvis was repeated. This showed a recurrent abdominal abscess in the upper central abdomen. Patient had this abscess drained again using CT guidance and percutaneous technique. He was again placed on Zosyn antibiotics. Cultures from the fluid drained showed a mixed grouping of bacteria. No isolates were created. I discussed this with Dr. Cota, pathologist, and after talking with [facility], they will go ahead and try to isolate bacteria from the abscess culture. Reports of the culture fluid showed that it had a foul odor and was obviously purulent. After the initial 24 hours or less, only serosanguineous fluid was draining from the pigtail catheter. The patient was again treated with Zosyn and improved. He had a PICC line placed and started on TPN as he and has reported on admission that he had not been eating well at all. This turned around right away after the abscess was drained and patient was eating well with eating supplements. TPN was discontinued after 48 hours and his nutrition was monitored by the dietitian. Calories were quite adequate with oral intake. Patient had an extensive workup to evaluate the source of this recurrent abscess. He had a ewa er-soluble contrast enema that looked very closely at his prior ileocolonic anastomosis as this would be the most likely source of persistent leakage causing abscess. No evidence of a leak here was seen although it was looked at very carefully on the study. Patient also was known to have gallstones. He had an ultrasound as well as a HIDA scan. The gallstones were verified but there was no evidence of cholecystitis or particularly gallbladder perforation. He had an upper GI with small-bowel series. This did not show any source of the leak either. Both on his 1st admission and again on this admission, fluid from the pigtail catheter was sent for creatinine, looking for a potential urinary leak. On both the 1st admission and this admission, the creatinine level was less than 3.2 which is negative. Patient has improved significantly. He had a repeat CT scan 3 days ago which was negative for any recurrent abscess. His white blood cell count is now in the normal range at 8100. He remains anemic but stable. His drain is putting out serosanguineous fluid in small amounts. The cultures are not back as far as [facility] culturing for isolates. He is discharged today on regular diet with supplements and to continue oral antibiotics for 1 week. He will also have his drain left in place and will be monitoring any output. Status at Discharge Functional status at discharge: independent ambulation Overall status at discharge: patient is progressing back to baseline Time Spent with Patient Time attestation: Total time spent providing and/or coordinating discharge services: Time spent: Less than 30 minutes DS: Data Data Completed and Pending Labs on day of discharge: Labs from last 24 hours 08/22/24 08/21/24 05:44 10:52 WBC 8.1 RBC 3.57 L Hgb 9.7 L Hct 31.3 L MCV 87.7 MCH 27.2 MCHC 31.0 L RDW 17.6 H Plt Count 621 H MPV 9.6 Immature Gran % (Auto) 0.6 H Neut % (Auto) 66.4 Lymph % (Auto) 20.5 [place] % (Auto) 7.6 Eos % (Auto) 4.5 H Baso % (Auto) 0.4 Lymph # (Auto) 1.65 [place] # (Auto) 0.6 Eos # (Auto) 0.4 H Baso # (Auto) 0.0 Abs Immat Gran (auto) 0.05 H Absolute Neuts (auto) 5.4 Absolute Nucleated RBC 0.000 Nucleated RBC % 0.0 Sodium 135 L Potassium 3.6 Chloride 103 Carbon Dioxide 30 Anion Gap 2 L BUN 9 Creatinine 0.61 L Estim Creat Clear Calc 102 Estimated GFR > 60 Glucose 75 Calcium 8.4 Total Bilirubin 0.2 AST 31 ALT 24 Alkaline Phosphatase 177 H Total Protein 6.0 L Albumin 2.7 L Urine Creatinine < 3.2 Preliminary micro results at discharge 08/16/24 13:29 Anaerobic Culture - Preliminary Abscess Discharge Plan Discharge Attending physician on discharge: Ruddy Huang Consulting providers: Azul Daniel; Ernesto Brar; Panchito Guthrie Discharging Clinician: Ruddy Huang Anticipated Discharge Date/Time: 08/22/24 08:34 Patient Disposition: Home Activity: may shower, no straining and as tolerated Diet: regular Wound Care Instructions: other - see discharge instructions Discharge Instructions: * Ambulate 3-4 x per day and as tolerated. Take short walks, do not over do it. * No lifting over 15-20lbs. * May bathe or shower over drain dressing. * Stairs are OK. * May drive a car tomorrow. * If any problems with the dressing over the drain, call Dr. Muhammad office. The dressing can be replaced. * Empty right-sided pigtail drain and record output in mL on a 24 hour basis. Bring this record of daily drain outputs to Dr. Muhammad office visit on , 09/02/2024. * Take Tylenol or Advil as needed for pain. * Take antibiotics, Levaquin and metronidazole, until they are gone. * Continue home medications. * Call for severe abdominal pain, drain problems, nausea and vomiting, temp over 100.5?, or other significant change in condition. Patient Instructions: Antibiotic Form Patient Language: Faroese Stand Alone Forms: General Discharge Information Follow-up/Referrals: Ruddy Huang MD [Physician] - 09/02/24 (Call Dr. Muhammad office to make an appointment) Discharge Medications: New levofloxacin 750 mg tablet 750 mg PO DAILY Qty: 7 0RF metronidazole 500 mg tablet 500 mg PO TID Qty: 20 0RF Continued cholecalciferol (vitamin D3) 125 mcg (5,000 unit) capsule 5,000 unit PO DAILY vitamin E mixed 400 unit capsule 400 unit PO 3XW lansoprazole 15 mg capsule,delayed release(DR/EC) 15 mg PO HS PRN (Reason: indigestion) tamsulosin 0.4 mg Capsule 0.4 mg PO QAM Qty: 30 3RF potassium chloride 20 mEq tablet extended release 20 meq PO DAILY Qty: 14 0RF metoprolol succinate 50 mg tablet extended release 24 hr See Rx Instructions .ROUTE .COMPLEX Qty: 90 3RF Dose Instruction: TAKE 1 TABLET BY MOUTH EVERY DAY Patient Comments: HS Rx Instructions: TAKE 1 TABLET BY MOUTH EVERY DAY hydrochlorothiazide 25 mg tablet 12.5 mg PO DAILY Qty: 45 2RF Patient Comments: QAM simvastatin 20 mg tablet 20 mg PO DAILY Qty: 90 2RF Patient Comments: HS losartan 25 mg tablet See Rx Instructions .ROUTE .COMPLEX Qty: 90 2RF Dose Instruction: TAKE 1 TABLET BY MOUTH EVERY DAY Patient Comments: QAM Rx Instructions: TAKE 1 TABLET BY MOUTH EVERY DAY lansoprazole 30 mg capsule,delayed release(DR/EC) 30 mg PO DAILY Qty: 90 2RF Other Ambulatory Orders: Complete Blood Count with Diff (Routine) Timeframe: 20240829 Location: Determined by Patient Ordered By: Ruddy Huang Comprehensive Metabolic Panel (Routine) Timeframe: 20240829 Location: Determined by Patient Ordered By: Ruddy Huang CRP (Routine) Timeframe: 20240829 Location: Determined by Patient Ordered By: Ruddy Huang Date of admission: 08/16/24 09:16 Primary Care Provider: Nicola Silva Admitting Provider: Ruddy Huang Attending physician on admission: Ruddy Huang Condition: Improved
[2024-08-22 08:22] VITALS: PULSE 64
[2024-08-22] MEDS: hydroCHLOROthiazide 12.5 MG CAPSULE PO (08:22)
[2024-08-22] MEDS: METOPROLOL SUCCINATE EXT REL 50 MG TABCR PO (08:22)
[2024-08-22] MEDS: SIMVASTATIN 20 MG TABLET PO (08:22)
[2024-08-22] MEDS: LOSARTAN POTASSIUM 25 MG TABLET BY MOUTH (08:22)
[2024-08-22] MEDS: CHOLECALCIFEROL (VITAMIN D3) 125 MCG (5,000 UNITS) TABLET BY MOUTH (08:22)
[2024-08-22] MEDS: POTASSIUM CHLORIDE 20 MEQ ER TABLET PO (08:22)
[2024-08-22] MEDS: TAMSULOSIN HCL 0.4 MG CAPSULE PO (08:22)
--- NOTE | 2024-08-22 09:48 | P.PNIM_ITS ---
Progress Note: A&P Assessment and Plan (1) Abdominal abscess: Status: Acute Assessment and Plan: Right colectomy with hand-sewn anastomosis 06/21/2024 complicated by fluid collection status post IR drainage and completion of 14 days of antibiotics. Re peat CT scan shows a large midabdominal/infrahepatic abscess with suspicion of a tract or fistula extending from the sigmoid colon to the abscess. * Drain placed per IR on 08/16/2024, managed by surgery. * Gram stain and wound culture are pending. * Discussed with ID pharmacist who recommends piperacillin-tazobactam 4.5 g q.6 hours for now. 08/18 * Contrast enema showed no bowel leakage * Continue current management * Pt reports symptoms are best they've been since June 21 surgery 08/19 * Pain continues to improve * Endorses less bloating * Tolerating low-fiber diet + Ensure supplements * Elevated WBC and LFTs, will add CT abdomen/pelvis with contrast 08/20 * Upper GI w/ SB follow-thru and RUQ US to r/o other abdominal infection * Pain and diet continues to improve * WBC and LFTs improving 08/21 * However GI did not show a leak * General surgery continues to follow manage * WBCs better today 9.6 * Continue Zosyn 08/22 * Doing better * Drain until follow up with surgery * Continue antibiotics accordingly (2) Pleural effusion on right: Code(s): J90 - Pleural effusion, not elsewhere classified Status: Acute Assessment and Plan: CT scan shows a moderate-size right-sided pleural effusion. I suspect that this is inflammatory/reactive in nature. He is not hypoxic and is not symptomatic at this juncture. * Avoid over-hydration. * Continue to monitor clinically. * Consider thoracentesis if worsening or change in condition. 08/17 * Symptoms improving today * Ambulating w/o weakness or SOB * Physical exam improved 08/18 * Ambulating throughout room without any SOB * Physical exam benign 08/19 * Physical exam remains benign, denies any shortness of breath 08/20 * Abd/Pelvis CT: Stable small to moderate right pleural effusion. 08/21 * Stable 08/22 * Remains stable (3) Hydronephrosis of left kidney: Code(s): N13.30 - Unspecified hydronephrosis Status: Acute Assessment and Plan: Mild left hydronephrosis and nonobstructing renal stone on CT. Possibly related to large abdominal abscess. Bladder does not feel particularly distended though he has a history of difficulties urinating for which he takes tamsulosin. * Bladder scan now and p.r.n. to rule out urinary retention. * Renal ultrasound tomorrow to see if there is any change. * Urology consult * No intervention indicated at this time' * Continue Tamsulosin * No indication for perez * No changes (4) Essential (primary) hypertension: Code(s): I10 - Essential (primary) hypertension Status: Chronic Assessment and Plan: Blood pressures were reviewed and they are stable. * Monitor closely as he is currently NPO. * BPs stable * Current BP 131/60 (5) Barretts esophagus: Qualifiers: Villalobos's esophagus type: without dysplasia Qualified Code(s): K22.70 - Villalobos's esophagus without dysplasia Code(s): K22.70 - Villalobos's esophagus without dysplasia Status: Chronic Assessment and Plan: * Change p.o. lansoprazole to pantoprazole IV daily as long as he is NPO. (6) Benign prostatic hyperplasia: Code(s): N40.0 - Benign prostatic hyperplasia without lower urinary tract symptoms Status: Acute Assessment and Plan: * Bladder scan x1 then p.r.n. to rule out retention and continue tamsulosin. * Urology consultation * Continue Tamsulosin * No changes/concerns (7) Severe protein-calorie malnutrition: Code(s): E43 - Unspecified severe protein-calorie malnutrition Status: Acute Assessment and Plan: - Consult dietary, appreciate further recommendations Time Spent With Patient Time: 28 minutes Time with patient: 25 - 35 minutes Subjective Date/time seen: 08/22/24 09:48 Interval history: Rylan Caro is a 68 year old male with HTN, hyperlipidemia, BPH , and Villalobos esophagus who was directly admitted to the hospital today under the general surgery service for treatment of abdominal abscess. 08/20/2024 Pt sitting comfortably at bedside. Denies any CP, SOB, n/v at this time. Still has some slight abdominal tenderness at the drain site, but otherwise patient reports continued improved pain. Patient continues to eat well. General surgery to order RUQ ultrasound and upper GI with small-bowel follow-through today for other possible sources of abdominal infection. 08/21/2024 Patient is still doing okay. Patient is still having diarrhea however is denying any chest pain, shortness a breath, nausea, vomiting, diarrhea constipation. Labs and vital signs appear stable. 08/22/2024 Patient states he is doing okay today. Patient states that he has been having less diarrhea. He denies any chest pain, shortness a breath, nausea, vomiting, diarrhea constipation. Patient states that he is ready to go home and is excited about going home he is concerned about having the drain however is okay with that at this time. Review of Systems Review of Systems: 12 systems were reviewed and are negativ e except for as per HPI. All systems reviewed & are unremarkable except as noted in HPI and below Exam Narrative: General: Mildly ill-appearing male supine in bed. Weight: 78 kg. BMI: 24.0. HEENT: PERRL, EOMI. Sclera anicteric. Tacky mucous membranes. Neck: Supple. Respiratory: Clear to auscultation. Cardiovascular: Regular rate and rhythm with S1-S2. Gastrointestinal: Slight abdominal tenderness to palpitation in RLQ, near drain site. Abdomen is soft with slightly hypoactive bowel sounds. IR placed drain contains bloody colored fluid. Skin: Warm and dry. Generalized pallor. Extremities: No cyanosis, clubbing, or edema. Radial and pedal pulses intact. Neurological: Alert. Cranial nerves 2-12 are grossly intact. No gross focal deficits to casual conversation. Psychiatric: Pleasant and cooperative with normal mood and affect. Objective Data Vital Signs Vital Signs: Vital Signs - 24 hr 08/21/24 10:15 08/21/24 10:36 08/21/24 14:00 Temperature 97.8 F Pulse Rate 68 71 Respiratory Rate 16 Blood Pressure 128/77 Pulse Oximetry 97 Oxygen Delivery Room Air 08/21/24 20:00 08/21/24 20:33 08/22/24 06:00 Temperature 97.5 F L 97.3 F L Pulse Rate 74 64 Respiratory Rate 18 18 Blood Pressure 129/67 131/60 Pulse Oximetry 100 100 Oxygen Delivery Room Air 08/22/24 08:22 08/22/24 08:30 Temperature Pulse Rate 64 Respiratory Rate Blood Pressure Pulse Oximetry Oxygen Delivery Room Air Intake/Output Intake/Output: Intake & Output 08/19/24 08/20/24 08/21/24 08/22/24 23:59 23:59 23:59 23:59 Intake Total 1130 1480 1430 200 Output Total 1 50 10 Balance 1129 1480 1380 190 Meds/Results Medications: Active Medications Generic Name Dose Route Start Last Admin Trade Name Freq PRN Reason Stop Dose Admin Acetaminophen 500 mg 08/16/24 17:05 Acetaminophen 500 Mg Tablet PO Q6H PRN Pain Rated 1-3 Fentanyl Citrate 12.5 mcg 08/16/24 09:16 Fentanyl Citrate Inj (*Crx) 100 Mcg/2 Ml Vial IV PUSH Q2H PRN Breakthrough Pain Rated 4-6 or NPO Fentanyl Citrate 25 mcg 08/16/24 09:16 Fentanyl Citrate Inj (*Crx) 100 Mcg/2 Ml Vial IV PUSH Q2H PRN Breakthrough Pain Rated 7-10 or NPO Hydrochlorothiazide 12.5 mg 08/17/24 09:00 08/22/24 08:22 Hydrochlorothiazide 12.5 Mg Capsule PO 12.5 mg DAILY JORDY Administration Ibuprofen 800 mg in 200 mls @ 400 mls/hr 08/16/24 09:16 Caldolor 800 Mg/200 Ml IVPB Q6H PRN Breakthrough Pain Rated 1-3 or NPO Piperacillin Sod/Tazobactam Sod 4.5 gm in 100 mls @ 200 mls/hr 08/16/24 15:00 08/22/24 08:52 Zosyn 4.5 Gm/Ns 100 Ml IVPB Infused Q6H JORDY Infusion Losartan Potassium 25 mg 08/17/24 09:00 08/22/24 08:22 Losartan Potassium 25 Mg Tablet BY MOUTH 25 mg DAILY JORDY Administration Metoprolol Succinate 50 mg 08/17/24 09:00 08/22/24 08:22 Metoprolol Succinate Ext Rel 50 Mg Tabcr PO 50 mg DAILY JORDY Administration Naloxone HCl 0.1 mg 08/16/24 09:16 Naloxone Hcl 0.4 Mg/Ml Vial IV PUSH Q2M PRN Opiate Reversal Nonform Lansoprazole 1 each 08/18/24 08:25 08/22/24 05:[address] Cap PO 09/17/24 08:24 1 each DAILY@0630 JORDY Administration Ondansetron HCl 4 mg 08/16/24 09:16 Ondansetron Inj 4 Mg/2 Ml Vial IV PUSH Q4H PRN Nausea And Vomiting Oxycodone/Acetaminophen 1 tablet 08/16/24 17:05 Oxycodone/Acetaminophen (*Crx) 5-325 Mg Tablet PO Q4H PRN Pain Rated 4-6 Potassium Chloride 20 meq 08/17/24 09:00 08/22/24 08:22 Potassium Chloride 20 Meq Er Tablet PO 20 meq DAILY JORDY Administration Simvastatin 20 mg 08/17/24 09:00 08/22/24 08:22 Simvastatin 20 Mg Tablet PO 20 mg DAILY JORDY Administration Sodium Chloride 10 ml 08/17/24 14:00 08/22/24 05:33 Central Line Flush IV PUSH 10 ml Q8HR JORDY Administration Sodium Chloride 10 ml 08/17/24 11:43 Central Line Flush IV PUSH PRN PRN with TPN bag changes Sodium Chloride 20 ml 08/17/24 11:43 08/19/24 05:57 Central Line Flush IV PUSH 20 ml PRN PRN Administration after blood draws Tamsulosin HCl 0.4 mg 08/17/24 09:00 08/22/24 08:22 Tamsulosin Hcl 0.4 Mg Capsule PO 0.4 mg QAM JORDY Administration Vitamin D 125 mcg 08/22/24 09:00 08/22/24 08:22 Cholecalciferol (Vitamin D3) 125 Mcg (5,000 Units) Tablet BY MOUTH 125 mcg DAILY JORDY Administration Vitamin E 400 unit 08/19/24 09:00 08/21/24 10:35 Vitamin E 400 Unit Capsule PO 400 unit MoWeFr@0900 JORDY Administration Radiology Results: ITS Impressions Catheter Placement CT 08/16/24 14:34 IMPRESSION: 1. Successful CT-guided right lower quadrant abscess drainage catheter placement. 2. 50 mL fluid was sent for aerobic and anaerobic cultures. 3. The catheter will be managed by Dr. Huang. Renal Ultrasound 08/17/24 11:18 IMPRESSION: 1. Unchanged 7 mm nonobstructing stone at the lower pole the left kidney and mild left hydronephrosis. Enema w/Water Soluble 08/17/24 14:11 IMPRESSION: 1. Patent right ileocolic anastomosis in the right abdomen without evident extraperitoneal leakage of contrast. 2. Diverticulosis along the sigmoid colon. 3. Cholelithiasis. 4. Left nephrolithiasis. 4. Right lower quadrant percutaneous abscess drain. Abdomen/Pelvis CT 08/20/24 07:09 Impression: Status post interval percutaneous drainage of previously noted large abscess which is markedly improved. Probable small residual abscess present. Correlate with tube output. Left hydronephrosis with nonobstructing left lower pole renal stone. Cholelithiasis. Stable small to moderate right pleural effusion. Abdomen Ultrasound 08/21/24 08:59 IMPRESSION: Cholelithiasis, without ultrasound evidence of cholecystitis. Hepatomegaly, unchanged Hepatobiliary Scan Nuclear Medicine 08/21/24 10:00 IMPRESSION: 1. Normal HIDA scan. Upper GI Series 08/21/24 11:05 IMPRESSION: 1. Transit time to the ileocolic anastomosis with 15 minutes with no evident anastomotic leak. 2. Cholelithiasis. 3. Expected appearance of the right lower quadrant percutaneous abscess drain. Labs Labs: Laboratory Results - last 24 hr 08/21/24 08/22/24 10:52 05:44 WBC 8.1 RBC 3.57 L Hgb 9.7 L Hct 31.3 L MCV 87.7 MCH 27.2 MCHC 31.0 L RDW 17.6 H Plt Count 621 H MPV 9.6 Immature Gran % (Auto) 0.6 H Neut % (Auto) 66.4 Lymph % (Auto) 20.5 Tensas % (Auto) 7.6 Eos % (Auto) 4.5 H Baso % (Auto) 0.4 Lymph # (Auto) 1.65 Tensas # (Auto) 0.6 Eos # (Auto) 0.4 H Baso # (Auto) 0.0 Abs Immat Gran (auto) 0.05 H Absolute Neuts (auto) 5.4 Absolute Nucleated RBC 0.000 Nucleated RBC % 0.0 Sodium 135 L Potassium 3.6 Chloride 103 Carbon Dioxide 30 Anion Gap 2 L BUN 9 Creatinine 0.61 L Estim Creat Clear Calc 102 Estimated GFR > 60 Glucose 75 Calcium 8.4 Total Bilirubin 0.2 AST 31 ALT 24 Alkaline Phosphatase 177 H Total Protein 6.0 L Albumin 2.7 L Urine Creatinine < 3.2 Quality VTE Prophylaxis VTE prophylaxis: mechanical ordered
== END 2024-08-22 10:50 | disposition home or self-care (01) | DRG 602 ==
LOC: ANH3MED 09:48
PROVIDERS: Nurse Practitioner; Nurse Practitioner Family; Radiology Diagnostic Radiology; Admitting Provider Surgery; PCP Family Medicine; Visit Provider Surgery
PROC: 0W9G30Z Drainage of Peritoneal Cavity with Drainage Device, Percutaneous Approach (ICD-10-PCS; CPT 75989; principal; 2024-08-16 12:30)
DX: L02.211 Cutaneous abscess of abdominal wall (principal); E43 Unspecified severe protein-calorie malnutrition; K65.1 Peritoneal abscess; N13.8 Other obstructive and reflux uropathy; N13.30 Unspecified hydronephrosis; T81.43XA Infection following a procedure, organ and space surgical site, initial encounter; B96.20 Unspecified Escherichia coli [E. coli] as the cause of diseases classified elsewhere; B96.89 Other specified bacterial agents as the cause of diseases classified elsewhere; B95.4 Other streptococcus as the cause of diseases classified elsewhere; E78.5 Hyperlipidemia, unspecified; I10 Essential (primary) hypertension; K22.70 Barrett's esophagus without dysplasia; K80.20 Calculus of gallbladder without cholecystitis without obstruction; K21.9 Gastro-esophageal reflux disease without esophagitis; N40.1 Benign prostatic hyperplasia with lower urinary tract symptoms; R19.7 Diarrhea, unspecified; Z90.49 Acquired absence of other specified parts of digestive tract; Z68.24 Body mass index [BMI] 24.0-24.9, adult
CPT/HCPCS: 36415; 36569; 74177; 74240; 74248; 74270; 75989; 76705; 76775; 78226; 80048; 80053; 82570; 82948; 83735; 84100; 84466; 84478; 85025; 85027; 85610; 85730; 86140; 87070; 87075; 87186; 87205; A9270; A9537; C1729; C1751; C1769; J2250; J2470; J2543; J3010; Q9967

== ENCOUNTER 2024-09-05 09:27 | Outpatient (CLI) | payer MEDICARE, SELFPAY ==
--- OUTSIDE RECORDS SUMMARY | 2024-09-05 09:27 | XMS_ITS | Encounter Summary ---
Author Organization [facility] Address 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
--- OUTSIDE RECORDS SUMMARY | 2024-09-05 09:27 | XMS_ITS | Continuity of Care Document ---
Author Organization [facility] Address [address] [place] [address] Phone Care Team Providers Care Behavioral Health Care Manager Name Role Phone Administrative, Provider Unavailable Unavail [...] Date Provider Providers Copied on Encounter [facility], [address] [place] [address], [id number], [place] tel:[phone] [facility] No Information 2 Administrati ve Provider. [address] [facility], [address], [place], [place], [id number], [place]. tel:[phone] Office/outpa tient visit,est, mod [facility], [address], [id number], [place] tel:[phone] [facility] ROTATOR CUFF RUPTURESPRAIN SUPRASPINATUSS PRAIN INFRASPINATUS 2 Darwin Calzada. [address] [address], [place], [place], [id number], [place]. tel:[phone] [facility] [facility], [address] [address], [place], [place], [id number], [place] tel:[phone] [facility] No Information 2 Administrati ve Provider. [address] [address], [place], [place], [id number], [place]. tel:[phone] Office/outpa [place]ient visit,est, [facility] [employer] [facility], [address], [id number], [place] tel:[phone] [facility] ROTATOR CUFF RUPTURESPRAIN SUPRASPINATUS 1 Darwin Calzada. [address] [address], [place], [place], [id number], [place]. tel:[phone] Office/outpa [place]ient visit,est, [facility], [address] [address], [place], [place], [id number], [place] tel:[phone] [facility] ROTATOR CUFF RUPTURESPRAIN SUPRASPINATUSS PRAIN INFRASPINATUS 1 Darwin Calzada. [address] [address], [place], [place], [id number], [place]. tel:[phone] Office consultation , moderate [facility], [address], [id number], [place] tel:[phone] [facility] [employer] [facility] ROTATOR CUFF RUPTUREBICEPS TENDON RUPTURESPRAIN SUPRASPINATUSB ICIPITAL TENOSYNOVITIS 1 Darwin Calzada. [address] [address], [place], [place], [id number], [place]. tel:[phone] Family History Family Member Type Diagnosis Age [...]
--- OUTSIDE RECORDS SUMMARY | 2024-09-05 09:27 | XMS_ITS | Clinical Summary ---
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
--- OUTSIDE RECORDS SUMMARY | 2024-09-05 10:07 | XMS_ITS | Continuity of Care Document ---
Author Organization [facility] Address [address] [facility] [address] [place] [address] Phone Care Team Providers Care Head Of Business Development Name Role Phone Administrative, Provider Unavailable Unavail [...] Date Provider Providers Copied on Encounter [facility], [address] [place] [address], [id number], [place] tel:[phone] [facility] No Information 2 Administrati ve Provider. [address] [facility], [address], [place], [place], [id number], [place]. tel:[phone] Office/outpa tient visit,est, mod [facility], [address], [id number], [place] tel:[phone] [facility] ROTATOR CUFF RUPTURESPRAIN SUPRASPINATUSS PRAIN INFRASPINATUS 2 Darwin Calzada. [address] [address], [place], [place], [id number], [place]. tel:[phone] [facility], [address] [address], [place], [place], [id number], [place] tel:[phone] [facility] No Information 2 Administrati ve Provider. [address] [address], [place], [place], [id number], [place]. tel:[phone] Office/outpa [place]ient visit[place]est, [facility], [address], [id number], [place] tel:[phone] [facility] ROTATOR CUFF RUPTURESPRAIN SUPRASPINATUS 1 Darwin Calzada. [address] [address], [place], [place], [id number], [place]. tel:[phone] Office/outpa [place]ient visit,est, [facility], [address] [address], [place], [place], [id number], [place] tel:[phone] [facility] ROTATOR CUFF RUPTURESPRAIN SUPRASPINATUSS PRAIN INFRASPINATUS 1 Darwin Calzada. [address] [address], [place], [place], [id number], [place]. tel:[phone] Office consultation , moderate [facility], [address], [id number], [place] tel:[phone] [facility] ROTATOR CUFF RUPTUREBICEPS TENDON RUPTURESPRAIN SUPRASPINATUSB ICIPITAL TENOSYNOVITIS 1 Darwin Calzada. [address] [address], [place], [place], [id number], [place]. tel:[phone] Family History Family Member Type Diagnosis Age [...]
--- OUTSIDE RECORDS SUMMARY | 2024-09-05 10:07 | XMS_ITS | Encounter Summary ---
Author Organization [facility] Address 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
--- OUTSIDE RECORDS SUMMARY | 2024-09-05 10:07 | XMS_ITS | Clinical Summary ---
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
[2024-09-05 10:17] LABS: Basophils Percent Auto 0.3 % (0.2-1.2); Eosinophils Absolute Auto 0.2 K/mm3 (0-0.3); Eosinophils Percent Auto 3.7 % (0-4.4); Hematocrit 36.2 % (42.0-52.0); Hemoglobin 11.2 g/dL (14.0-18.0); Immature Granulocyte Absolute 0.02 K/mm3 (0.00-0.031); Immature Granulocyte Percent A 0.3 % (0-0.5); Lymphocytes Absolute Auto 1.14 K/mm3 (0.9-3.2); Lymphocytes Percent Auto 18.9 % (18.3-44.2); Mean Corpuscular HGB Conc 30.9 g/dl (32-36); Mean Corpuscular Hemoglobin 27.5 pg (26-34); Mean Corpuscular Volume 88.7 fl (80-100); Mean Platelet Volume 11.1 fl (7.4-10.4); Monocytes Absolute Auto 0.6 K/mm3 (0.1-0.6); Monocytes Percent Auto 9.3 % (2.6-8.5); Neutrophils Absolute Auto 4.1 K/mm3 (1.3-6.7); Neutrophils Percent Auto 67.5 % (45.5-73.1); Platelet Count Result 311 k/mm3 (150-375); Red Blood Count 4.08 M/mm3 (4.6-6.20); Red Cell Distribution Width 20.5 % (11.5-14.5)
== END 2024-09-05 09:28 | disposition home or self-care (01) ==
PROVIDERS: PCP Family Medicine; Visit Provider Surgery
DX: D64.9 Anemia, unspecified (principal)
CPT/HCPCS: 36415; 85025

== ENCOUNTER 2024-11-06 09:27 | Outpatient (CLI) | payer MEDICARE, SELFPAY ==
--- OUTSIDE RECORDS SUMMARY | 2024-11-06 09:34 | XMS_ITS | Continuity of Care Document ---
Author Organization [facility] Address [address] [facility] [address] [place] [address] Phone Care Team Providers Care Data Center Solutions Architect Name Role Phone Administrative, Provider Unavailable Unavail [...] Date Provider Providers Copied on Encounter [facility], [address] [place] [address], [id number], [place] tel:[phone] [facility] No Information 2 Administrati ve Provider. [address] [facility], [address], [place], [place], [id number], [place]. tel:[phone] Office/outpa tient visit,est, mod [facility], [address], [id number], [place] tel:[phone] [facility] ROTATOR CUFF RUPTURESPRAIN SUPRASPINATUSS PRAIN INFRASPINATUS 2 Darwin Calzada. [address] [address], [place], [place], [id number], [place]. tel:[phone] [facility], [address] [address], [place], [place], [id number], [place] tel:[phone] [facility] No Information 2 Administrati ve Provider. [address] [address], [place], [place], [id number], [place]. tel:[phone] Office/outpa tient visit,est, [facility], [address], [id number], [place] tel:[phone] [facility] ROTATOR CUFF RUPTURESPRAIN SUPRASPINATUS 1 Darwin Calzada. [address] [address], [place], [place], [id number], [place]. tel:[phone] Office/outpa tient visit,est, [facility], [address] [address], [place], [place], [id number], [place] tel:[phone] [facility] ROTATOR CUFF RUPTURESPRAIN SUPRASPINATUSS PRAIN INFRASPINATUS 1 Darwin Calzada. [address] [address], [place], [place], [id number], [place]. tel:[phone] Office consultation , moderate [facility], [address], [id number], [place] tel:[phone] [facility] ROTATOR CUFF RUPTUREBICEPS TENDON RUPTURESPRAIN SUPRASPINATUSB ICIPITAL TENOSYNOVITIS 1 Darwin Calzada. [address] [address], [place], [place], [id number], [place]. tel:[phone] Family History Family Member Type Diagnosis Age [...]
--- OUTSIDE RECORDS SUMMARY | 2024-11-06 09:34 | XMS_ITS | Clinical Summary ---
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
--- OUTSIDE RECORDS SUMMARY | 2024-11-06 09:34 | XMS_ITS | Encounter Summary ---
Author Organization [facility] Address 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
[2024-11-06 10:22] LABS: Hematocrit 41.8 % (42.0-52.0); Hemoglobin 13.9 g/dL (14.0-18.0); Immature Granulocyte Percent A 0.3 % (0-0.5); Lymphocytes Absolute Auto 1.34 K/mm3 (0.9-3.2); Mean Corpuscular HGB Conc 33.3 g/dl (32-36); Mean Corpuscular Hemoglobin 30.0 pg (26-34); Mean Corpuscular Volume 90.1 fl (80-100); Nucleated Red Blood Cells Absolute Auto 0.000 K/mm3 (0.0-0.012); Nucleated Red Blood Cells Perc 0.0 % (0.0-0.2); Platelet Count Result 215 k/mm3 (150-375); Red Blood Count 4.64 M/mm3 (4.6-6.20); White Blood Count 7.8 K/mm3 (4.5-10.0)
== END 2024-11-06 09:28 | disposition home or self-care (01) ==
PROVIDERS: PCP Family Medicine; Visit Provider Surgery
DX: D64.9 Anemia, unspecified (principal)
CPT/HCPCS: 36415; 85025